=== PATIENT | female | born 1950 | race Caucasian/White ===

== ENCOUNTER → 2016-06-30 | Outpatient (CLI) | payer MEDICARE ==
--- NOTE | 2016-07-03 09:08 | MM ---
Reason for exam: screening (asymptomatic). Last mammogram was performed 1 year and 1 month ago. History: Patient is postmenopausal. Family history of breast cancer in sister at age 50 and breast cancer in maternal aunt at age 36. Stereotactic core biopsy of the right breast, 2010. Physical Findings: A clinical breast exam by your physician is recommended on an annual basis and results should be correlated with mammographic findings. MG 3D Screening Mammo W/Cad Bilateral CC and MLO view(s) were taken. Prior study comparison: June 10, 2015, mammogram, performed at [facility]. June 02, 2014, mammogram, performed at [facility]. The breast tissue is almost entirely fat. There is no discrete abnormality. No significant changes when compared with prior studies. ASSESSMENT: Negative, BI-RAD 1 RECOMMENDATION: Routine screening mammogram of both breasts in 1 year.
== END | disposition home or self-care (01) ==
LOC: RADMAMWWP 10:37
PROVIDERS: ATTEND Family Medicine
DX: Z12.31 Encounter for screening mammogram for malignant neoplasm of breast (principal)
CPT/HCPCS: 77063; G0202

== ENCOUNTER → 2017-07-12 | Outpatient (CLI) | payer MEDICARE ==
--- NOTE | 2017-07-13 12:09 | MM ---
Reason for exam: screening (asymptomatic). Last mammogram was performed 1 year ago. History: Patient is postmenopausal. Family history of breast cancer in sister at age 50 and breast cancer in maternal aunt at age 36. Stereotactic core biopsy of the right breast, 2010. Physical Findings: A clinical breast exam by your physician is recommended on an annual basis and results should be correlated with mammographic findings. MG 3D Screening Mammo W/Cad Bilateral CC and MLO view(s) were taken. Prior study comparison: June 30, 2016, bilateral MG 3d screening mammo w/cad. June 10, 2015, mammogram, performed at [facility]. There are scattered fibroglandular densities. Benign calcifications in the right breast. No suspicious abnormality. ASSESSMENT: Benign, BI-RAD 2 RECOMMENDATION: Routine screening mammogram of both breasts in 1 year.
== END | disposition home or self-care (01) ==
LOC: RADMAMWWP 08:16
PROVIDERS: ATTEND Family Medicine
DX: Z12.31 Encounter for screening mammogram for malignant neoplasm of breast (principal)
CPT/HCPCS: 77063; 77067

== ENCOUNTER → 2018-07-23 | Outpatient (CLI) | payer MEDICARE ==
--- NOTE | 2018-07-23 11:14 | MM ---
Reason for exam: screening (asymptomatic). Last mammogram was performed 1 year ago. History: Patient is postmenopausal. Family history of breast cancer in sister at age 50 and breast cancer in maternal aunt at age 36. Stereotactic core biopsy of the right breast, 2010. Physical Findings: A clinical breast exam by your physician is recommended on an annual basis and results should be correlated with mammographic findings. MG 3D Screening Mammo W/Cad Bilateral CC and MLO view(s) were taken. Prior study comparison: July 12, 2017, bilateral MG 3d screening mammo w/cad. June 30, 2016, bilateral MG 3d screening mammo w/cad. There are scattered fibroglandular densities. There are benign appearing round dystrophic calcifications bilaterally. There is chronic nodularity in the left breast. There is no discrete abnormality. ASSESSMENT: Benign, BI-RAD 2 RECOMMENDATION: Routine screening mammogram of both breasts in 1 year.
== END | disposition home or self-care (01) ==
LOC: RADMAMWWP 07:27
PROVIDERS: ATTEND Family Medicine
DX: Z12.31 Encounter for screening mammogram for malignant neoplasm of breast (principal)
CPT/HCPCS: 77063; 77067

== ENCOUNTER → 2019-08-07 | Outpatient (CLI) | payer MEDICARE ==
--- NOTE | 2019-08-07 12:08 | MM ---
Reason for exam: screening (asymptomatic). Last mammogram was performed 1 year ago. History: Patient is postmenopausal. Family history of breast cancer in sister at age 50 and breast cancer in maternal aunt at age 36. Stereotactic core biopsy of the right breast, 2010. Physical Findings: A clinical breast exam by your physician is recommended on an annual basis and results should be correlated with mammographic findings. MG 3D Screening Mammo W/Cad Bilateral CC and MLO view(s) were taken. Prior study comparison: July 23, 2018, bilateral MG 3d screening mammo w/cad. July 12, 2017, bilateral MG 3d screening mammo w/cad. There are scattered fibroglandular densities. Finding: There are typically benign dystrophic, round, grouped/clustered calcifications in the right breast. There is a chronic nodularity in the left breast. There is no discrete abnormality. ASSESSMENT: Benign, BI-RAD 2 RECOMMENDATION: Routine screening mammogram of both breasts in 1 year.
== END | disposition home or self-care (01) ==
LOC: RADMAMWWP 11:30
PROVIDERS: ATTEND Family Medicine
DX: Z12.31 Encounter for screening mammogram for malignant neoplasm of breast (principal)
CPT/HCPCS: 77063; 77067

== ENCOUNTER → 2020-11-02 | Outpatient (CLI) | payer MEDICARE ==
--- NOTE | 2020-11-04 09:29 | MM ---
Reason for exam: screening (asymptomatic). Last mammogram was performed 1 year and 3 months ago. History: Patient is postmenopausal. Family history of breast cancer in sister at age 50 and breast cancer in maternal aunt at age 36. Stereotactic core biopsy of the right breast, 2010. Physical Findings: A clinical breast exam by your physician is recommended on an annual basis and results should be correlated with mammographic findings. MG 3D Screening Mammo W/Cad Bilateral CC and MLO view(s) were taken. Prior study comparison: August 07, 2019, bilateral MG 3d screening mammo w/cad. July 23, 2018, bilateral MG 3d screening mammo w/cad. There are scattered fibroglandular densities. ASSESSMENT: Negative, BI-RAD 1 RECOMMENDATION: Routine screening mammogram of both breasts in 1 year.
== END | disposition home or self-care (01) ==
LOC: RADMAMWWP 09:27
PROVIDERS: ATTEND Family Medicine
DX: Z12.31 Encounter for screening mammogram for malignant neoplasm of breast (principal); Z78.0 Asymptomatic menopausal state; Z80.3 Family history of malignant neoplasm of breast
CPT/HCPCS: 77063; 77067

== ENCOUNTER → 2021-11-30 | Outpatient (CLI) | payer MEDICARE ==
--- NOTE | 2021-12-02 07:30 | MM ---
Reason for Exam: Screening (asymptomatic). Last mammogram was performed 1 year(s) and 1 month(s) ago. Patient History: Menarche at age 10. First Full-Term at age 16. Postmenopausal. 2010, Stereotactic Core Biopsy on the Right side. Maternal aunt had breast cancer, age 36. Sister had breast cancer, age 50. Risk Values: Arlen 5 year model risk: 3.9%. NCI Lifetime model risk: 9.3%. Prior Study Comparison: 07/23/2018 Bilateral Screening Mammogram, [facility]. 08/07/2019 Bilateral Screening Mammogram, [facility]. 11/02/2020 Bilateral Screening Mammogram, [facility]. Tissue Density: There are scattered fibroglandular densities. Findings: Analyzed By CAD. There is no suspicious group of microcalcifications or new suspicious mass in either breast. Chronic nodularity in the left breast. No significant change from prior exam. Overall Assessment: Benign, BI-RAD 2 Management: Screening Mammogram of both breasts in 1 year. A clinical breast exam by your physician is recommended on an annual basis and results should be correlated with mammographic findings. Electronically signed and approved by: Harris Reese D.O.
== END | disposition home or self-care (01) ==
LOC: RADMAMWWP 14:23
PROVIDERS: ATTEND Family Medicine
DX: Z12.31 Encounter for screening mammogram for malignant neoplasm of breast (principal); Z78.0 Asymptomatic menopausal state; Z80.3 Family history of malignant neoplasm of breast
CPT/HCPCS: 77063; 77067

== ENCOUNTER 2022-03-24 09:42 | Inpatient (IN) | payer MEDICARE ==
--- NOTE | 2022-03-24 10:00 | ED ---
Back Pain HPI - General Chief Complaint: Back Pain/Injury Stated Complaint: Back pain Time Seen by Provider: 03/24/22 10:00 Source: patient, RN notes reviewed Limitations: no limitations - History of Present Illness Initial Comments: Patient is a 71-year-old female presenting to the emergency room with her spouse with complaints of lower back pain ongoing for approximately 1 week with worsening of her symptoms. She reports that she was carrying some objects up some stairs prior to the event happening but denies falling or twisting awkwardly. She reports that since having the lower back pain she has had significant fatigue without any other symptoms. Her primary care provider did place her on Zithromax for her fatigue and tested her for Covid and influenza which were both negative. She denies any range of motion impairment not limited by pain, numbness tingling, weakness, saddle paresthesia, bowel or bladder incontinence or other red flag symptoms for cauda equina She does report some increase constipation since she has had her back pain. She has past medical and social history significant for hypertension, smoker and daily drinking. - Related Data Home Medications Medication Instructions Recorded Confirmed Acetaminophen Tab [Tylenol Tab] 1,000 mg PO Q6H PRN 03/24/22 03/24/22 Azithromycin [Zithromax Z Pack] See Taper PO DAILY 03/24/22 03/24/22 lisinopriL [Prinivil] 10 mg PO DAILY 03/24/22 03/24/22 Allergies Allergy/AdvReac Type Severity Reaction Status Date / Time No Known Allergies Allergy Verified 03/24/22 11:28 Review of Systems ROS Statement: Those systems with pertinent positive or pertinent negative responses have been documented in the HPI. ROS Other: All systems not noted in ROS Statement are negative. Past Medical History Past Medical History: Hypertension History of Any Multi-Drug Resistant Organisms: None Reported Past Surgical History: Joint Replacement Past Psychological History: No Psychological Hx Reported Smoking Status: Current every day smoker Past Alcohol Use History: Daily Past Drug Use History: None Reported General Exam Limitations: no limitations General appearance: alert, in no apparent distress Head exam: Present: atraumatic, normocephalic, normal inspection Eye exam: Present: normal appearance, PERRL, EOMI. Absent: scleral icterus, conjunctival injection, periorbital swelling ENT exam: Present: normal exam, mucous membranes moist Neck exam: Present: normal inspection, full ROM Respiratory exam: Present: wheezes (expiratory). Absent: respiratory distress, rales, accessory muscle use Cardiovascular Exam: Present: regular rate, tachycardia (mild tachycardia), normal heart sounds. Absent: systolic murmur, diastolic murmur, rubs, gallop, clicks GI/Abdominal exam: Present: soft, normal bowel sounds, other (rounded). Absent: distended, tenderness, guarding, rebound, rigid Rectal exam: Present: deferred Extremities exam: Present: normal inspection, full ROM. Absent: pedal edema, joint swelling Back exam: Present: normal inspection, tenderness. Absent: full ROM (limited by pain) Neurological exam: Present: alert, oriented X3, CN II-XII intact Psychiatric exam: Present: normal affect, normal mood Skin exam: Present: warm, dry, intact, normal color. Absent: rash Course Vital Signs 03/24/22 03/24/22 03/24/22 09:54 12:56 12:58 Temperature 98.1 F 98.8 F Pulse Rate 116 H 168 H Respiratory 22 28 H 32 H Rate Blood Pressure 157/96 O2 Sat by Pulse 97 98 Oximetry Fraction of Inspired Oxygen (FIO2) 03/24/22 03/24/22 03/24/22 13:08 13:15 13:30 Temperature 100.1 F H Pulse Rate 140 H 140 H Respiratory Rate Blood Pressure O2 Sat by Pulse Oximetry Fraction of 28 Inspired Oxygen (FIO2) - Reevaluation(s) Reevaluation #1: Results regarding x-ray discussed with patient and spouse. Spouse verbalizes concern regarding generalized malaise and hypersomnia and patient not being at her baseline health status. With the exception of the generalized malaise and fatigue with excessive sleeping she has no other specific complaints at this time. Back pain improved some with Toradol. Will check CBC CMP and urinalysis along with COVID and flu swabs to evaluate for underlying malaise. Will also give a dose of muscle relaxer to help with back pain. Time: 11:13 Reevaluation #2: Patient now with chills and tremor however afebrile. Increased wheeze noted. CBC reveals elevated WBC with high neutrophils. Still awaiting urinalysis Covid and flu swabs. Will obtain chest x-ray, lactic acid, blood cultures, venous gas and give IV fluid bolus. Will initiate cardiac monitoring. Time: 12:53 Medical Decision Making - Medical Decision Making 71-year-old female presenting with lower back pain without radiculopathy or myelopathy given age will check x-ray to rule out fracture. Will give Toradol for pain and monitor response. No indication for other laboratory studies at this time. X-ray negative for acute findings. Some improvement in back pain with Toradol. Will give dose of Norflex. See course regarding concerns of generalized malaise by spouse and patient. Will check CMP, CBC, Covid and flu swabs and along with urinalysis. As per course patient decompensated with tachypnea and tachycardia without hypoxemia patient given albuterol treatment and placed on BiPAP with improvement of tachycardia and workup improving. Low-grade temperature of 100.1 treated w ith 1 g of Tylenol. Blood cultures lactic acid and venous gas along with proBNP added to laboratory studies. Chest x-ray and EKG obtained. CBC reveals leukocytosis with elevated neutrophils. CMP shows slightly low sodium and bicarbonate levels otherwise stable. Lactic acid elevated at 5.4. Venous pH low at 7.21 with elevated CO2 and bicarbonate. Urinalysis reveals urinary tract infection. Chest x-ray image reviewed along with report showing right lower lobe consolidation consistent with developing pneumonia. Given development of symptoms and worsening on oral Zithromax will treat with Levaquin and Rocephin. ProBNP slightly elevated at 6480 will proceed with [address] Howard involved with care. Dr. Zuniga with [facility] hospitalist called and notified regarding patient's presentation workup and findings. He is accepting of admission to telemetry with continued antibiotic therapy as ordered above. Will place admission orders. Once again case discussed with Dr. Howard. - Lab Data Result diagrams: 03/24/22 11:55 03/24/22 11:55 Lab Results 03/24/22 03/24/22 03/24/22 Range/Units 11:55 11:55 11:55 WBC 23.3 H (3.8-10.6) k/uL RBC 3.68 L (3.80-5.40) m/uL Hgb 12.3 (11.4-16.0) gm/dL Hct 36.4 (34.0-46.0) % MCV 99.0 (80.0-100.0) fL MCH 33.6 (25.0-35.0) pg MCHC 33.9 (31.0-37.0) g/dL RDW 12.7 (11.5-15.5) % Plt Count 438 (150-450) k/uL MPV 8.2 Neutrophils % 94 % Lymphocytes % 2 % Monocytes % 3 % Eosinophils % 0 % Basophils % 0 % Neutrophils # 21.9 H (1.3-7.7) k/uL Lymphocytes # 0.5 L (1.0-4.8) k/uL Monocytes # 0.7 (0-1.0) k/uL Eosinophils # 0.1 (0-0.7) k/uL Basophils # 0.0 (0-0.2) k/uL VBG pH (7.31-7.41) VBG pCO2 (37-51) mmHg VBG HCO3 (24-28) mmol/L Sodium 131 L (137-145) mmol/L Potassium 4.4 (3.5-5.1) mmol/L Chloride 102 (98-107) mmol/L Carbon Dioxide 20 L (22-30) mmol/L Anion Gap 9 mmol/L BUN 24 H (7-17) mg/dL Creatinine 0.89 (0.52-1.04) mg/dL Est GFR (CKD-EPI)AfAm 74 (>60 ml/min/1.73 sqM) Est GFR (CKD-EPI)NonAf 65 (>60 ml/min/1.73 sqM) Glucose 93 (74-99) mg/dL Plasma Lactic Acid Helder (0.7-2.0) mmol/L Calcium 8.1 L (8.4-10.2) mg/dL Total Bilirubin 1.0 (0.2-1.3) mg/dL AST 28 (14-36) U/L ALT 30 (4-34) U/L Alkaline Phosphatase 96 (38-126) U/L Troponin I (0.000-0.034) ng/mL NT-Pro-B Natriuret Pep pg/mL Total Protein 5.5 L (6.3-8.2) g/dL Albumin 2.7 L (3.5-5.0) g/dL Urine Color Yellow Urine Appearance Cloudy H (Clear) Urine pH 5.5 (5.0-8.0) Ur Specific [place] 1.027 (1.001-1.035) Urine Protein 1+ H (Negative) Urine Glucose (UA) Negative (Negative) Urine Ketones 1+ H (Negative) Urine Blood Small H (Negative) Urine Nitrite Positive H (Negative) Urine Bilirubin Negative (Negative) Urine Urobilinogen 2.0 (<2.0) mg/dL Ur Leukocyte Esterase Small H (Negative) Urine RBC 2 (0-5) /hpf Urine WBC 30 H (0-5) /hpf Ur Squamous Epith Cells 3 (0-4) /hpf Urine Bacteria Many H (None) /hpf Urine Mucus Few H (None) /hpf Coronavirus (PCR) (Not Detectd) Influenza Type A RNA (Not Detectd) Influenza Type B (PCR) (Not Detectd) 03/24/22 03/24/22 03/24/22 Range/Units 11:55 11:55 11:55 WBC (3.8-10.6) k/uL RBC (3.80-5.40) m/uL Hgb (11.4-16.0) gm/dL Hct (34.0-46.0) % MCV (80.0-100.0) fL MCH (25.0-35.0) pg MCHC (31.0-37.0) g/dL RDW (11.5-15.5) % Plt Count (150-450) k/uL MPV Neutrophils % % Lymphocytes % % Monocytes % % Eosinophils % % Basophils % % Neutrophils # (1.3-7.7) k/uL Lymphocytes # (1.0-4.8) k/uL Monocytes # (0-1.0) k/uL Eosinophils # (0-0.7) k/uL Basophils # (0-0.2) k/uL VBG pH (7.31-7.41) VBG pCO2 (37-51) mmHg VBG HCO3 (24-28) mmol/L Sodium (137-145) mmol/L Potassium (3.5-5.1) mmol/L Chloride (98-107) mmol/L Carbon Dioxide (22-30) mmol/L Anion Gap mmol/L BUN (7-17) mg/dL Creatinine (0.52-1.04) mg/dL Est GFR (CKD-EPI)AfAm (>60 ml/min/1.73 sqM) Est GFR (CKD-EPI)NonAf (>60 ml/min/1.73 sqM) Glucose (74-99) mg/dL Plasma Lactic Acid Helder (0.7-2.0) mmol/L Calcium (8.4-10.2) mg/dL Total Bilirubin (0.2-1.3) mg/dL AST (14-36) U/L ALT (4-34) U/L Alkaline Phosphatase (38-126) U/L Troponin I (0.000-0.034) ng/mL NT-Pro-B Natriuret Pep 4240 pg/mL Total Protein (6.3-8.2) g/dL Albumin (3.5-5.0) g/dL Urine Color Urine Appearance (Clear) Urine pH (5.0-8.0) Ur Specific [place] (1.001-1.035) Urine Protein (Negative) Urine Glucose (UA) (Negative) Urine Ketones (Negative) Urine Blood (Negative) Urine Nitrite (Negative) Urine Bilirubin (Negative) Urine Urobilinogen (<2.0) mg/dL Ur Leukocyte Esterase (Negative) Urine RBC (0-5) /hpf Urine WBC (0-5) /hpf Ur Squamous Epith Cells (0-4) /hpf Urine Bacteria (None) /hpf Urine Mucus (None) /hpf Coronavirus (PCR) Not Detected (Not Detectd) Influenza Type A RNA Not Detected (Not Detectd) Influenza Type B (PCR) Not Detected (Not Detectd) 03/24/22 03/24/22 03/24/22 Range/Units 11:55 12:59 12:59 WBC (3.8-10.6) k/uL RBC (3.80-5.40) m/uL Hgb (11.4-16.0) gm/dL Hct (34.0-46.0) % MCV (80.0-100.0) fL MCH (25.0-35.0) pg MCHC (31.0-37.0) g/dL RDW (11.5-15.5) % Plt Count (150-450) k/uL MPV Neutrophils % % Lymphocytes % % Monocytes % % Eosinophils % % Basophils % % Neutrophils # (1.3-7.7) k/uL Lymphocytes # (1.0-4.8) k/uL Monocytes # (0-1.0) k/uL Eosinophils # (0-0.7) k/uL Basophils # (0-0.2) k/uL VBG pH 7.21 L (7.31-7.41) VBG pCO2 54 H (37-51) mmHg VBG HCO3 21 L (24-28) mmol/L Sodium (137-145) mmol/L Potassium (3.5-5.1) mmol/L Chloride (98-107) mmol/L Carbon Dioxide (22-30) mmol/L Anion Gap mmol/L BUN (7-17) mg/dL Creatinine (0.52-1.04) mg/dL Est GFR (CKD-EPI)AfAm (>60 ml/min/1.73 sqM) Est GFR (CKD-EPI)NonAf (>60 ml/min/1.73 sqM) Glucose (74-99) mg/dL Plasma Lactic Acid Helder 5.3 H* (0.7-2.0) mmol/L Calcium (8.4-10.2) mg/dL Total Bilirubin (0.2-1.3) mg/dL AST (14-36) U/L ALT (4-34) U/L Alkaline Phosphatase (38-126) U/L Troponin I <0.012 (0.000-0.034) ng/mL NT-Pro-B Natriuret Pep pg/mL Total Protein (6.3-8.2) g/dL Albumin (3.5-5.0) g/dL Urine Color Urine Appearance (Clear) Urine pH (5.0-8.0) Ur Specific [place] (1.001-1.035) Urine Protein (Negative) Urine Glucose (UA) (Negative) Urine Ketones (Negative) Urine Blood (Negative) Urine Nitrite (Negative) Urine Bilirubin (Negative) Urine Urobilinogen (<2.0) mg/dL Ur Leukocyte Esterase (Negative) Urine RBC (0-5) /hpf Urine WBC (0-5) /hpf Ur Squamous Epith Cells (0-4) /hpf Urine Bacteria (None) /hpf Urine Mucus (None) /hpf Coronavirus (PCR) (Not Detectd) Influenza Type A RNA (Not Detectd) Influenza Type B (PCR) (Not Detectd) - EKG Data -: EKG Interpreted by Me EKG Comments: EKG shows sinus tachycardia with short IA interval possible anterior OK with indeterminate age, ventricular rate 133 bpm, IA interval 115 ms, QRS duration 91 ms QT/QTC 291/369 ms IA T axes 44,-8, 42 When compared to previous EKG there are: previous EKG unavailable - Radiology Data Radiology results: report reviewed, image reviewed X-ray lumbosacral spine shows no acute fracture and mild multi-level disc degeneration. One view chest x-ray shows patchy density to right lower lobe reflective of u nderlying infiltrate correlate for developing infiltrate of the right lower lobe. Disposition Clinical Impression: Pneumonia, UTI (urinary tract infection), Sepsis Disposition: ADMITTED IP TO THIS HOSP Condition: Serious Is patient prescribed a controlled substance at d/c from ED?: No Referrals: Dora Radford MD [Primary Care Provider] - 1-2 days Time of Disposition: 14:34
[2022-03-24] MEDS ORDERED: KETOROLAC 15 MG/ML 1 ML VIAL IM STA (10:09)
--- NOTE | 2022-03-24 11:01 | XR ---
EXAMINATION TYPE: XR lumbosacral spine min 4V DATE OF EXAM: 03/24/2022 10:47 AM INDICATION: Patient age:Female; 71 years old; Reason for study: pain; COMPARISON: None TECHNIQUE: Frontal, lateral , bilateral oblique and coned in L5-S1 lateral views of the spine. FINDINGS: No evidence of any acute osseous pathology. No evidence of loss of vertebral body height i s seen. There is normal alignment of the lumbar vertebral bodies. Mild scattered disc space narrowing . Multilevel marginal osteophyte formation throughout the visualized spine. There is facet joint arth ropathy throughout the spine. Scattered at least mild neural foraminal stenosis. Atherosclerosis of t he arterial vasculature. Partial visualization of fixation screw noted. IMPRESSION: 1. No acute fracture. 2. Mild multilevel disc degeneration.
[2022-03-24] MEDS ORDERED: ORPHENADRINE 30 MG/ML 2 ML VIAL IM STA (11:14)
[2022-03-24 12:20] LABS: Basophils % (A) 0 %; Eosinophils # (A) 0.1 k/uL (0-0.7); Eosinophils % (A) 0 %; HCT 36.4 % (34.0-46.0); HGB 12.3 gm/dL (11.4-16.0); Lymphocytes # (A) 0.5 k/uL (1.0-4.8); Lymphocytes % (A) 2 %; MCH 33.6 pg (25.0-35.0); MCHC 33.9 g/dL (31.0-37.0); Mean Platelet Volume 8.2; Monocytes # (A) 0.7 k/uL (0-1.0); Monocytes % (A) 3 %; Neutrophils # (A) 21.9 k/uL (1.3-7.7); Neutrophils % (A) 94 %; Platelet Count 438 k/uL (150-450); RBC 3.68 m/uL (3.80-5.40); RDW 12.7 % (11.5-15.5); WBC 23.3 k/uL (3.8-10.6)
[2022-03-24 12:30] LABS: Albumin 2.7 g/dL (3.5-5.0); Calcium 8.1 mg/dL (8.4-10.2); Potassium 4.4 mmol/L (3.5-5.1); Total Protein 5.5 g/dL (6.3-8.2)
[2022-03-24] MEDS ORDERED: SODIUM CHLORIDE 0.9% 1,000 ML IV STA (12:51)
[2022-03-24] MEDS ORDERED: IPRATROPIUM-ALBUTEROL 3 ML NEB INHALATION STA (12:51)
[2022-03-24] MEDS ORDERED: ACETAMINOPHEN TAB 500 MG TAB PO STA (13:08)
[2022-03-24 13:25] LABS: Appearance,Urine Cloudy (Clear); Bacteria,Urine Many /hpf; Bilirubin,Urine Negative (Negative); Blood,Urine Small (Negative); Color,Urine Yellow; Glucose,Urine (UA) Negative (Negative); Ketones,Urine 1+ (Negative); Leukocyte Esterase,Urine Small (Negative); Mucus,Urine Few /hpf; Nitrite,Urine Positive (Negative); PH, Urine 5.5 (5.0-8.0); Protein,Urine 1+ (Negative); RBC,Urine 2 /hpf (0-5); Specific Gravity,Urine 1.027 (1.001-1.035); Squamous Epithelial Cell,Urine 3 /hpf (0-4); WBC,Urine 30 /hpf (0-5)
[2022-03-24 13:37] LABS: VBG PH 7.21 (7.31-7.41)
--- NOTE | 2022-03-24 13:57 | XR ---
EXAMINATION TYPE: XR chest 1V DATE OF EXAM: 03/24/2022 HISTORY: Shortness of breath. COMPARISON: None. TECHNIQUE: Single view of the chest is submitted. FINDINGS: Demonstrated are scattered senescent parenchymal change. Patchy density right lower lobe may reflect underlying infiltrate. Correlate clinically and progress studies are advised. The heart is stable. Hilar and mediastinal structures are within normal limits. Degenerative changes are seen of the dorsal spine. IMPRESSION: 1. Correlate for developing infiltrate right lower lobe.
[2022-03-24] MEDS ORDERED: LEVOFLOXACIN 500MG-D5W PMX 500 MG in DEXTROSE/WATER 1 100ML.BAG IVPB STA (14:14)
[2022-03-24] MEDS ORDERED: NALOXONE 0.4 MG/ML 1 ML VIAL IV PRN (14:35)
[2022-03-24] MEDS: ACETAMINOPHEN TAB 325 MG TAB PO PRN (18:02)
[2022-03-24 20:37] LABS: Glucose,Whole Blood 75 mg/dL (70-110)
[2022-03-24] MEDS ORDERED: DEXAMETHASONE SOD PHOSPHATE 10 MG/ML 1 ML VIAL IVP STA (20:37)
[2022-03-24] MEDS ORDERED: IPRATROPIUM-ALBUTEROL 3 ML NEB ONE (20:38)
[2022-03-24] MEDS ORDERED: ALBUTEROL NEB (CONC) 2.5 MG/0.5 ML INHALATION ONE (20:38)
[2022-03-24] MEDS ORDERED: IPRATROPIUM-ALBUTEROL 3 ML NEB INHALATION PRN (20:51)
[2022-03-24] MEDS ORDERED: IOPAMIDOL CONTRAST (ORAL USE) VIAL PO PRN (20:52)
--- NOTE | 2022-03-24 21:04 | XR ---
EXAMINATION TYPE: XR chest 1V portable DATE OF EXAM: 03/24/2022 8:54 PM COMPARISON: Chest radiographs from 03/24/2022 earlier TECHNIQUE: XR chest 1V portable Portable AP radiograph of the chest. CLINICAL INDICATION:Female, 71 years old with history of sob, increased RR; FINDINGS: Lungs/Pleura: Right lower airspace opacities more conspicuous on this film. No evidence of pneumothor ax or pleural effusion. Pulmonary vascularity: Unremarkable. Heart/mediastinum: Cardiomediastinal silhouette is enlarged. Musculoskeletal: No acute osseous pathology. IMPRESSION: 1. Bilateral airspace opacities more conspicuous on this examination correlate for pneumonia. 2. Cardiomegaly
--- NOTE | 2022-03-24 21:15 | P.HPIM ---
History of Present Illness H&P Date: 03/24/22 Chief Complaint: Lower back pain Patient is a 71-year-old female with a known history of hypertension presents to ER with complaints of lower back pain and has been worsening for the past 1 week. Patient states that she was carrying some objects up stairs prior to the event happening but denies any fall on standing her mother's. Since that time patient has been having lower back pain and generalized fatigue. Patient was seen by her primary care physician and was started on azithromycin and also tested for COVID influenza which were both negative. Patient almost finished course of antibiotics with Z-Lamin. Denied any lower extremity weakness. No bladder or bowel incontinence. No numbness or tingling in the legs. Patient has been having increased constipation otherwise. Denied any complaints of fever. No cough or sputum production. No nausea vomiting or abdominal pain or diarrhea. Denied leg swelling. While in the hospital patient had lumbar spine x-ray showed no acute fracture. Multilevel disc degeneration. Patient was given a dose of Norflex and Toradol. While in the hospital patient became hypotensive and tachycardic and tachypneic and decompensated. Patient was given albuterol breathing treatment and was placed on BiPAP with improvement in her symptoms. Patient was tachycardic and T-max of 100.1 and tachypneic with respiratory 28. Pulse ox 98% on room air. Patient was given a dose of Levaquin and ceftriaxone also given stress dose ster oid. Chest x-ray showed right lower lobe consolidation correlate for developing pneumonia. Blood cultures and urine cultures were sent. Laboratory data showed WBC 23.3 hemoglobin 12.3 and platelets 438 and neutrophils 21.9 ABG showed pH 7.1 PCO2 54 and bicarb is 21 Sodium 131 potassium 4.4 chloride 102 bicarb is 20 BUN 24 and creatinine 0.89 and lactic acid was 5.3 Calcium 8.1 troponin less than 0.012 proBNP 4240 and albumin 2.7 Urinalysis showed cloudy with 1+ protein 1+ ketones nitrite positive and small leukocyte esterase with elevated WBCs. Coronavirus PCR and influenza a and B PCR not detected. Review of Systems Constitutional: Patient denies any fever or chills . Patient does have generalized weakness. Abdomen: Patient denied any nausea or vomiting or abd. pain Cardiovascular: Patient denies any chest pain or short of breath no palpitations. Respiratory: patient denied any cough . no sputum production. No shortness of breath Neurologic: Patient denied any numbness or tingling headache. Musculoskeletal: Patient denies any complaints of joint swelling or deformity. Lower back pain. Skin: Negative Psychiatric: Negative Endocrine: No heat or cold intolerance. No recent weight gain. Genitourinary: No dysuria or hematuria. All other 14 point ROS negative except the above Past Medical History Past Medical History: Hypertension History of Any Multi-Drug Resistant Organisms: None Reported Past Surgical History: Joint Replacement Past Psychological History: No Psychological Hx Reported Smoking Status: Current every day smoker Past Alcohol Use History: Daily Past Drug Use History: None Reported Medications and Allergies Home Medications Medication Instructions Recorded Confirmed Type Acetaminophen Tab [Tylenol Tab] 1,000 mg PO Q6H PRN 03/24/22 03/24/22 History Azithromycin [Zithromax Z Pack] See Taper PO DAILY 03/24/22 03/24/22 History lisinopriL [Prinivil] 10 mg PO DAILY 03/24/22 03/24/22 History Allergies Allergy/AdvReac Type Severity Reaction Status Date / Time No Known Allergies Allergy Verified 03/24/22 11:28 Physical Exam Vitals: Vital Signs Temp Pulse Pulse Resp BP BP Pulse Ox 03/24/22 20:41 170 H 03/24/22 19:44 98.7 F 120 H 20 113/79 100 03/24/22 18:00 92 18 116/72 100 03/24/22 15:16 03/24/22 15:05 109 H 18 108/73 98 03/24/22 14:18 149 H 18 119/80 98 03/24/22 13:30 140 H 03/24/22 13:15 140 H 03/24/22 13:08 100.1 F H 03/24/22 12:58 32 H 03/24/22 12:56 98.8 F 168 H 28 H 98 03/24/22 09:54 98.1 F 116 H 22 157/96 97 FiO2 03/24/22 20:41 03/24/22 19:44 03/24/22 18:00 03/24/22 15:16 28 03/24/22 15:05 03/24/22 14:18 03/24/22 13:30 03/24/22 13:15 28 03/24/22 13:08 03/24/22 12:58 03/24/22 12:56 03/24/22 09:54 Intake and Output 03/24/22 03/24/22 03/24/22 06:59 14:59 22:59 Output Total 200 Balance -200 Output: Stool 200 Other: Weight 72.575 kg PHYSICAL EXAMINATION: Patient is lying in the bed comfortably, no acute distress, awake alert and oriented.. HEENT: Normocephalic. Neck is supple. Pupils reactive. Nostrils clear. Oral cavity is moist. Neck reveals no JVD, carotid bruits, or thyromegaly. CHEST EXAMINATION: Trachea is central. Symmetrical expansion. Bibasilar diminished sounds. No wheezing. No crackles.. CARDIAC: Normal S1, S2 with no gallops. No murmurs ABDOMEN: Soft. Bowel sounds present. Nontender. No organomegaly. No abdominal bruits. Extremities: reveal no edema. No clubbing or cyanosis Neurologically awake, alert, oriented x3 with well-coordinated movements. No focal deficits noted Skin: No rash or skin lesions. Psychiatric: Coperative. Nonsuicidal, Musculoskeletal: No joint swelling or deformity. Normal range of motion. Results CBC & Chem 7: 03/24/22 11:55 03/24/22 11:55 Labs: Abnormal Lab Results - Last 24 Hours (Table) 03/24/22 03/24/22 03/24/22 Range/Units 11:55 11:55 11:55 WBC 23.3 H (3.8-10.6) k/uL RBC 3.68 L (3.80-5.40) m/uL Neutrophils # 21.9 H (1.3-7.7) k/uL Lymphocytes # 0.5 L (1.0-4.8) k/uL VBG pH (7.31-7.41) VBG pCO2 (37-51) mmHg VBG HCO3 (24-28) mmol/L Sodium 131 L (137-145) mmol/L Carbon Dioxide 20 L (22-30) mmol/L BUN 24 H (7-17) mg/dL Plasma Lactic Acid Helder (0.7-2.0) mmol/L Calcium 8.1 L (8.4-10.2) mg/dL Total Protein 5.5 L (6.3-8.2) g/dL Albumin 2.7 L (3.5-5.0) g/dL Urine Appearance Cloudy H (Clear) Urine Protein 1+ H (Negative) Urine Ketones 1+ H (Negative) Urine Blood Small H (Negative) Urine Nitrite Positive H (Negative) Ur Leukocyte Esterase Small H (Negative) Urine WBC 30 H (0-5) /hpf Urine Bacteria Many H (None) /hpf Urine Mucus Few H (None) /hpf 03/24/22 03/24/22 Range/Units 12:59 12:59 WBC (3.8-10.6) k/uL RBC (3.80-5.40) m/uL Neutrophils # (1.3-7.7) k/uL Lymphocytes # (1.0-4.8) k/uL VBG pH 7.21 L (7.31-7.41) VBG pCO2 54 H (37-51) mmHg VBG HCO3 21 L (24-28) mmol/L Sodium (137-145) mmol/L Carbon Dioxide (22-30) mmol/L BUN (7-17) mg/dL Plasma Lactic Acid Helder 5.3 H* (0.7-2.0) mmol/L Calcium (8.4-10.2) mg/dL Total Protein (6.3-8.2) g/dL Albumin (3.5-5.0) g/dL Urine Appearance (Clear) Urine Protein (Negative) Urine Ketones (Negative) Urine Blood (Negative) Urine Nitrite (Negative) Ur Leukocyte Esterase (Negative) Urine WBC (0-5) /hpf Urine Bacteria (None) /hpf Urine Mucus (None) /hpf Thrombosis Risk Factor Assmnt - DVT/VTE Prophylaxis DVT/VTE Prophylaxis: Pharmacologic Prophylaxis ordered Assessment and Plan Assessment: Sepsis secondary to urinary tract infection Acute urinary tract infection possible pyelonephritis Possible right lower lobe developing pneumonia Lower back pain on admission Elevated BNP. Without other evidence of CHF. Hypertension Ongoing nicotine addiction No prior history of COPD diagnosis DVT prophylax with heparin subcu Plan: Patient was given IV fluid bolus in the ER. Continue with antibiotics ceftriaxone 2 g every 24 hours. Received Levaquin and ceftriaxone in the ER. Follow blood cultures and urine culture report. CT of the abdomen pelvis was ordered. Patient was placed on BiPAP in the ER and will titrate down to oxygen via nasal cannula. Continue pain management with [facility]. 2D echocardiogram due to elevated BNP level. ID will be consulted. Prognosis is guarded at this time. Time with Patient: Greater than 30
[2022-03-24 21:23] LABS: ABG Base Excess -7.8 mmol/L; ABG HCO3 18 mmol/L (21-25); ABG PCO2 30 mmHg (35-45); ABG PH 7.37 (7.35-7.45); ABG PO2 223 mmHg (83-108); ABG TCO2 18 mmol/L (19-24); Allen Test Performed? Yes
[2022-03-24] MEDS ORDERED: SODIUM CHLORIDE 0.9% 1,000 ML IV ONE (21:32)
--- NOTE | 2022-03-24 22:44 | CT ---
EXAMINATION TYPE: CT abdomen pelvis w con DATE OF EXAM: 03/24/2022 COMPARISON: None HISTORY: Abdomen pain CT DLP: 1816.9 mGycm Automated exposure control for dose reduction was used. CONTRAST: Performed with IV Contrast, patient injected with 100cc mL of Isovue 370. Images obtained from the diaphragm to the floor the pelvis with the IV contrast. Lung bases show no pulmonary consolidation. Heart is slightly enlarged. No pericardial effusion. Ther e is hiatal hernia. Stomach has normal size. Liver and spleen are intact. No pancreatic mass. The bile ducts are not dilated. There is no adrenal mass. Left kidney shows significant hydronephrosi s. Left ureter is not significantly dilated. Urinary bladder distends smoothly. There is metal artifa ct from right hip prosthesis that obscures the pelvis. No pelvic mass. There is some gas-distended loops of large bowel in the mid abdomen. Small bowel is not dilated. Uter us is apparently retroverted. Right kidney shows normal size and contour. No right-sided hydronephros is. Appendix not seen. No sign of thickened appendix. There is no mesenteric edema. No ascites. No si gn of free air. The lumbar vertebra appear intact. No compression fracture. There is degenerative hypertrophic spurri ng anteriorly in the mid and lower lumbar spine. The bony pelvis is intact. Proximal left femur and h ip joint are intact. Sacroiliac joints are intact. IMPRESSION: There is moderate left-sided hydronephrosis. Obstructing lesion not seen. This could relate to a uret eropelvic junction obstruction. No significant left renal atrophy. Distended gas-filled large bowel that could be large bowel mild ileus. I do not suspect a mechanical bowel obstruction.
--- NOTE | 2022-03-24 22:48 | CT ---
EXAMINATION TYPE: CT angio chest DATE OF EXAM: 03/24/2022 COMPARISON: None HISTORY: Rule Out PE CT DLP: 1816.9 mGycm Automated exposure control for dose reduction was used. CONTRAST: Performed with IV Contrast, patient injected with 100cc mL of Isovue 370. Images obtained from the thoracic inlet to the diaphragm with the IV contrast. There are Three-D post processed images. Heart is enlarged. No pericardial effusion. There is no mediastinal adenopathy. There are no hilar ma sses. Thoracic aorta is intact. No aneurysm or dissection. There is normal contrast opacification of the pulmonary arteries. No filling defect In the thoracic spine is intact. No compression fracture. Sternum is intact. No evidence of rib fract ure. No evidence of focal bone destruction. There is some spurring in the thoracic spine. IMPRESSION: No evidence of pulmonary embolism. Cardiomegaly. Upper abdominal Limited evaluation shows evidence of left-sided hydronephrosis which is not well eval uated.
[2022-03-24] MEDS: SODIUM CHLORIDE 0.9% 1,000 ML IV SCH (23:39)
[2022-03-24] MEDS: HEPARIN SODIUM,PORCINE/PF 5,000 UNIT/0.5 ML SYRINGE SQ SCH (23:40)
[2022-03-25] MEDS ORDERED: SODIUM CHLORIDE 0.9% 500 ML 500 ML IV ONE (00:26)
[2022-03-25] MEDS ORDERED: LACTULOSE 20 GM/30 ML CUP PO ONE (00:26)
[2022-03-25 00:36] LABS: Basophils % (A) 0 %; Eosinophils % (A) 0 %; HCT 35.1 % (34.0-46.0); HGB 11.3 gm/dL (11.4-16.0); Lymphocytes # (A) 0.2 k/uL (1.0-4.8); Lymphocytes % (A) 1 %; MCHC 32.3 g/dL (31.0-37.0); MCV 102.2 fL (80.0-100.0); Macrocytosis Slight; Mean Platelet Volume 8.8; Monocytes # (A) 0.5 k/uL (0-1.0); Monocytes % (A) 2 %; Neutrophils # (A) 23.6 k/uL (1.3-7.7); Neutrophils % (A) 97 %; Platelet Count 332 k/uL (150-450); RBC 3.44 m/uL (3.80-5.40); RDW 13.2 % (11.5-15.5); WBC 24.5 k/uL (3.8-10.6)
--- NOTE | 2022-03-25 09:40 | P.GSCN ---
History of Present Illness Consult date: 03/25/22 History of present illness: 71-year-old female who was admitted the hospital with back pain. She is found to have possible pneumonia in the right lung as well as a urinary tract infection. She apparently had what was thought to be a viral illness several days ago and was placed on antibiotics. Her pain got bad enough that she came to the emergency room. She had a computed tomography scan of the abdomen that showed some mild hydronephrosis on the left without stone. There may be a congenital UPJ obstruction. She has no urologic history other than a urine infe ctionseveral months ago.there is no previous urologic evaluation. Review of Systems All systems: negative - Constitutional Denies fever, Denies weight loss - EENT Eyes: denies blurred vision Ears, nose, mouth and throat: Denies dysphagia - Cardiovascular Denies chest pain, Denies shortness of breath - Respiratory Denies cough, Denies 7 - Gastrointestinal Reports as per HPI - Genitourinary Genitourinary: Denies dysuria, Denies hematuria - Integumentary Denies rash, Denies unusual bruising - Neurological Denies headaches, Denies syncope - Hematologic/Lymphatic Denies easy bleeding, Denies easy bruising Past Medical History Past Medical History: Hypertension History of Any Multi-Drug Resistant Organisms: None Reported Past Surgical History: Joint Replacement Past Anesthesia/Blood Transfusion Reactions: No Reported Reaction Past Psychological History: No Psychological Hx Reported Smoking Status: Current every day smoker Past Alcohol Use History: Daily Past Drug Use History: None Reported Medications and Allergies Home Medications Medication Instructions Recorded Confirmed Type Acetaminophen Tab [Tylenol Tab] 1,000 mg PO Q6H PRN 03/24/22 03/24/22 History Azithromycin [Zithromax Z Pack] See Taper PO DAILY 03/24/22 03/24/22 History lisinopriL [Prinivil] 10 mg PO DAILY 03/24/22 03/24/22 History Allergies Allergy/AdvReac Type Severity Reaction Status Date / Time No Known Allergies Allergy Verified 03/24/22 11:28 Surgical - Exam Vital Signs Temp Pulse Resp BP Pulse Ox 98.1 F 116 H 22 157/96 97 03/24/22 09:54 03/24/22 09:54 03/24/22 09:54 03/24/22 09:54 03/24/22 09:54 - General well developed, well nourished, no distress - Eyes PERRL - ENT no hearing loss - Neck trachea midline - Respiratory normal expansion, normal respiratory effort - Cardiovascular Rhythm: regular - Abdomen gaseous distention consistent with ileus - Integumentary no rash - Neurologic normal coordination - Musculoskeletal normal posture - Psychiatric oriented to time, oriented to person, oriented to place, speech is normal, memory intact Results - Labs 03/24/22 23:04 03/24/22 11:55 Abnormal Lab Results - Last 24 Hours (Table) 03/24/22 03/24/22 03/24/22 Range/Units 11:55 11:55 11:55 WBC 23.3 H (3.8-10.6) k/uL RBC 3.68 L (3.80-5.40) m/uL Hgb (11.4-16.0) gm/dL MCV (80.0-100.0) fL Neutrophils # 21.9 H (1.3-7.7) k/uL Lymphocytes # 0.5 L (1.0-4.8) k/uL D-Dimer (<0.60) mg/L FEU ABG pCO2 (35-45) mmHg ABG pO2 (83-108) mmHg ABG HCO3 (21-25) mmol/L ABG Total CO2 (19-24) mmol/L ABG O2 Saturation (94-97) % VBG pH (7.31-7.41) VBG pCO2 (37-51) mmHg VBG HCO3 (24-28) mmol/L Sodium 131 L (137-145) mmol/L Carbon Dioxide 20 L (22-30) mmol/L BUN 24 H (7-17) mg/dL Plasma Lactic Acid Helder (0.7-2.0) mmol/L Calcium 8.1 L (8.4-10.2) mg/dL Total Protein 5.5 L (6.3-8.2) g/dL Albumin 2.7 L (3.5-5.0) g/dL Urine Appearance Cloudy H (Clear) Urine Protein 1+ H (Negative) Urine Ketones 1+ H (Negative) Urine Blood Small H (Negative) Urine Nitrite Positive H (Negative) Ur Leukocyte Esterase Small H (Negative) Urine WBC 30 H (0-5) /hpf Urine Bacteria Many H (None) /hpf Urine Mucus Few H (None) /hpf 03/24/22 03/24/22 03/24/22 Range/Units 12:59 12:59 20:58 WBC (3.8-10.6) k/uL RBC (3.80-5.40) m/uL Hgb (11.4-16.0) gm/dL MCV (80.0-100.0) fL Neutrophils # (1.3-7.7) k/uL Lymphocytes # (1.0-4.8) k/uL D-Dimer 4.19 H (<0.60) mg/L FEU ABG pCO2 (35-45) mmHg ABG pO2 (83-108) mmHg ABG HCO3 (21-25) mmol/L ABG Total CO2 (19-24) mmol/L ABG O2 Saturation (94-97) % VBG pH 7.21 L (7.31-7.41) VBG pCO2 54 H (37-51) mmHg VBG HCO3 21 L (24-28) mmol/L Sodium (137-145) mmol/L Carbon Dioxide (22-30) mmol/L BUN (7-17) mg/dL Plasma Lactic Acid Helder 5.3 H* (0.7-2.0) mmol/L Calcium (8.4-10.2) mg/dL Total Protein (6.3-8.2) g/dL Albumin (3.5-5.0) g/dL Urine Appearance (Clear) Urine Protein (Negative) Urine Ketones (Negative) Urine Blood (Negative) Urine Nitrite (Negative) Ur Leukocyte Esterase (Negative) Urine WBC (0-5) /hpf Urine Bacteria (None) /hpf Urine Mucus (None) /hpf 03/24/22 03/24/22 Range/Units 21:20 23:04 WBC 24.5 H (3.8-10.6) k/uL RBC 3.44 L (3.80-5.40) m/uL Hgb 11.3 L (11.4-16.0) gm/dL MCV 102.2 H (80.0-100.0) fL Neutrophils # 23.6 H (1.3-7.7) k/uL Lymphocytes # 0.2 L (1.0-4.8) k/uL D-Dimer (<0.60) mg/L FEU ABG pCO2 30 L (35-45) mmHg ABG pO2 223 H (83-108) mmHg ABG HCO3 18 L (21-25) mmol/L ABG Total CO2 18 L (19-24) mmol/L ABG O2 Saturation 100.0 H (94-97) % VBG pH (7.31-7.41) VBG pCO2 (37-51) mmHg VBG HCO3 (24-28) mmol/L Sodium (137-145) mmol/L Carbon Dioxide (22-30) mmol/L BUN (7-17) mg/dL Plasma Lactic Acid Helder (0.7-2.0) mmol/L Calcium (8.4-10.2) mg/dL Total Protein (6.3-8.2) g/dL Albumin (3.5-5.0) g/dL Urine Appearance (Clear) Urine Protein (Negative) Urine Ketones (Negative) Urine Blood (Negative) Urine Nitrite (Negative) Ur Leukocyte Esterase (Negative) Urine WBC (0-5) /hpf Urine Bacteria (None) /hpf Urine Mucus (None) /hpf Microbiology - Last 24 Hours (Table) 03/24/22 11:55 Urine Culture - Preliminary Urine,Voided Diabetes panel 03/24/22 Range/Units 11:55 Sodium 131 L (137-145) mmol/L Potassium 4.4 (3.5-5.1) mmol/L Chloride 102 (98-107) mmol/L Carbon Dioxide 20 L (22-30) mmol/L BUN 24 H (7-17) mg/dL Creatinine 0.89 (0.52-1.04) mg/dL Glucose 93 (74-99) mg/dL Calcium 8.1 L (8.4-10.2) mg/dL AST 28 (14-36) U/L ALT 30 (4-34) U/L Alkaline Phosphatase 96 (38-126) U/L Total Protein 5.5 L (6.3-8.2) g/dL Albumin 2.7 L (3.5-5.0) g/dL Calcium panel 03/24/22 Range/Units 11:55 Calcium 8.1 L (8.4-10.2) mg/dL Albumin 2.7 L (3.5-5.0) g/dL Pituitary panel 03/24/22 Range/Units 11:55 Sodium 131 L (137-145) mmol/L Potassium 4.4 (3.5-5.1) mmol/L Chloride 102 (98-107) mmol/L Carbon Dioxide 20 L (22-30) mmol/L BUN 24 H (7-17) mg/dL Creatinine 0.89 (0.52-1.04) mg/dL Glucose 93 (74-99) mg/dL Calcium 8.1 L (8.4-10.2) mg/dL Adrenal panel 03/24/22 Range/Units 11:55 Sodium 131 L (137-145) mmol/L Potassium 4.4 (3.5-5.1) mmol/L Chloride 102 (98-107) mmol/L Carbon Dioxide 20 L (22-30) mmol/L BUN 24 H (7-17) mg/dL Creatinine 0.89 (0.52-1.04) mg/dL Glucose 93 (74-99) mg/dL Calcium 8.1 L (8.4-10.2) mg/dL Total Bilirubin 1.0 (0.2-1.3) mg/dL AST 28 (14-36) U/L ALT 30 (4-34) U/L Alkaline Phosphatase 96 (38-126) U/L Total Protein 5.5 L (6.3-8.2) g/dL Albumin 2.7 L (3.5-5.0) g/dL - Imaging CT scan - abdomen: report reviewed CT scan - pelvis: report reviewed Assessment and Plan Assessment: impression: Urinary tract infection. Mild hydronephrosis left, probable congenital possible pneumonia Recommendations: The cultures obtained may be of limited value given that she was antibiotics before she came in the hospital. I agree with broad-spectrum antibiotics. Whether the left hydronephrosis will need to be addressed in the future is yet to be determined. We will follow.
[2022-03-25] MEDS: HEPARIN SODIUM,PORCINE/PF 5,000 UNIT/0.5 ML SYRINGE SQ SCH ×2 (09:51→16:41)
[2022-03-25] MEDS: SODIUM CHLORIDE 0.9% 1,000 ML IV SCH ×2 (09:51→14:34)
--- NOTE | 2022-03-25 12:27 | P.GSCN ---
History of Present Illness Consult date: 03/25/22 Reason for Consult: Abdominal pain History of present illness: 71-year-old female presents to the ER yesterday complaining of lower back pain f or the last week. The patient says because of that pain she was less active. No good bowel movements for the last 6 days. She has been passing flatus. She feels bloated. Some nausea. No rectal bleeding or melena. Patient states she has a urinary infection. She underwent CT abdomen and pelvis which shows distended small and large bowel loops consistent with ileus. No definite obstruction or volvulus seen. Patient stated she felt like she may be impacted. CAT scan does not show an impaction. The patient has significant left-sided hydronephrosis. Review of Systems The patient denies any acute changes in vision or hearing, no dysphagia or odynophagia, no chest pain or shortness of breath, no hematuria, no headache, no runny nose, no rectal bleeding or melena, no unexplained weight loss Past Medical History Past Medical History: Hypertension History of Any Multi-Drug Resistant Organisms: None Reported Past Surgical History: Joint Replacement Past Anesthesia/Blood Transfusion Reactions: No Reported Reaction Past Psychological History: No Psychological Hx Reported Smoking Status: Current every day smoker Past Alcohol Use History: Daily Past Drug Use History: None Reported Medications and Allergies Home Medications Medication Instructions Recorded Confirmed Type Acetaminophen Tab [Tylenol Tab] 1,000 mg PO Q6H PRN 03/24/22 03/24/22 History Azithromycin [Zithromax Z Pack] See Taper PO DAILY 03/24/22 03/24/22 History lisinopriL [Prinivil] 10 mg PO DAILY 03/24/22 03/24/22 History Allergies Allergy/AdvReac Type Severity Reaction Status Date / Time No Known Allergies Allergy Verified 03/24/22 11:28 Surgical - Exam Vital Signs Temp Pulse Resp BP Pulse Ox 98.1 F 116 H 22 157/96 97 03/24/22 09:54 03/24/22 09:54 03/24/22 09:54 03/24/22 09:54 03/24/22 09:54 Physical exam: General: Well-developed, well-nourished HEENT: Normocephalic, sclerae nonicteric Abdomen: Mild distention, mild diffuse tenderness Extremities: No edema Neuro: Alert and oriented Rectal: Digital rectal examination reveals large volume of air in the rectal vault, no solid stool, air is evacuated, no palpable mass Results - Labs 03/24/22 23:04 03/24/22 11:55 Abnormal Lab Results - Last 24 Hours (Table) 03/24/22 03/24/22 03/24/22 Range/Units 11:55 11:55 11:55 WBC 23.3 H (3.8-10.6) k/uL RBC 3.68 L (3.80-5.40) m/uL Hgb (11.4-16.0) gm/dL MCV (80.0-100.0) fL Neutrophils # 21.9 H (1.3-7.7) k/uL Lymphocytes # 0.5 L (1.0-4.8) k/uL D-Dimer (<0.60) mg/L FEU ABG pCO2 (35-45) mmHg ABG pO2 (83-108) mmHg ABG HCO3 (21-25) mmol/L ABG Total CO2 (19-24) mmol/L ABG O2 Saturation (94-97) % VBG pH (7.31-7.41) VBG pCO2 (37-51) mmHg VBG HCO3 (24-28) mmol/L Sodium 131 L (137-145) mmol/L Carbon Dioxide 20 L (22-30) mmol/L BUN 24 H (7-17) mg/dL Plasma Lactic Acid Helder (0.7-2.0) mmol/L Calcium 8.1 L (8.4-10.2) mg/dL Total Protein 5.5 L (6.3-8.2) g/dL Albumin 2.7 L (3.5-5.0) g/dL Urine Appearance Cloudy H (Clear) Urine Protein 1+ H (Negative) Urine Ketones 1+ H (Negative) Urine Blood Small H (Negative) Urine Nitrite Positive H (Negative) Ur Leukocyte Esterase Small H (Negative) Urine WBC 30 H (0-5) /hpf Urine Bacteria Many H (None) /hpf Urine Mucus Few H (None) /hpf 03/24/22 03/24/22 03/24/22 Range/Units 12:59 12:59 20:58 WBC (3.8-10.6) k/uL RBC (3.80-5.40) m/uL Hgb (11.4-16.0) gm/dL MCV (80.0-100.0) fL Neutrophils # (1.3-7.7) k/uL Lymphocytes # (1.0-4.8) k/uL D-Dimer 4.19 H (<0.60) mg/L FEU ABG pCO2 (35-45) mmHg ABG pO2 (83-108) mmHg ABG HCO3 (21-25) mmol/L ABG Total CO2 (19-24) mmol/L ABG O2 Saturation (94-97) % VBG pH 7.21 L (7.31-7.41) VBG pCO2 54 H (37-51) mmHg VBG HCO3 21 L (24-28) mmol/L Sodium (137-145) mmol/L Carbon Dioxide (22-30) mmol/L BUN (7-17) mg/dL Plasma Lactic Acid Helder 5.3 H* (0.7-2.0) mmol/L Calcium (8.4-10.2) mg/dL Total Protein (6.3-8.2) g/dL Albumin (3.5-5.0) g/dL Urine Appearance (Clear) Urine Protein (Negative) Urine Ketones (Negative) Urine Blood (Negative) Urine Nitrite (Negative) Ur Leukocyte Esterase (Negative) Urine WBC (0-5) /hpf Urine Bacteria (None) /hpf Urine Mucus (None) /hpf 03/24/22 03/24/22 Range/Units 21:20 23:04 WBC 24.5 H (3.8-10.6) k/uL RBC 3.44 L (3.80-5.40) m/uL Hgb 11.3 L (11.4-16.0) gm/dL MCV 102.2 H (80.0-100.0) fL Neutrophils # 23.6 H (1.3-7.7) k/uL Lymphocytes # 0.2 L (1.0-4.8) k/uL D-Dimer (<0.60) mg/L FEU ABG pCO2 30 L (35-45) mmHg ABG pO2 223 H (83-108) mmHg ABG HCO3 18 L (21-25) mmol/L ABG Total CO2 18 L (19-24) mmol/L ABG O2 Saturation 100.0 H (94-97) % VBG pH (7.31-7.41) VBG pCO2 (37-51) mmHg VBG HCO3 (24-28) mmol/L Sodium (137-145) mmol/L Carbon Dioxide (22-30) mmol/L BUN (7-17) mg/dL Plasma Lactic Acid Helder (0.7-2.0) mmol/L Calcium (8.4-10.2) mg/dL Total Protein (6.3-8.2) g/dL Albumin (3.5-5.0) g/dL Urine Appearance (Clear) Urine Protein (Negative) Urine Ketones (Negative) Urine Blood (Negative) Urine Nitrite (Negative) Ur Leukocyte Esterase (Negative) Urine WBC (0-5) /hpf Urine Bacteria (None) /hpf Urine Mucus (None) /hpf Microbiology - Last 24 Hours (Table) 03/24/22 11:55 Urine Culture - Preliminary Urine,Voided Diabetes panel 03/24/22 Range/Units 11:55 Sodium 131 L (137-145) mmol/L Potassium 4.4 (3.5-5.1) mmol/L Chloride 102 (98-107) mmol/L Carbon Dioxide 20 L (22-30) mmol/L BUN 24 H (7-17) mg/dL Creatinine 0.89 (0.52-1.04) mg/dL Glucose 93 (74-99) mg/dL Calcium 8.1 L (8.4-10.2) mg/dL AST 28 (14-36) U/L ALT 30 (4-34) U/L Alkaline Phosphatase 96 (38-126) U/L Total Protein 5.5 L (6.3-8.2) g/dL Albumin 2.7 L (3.5-5.0) g/dL Calcium panel 03/24/22 Range/Units 11:55 Calcium 8.1 L (8.4-10.2) mg/dL Albumin 2.7 L (3.5-5.0) g/dL Pituitary panel 03/24/22 Range/Units 11:55 Sodium 131 L (137-145) mmol/L Potassium 4.4 (3.5-5.1) mmol/L Chloride 102 (98-107) mmol/L Carbon Dioxide 20 L (22-30) mmol/L BUN 24 H (7-17) mg/dL Creatinine 0.89 (0.52-1.04) mg/dL Glucose 93 (74-99) mg/dL Calcium 8.1 L (8.4-10.2) mg/dL Adrenal panel 03/24/22 Range/Units 11:55 Sodium 131 L (137-145) mmol/L Potassium 4.4 (3.5-5.1) mmol/L Chloride 102 (98-107) mmol/L Carbon Dioxide 20 L (22-30) mmol/L BUN 24 H (7-17) mg/dL Creatinine 0.89 (0.52-1.04) mg/dL Glucose 93 (74-99) mg/dL Calcium 8.1 L (8.4-10.2) mg/dL Total Bilirubin 1.0 (0.2-1.3) mg/dL AST 28 (14-36) U/L ALT 30 (4-34) U/L Alkaline Phosphatase 96 (38-126) U/L Total Protein 5.5 L (6.3-8.2) g/dL Albumin 2.7 L (3.5-5.0) g/dL Assessment and Plan (1) Ileus Narrative/Plan: 71-year-old female male with suspected ileus related to urinary process. Continue antibiotics for suspected urinary infection. Daily Dulcolax suppositories. Begin oral stool softeners. We'll follow. Current Visit: Yes Status: Acute Code(s): K56.7 - ILEUS, UNSPECIFIED SNOMED Code(s): 375340688
--- NOTE | 2022-03-25 13:57 | P.CRDCN ---
History of Present Illness Consult date: 03/25/22 History of present illness: History of Present Illness: The patient is a 71-year-old female with a history of hypertension, chronic tobacco use who presented with symptoms of progressive fatigue, back discomfort and shaking. Her symptoms started about a week ago but with getting worse with worsening energy. She was noted to have sinus tachycardia, tachypnea and fever on presentation. Cardiology consultation was requested because of elevation of her NT proBNP. The patient follows on a regular basis with Dr. Xie regarding her cardiac status and no history of CHF, CAD or arrhythmia were documented according to her. She had a syncopal episode 6 years ago without any recurrence. She is usually active physically, she has occasional wheezing and cough. She has a history of COPD. She denies any recent PND or orthopnea. She denies any peripheral edema. She denies any chest discomfort. On the monitor she is in sinus mechanism. As part for workup she was found to have possible right lung pneumonia as well as mild hydronephrosis. Her coronary risk factors are positive for hypertension and smoking, she is a nondiabetic. Medications: Lisinopril 10 mg daily and was started recently on the steroids pack as well as a Z-Lamin. Review of Systems: Respiratory: She has wheezing cough and chronic tobacco use GI: No nausea or vomiting, she recently underwent colonoscopy that revealed polyps and hemorrhoids : No hematuria or dysuria. Nervous System: No stroke or seizure. Physical Examination: 71-year-old female, alert and oriented and severe back discomfort ,Blood pressure 104/70, Heart rate 80 Head: Normocephalic. Eyes: Sclerae nonicteric. Neck: Good carotid upstroke, no bruit, no jugular venous distention. Lungs: Decreased breath sounds bilaterally with scattered wheezes Heart: Regular rate and rhythm, S1-S2, no S3, no rub. Systolic ejection murmur. Abdomen: Soft nontender, positive bowel sounds no organomegaly. Extremities: No edema, intact distal pulses. Labs: Blood cell 24.5, hemoglobin 11.3. BUN 24, creatinine 0.89. NT proBNP 4240. Chest x-ray was possible right lower lobe infiltrate. Computed tomography scan of the chest Shows no pulmonary embolism, computed tomography scan of the abdomen revealed moderate left-sided hydronephrosis. EKG: Sinus tachycardia with occasional PVCs and nonspecific ST-T wave changes Impression: 1. Generalized fatigue, sinus tachycardia and fever, possible pneumonia. 2. Rule out UTI 3. Elevated NT proBNP with no clear evidence of fluid overload could be a response to the infectious process. No documentation of heart failure or impaired systolic function in the past 4. Acute back discomfort 5. Chronic tobacco use and chronic obstructive lung disease 6. History of hypertension Plan: 1. Obtain an echocardiogram with Doppler 2. Antibiotics treatment as indicated 3. Continue telemetry 4. Depending on her progress further recommendations will be made 5. Thank you for this consult we will follow with you Past Medical History Past Medical History: Hypertension History of Any Multi-Drug Resistant Organisms: None Reported Past Surgical History: Joint Replacement Past Anesthesia/Blood Transfusion Reactions: No Reported Reaction Past Psychological History: No Psychological Hx Reported Smoking Status: Current every day smoker Past Alcohol Use History: Daily Past Drug Use History: None Reported Medications and Allergies Home Medications Medication Instructions Recorded Confirmed Type Acetaminophen Tab [Tylenol Tab] 1,000 mg PO Q6H PRN 03/24/22 03/24/22 History Azithromycin [Zithromax Z Pack] See Taper PO DAILY 03/24/22 03/24/22 History lisinopriL [Prinivil] 10 mg PO DAILY 03/24/22 03/24/22 History Allergies Allergy/AdvReac Type Severity Reaction Status Date / Time No Known Allergies Allergy Verified 03/24/22 11:28 Physical Exam Vitals: Vital Signs Temp Pulse Pulse Resp BP BP Pulse Ox 03/25/22 12:59 97.9 F 87 18 104/77 99 03/25/22 11:26 99 03/25/22 09:41 98.2 F 96 16 105/66 99 03/25/22 08:30 135 H 03/25/22 08:20 126 H 03/25/22 00:31 03/25/22 00:28 98.7 F 109 H 24 93/63 98 03/24/22 22:10 100.1 F H 120 H 26 H 121/69 98 03/24/22 21:26 03/24/22 21:00 100.1 F H 130 H 34 H 96/61 98 03/24/22 20:57 145 H 03/24/22 20:54 03/24/22 20:41 170 H 03/24/22 20:33 168 H 40 H 166/96 96 03/24/22 20:00 120 H 22 03/24/22 19:44 98.7 F 120 H 20 113/79 100 03/24/22 18:00 92 18 116/72 100 03/24/22 15:16 03/24/22 15:05 109 H 18 108/73 98 03/24/22 14:18 149 H 18 119/80 98 FiO2 03/25/22 12:59 03/25/22 11:26 03/25/22 09:41 03/25/22 08:30 03/25/22 08:20 25 03/25/22 00:31 25 03/25/22 00:28 25 03/24/22 22:10 25 03/24/22 21:26 25 03/24/22 21:00 50 03/24/22 20:57 03/24/22 20:54 50 03/24/22 20:41 03/24/22 20:33 03/24/22 20:00 03/24/22 19:44 03/24/22 18:00 03/24/22 15:16 28 03/24/22 15:05 03/24/22 14:18 Intake and Output 03/24/22 03/25/22 03/25/22 22:59 06:59 14:59 Output Total 200 Balance -200 Output: Stool 200 Other: Voiding Method Bedside Commode Weight 72.575 kg Results 03/24/22 23:04 03/24/22 11:55 Cardiac Enzymes 03/24/22 Range/Units 11:55 Troponin I <0.012 (0.000-0.034) ng/mL CBC 03/24/22 Range/Units 23:04 WBC 24.5 H (3.8-10.6) k/uL RBC 3.44 L (3.80-5.40) m/uL Hgb 11.3 L (11.4-16.0) gm/dL Hct 35.1 (34.0-46.0) % Plt Count 332 (150-450) k/uL Current Medications Generic Name Dose Route Start Last Admin Trade Name Freq PRN Reason Stop Dose Admin Acetaminophen 650 mg 03/24/22 14:35 03/24/22 18:02 Acetaminophen Tab 325 Mg Tab PO 650 mg Q6HR PRN Administration Mild Pain or Fever > 100.5 Hydrocodone Bitart/Acetaminophen 1 each 03/24/22 17:57 Hydrocodone/Apap 5-325mg 1 Each Tab PO Q6HR PRN MODERATE TO SEVERE Pain Albuterol/Ipratropium 3 ml 03/24/22 20:51 03/25/22 08:20 Ipratropium-Albuterol 3 Ml Neb INHALATION 3 ml RT-QID PRN Administration Shortness Of Breath Or Wheezing Bisacodyl 10 mg 03/25/22 12:30 Bisacodyl 10 Mg Supp RECTAL DAILY ANGELES Heparin Sodium (Porcine) 5,000 unit 03/25/22 00:00 03/25/22 09:51 Heparin Sodium,Porcine/Pf 5,000 Unit/0.5 Ml Syringe SQ 5,000 unit Q8HR ANGELES Administration Sodium Chloride 1,000 mls @ 50 mls/hr 03/25/22 11:00 Saline 0.9% IV .Q20H ANGELES Cefepime HCl 2 gm/ Sodium 100 mls @ 25 mls/hr 03/25/22 16:00 Chloride IVPB Q8HR ANGELES Protocol Iopamidol 30 ml 03/24/22 20:52 Iopamidol Contrast (Oral Use) Vial PO 03/25/22 20:[address] Scan Lactulose 30 gm 03/25/22 12:30 Lactulose 20 Gm/30 Ml Cup PO BID ANGELES Naloxone HCl 0.2 mg 03/24/22 14:35 Naloxone 0.4 Mg/Ml 1 Ml Vial IV Q2M PRN Opioid Reversal Intake and Output 03/24/22 03/25/22 03/25/22 22:59 06:59 14:59 Output Total 200 Balance -200 Output: Stool 200 Other: Voiding Method Bedside Commode Weight 72.575 kg 03/24/22 23:04 03/24/22 11:55
[2022-03-25] MEDS: LACTULOSE 20 GM/30 ML CUP PO SCH ×2 (14:32→20:58)
[2022-03-25] MEDS: ACETAMINOPHEN TAB 325 MG TAB PO PRN (14:32)
[2022-03-25] MEDS: bisacodyL 10 MG SUPP RECTAL SCH (14:33)
--- NOTE | 2022-03-25 14:53 | CA ---
Transthoracic Echo Report Name: Samina Quevedo Age: 71 Gender: F : 1950 Exam Date: 03/25/2022 10:27 Exam Location: [facility] Ht (in): 64 Wt (lb): 160 Ordering Physician: Tyler Zuniga MD Attending/Referring Phys: Environmental Engineering Assistant Radha Carmona RDCS Procedure CPT: Indications: chf Cardiac Hx: Technical Quality: Contrast 1: Total Dose (mL): Contrast 2: Total Dose (mL): MEASUREMENTS (Male / Female) Normal Values 2D ECHO LV Diastolic Diameter PLAX 5.4 cm 4.2 - 5.9 / 3.9 - 5.3 cm LV Systolic Diameter PLAX 4.1 cm IVS Diastolic Thickness 1.1 cm 0.6 - 1.0 / 0.6 - 0.9 cm LVPW Diastolic Thickness 1.2 cm 0.6 - 1.0 / 0.6 - 0.9 cm LV Relative Wall Thickness 0.4 RV Internal Dim ED PLAX 3.0 cm LA Systolic Diameter LX 4.2 cm 3.0 - 4.0 / 2.7 - 3.8 cm LV Diastolic Volume MOD BP 100.0 cm??? 67 - 155 / 56 - 104 cm??? LV Systolic Volume MOD BP 68.8 cm??? 22 - 58 / 19 - 49 cm??? LV Ejection Fraction MOD BP 31.2 % >= 55 % LV Diastolic Volume MOD 4C 101.8 cm??? LV Systolic Volume MOD 4C 74.9 cm??? LV Ejection Fraction MOD 4C 26.4 % LV Diastolic Length 4C 8.1 cm LV Systolic Length 4C 7.7 cm LV Diastolic Volume MOD 2C 92.8 cm??? LV Systolic Volume MOD 2C 61.1 cm??? LV Ejection Fraction MOD 2C 34.1 % LV Diastolic Length 2C 7.6 cm LV Systolic Length 2C 8.1 cm LA Volume 69.7 cm??? 18 - 58 / 22 - 52 cm??? M-MODE Aortic Root Diameter MM 3.5 cm MV E Point Septal Separation 1.1 cm AV Cusp Separation MM 2.1 cm DOPPLER AV Peak Velocity 150.9 cm/s AV Peak Gradient 9.1 mmHg MV Area PHT 3.9 cm??? Mitral E Point Velocity 72.9 cm/s Mitral A Point Velocity 94.0 cm/s Mitral E to A Ratio 0.8 MV Deceleration Time 194.8 ms MV E' Velocity 7.8 cm/s Mitral E to MV E' Ratio 9.3 TR Peak Velocity 259.0 cm/s TR Peak Gradient 26.8 mmHg Right Ventricular Systolic Press 41.8 mmHg FINDINGS Left Ventricle Left ventricular ejection fraction is estimated at 30-35 %. Severely decreased left ventricular ejection fraction. Anteroapical and anteroseptal severe hypokinesis. Mild LVH. Right Ventricle Normal right ventricular size and function. Mild pulmonary hypertension. Right Atrium Normal right atrial size. Left Atrium Mildly increased left atrial diameter. Moderately increased left atrial volume. Mildly increased left atrial area. No evidence for an atrial septal defect. Mitral Valve Structurally normal mitral valve. No mitral stenosis. No evidence for mitral valve prolapse. Mild to moderate mitral regurgitation. Mitral anulus calcification Aortic Valve Trileaflet aortic valve. No aortic stenosis. Mild aortic regurgitation. Aortic sclerosis with no evidence of stenosis Tricuspid Valve Structurally normal tricuspid valve. Mild to moderate tricuspid regurgitation. Pulmonic Valve Pulmonic valve not well visualized. Pericardium No pericardial effusion. Aorta Normal size aortic root and proximal ascending aorta. CONCLUSIONS 1. Normal left ventricle size with severely impaired systolic function with segmental wall motion abnormality 2. Mild to moderate mitral and tricuspid regurgitation 3. Mild pulmonary hypertension Previewed by: Dr. Tony Norton MD (Electronically Signed) Final Date: 25 March 2022 14:52
--- NOTE | 2022-03-25 15:39 | P.PN ---
Progress Note - Text Progress Note Date: 03/25/22 I was able to review the ct scan. 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 We will follow to see if the antibiotics alone will adequately treat the uti.
[2022-03-25 15:54] LABS: Calcium 7.5 mg/dL (8.4-10.2); Potassium 4.2 mmol/L (3.5-5.1)
[2022-03-25 15:57] LABS: Basophils % (A) 0 %; Eosinophils % (A) 0 %; HCT 32.4 % (34.0-46.0); HGB 10.6 gm/dL (11.4-16.0); Hypochromasia Slight; Lymphocytes # (A) 0.5 k/uL (1.0-4.8); Lymphocytes % (A) 1 %; MCH 33.6 pg (25.0-35.0); MCHC 32.8 g/dL (31.0-37.0); MCV 102.3 fL (80.0-100.0); Macrocytosis Slight; Mean Platelet Volume 8.6; Monocytes # (A) 1.1 k/uL (0-1.0); Monocytes % (A) 2 %; Neutrophils # (A) 47.8 k/uL (1.3-7.7); Neutrophils % (A) 96 %; Platelet Count 325 k/uL (150-450); RBC 3.16 m/uL (3.80-5.40); RDW 12.9 % (11.5-15.5); WBC 49.6 k/uL (3.8-10.6)
[2022-03-25 16:06] LABS: Albumin 2.4 g/dL (3.5-5.0); Total Bilirubin 0.6 mg/dL (0.2-1.3); Total Protein 4.9 g/dL (6.3-8.2)
[2022-03-25] MEDS: ASPIRIN 81 MG PO SCH (16:41)
[2022-03-25] MEDS: CEFEPIME 2 GM in SODIUM CHLORIDE 0.9% 100 ML IVPB SCH (16:41)
[2022-03-26] MEDS: CEFEPIME 2 GM in SODIUM CHLORIDE 0.9% 100 ML IVPB SCH ×2
[2022-03-26] MEDS: ACETAMINOPHEN TAB 325 MG TAB PO PRN ×3 (06:09→20:54)
[2022-03-26] MEDS: SODIUM CHLORIDE 0.9% 1,000 ML IV SCH (07:37)
--- NOTE | 2022-03-26 08:11 | XR ---
EXAMINATION TYPE: XR abdomen 2V DATE OF EXAM: 03/26/2022 7:22 AM INDICATION: Patient age:Female; 71 years old; Reason for study: Ileus; COMPARISON: None. TECHNIQUE: Two views of the abdomen were obtained. FINDINGS: Dilated gas-filled loops of bowel are seen throughout the abdomen. The osseous structures a re intact. No abnormal calcifications are present. Fecal material and gas are demonstrated throughou t the colon and rectum. Right hip arthroplasty with hardware in appropriate position. Heterotrophic ossification around the right hip. There is degeneration changes of the left hip with osteophyte form ation. IMPRESSION: Gaseous distention of bowel throughout the abdomen no evidence of obstruction.
[2022-03-26 08:33] LABS: Calcium 8.3 mg/dL (8.4-10.2); Potassium 3.9 mmol/L (3.5-5.1)
[2022-03-26] MEDS: HEPARIN SODIUM,PORCINE/PF 5,000 UNIT/0.5 ML SYRINGE SQ SCH ×3 (08:48→17:07)
[2022-03-26] MEDS: LACTULOSE 20 GM/30 ML CUP PO SCH ×2 (08:48→20:49)
[2022-03-26] MEDS: bisacodyL 10 MG SUPP RECTAL SCH (08:48)
[2022-03-26] MEDS: ASPIRIN 81 MG PO SCH (08:48)
[2022-03-26 09:05] LABS: Basophils % (A) 0 %; Eosinophils % (A) 0 %; HCT 38.4 % (34.0-46.0); HGB 12.5 gm/dL (11.4-16.0); Hypochromasia Slight; Lymphocytes % (A) 2 %; MCH 33.4 pg (25.0-35.0); MCHC 32.6 g/dL (31.0-37.0); MCV 102.5 fL (80.0-100.0); Macrocytosis Slight; Mean Platelet Volume 9.4; Monocytes # (A) 0.7 k/uL (0-1.0); Monocytes % (A) 2 %; Neutrophils # (A) 40.2 k/uL (1.3-7.7); Neutrophils % (A) 95 %; Platelet Count 318 k/uL (150-450); RBC 3.75 m/uL (3.80-5.40); RDW 13.7 % (11.5-15.5); WBC 42.3 k/uL (3.8-10.6)
[2022-03-26 09:13] LABS: LDL Cholesterol,Calculated 53.2 mg/dL (0.0-131.0)
--- NOTE | 2022-03-26 09:16 | P.CONS ---
History of Present Illness - Reason for Consult Consult date: 03/25/22 - History of Present Illness Patient is a 71-year-old female presented to the ER for evaluation of lower back pain has been going on for about a week patient thought she may have pulled up her muscle is having the pain to be more of a sharp in nature intensity is almost 7-8 out of 10 and no radiation patient on presentation to the hospital was afebrile subsequent spike a fever of 100.1 F patient did have white count of 23,000 which is up to 49,000 today did have elevated D-dimer (has been mildly elevated AST mildly elevated did have elevated procalcitonin patient did have a positive UA influenza and COVID testing were negative blood cultures coming positive with gram-negative bacilli that has prompted this infectious disease consultation patient did have a chest x-ray developing right lower lobe infiltrate patient did have a CT of abdominal pelvis distended gas-filled large bowel that could relate mild ileus do not suspect mechanical obstruction moderate left-sided hydronephrosis obstructing lesion not seen patient did have a CT angiogram of the chest no evidence of PE and did not mention any con solidation patient was started on Rocephin infectious disease was consulted because of positive blood culture Past Medical History Past Medical History: Hypertension History of Any Multi-Drug Resistant Organisms: None Reported Past Surgical History: Joint Replacement Past Anesthesia/Blood Transfusion Reactions: No Reported Reaction Past Psychological History: No Psychological Hx Reported Smoking Status: Current every day smoker Past Alcohol Use History: Daily Past Drug Use History: None Reported Medications and Allergies Home Medications Medication Instructions Recorded Confirmed Type Acetaminophen Tab [Tylenol Tab] 1,000 mg PO Q6H PRN 03/24/22 03/24/22 History Azithromycin [Zithromax Z Pack] See Taper PO DAILY 03/24/22 03/24/22 History lisinopriL [Prinivil] 10 mg PO DAILY 03/24/22 03/24/22 History Allergies Allergy/AdvReac Type Severity Reaction Status Date / Time No Known Allergies Allergy Verified 03/24/22 11:28 Physical Exam Vitals: Vital Signs Temp Pulse Resp BP Pulse Ox 03/26/22 04:00 98.4 F 85 18 122/63 100 03/26/22 02:00 80 18 03/26/22 00:16 99 03/26/22 00:00 98.6 F 80 18 111/51 99 03/25/22 20:00 98.7 F 91 18 127/71 99 03/25/22 16:51 98.3 F 03/25/22 16:43 96 20 111/69 99 03/25/22 12:59 97.9 F 87 18 104/77 99 03/25/22 11:26 99 Intake and Output 03/25/22 03/26/22 03/26/22 23:59 06:59 14:59 Output Total Balance Output: Urine/Stool Mix Other: Voiding Method # Voids # Bowel Movements Results CBC & Chem 7: 03/26/22 07:24 03/26/22 07:24 Labs: Abnormal Lab Results - Last 24 Hours (Table) 03/24/22 03/25/22 03/25/22 Range/Units 23:10 09:50 09:50 WBC 49.6 H (3.8-10.6) k/uL RBC 3.16 L (3.80-5.40) m/uL Hgb 10.6 L (11.4-16.0) gm/dL Hct 32.4 L (34.0-46.0) % MCV 102.3 H (80.0-100.0) fL Neutrophils # 47.8 H (1.3-7.7) k/uL Lymphocytes # 0.5 L (1.0-4.8) k/uL Monocytes # 1.1 H (0-1.0) k/uL Sodium 135 L (137-145) mmol/L Chloride (98-107) mmol/L Carbon Dioxide 16 L (22-30) mmol/L BUN 30 H (7-17) mg/dL Creatinine 1.19 H (0.52-1.04) mg/dL Glucose 69 L (74-99) mg/dL Calcium 7.5 L (8.4-10.2) mg/dL AST 42 H (14-36) U/L Total Protein 4.9 L (6.3-8.2) g/dL Albumin 2.4 L (3.5-5.0) g/dL HDL Cholesterol (40.00-60.00) mg/dL Procalcitonin 17.60 H (0.02-0.09) ng/mL 03/25/22 03/26/22 03/26/22 Range/Units 09:50 07:24 07:24 WBC 42.3 H (3.8-10.6) k/uL RBC 3.75 L (3.80-5.40) m/uL Hgb (11.4-16.0) gm/dL Hct (34.0-46.0) % MCV 102.5 H (80.0-100.0) fL Neutrophils # 40.2 H (1.3-7.7) k/uL Lymphocytes # (1.0-4.8) k/uL Monocytes # (0-1.0) k/uL Sodium (137-145) mmol/L Chloride 110 H (98-107) mmol/L Carbon Dioxide 18 L (22-30) mmol/L BUN 38 H (7-17) mg/dL Creatinine (0.52-1.04) mg/dL Glucose (74-99) mg/dL Calcium 8.3 L (8.4-10.2) mg/dL AST (14-36) U/L Total Protein (6.3-8.2) g/dL Albumin (3.5-5.0) g/dL HDL Cholesterol 19.20 L (40.00-60.00) mg/dL Procalcitonin (0.02-0.09) ng/mL Microbiology - Last 24 Hours (Table) 03/24/22 12:59 Blood Culture Gram Stain - Preliminary Blood Blood Culture - Preliminary Escherichia coli 03/24/22 11:55 Urine Culture - Preliminary Urine,Voided Gram Neg Bacilli 03/24/22 12:59 Blood Culture - Final Blood 03/24/22 12:59 Blood Culture - Final Blood Assessment and Plan Plan: 1patient with gram-negative bacteremia source is likely urinary in this patient with suspected left-sided hydronephrosis but no evidence of any obstructive stone was seen on the CT urology seen the patient thinking 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 2we will discontinue Zosyn and start the patient on cefepime while waiting for ID of this pathogen. 3gentle IV fluid. We will follow on clinical condition and cultures to further adjust medication if needed Thank you for this consultation will follow this patient along with you Time with Patient: Greater than 30
--- NOTE | 2022-03-26 09:46 | P.PN ---
Subjective Progress Note Date: 03/26/22 Principal diagnosis: Ileus Patient said she had 3 moderate sized liquid stools since yesterday. States she is also passing flatus. Says her abdomen feels less bloated. Still mild soreness but improved. White blood cell count significantly elevated. Blood culture showing E. coli. Objective - Vital Signs Vital signs: Vital Signs Temp 98.4 F 03/26/22 04:00 Pulse 85 03/26/22 04:00 Resp 18 03/26/22 04:00 BP 122/63 03/26/22 04:00 Pulse Ox 100 03/26/22 04:00 FiO2 25 03/25/22 08:20 Intake & Output 03/25/22 03/26/22 03/26/22 19:59 06:59 18:59 Output Total Balance Output: Urine/Stool Mix Other: Voiding Method # Voids # Bowel Movements - Exam Abdomen: Soft, mild distention, mild diffuse tenderness, no rebound or guarding - Labs CBC & Chem 7: 03/26/22 07:24 03/26/22 07:24 Labs: Abnormal Lab Results - Last 24 Hours (Table) 03/24/22 03/25/22 03/25/22 Range/Units 23:10 09:50 09:50 WBC 49.6 H (3.8-10.6) k/uL RBC 3.16 L (3.80-5.40) m/uL Hgb 10.6 L (11.4-16.0) gm/dL Hct 32.4 L (34.0-46.0) % MCV 102.3 H (80.0-100.0) fL Neutrophils # 47.8 H (1.3-7.7) k/uL Lymphocytes # 0.5 L (1.0-4.8) k/uL Monocytes # 1.1 H (0-1.0) k/uL Sodium 135 L (137-145) mmol/L Chloride (98-107) mmol/L Carbon Dioxide 16 L (22-30) mmol/L BUN 30 H (7-17) mg/dL Creatinine 1.19 H (0.52-1.04) mg/dL Glucose 69 L (74-99) mg/dL Calcium 7.5 L (8.4-10.2) mg/dL AST 42 H (14-36) U/L Total Protein 4.9 L (6.3-8.2) g/dL Albumin 2.4 L (3.5-5.0) g/dL HDL Cholesterol (40.00-60.00) mg/dL Procalcitonin 17.60 H (0.02-0.09) ng/mL 03/25/22 03/26/22 03/26/22 Range/Units 09:50 07:24 07:24 WBC 42.3 H (3.8-10.6) k/uL RBC 3.75 L (3.80-5.40) m/uL Hgb (11.4-16.0) gm/dL Hct (34.0-46.0) % MCV 102.5 H (80.0-100.0) fL Neutrophils # 40.2 H (1.3-7.7) k/uL Lymphocytes # (1.0-4.8) k/uL Monocytes # (0-1.0) k/uL Sodium (137-145) mmol/L Chloride 110 H (98-107) mmol/L Carbon Dioxide 18 L (22-30) mmol/L BUN 38 H (7-17) mg/dL Creatinine (0.52-1.04) mg/dL Glucose (74-99) mg/dL Calcium 8.3 L (8.4-10.2) mg/dL AST (14-36) U/L Total Protein (6.3-8.2) g/dL Albumin (3.5-5.0) g/dL HDL Cholesterol 19.20 L (40.00-60.00) mg/dL Procalcitonin (0.02-0.09) ng/mL Microbiology - Last 24 Hours (Table) 03/24/22 12:59 Blood Culture Gram Stain - Preliminary Blood Blood Culture - Preliminary Escherichia coli 03/24/22 11:55 Urine Culture - Preliminary Urine,Voided Gram Neg Bacilli 03/24/22 12:59 Blood Culture - Final Blood 03/24/22 12:59 Blood Culture - Final Blood Assessment and Plan (1) Ileus Narrative/Plan: Patient's ileus seems to be slowly improving. Continue stool softeners. Increase activity as tolerated. Begin liquid diet. Advance to full liquids if tolerates. Current Visit: Yes Status: Acute Code(s): K56.7 - ILEUS, UNSPECIFIED SNOMED Code(s): 871713444
--- NOTE | 2022-03-26 10:29 | P.PN ---
Subjective Progress Note Date: 03/26/22 The patient is in the hospital with a urinary tract infection with sepsis. She is growing E. coli on her blood cultures. She will had been placed on antibiotics empirically last week no cultures had been obtained. On admission she was found to have a UPJ obstruction left-sided hydronephrosis. Her white count was 25,001-49 yesterday but down to 42 this morning. She feels relatively well. She is not having back pain. Her ileus seems to be starting to resolve. Her vital signs are stable. I discussed at length the possibility of a double-J catheter versus a nephrostomy tube versus antibiotic treatment. Since she is clinical stable we'll see what the sensitivities are for the E. coli infection. 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 This has been discussed at length with the patient and her family. Objective - Vital Signs Vital signs: Vital Signs Temp 97.4 F L 03/26/22 08:00 Pulse 86 03/26/22 08:00 Resp 20 03/26/22 08:00 BP 123/77 03/26/22 08:00 Pulse Ox 100 03/26/22 04:00 FiO2 25 03/25/22 08:20 Intake & Output 03/25/22 03/26/22 03/26/22 19:59 06:59 18:59 Output Total Balance Output: Urine/Stool Mix Other: Voiding Method Bedside Commode Bedpan # Voids # Bowel Movements - Labs CBC & Chem 7: 03/26/22 07:24 03/26/22 07:24 Labs: Abnormal Lab Results - Last 24 Hours (Table) 03/24/22 03/25/22 03/25/22 Range/Units 23:10 09:50 09:50 WBC 49.6 H (3.8-10.6) k/uL RBC 3.16 L (3.80-5.40) m/uL Hgb 10.6 L (11.4-16.0) gm/dL Hct 32.4 L (34.0-46.0) % MCV 102.3 H (80.0-100.0) fL Neutrophils # 47.8 H (1.3-7.7) k/uL Lymphocytes # 0.5 L (1.0-4.8) k/uL Monocytes # 1.1 H (0-1.0) k/uL Sodium 135 L (137-145) mmol/L Chloride (98-107) mmol/L Carbon Dioxide 16 L (22-30) mmol/L BUN 30 H (7-17) mg/dL Creatinine 1.19 H (0.52-1.04) mg/dL Glucose 69 L (74-99) mg/dL Calcium 7.5 L (8.4-10.2) mg/dL AST 42 H (14-36) U/L Total Protein 4.9 L (6.3-8.2) g/dL Albumin 2.4 L (3.5-5.0) g/dL HDL Cholesterol (40.00-60.00) mg/dL Procalcitonin 17.60 H (0.02-0.09) ng/mL 03/25/22 03/26/22 03/26/22 Range/Units 09:50 07:24 07:24 WBC 42.3 H (3.8-10.6) k/uL RBC 3.75 L (3.80-5.40) m/uL Hgb (11.4-16.0) gm/dL Hct (34.0-46.0) % MCV 102.5 H (80.0-100.0) fL Neutrophils # 40.2 H (1.3-7.7) k/uL Lymphocytes # (1.0-4.8) k/uL Monocytes # (0-1.0) k/uL Sodium (137-145) mmol/L Chloride 110 H (98-107) mmol/L Carbon Dioxide 18 L (22-30) mmol/L BUN 38 H (7-17) mg/dL Creatinine (0.52-1.04) mg/dL Glucose (74-99) mg/dL Calcium 8.3 L (8.4-10.2) mg/dL AST (14-36) U/L Total Protein (6.3-8.2) g/dL Albumin (3.5-5.0) g/dL HDL Cholesterol 19.20 L (40.00-60.00) mg/dL Procalcitonin (0.02-0.09) ng/mL Microbiology - Last 24 Hours (Table) 03/24/22 12:59 Blood Culture Gram Stain - Preliminary Blood Blood Culture - Preliminary Escherichia coli 03/24/22 11:55 Urine Culture - Preliminary Urine,Voided Gram Neg Bacilli 03/24/22 12:59 Blood Culture - Final Blood 03/24/22 12:59 Blood Culture - Final Blood
[2022-03-26] MEDS ORDERED: CEFEPIME 2 GM in SODIUM CHLORIDE 0.9% 100 ML IVPB SCH (12:00)
--- NOTE | 2022-03-26 12:07 | P.PN ---
Subjective Progress Note Date: 03/26/22 PROGRESS NOTE The patient is a 71-year-old female with a history of hypertension, chronic tobacco use who presented with symptoms of progressive fatigue, back discomfort and shaking. Her symptoms started about a week ago but with getting worse with worsening energy. She was noted to have sinus tachycardia, tachypnea and fever on presentation. Cardiology consultation was requested because of elevation of her NT proBNP. The patient follows on a regular basis with Dr. Xie regarding her cardiac status and no history of CHF, CAD or arrhythmia were documented according to her. She had a syncopal episode 6 years ago without any recurrence. She is usually active physically, she has occasional wheezing and cough. She has a history of COPD. She denies any recent PND or orthopnea. She denies any peripheral edema. She denies any chest discomfort. On the monitor she is in sinus mechanism. As part for workup she was found to have possible right lung pneumonia as well as mild hydronephrosis. Her coronary risk factors are positive for hypertension and smoking, she is a nondiabetic. March 26: She continues to have back discomfort. Her breathing is stable. She denies any chest discomfort, dizziness or palpitations. She is in sinus mechanism. She has no nausea or vomiting. Hemodynamically she is stable. Her blood pressure showed gram-negative bacteremia probably urinary tract infection. Her echocardiogram showed an ejection fraction of 30-35% with segmental wall motion abnormality of unknown duration. Patient cannot recall prior history of CHF or CAD. Medications: Subcu heparin, aspirin, Rocephin PHYSICAL EXAMINATION: Blood pressure 123/70 heart rate 80 LUNGS: Clear to auscultation HEART: Regular rate and rhythm, S1, S2. No S3. systolic ejection murmur ABDOMEN: Soft, nontender, no organomegaly EXTREMETIES: No edema LAB: Hemoglobin 12.5, white blood cell 42.3, BUN 38, creatinine 1.03. IMPRESSION: 1. Bacteremia with urinary tract infection 2. Cardiomyopathy of unknown duration with segmental wall motion abnormality suggestive of ischemic heart disease 3. Elevated NT proBNP with no clear evidence of CHF on examination 4. History of smoking PLAN: 1. Add beta hernandez and MICKY inhibitor 2. Follow renal functions 3. If stable add Farxiga and Aldactone 4. Patient will need further cardiac workup once stable in regard to her infection. I discussed those findings with her and her . She will follow-up with her primary student support counselor, Dr. Anne-Marie Montes De Oca. Depending on her progress further recommendations will be made. Objective - Vital Signs Vital signs: Vital Signs Temp 97.4 F L 03/26/22 08:00 Pulse 86 03/26/22 08:00 Resp 20 03/26/22 08:00 BP 123/77 03/26/22 08:00 Pulse Ox 100 03/26/22 04:00 FiO2 25 03/25/22 08:20 Intake & Output 03/25/22 03/26/22 03/26/22 19:59 06:59 18:59 Output Total Balance Output: Urine/Stool Mix Other: Voiding Method Bedside Commode Bedpan # Voids # Bowel Movements - Labs CBC & Chem 7: 03/26/22 07:24 03/26/22 07:24 Labs: Abnormal Lab Results - Last 24 Hours (Table) 03/24/22 03/25/22 03/25/22 Range/Units 23:10 09:50 09:50 WBC 49.6 H (3.8-10.6) k/uL RBC 3.16 L (3.80-5.40) m/uL Hgb 10.6 L (11.4-16.0) gm/dL Hct 32.4 L (34.0-46.0) % MCV 102.3 H (80.0-100.0) fL Neutrophils # 47.8 H (1.3-7.7) k/uL Lymphocytes # 0.5 L (1.0-4.8) k/uL Monocytes # 1.1 H (0-1.0) k/uL Sodium 135 L (137-145) mmol/L Chloride (98-107) mmol/L Carbon Dioxide 16 L (22-30) mmol/L BUN 30 H (7-17) mg/dL Creatinine 1.19 H (0.52-1.04) mg/dL Glucose 69 L (74-99) mg/dL Calcium 7.5 L (8.4-10.2) mg/dL AST 42 H (14-36) U/L Total Protein 4.9 L (6.3-8.2) g/dL Albumin 2.4 L (3.5-5.0) g/dL HDL Cholesterol (40.00-60.00) mg/dL Procalcitonin 17.60 H (0.02-0.09) ng/mL 03/25/22 03/26/22 03/26/22 Range/Units 09:50 07:24 07:24 WBC 42.3 H (3.8-10.6) k/uL RBC 3.75 L (3.80-5.40) m/uL Hgb (11.4-16.0) gm/dL Hct (34.0-46.0) % MCV 102.5 H (80.0-100.0) fL Neutrophils # 40.2 H (1.3-7.7) k/uL Lymphocytes # (1.0-4.8) k/uL Monocytes # (0-1.0) k/uL Sodium (137-145) mmol/L Chloride 110 H (98-107) mmol/L Carbon Dioxide 18 L (22-30) mmol/L BUN 38 H (7-17) mg/dL Creatinine (0.52-1.04) mg/dL Glucose (74-99) mg/dL Calcium 8.3 L (8.4-10.2) mg/dL AST (14-36) U/L Total Protein (6.3-8.2) g/dL Albumin (3.5-5.0) g/dL HDL Cholesterol 19.20 L (40.00-60.00) mg/dL Procalcitonin (0.02-0.09) ng/mL Microbiology - Last 24 Hours (Table) 03/24/22 12:59 Blood Culture Gram Stain - Preliminary Blood Blood Culture - Preliminary Escherichia coli 03/24/22 11:55 Urine Culture - Preliminary Urine,Voided Gram Neg Bacilli 03/24/22 12:59 Blood Culture - Final Blood 03/24/22 12:59 Blood Culture - Final Blood
[2022-03-26] MEDS: METOPROLOL SUCCINATE (ER) 25 MG TAB.ER.24H PO SCH (13:04)
[2022-03-26] MEDS: lisinopriL 5 MG TAB PO SCH (13:04)
[2022-03-27] MEDS: HEPARIN SODIUM,PORCINE/PF 5,000 UNIT/0.5 ML SYRINGE SQ SCH ×3 (00:25→15:51)
--- NOTE | 2022-03-27 01:40 | P.PN ---
Subjective Progress Note Date: 03/25/22 Patient is a 71-year-old female with a known history of hypertension presents to ER with complaints of lower back pain and has been worsening for the past 1 week. Patient states that she was carrying some objects up stairs prior to the event happening but denies any fall on standing her mother's. Since that time patient has been having lower back pain and generalized fatigue. Patient was seen by her primary care physician and was started on azithromycin and also tested for COVID influenza which were both negative. Patient almost finished course of antibiotics with Z-Lamin. Denied any lower extremity weakness. No bladder or bowel incontinence. No numbness or tingling in the legs. Patient has been having increased constipation otherwise. Denied any complaints of fever. No cough or sputum production. No nausea vomiting or abdominal pain or diarrhea. Denied leg swelling. While in the hospital patient had lumbar spine x-ray showed no acute fracture. Multilevel disc degeneration. Patient was given a dose of Norflex and Toradol. While in the hospital patient became hypotensive and tachycardic and tachypneic and decompensated. Patient was given albuterol breathing treatment and was placed on BiPAP with improvement in her symptoms. Patient was tachycardic and T-max of 100.1 and tachypneic with respiratory 28. Pulse ox 98% on room air. Patient was given a dose of Levaquin and ceftriaxone also given stress dose steroid. Chest x-ray showed right lower lobe consolidation correlate for developing pneumonia. Blood cultures and urine cultures were sent. Laboratory data showed WBC 23.3 hemoglobin 12.3 and platelets 438 and neutrophils 21.9 ABG showed pH 7.1 PCO2 54 and bicarb is 21 Sodium 131 potassium 4.4 chloride 102 bicarb is 20 BUN 24 and creatinine 0.89 and lactic acid was 5.3 Calcium 8.1 troponin less than 0.012 proBNP 4240 and albumin 2.7 Urinalysis showed cloudy with 1+ protein 1+ ketones nitrite positive and small leukocyte esterase with elevated WBCs. Coronavirus PCR and influenza a and B PCR not detected. 03/25/2022 Patient is currently lying in bed. Still complains of lower back pain and unable to get out of bed. Awake alert and oriented. Off BiPAP. Titrate down to oxygen via nasal cannula. Patient had CT of the abdomen pelvis showed moderate left-sided hydronephrosis. Obstructing lesion not seen. Could relate to a ureteropelvic junction obstruction. Patient is being current on antibiotics in the form of ceftriaxone. ID is on board. Urology was consulted due to left-sided hydronephrosis. 2D echocardiogram showed a complex 35%. Due to new onset CHF cardiology was consulted as well. Laboratory pressure WBC went up to 49.6. Patient was also given dose of IV Decadron in the ER. Hemoglobin 10.6 and platelets 325 Sodium 134 potassium 4.2 chloride 106 bicarb is 16 BUN 13 creatinine 1.19 Procalcitonin level 17.6. Discussed the patient and family at bedside in detail. Current medications reviewed. Objective - Vital Signs Vital signs: Vital Signs Temp 98.3 F 03/25/22 16:51 Pulse 96 03/25/22 16:43 Resp 20 03/25/22 16:43 BP 111/69 03/25/22 16:43 Pulse Ox 99 03/25/22 16:43 FiO2 25 03/25/22 08:20 Intake & Output 03/25/22 03/25/22 03/26/22 06:59 18:59 05:59 Output Total 200 Balance -200 Weight 72.575 kg Output: Stool 200 Other: Voiding Method Bedside Commode Bedside Commode # Voids 2 # Bowel Movements 1 - Exam PHYSICAL EXAMINATION: Patient is lying in the bed comfortably, no acute distress, awake alert and oriented.. HEENT: Normocephalic. Neck is supple. Pupils reactive. Nostrils clear. Oral cavity is moist. Neck reveals no JVD, carotid bruits, or thyromegaly. CHEST EXAMINATION: Trachea is central. Symmetrical expansion. Bibasilar diminished sounds. No wheezing. No crackles.. CARDIAC: Normal S1, S2 with no gallops. No murmurs ABDOMEN: Soft. Bowel sounds present. Nontender. No organomegaly. No abdominal bruits. Extremities: reveal no edema. No clubbing or cyanosis Neurologically awake, alert, oriented x3 with well-coordinated movements. No focal deficits noted Skin: No rash or skin lesions. Psychiatric: Coperative. Nonsuicidal, Musculoskeletal: No joint swelling or deformity. Normal range of motion. - Labs CBC & Chem 7: 03/26/22 07:24 03/26/22 07:24 Labs: Abnormal Lab Results - Last 24 Hours (Table) 03/24/22 03/24/22 03/24/22 Range/Units 20:58 21:20 23:04 WBC 24.5 H (3.8-10.6) k/uL RBC 3.44 L (3.80-5.40) m/uL Hgb 11.3 L (11.4-16.0) gm/dL Hct (34.0-46.0) % MCV 102.2 H (80.0-100.0) fL Neutrophils # 23.6 H (1.3-7.7) k/uL Lymphocytes # 0.2 L (1.0-4.8) k/uL Monocytes # (0-1.0) k/uL D-Dimer 4.19 H (<0.60) mg/L FEU ABG pCO2 30 L (35-45) mmHg ABG pO2 223 H (83-108) mmHg ABG HCO3 18 L (21-25) mmol/L ABG Total CO2 18 L (19-24) mmol/L ABG O2 Saturation 100.0 H (94-97) % Sodium (137-145) mmol/L Carbon Dioxide (22-30) mmol/L BUN (7-17) mg/dL Creatinine (0.52-1.04) mg/dL Glucose (74-99) mg/dL Calcium (8.4-10.2) mg/dL AST (14-36) U/L Total Protein (6.3-8.2) g/dL Albumin (3.5-5.0) g/dL 03/25/22 03/25/22 Range/Units 09:50 09:50 WBC 49.6 H (3.8-10.6) k/uL RBC 3.16 L (3.80-5.40) m/uL Hgb 10.6 L (11.4-16.0) gm/dL Hct 32.4 L (34.0-46.0) % MCV 102.3 H (80.0-100.0) fL Neutrophils # 47.8 H (1.3-7.7) k/uL Lymphocytes # 0.5 L (1.0-4.8) k/uL Monocytes # 1.1 H (0-1.0) k/uL D-Dimer (<0.60) mg/L FEU ABG pCO2 (35-45) mmHg ABG pO2 (83-108) mmHg ABG HCO3 (21-25) mmol/L ABG Total CO2 (19-24) mmol/L ABG O2 Saturation (94-97) % Sodium 135 L (137-145) mmol/L Carbon Dioxide 16 L (22-30) mmol/L BUN 30 H (7-17) mg/dL Creatinine 1.19 H (0.52-1.04) mg/dL Glucose 69 L (74-99) mg/dL Calcium 7.5 L (8.4-10.2) mg/dL AST 42 H (14-36) U/L Total Protein 4.9 L (6.3-8.2) g/dL Albumin 2.4 L (3.5-5.0) g/dL Microbiology - Last 24 Hours (Table) 03/24/22 12:59 Blood Culture - Final Blood 03/24/22 12:59 Blood Culture - Final Blood 03/24/22 11:55 Urine Culture - Preliminary Urine,Voided Assessment and Plan Assessment: Sepsis secondary to urinary tract infection Acute urinary tract infection possible pyelonephritis Left-sided moderate hydronephrosis. Possible right lower lobe developing pneumonia Lower back pain on admission Elevated BNP. Without other evidence of CHF. Newly diagnosed CHF ejection fraction 30 to 35%. Not in exacerbation. Hypertension Ongoing nicotine addiction No prior history of COPD diagnosis DVT prophylax with heparin subcu Plan: Patient was given IV fluid bolus in the ER. Continue with antibiotics ceftriaxone 2 g every 24 hours. Received Levaquin and ceftriaxone in the ER. Follow blood cultures and urine culture report. 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 Urology is on board. Patient was placed on BiPAP in the ER and was titrated down to oxygen via nasal cannula. Continue pain management with [place]. Cardiology was consulted due to new onset CHF. ID is on board. Prognosis is guarded at this time. Time with Patient: Greater than 30
--- NOTE | 2022-03-27 01:42 | P.PN ---
Subjective Progress Note Date: 03/26/22 Patient is a 71-year-old female with a known history of hypertension presents to ER with complaints of lower back pain and has been worsening for the past 1 week. Patient states that she was carrying some objects up stairs prior to the event happening but denies any fall on standing her mother's. Since that time patient has been having lower back pain and generalized fatigue. Patient was seen by her primary care physician and was started on azithromycin and also tested for COVID influenza which were both negative. Patient almost finished course of antibiotics with Z-Lamin. Denied any lower extremity weakness. No bladder or bowel incontinence. No numbness or tingling in the legs. Patient has been having increased constipation otherwise. Denied any complaints of fever. No cough or sputum production. No nausea vomiting or abdominal pain or diarrhea. Denied leg swelling. While in the hospital patient had lumbar spine x-ray showed no acute fracture. Multilevel disc degeneration. Patient was given a dose of Norflex and Toradol. While in the hospital patient became hypotensive and tachycardic and tachypneic and decompensated. Patient was given albuterol breathing treatment and was placed on BiPAP with improvement in her symptoms. Patient was tachycardic and T-max of 100.1 and tachypneic with respiratory 28. Pulse ox 98% on room air. Patient was given a dose of Levaquin and ceftriaxone also given stress dose steroid. Chest x-ray showed right lower lobe consolidation correlate for developing pneumonia. Blood cultures and urine cultures were sent. Laboratory data showed WBC 23.3 hemoglobin 12.3 and platelets 438 and neutrophils 21.9 ABG showed pH 7.1 PCO2 54 and bicarb is 21 Sodium 131 potassium 4.4 chloride 102 bicarb is 20 BUN 24 and creatinine 0.89 and lactic acid was 5.3 Calcium 8.1 troponin less than 0.012 proBNP 4240 and albumin 2.7 Urinalysis showed cloudy with 1+ protein 1+ ketones nitrite positive and small leukocyte esterase with elevated WBCs. Coronavirus PCR and influenza a and B PCR not detected. 03/25/2022 Patient is currently lying in bed. Still complains of lower back pain and unable to get out of bed. Awake alert and oriented. Off BiPAP. Titrate down to oxygen via nasal cannula. Patient had CT of the abdomen pelvis showed moderate left-sided hydronephrosis. Obstructing lesion not seen. Could relate to a ureteropelvic junction obstruction. Patient is being current on antibiotics in the form of ceftriaxone. ID is on board. Urology was consulted due to left-sided hydronephrosis. 2D echocardiogram showed a complex 35%. Due to new onset CHF cardiology was consulted as well. Laboratory pressure WBC went up to 49.6. Patient was also given dose of IV Decadron in the ER. Hemoglobin 10.6 and platelets 325 Sodium 134 potassium 4.2 chloride 106 bicarb is 16 BUN 13 creatinine 1.19 Procalcitonin level 17.6. Discussed the patient and family at bedside in detail. 03/26/2022 Patient is able to sit in a chair this morning.. Back pain is better. Patient has been afebrile. No nausea vomiting or abdominal pain or diarrhea. No cough or sputum production. Currently requiring 3 L oxygen via nasal cannula. No headache or dizziness or lightheadedness. No cough or sputum production. Blood cultures positive for gram-negative bacilli and urine culture positive for E. coli. Patient is being current ceftriaxone. Laboratory data WBC 42.3 hemoglobin 12.5 and platelets 318 Sodium 141 potassium 3.9 chloride 110 bicarb is 18 BUN 38 and creatinine 1.03 Patient is being continued on IV hydration with normal saline at 50 cc/h. Monitor respiratory status closely. Patient was started metoprolol and lisinopril. Cardiology, ID and urology is on board. Current medications reviewed. Objective - Vital Signs Vital signs: Vital Signs Temp 97.7 F 03/26/22 16:00 Pulse 81 03/26/22 16:00 Resp 20 03/26/22 16:00 BP 114/72 03/26/22 16:00 Pulse Ox 98 03/26/22 16:00 FiO2 25 03/25/22 08:20 Intake & Output 03/25/22 03/26/22 03/26/22 19:59 06:59 18:59 Intake Total 1050 Output Total Balance 1050 Intake: Intake, IV Titration 450 Amount Sodium Chloride 0.9% 1, 400 000 ml @ 50 mls/hr IV . Q20H [facility] Rx#:[id number] cefTRIAXone 2 gm In 50 Sodium Chloride 0.9% 50 ml @ 100 mls/hr IVPB Q24H [facility] Rx#:[id number] Oral 600 Output: Urine/Stool Mix Other: Voiding Method Toilet # Voids 1 # Bowel Movements - Exam PHYSICAL EXAMINATION: Patient is lying in the bed comfortably, no acute distress, awake alert and oriented.. HEENT: Normocephalic. Neck is supple. Pupils reactive. Nostrils clear. Oral cavity is moist. Neck reveals no JVD, carotid bruits, or thyromegaly. CHEST EXAMINATION: Trachea is central. Symmetrical expansion. Bibasilar diminished sounds. No wheezing. No crackles.. CARDIAC: Normal S1, S2 with no gallops. No murmurs ABDOMEN: Soft. Bowel sounds present. Nontender. No organomegaly. No abdominal bruits. Extremities: reveal no edema. No clubbing or cyanosis Neurologically awake, alert, oriented x3 with well-coordinated movements. No focal deficits noted Skin: No rash or skin lesions. Psychiatric: Coperative. Nonsuicidal, Musculoskeletal: No joint swelling or deformity. Normal range of motion. - Labs CBC & Chem 7: 03/26/22 07:24 03/26/22 07:24 Labs: Abnormal Lab Results - Last 24 Hours (Table) 03/24/22 03/25/22 03/26/22 Range/Units 23:10 09:50 07:24 WBC (3.8-10.6) k/uL RBC (3.80-5.40) m/uL MCV (80.0-100.0) fL Neutrophils # (1.3-7.7) k/uL Chloride 110 H (98-107) mmol/L Carbon Dioxide 18 L (22-30) mmol/L BUN 38 H (7-17) mg/dL Calcium 8.3 L (8.4-10.2) mg/dL HDL Cholesterol 19.20 L (40.00-60.00) mg/dL Procalcitonin 17.60 H (0.02-0.09) ng/mL 03/26/22 Range/Units 07:24 WBC 42.3 H (3.8-10.6) k/uL RBC 3.75 L (3.80-5.40) m/uL MCV 102.5 H (80.0-100.0) fL Neutrophils # 40.2 H (1.3-7.7) k/uL Chloride (98-107) mmol/L Carbon Dioxide (22-30) mmol/L BUN (7-17) mg/dL Calcium (8.4-10.2) mg/dL HDL Cholesterol (40.00-60.00) mg/dL Procalcitonin (0.02-0.09) ng/mL Microbiology - Last 24 Hours (Table) 03/24/22 12:59 Blood Culture Gram Stain - Preliminary Blood Blood Culture - Preliminary Escherichia coli 03/24/22 12:59 Blood Culture Gram Stain - Preliminary Blood Blood Culture - Preliminary Gram Neg Bacilli 03/24/22 11:55 Urine Culture - Preliminary Urine,Voided Gram Neg Bacilli Assessment and Plan Assessment: Sepsis secondary to urinary tract infection Acute urinary tract infection possible pyelonephritis Left-sided moderate hydronephrosis. Possible right lower lobe developing pneumonia Lower back pain on admission Elevated BNP. Without other evidence of CHF. Newly diagnosed CHF ejection fraction 30 to 35%. Not in exacerbation. Hypertension Ongoing nicotine addiction No prior history of COPD diagnosis DVT prophylax with heparin subcu Plan: Patient was given IV fluid bolus in the ER. Continue with antibiotics ceftriaxone 2 g every 24 hours. Received Levaquin and ceftriaxone in the ER. Follow blood cultures and urine culture report. 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 Urology is on board. Patient was placed on BiPAP in the ER and was titrated down to oxygen via nasal cannula. Continue pain management with [place]. Cardiology was consulted due to new onset CHF. ID is on board. Prognosis is guarded at this time. Discussed the patient and family at bedside in detail. Time with Patient: Greater than 30
[2022-03-27] MEDS: ACETAMINOPHEN TAB 325 MG TAB PO PRN (02:49)
[2022-03-27] MEDS: SODIUM CHLORIDE 0.9% 1,000 ML IV SCH (03:30)
[2022-03-27 09:22] LABS: Basophils % (A) 0 %; Eosinophils % (A) 0 %; HCT 36.4 % (34.0-46.0); HGB 11.8 gm/dL (11.4-16.0); Lymphocytes # (A) 0.7 k/uL (1.0-4.8); Lymphocytes % (A) 4 %; MCH 33.1 pg (25.0-35.0); MCHC 32.5 g/dL (31.0-37.0); Macrocytosis Slight; Mean Platelet Volume 9.2; Monocytes # (A) 0.4 k/uL (0-1.0); Monocytes % (A) 2 %; Neutrophils # (A) 17.5 k/uL (1.3-7.7); Neutrophils % (A) 92 %; Platelet Count 285 k/uL (150-450); RBC 3.57 m/uL (3.80-5.40); RDW 13.5 % (11.5-15.5); WBC 18.9 k/uL (3.8-10.6)
[2022-03-27] MEDS: LACTULOSE 20 GM/30 ML CUP PO SCH ×2 (09:49→21:34)
[2022-03-27] MEDS: lisinopriL 5 MG TAB PO SCH (09:50)
[2022-03-27] MEDS: METOPROLOL SUCCINATE (ER) 25 MG TAB.ER.24H PO SCH (09:50)
[2022-03-27] MEDS: ASPIRIN 81 MG PO SCH (09:50)
[2022-03-27] MEDS: HYDROcodone/APAP 5-325MG 1 EACH TAB PO PRN ×3 (09:50→21:38)
--- NOTE | 2022-03-27 09:51 | P.PN ---
Subjective Progress Note Date: 03/27/22 Principal diagnosis: Sepsis The patient is a 71-year-old female who was admitted the hospital on 03/24/22 with back pain. She was found to have possible pneumonia in the right lung as well as a urinary tract infection. She apparently had what was thought to be a viral illness several days ago and was placed on antibiotics. Her pain got bad enough that she came to the emergency room. She had a computed tomography scan of the abdomen that showed some mild hydronephrosis on the left without stone. There may be a congenital UPJ obstruction. She has no urologic history other than a urine infection several months ago. There is no previous urologic evaluation. Her urine culture and blood cultures are growing E. coli. She has been placed on Rocephin. Infectious disease is following. Objective - Vital Signs Vital signs: Vital Signs Temp 97.8 F 03/27/22 04:00 Pulse 86 03/27/22 04:00 Resp 12 03/27/22 04:00 BP 154/70 03/27/22 04:00 Pulse Ox 91 L 03/27/22 04:00 FiO2 25 03/25/22 08:20 Intake & Output 03/26/22 03/27/22 03/27/22 18:59 06:59 18:59 Intake Total 1050 120 Balance 1050 120 Intake: Intake, IV Titration 450 Amount Sodium Chloride 0.9% 1, 400 000 ml @ 50 mls/hr IV . Q[facility]H [facility] Rx#:[id number] cefTRIAXone 2 gm In 50 Sodium Chloride 0.9% 50 ml @ 100 mls/hr IVPB Q24H [facility] Rx#:[id number] Oral 600 120 Other: Voiding Method Toilet Toilet # Voids 1 2 1 # Bowel Movements 0 1 - Exam General: Well developed, well nourished. No acute distress. HEENT: Head is atraumatic, normocephalic. Lungs: Respirations even and nonlabored. Skin: Warm and dry, No rash or lesions. Neurologic: Awake, alert and oriented times 3. CN II-XII grossly intact. No focal deficits. Psychiatric: Appropriate mood and affect. - Labs CBC & Chem 7: 03/28/22 11:03 03/28/22 11:03 Labs: Abnormal Lab Results - Last 24 Hours (Table) 03/27/22 Range/Units 09:05 WBC 18.9 H (3.8-10.6) k/uL RBC 3.57 L (3.80-5.40) m/uL MCV 102.0 H (80.0-100.0) fL Neutrophils # 17.5 H (1.3-7.7) k/uL Lymphocytes # 0.7 L (1.0-4.8) k/uL Microbiology - Last 24 Hours (Table) 03/24/22 12:59 Blood Culture Gram Stain - Final Blood Blood Culture - Final Escherichia coli 03/24/22 12:59 Blood Culture Gram Stain - Final Blood Blood Culture - Final Escherichia coli 03/24/22 11:55 Urine Culture - Final Urine,Voided Escherichia coli Assessment and Plan Assessment: The patient reports lower back pain for approximately one week. She denies any nausea, vomiting, or hematuria. She has been afebrile. WBC down to 18.9 today. Overall she reports not feeling well. We discussed at length a placing a stent versus a nephrostomy tube to drain the hydronephrosis. It is felt that she would benefit from a cystoscopy with left stent placement. The patient agrees and will be scheduled for tomorrow with Dr. Rousseau. 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 risk, benefit and rationale was discussed in the detail - Continue antibiotics per ID recommendations - NPO after midnight for left stent placement tomorrow - Continue current pain regimen Impression and plan of care have been directed as dictated by the signing physician. Eulalia Barcenas nurse practitioner acting as scribe for signing physician. Eulalia Barcenas [facility] Palliative Care/[facility] [id number] Email: [email or web address] I personally performed and participated in the history, physical, the decision making, I agree with the assessment and plan of KIT ASSEMBLER Time with Patient: Less than 30
[2022-03-27] MEDS: bisacodyL 10 MG SUPP RECTAL SCH (09:56)
[2022-03-27 09:58] LABS: Calcium 8.2 mg/dL (8.4-10.2); Potassium 3.8 mmol/L (3.5-5.1)
--- NOTE | 2022-03-27 11:20 | P.PN ---
Subjective Progress Note Date: 03/27/22 CHIEF COMPLAINT: Ileus HISTORY OF PRESENT ILLNESS: Patient currently being treated for UTI with sepsis. Her computed tomography scan had shown a moderate left-sided hydronephrosis could be related to ureteropelvic junction obstruction. Distended gas-filled large bowel that could be a large bowel mild ileus. Patient followed by urology. She is scheduled for cystoscopy with left ureteral stent placement tomorrow with urology service. She's also maintained on antibiotics. She does have liquidy stools. She denies any abdominal pain. She reports that she is still feeling distended and bloated and reports that it's about the same as it has been on admission. Afebrile. WBC is down from 42.3-18.9 Hgb 11.8 platelets 285 sodium is 139 potassium 3.8 creatinine 0.82 urine culture E. coli and blood culture E. coli PHYSICAL EXAM: VITAL SIGNS: Reviewed. GENERAL: Well-developed in no acute distress. HEENT: No sclera icterus. Extraocular movements grossly intact. Moist buccal mucosa. Head is atraumatic, normocephalic. ABDOMEN: Soft. Mildly distended. Nontender. NEUROLOGIC: Alert and oriented. Cranial nerves II through XII grossly intact. ASSESSMENT: 1. Ileus secondary to UTI 2. UTI with bacteremia and sepsis 3. Hydronephrosis PLAN: -Continue full liquid diet -Continue stool softeners -Continue antibiotics for UTI -Patient scheduled for cystoscopy and left ureteral stent placement tomorrow with urology Physician Gimp Tacker note has been reviewed by physician. Signing provider agrees with the documented findings, assessment, and plan of care. I have personally seen and examined the patient, reviewed the WIRE MILL OPERATOR /PAs history, exam and MDM and agree with the assessment and plan as written. Based on total visit time, I have performed more than 50% of the visit. As above: Patient having some mild abdominal discomfort. Mostly left sided. Await ureteral stent placement. Continue stool softeners. Objective - Vital Signs Vital signs: Vital Signs Temp 98.7 F 03/27/22 08:00 Pulse 87 03/27/22 08:00 Resp 18 03/27/22 08:00 BP 134/80 03/27/22 08:00 Pulse Ox 99 03/27/22 08:00 FiO2 25 03/25/22 08:20 Intake & Output 03/26/22 03/27/22 03/27/22 18:59 06:59 18:59 Intake Total 1050 120 Balance 1050 120 Intake: Intake, IV Titration 450 Amount Sodium Chloride 0.9% 1, 400 000 ml @ 50 mls/hr IV . Q20H [facility] Rx#:[id number] cefTRIAXone 2 gm In 50 Sodium Chloride 0.9% 50 ml @ 100 mls/hr IVPB Q24H [facility] Rx#:[id number] Oral 600 120 Other: Voiding Method Toilet Toilet Toilet # Voids 1 2 1 # Bowel Movements 0 1 - Labs CBC & Chem 7: 03/27/22 09:05 03/27/22 09:05 Labs: Abnormal Lab Results - Last 24 Hours (Table) 03/27/22 03/27/22 03/27/22 Range/Units 09:05 09:05 09:05 WBC 18.9 H (3.8-10.6) k/uL RBC 3.57 L (3.80-5.40) m/uL MCV 102.0 H (80.0-100.0) fL Neutrophils # 17.5 H (1.3-7.7) k/uL Lymphocytes # 0.7 L (1.0-4.8) k/uL Chloride 115 H (98-107) mmol/L Carbon Dioxide 21 L (22-30) mmol/L BUN 31 H (7-17) mg/dL Glucose 115 H (74-99) mg/dL Calcium 8.2 L (8.4-10.2) mg/dL Troponin I 0.063 H* (0.000-0.034) ng/mL Microbiology - Last 24 Hours (Table) 03/24/22 12:59 Blood Culture Gram Stain - Final Blood Blood Culture - Final Escherichia coli 03/24/22 12:59 Blood Culture Gram Stain - Final Blood Blood Culture - Final Escherichia coli 03/24/22 11:55 Urine Culture - Final Urine,Voided Escherichia coli
--- NOTE | 2022-03-27 12:25 | P.PN ---
Subjective The patient is a 71-year-old female with a history of hypertension, chronic tobacco use, COPD. She follows with Dr. Xie. We have been consulted for new onset CHF. Patient presented with symptoms of progressive fatigue, back discomfort and shaking. Her symptoms started about a week ago but with getting worse with worsening energy. She was noted to have sinus tachycardia, tachypnea and fever on presentation. Patient denies any history of CHF, CAD or arrhythmia. She underwent an echocardiogram which revealed an ejection fraction of 30-35% w ith segmental wall motion abnormality of unknown duration. EKG done 03/26 shows T-wave inversion in the anterolateral leads consistent with anterior wall ischemia probably representing Takatsubo cardiomyopathy. She was found to be bacteremic with a UTI and left sided moderate hydronephrosis, possible right lower lobe pneumonia as well. Urology is following. 03/27 Patient seen and examined at bedside, She denies any shortness of breath. She denies any chest discomfort, dizziness or palpitations. She is in sinus mechanism. She has no nausea or vomiting. Hemodynamically she is stable. Blood cultures were positive for E. coli. Patient cannot recall prior history o f CHF or CAD. Records obtained from outpatient, unable to obtain cardiology note from Dr. Xie. Echo in 2016 at [facility] revealed EF of 50%, mild tricuspid regurgitation Medications: Aspirin 81 mg daily, lisinopril 5 mg daily, metoprolol tartrate 25 mg daily LAB: WBC 18.9, hemoglobin 11, sodium 139, potassium 3.9, P1 31, second 0.8 Vitals reviewed GENERAL: In no acute distress. NECK: Supple without JVD LUNGS: Breath sounds clear to auscultation bilaterally. Respiration equal and unlabored. No wheezes, rales or rhonchi. HEART: Regular rate and rhythm with systolic ejection murmur, No rubs or gallops. S1 and S2 heard. EXTREMITIES: Normal range of motion, no edema. No clubbing or cyanosis. Peripheral pulses intact. ASSESSMENT Bacteremia with urinary tract infection, cultures positive for E. 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 She will follow-up with her primary geophysical engineer, Dr. Xie Further recommendations based on clinical course Nurse Practitioner note has been reviewed, I agree with a documented findings and plan of care. Patient was seen and examined. Objective - Vital Signs Vital signs: Vital Signs Temp 97.8 F 03/27/22 04:00 Pulse 86 03/27/22 04:00 Resp 12 03/27/22 04:00 BP 154/70 03/27/22 04:00 Pulse Ox 91 L 03/27/22 04:00 FiO2 25 03/25/22 08:20 Intake & Output 03/26/22 03/27/22 03/27/22 18:59 06:59 18:59 Intake Total 1050 120 Balance 1050 120 Intake: Intake, IV Titration 450 Amount Sodium Chloride 0.9% 1, 400 000 ml @ 50 mls/hr IV . Q20H [facility] Rx#:[id number] cefTRIAXone 2 gm In 50 Sodium Chloride 0.9% 50 ml @ 100 mls/hr IVPB Q24H [facility] Rx#:[id number] Oral 600 120 Other: Voiding Method Toilet Toilet # Voids 1 2 1 # Bowel Movements 0 1 - Labs CBC & Chem 7: 03/27/22 09:05 03/27/22 09:05 Labs: Abnormal Lab Results - Last 24 Hours (Table) 03/27/22 03/27/22 Range/Units 09:05 09:05 WBC 18.9 H (3.8-10.6) k/uL RBC 3.57 L (3.80-5.40) m/uL MCV 102.0 H (80.0-100.0) fL Neutrophils # 17.5 H (1.3-7.7) k/uL Lymphocytes # 0.7 L (1.0-4.8) k/uL Chloride 115 H (98-107) mmol/L Carbon Dioxide 21 L (22-30) mmol/L BUN 31 H (7-17) mg/dL Glucose 115 H (74-99) mg/dL Calcium 8.2 L (8.4-10.2) mg/dL Microbiology - Last 24 Hours (Table) 03/24/22 12:59 Blood Culture Gram Stain - Final Blood Blood Culture - Final Escherichia coli 03/24/22 12:59 Blood Culture Gram Stain - Final Blood Blood Culture - Final Escherichia coli 03/24/22 11:55 Urine Culture - Final Urine,Voided Escherichia coli
--- NOTE | 2022-03-27 14:58 | CDI ---
Documentation Clarification Form Date: 03/27/2022 02:47:16 PM From: Moriah Dickson CCS, CCDS Admit Date: 03/24/2022 02:35:00 PM Patient Name: Samina Quevedo Visit Number: [id number] Discharge Date: ATTENTION: The Clinical Documentation Specialists (CDI) and [facility] Coding Staff appreciate your assistance in clarifying documentation. Please respond to the clarification below the line at the bottom and electronically sign. The CDI & [facility] Coding staff will review the response and follow-up if needed. Please note: Queries are made part of the Legal Health Record. If you have any questions, please contact the author of this message via ITS. Dr. Tyler Zuniga: Per the 03/24 ED Note, the patient had expiratory wheezes, was started on 28% BiPAP. Per the 03/25 Cardiology Consult, the patient had wheezing, cough and chronic tobacco use. Based on this information and the findings below, is there an additional diagnosis that is clinically appropriate for this patient? History/Risk Factors per the 03/24 H/P: Hypertension, current smoker. Clinical Indicators: Presented to the ED on 03/24 with Lower Back Pain, fatigue, recently started Zithromax for fatigue. Tested negative for COVID & Influenza A/B. Admit with Pneumonia, UTI & Sepsis. 03/24 VS: T 98.1, P 116, R 22, 28, 32 (sob, labored, shallow, tachypnea); BP 157/96, PO 97 RA - 98 BiPAP. 03/24 LAB: WBC 23.3, RBC 3.68, Neutrophils 21.9, Lymphocytes 0.5; Na 131, CO2 20, BUN 24, LA 5.3, Calcium 8.1, Total protein 5.5, Albumin 2.7 Blood gas ABG: pCO2 30, pO2 223, HCO3 18, total CO2 18, O2 Sat 100.0 Blood gas VBG: pH 7.21, pCO2 54, HCO3 21. 03/24 CXR: Correlate for developing infiltrate RLL. 03/24 Repeat CXR: Bilateral airspace opacities more conspicuous on this exam, correlate for pneumonia, Cardiomegaly. 03/24 CT Chest: No PE. Cardiomegaly. Left side hydronephrosis. Treatment 03/24: Telemetry, O2 - BiPAP, IM Toradol, IM Norflex, INH Duoneb x1, IV Na Chl 1,000 mls @ 999 mls/hr q1H x2, IV Rocephin 50 mls @ 100 mls/hr x1, IV Levaquin 100 mls @ 100 mls/hr x1, IV Decadron 10 mg x1, INH Ventolin x1. IV Na Chl 1,000 mls @ 130 mls/hr q7H. Is there an additional diagnosis that is clinically appropriate for this patient? [ x ] Acute Hypoxic Respiratory Failure [ ] Acute Hypercapnic Respiratory Failure [ ] Acute Respiratory Insufficiency [ ] Other Diagnosis, please specify: [ ] Unable to determine (Template Last Revised: July 2020) MTDD
[2022-03-28] MEDS: HEPARIN SODIUM,PORCINE/PF 5,000 UNIT/0.5 ML SYRINGE SQ SCH ×5 (00:40→23:52)
[2022-03-28] MEDS: SODIUM CHLORIDE 0.9% 1,000 ML IV SCH ×2 (00:49→11:27)
[2022-03-28] MEDS: HYDROcodone/APAP 5-325MG 1 EACH TAB PO PRN ×3 (05:36→23:52)
[2022-03-28] MEDS: ASPIRIN 81 MG PO SCH (09:33)
[2022-03-28] MEDS: lisinopriL 5 MG TAB PO SCH (09:33)
[2022-03-28] MEDS: METOPROLOL SUCCINATE (ER) 25 MG TAB.ER.24H PO SCH (09:33)
[2022-03-28] MEDS: LACTULOSE 20 GM/30 ML CUP PO SCH ×2 (09:34→23:45)
[2022-03-28] MEDS: bisacodyL 10 MG SUPP RECTAL SCH (09:34)
[2022-03-28 11:37] LABS: Basophils % (A) 0 %; Eosinophils % (A) 0 %; HCT 36.3 % (34.0-46.0); HGB 11.8 gm/dL (11.4-16.0); Hypochromasia Slight; Lymphocytes % (A) 9 %; MCH 33.3 pg (25.0-35.0); MCHC 32.5 g/dL (31.0-37.0); MCV 102.5 fL (80.0-100.0); Macrocytosis Slight; Mean Platelet Volume 8.9; Monocytes # (A) 0.4 k/uL (0-1.0); Monocytes % (A) 4 %; Neutrophils # (A) 10.2 k/uL (1.3-7.7); Neutrophils % (A) 86 %; Platelet Count 305 k/uL (150-450); RBC 3.55 m/uL (3.80-5.40); RDW 13.7 % (11.5-15.5); WBC 11.8 k/uL (3.8-10.6)
[2022-03-28 12:14] LABS: African American GFR (CKD) >90 (>60 ml/min/1.73 sqM); Anion Gap 3 mmol/L; Blood Urea Nitrogen 21 mg/dL (7-17); Calcium 8.2 mg/dL (8.4-10.2); Carbon Dioxide 23 mmol/L (22-30); Chloride 116 mmol/L (98-107); Glucose 86 mg/dL (74-99); Non-African American GFR(CKD) 79 (>60 ml/min/1.73 sqM); Potassium 4.1 mmol/L (3.5-5.1); Sodium 142 mmol/L (137-145)
--- NOTE | 2022-03-28 13:05 | P.PN ---
Subjective Progress Note Date: 03/28/22 CHIEF COMPLAINT: Ileus HISTORY OF PRESENT ILLNESS: Patient currently being treated for UTI with sepsis. She is scheduled for cystoscopy with [id number] stent placement today with urology for the moderate left-sided hydronephrosis and possible ureteropelvic junction obstruction. Patient does complain of left flank pain. She does report passing a small amount of flatus. Denies any nausea or vomiting. Denies any bowel movement. Afebrile. Blood culture and urine culture positive for E. coli WBC is down from 18.9-11.8 hemoglobin 11.8 platelets 3-5 sodium is 142 potassium is 4.1 creatinine 0.76 PHYSICAL EXAM: VITAL SIGNS: Reviewed. GENERAL: Well-developed in no acute distress. HEENT: No sclera icterus. Extraocular movements grossly intact. Moist buccal mucosa. Head is atraumatic, normocephalic. ABDOMEN: Soft. Mildly distended. left sided abdominal pain and flank pain NEUROLOGIC: Alert and oriented. Cranial nerves II through XII grossly intact. ASSESSMENT: 1. Ileus secondary to UTI 2. UTI with bacteremia and sepsis 3. Hydronephrosis PLAN: -Continue full liquid diet -Continue stool softeners -Continue antibiotics for UTI -Patient scheduled for cystoscopy and left ureteral stent placement today with urology Physician Template Layout Worker note has been reviewed by physician. Signing provider agrees with the documented findings, assessment, and plan of care. I have personally seen and examined the patient, reviewed the ATHLETIC MONITOR /PAs history, exam and MDM and agree with the assessment and plan as written. Based on total visit time, I have performed more than 50% of the visit. As above: The patient feels well today after her stent placement. Denies abdominal or back pain currently. She is passing flatus. Continue stool softeners. Diet as tolerated. Will follow. Objective - Vital Signs Vital signs: Vital Signs Temp 97.8 F 03/28/22 11:25 Pulse 81 03/28/22 11:25 Resp 14 03/28/22 11:25 BP 131/85 03/28/22 11:25 Pulse Ox 99 03/28/22 11:25 FiO2 25 03/25/22 08:20 Intake & Output 03/27/22 03/28/22 03/28/22 18:59 06:59 18:59 Intake Total 238 Output Total 200 Balance 38 Intake: Oral 238 Output: Stool 200 Other: Voiding Method Toilet Toilet Toilet # Voids 1 2 1 # Bowel Movements 1 1 - Labs CBC & Chem 7: 03/28/22 11:03 03/28/22 11:03 Labs: Abnormal Lab Results - Last 24 Hours (Table) 03/28/22 03/28/22 Range/Units 11:03 11:03 WBC 11.8 H (3.8-10.6) k/uL RBC 3.55 L (3.80-5.40) m/uL MCV 102.5 H (80.0-100.0) fL Neutrophils # 10.2 H (1.3-7.7) k/uL Chloride 116 H (98-107) mmol/L BUN 21 H (7-17) mg/dL Calcium 8.2 L (8.4-10.2) mg/dL Microbiology - Last 24 Hours (Table) 03/24/22 12:59 Blood Culture Gram Stain - Final Blood Blood Culture - Final Escherichia coli 03/24/22 12:59 Blood Culture Gram Stain - Final Blood Blood Culture - Final Escherichia coli
--- NOTE | 2022-03-28 14:58 | P.PN ---
Subjective The patient is a 71-year-old female with a history of hypertension, chronic tobacco use, COPD. She follows with Dr. Xie. We have been consulted for new onset CHF. Patient presented with symptoms of progressive fatigue, back discomfort and shaking. Her symptoms started about a week ago but with getting worse with worsening energy. She was noted to have sinus tachycardia, tachypnea and fever on presentation. Patient denies any history of CHF, CAD or arrhythmia. She underwent an echocardiogram which revealed an ejection fraction of 30-35% w ith segmental wall motion abnormality of unknown duration. EKG done 03/26 shows T-wave inversion in the anterolateral leads consistent with anterior wall ischemia probably representing Takatsubo cardiomyopathy. She was found to be bacteremic with a UTI and left sided moderate hydronephrosis, possible right lower lobe pneumonia as well. Urology is following. 03/28 Patient seen and examined at bedside, She denies any shortness of breath. She denies any chest discomfort, dizziness or palpitations. She is in sinus mechanism. She has no nausea or vomiting. Hemodynamically she is stable. Blood cultures were positive for E. coli. Patient cannot recall prior history o f CHF or CAD. Possible renal stenting today with urology. Records obtained from outpatient, unable to obtain cardiology note from Dr. Xie. Echo in 2016 at [facility] revealed EF of 50%, mild tricuspid regurgitation Medications: Aspirin 81 mg daily, lisinopril 5 mg daily, metoprolol tartrate 25 mg daily Vitals reviewed GENERAL: In no acute distress. NECK: Supple without JVD LUNGS: Breath sounds clear to auscultation bilaterally. Respiration equal and unlabored. No wheezes, rales or rhonchi. HEART: Regular rate and rhythm with systolic ejection murmur, No rubs or gallops. S1 and S2 heard. EXTREMITIES: Normal range of motion, no edema. No clubbing or cyanosis. Peripheral pulses intact. ASSESSMENT Bacteremia with urinary tract infection, cultures positive for E. Coli Cardiomyopathy, ischemic vs non-ischemic of unknown duration with segmental wall motion abnormality suggestive of ischemic heart disease, EKG with findings consistent with Takatsubo cardiomyopathy Moderate left sided hydronephrosis History of smoking COPD Hypertension PLAN Continue cardiomyopathy medication with beta hernandez, MICKY inhibitor Monitor renal function Consider adding aldactone and Farxiga Patient will need further cardiac workup once stable in regard to her infection, possibly done as an outpatient. She will follow-up with her primary scheduling administrator, Dr. Xie Further recommendations based on clinical course Nurse Practitioner note has been reviewed, I agree with a documented findings and plan of care. Patient was seen and examined. Objective - Vital Signs Vital signs: Vital Signs Temp 97.8 F 03/28/22 11:25 Pulse 81 03/28/22 11:25 Resp 14 03/28/22 11:25 BP 131/85 03/28/22 11:25 Pulse Ox 99 03/28/22 11:25 FiO2 25 03/25/22 08:20 Intake & Output 03/27/22 03/28/22 03/28/22 18:59 06:59 18:59 Intake Total 238 Output Total 200 Balance 38 Intake: Oral 238 Output: Stool 200 Other: Voiding Method Toilet Toilet Toilet # Voids 1 2 1 # Bowel Movements 1 1 - Labs CBC & Chem 7: 03/28/22 11:03 03/28/22 11:03 Labs: Abnormal Lab Results - Last 24 Hours (Table) 03/28/22 03/28/22 Range/Units 11:03 11:03 WBC 11.8 H (3.8-10.6) k/uL RBC 3.55 L (3.80-5.40) m/uL MCV 102.5 H (80.0-100.0) fL Neutrophils # 10.2 H (1.3-7.7) k/uL Chloride 116 H (98-107) mmol/L BUN 21 H (7-17) mg/dL Calcium 8.2 L (8.4-10.2) mg/dL Microbiology - Last 24 Hours (Table) 03/24/22 12:59 Blood Culture Gram Stain - Final Blood Blood Culture - Final Escherichia coli 03/24/22 12:59 Blood Culture Gram Stain - Final Blood Blood Culture - Final Escherichia coli
[2022-03-28] MEDS ORDERED: LACTATED RINGERS 1,000 ML IV ONE (16:08)
[2022-03-28] MEDS ORDERED: PROPOFOL 10 MG/ML 20 ML VIAL IV ONE (16:41)
[2022-03-28] MEDS ORDERED: MIDAZOLAM 2 MG/2 ML VIAL ONE (16:41)
[2022-03-28] MEDS ORDERED: LIDOCAINE 2% INJ 20 MG/ML (2 ML VIAL) ONE (16:41)
[2022-03-28] MEDS ORDERED: fentaNYL (PF) 50 MCG/ML 2 ML AMP ONE (16:41)
[2022-03-28] MEDS ORDERED: SODIUM CHLORIDE 0.9% 50 ML with ceFAZolin 2,000 MG IV ONE ×2 (17:00)
[2022-03-28] MEDS ORDERED: IOHEXOL 350 MG/ML 50 ML in EMPTY BAG 1 BAG IRRIGATION ONE (17:06)
--- NOTE | 2022-03-28 17:31 | P.PN ---
Subjective Progress Note Date: 03/28/22 No acute overnight events, still having back pain. WBC is trending down Objective - Vital Signs Vital signs: Vital Signs Temp 97.4 F L 03/28/22 15:27 Pulse 94 03/28/22 16:02 Resp 16 03/28/22 16:02 BP 145/76 03/28/22 16:02 Pulse Ox 96 03/28/22 16:02 FiO2 25 03/25/22 08:20 Intake & Output 03/27/22 03/28/22 03/28/22 18:59 06:59 18:59 Intake Total 238 451 Output Total 200 1 Balance 38 450 Intake: IV 451 Oral 238 Output: Stool 200 Estimated Blood Loss 1 Other: Voiding Method Toilet Toilet Toilet # Voids 1 2 1 # Bowel Movements 1 1 - Constitutional General appearance: Present: no acute distress - Gastrointestinal General gastrointestinal: Present: soft. Absent: distended - Psychiatric Psychiatric: Present: A&O x's 3 - Labs CBC & Chem 7: 03/28/22 11:03 03/28/22 11:03 Labs: Abnormal Lab Results - Last 24 Hours (Table) 03/28/22 03/28/22 Range/Units 11:03 11:03 WBC 11.8 H (3.8-10.6) k/uL RBC 3.55 L (3.80-5.40) m/uL MCV 102.5 H (80.0-100.0) fL Neutrophils # 10.2 H (1.3-7.7) k/uL Chloride 116 H (98-107) mmol/L BUN 21 H (7-17) mg/dL Calcium 8.2 L (8.4-10.2) mg/dL Assessment and Plan Assessment: The patient reports lower back pain for approximately one week. She denies any nausea, vomiting, or hematuria. She has been afebrile. WBC down to 18.9 today. Overall she reports not feeling well. We discussed at length a placing a stent versus a nephrostomy tube to drain the hydronephrosis. It is felt that she would benefit from a cystoscopy with left stent placement. 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
--- NOTE | 2022-03-28 17:35 | P.OP ---
Date of Procedure: 03/28/22 Preoperative Diagnosis: Left hydronephrosis Postoperative Diagnosis: Same Procedure(s) Performed: Cystoscopy, left retrograde pyelogram, stent insertion Implants: 6 Fr X 24 cm stent in the left ureter Anesthesia: DANIELLE Surgeon: Grant Rousseau Estimated Blood Loss (ml): 1 Pathology: none sent Condition: stable Disposition: PACU Indications for Procedure: The patient reports lower back pain for approximately one week. She denies any nausea, vomiting, or hematuria. She has been afebrile. WBC down to 18.9 today. Overall she reports not feeling well. We discussed at length a placing a stent versus a nephrostomy tube to drain the hydronephrosis. It is felt that she would benefit from a cystoscopy with left stent placement. Risk-benefit, alternative and rationale were discussed in detail Operative Findings: narrowing at UPJ based on retrograde pyelogram Description of Procedure: Patient brought to the operating room, general anesthesia was induced. She was prepped and draped in sterile fashion and placed in dorsal lithotomy position. Cystoscopy fitted with 22-Malay sheath was inserted per urethra, cystoscopy was performed which showed no abnormality within the bladder. Attention was then carried to the left ureteral orifice, this was intubated with a 6-Malay open- ended catheter, retrograde pyelogram was performed which showed no filling defect along the course of the ureter. At the UPJ there was a pinpoint narrowing, with severe dilation of the collecting system. At this point a sensor wire was advanced through the catheter and the catheter was removed with the wire in place. Next a ureteral stent was passed over the wire, the proximal curl was visualized on fluoroscopy and the distal curl was visualized using the cystoscope. The bladder was emptied at the end of the case. Patient tolerated the procedure well was taken to recovery in stable condition
--- NOTE | 2022-03-28 19:39 | FL ---
EXAMINATION TYPE: FL urography retrograde DATE OF EXAM: 03/28/2022 COMPARISON: Abdominal x-ray [address] abdomen pelvis 4 days ago. HISTORY: Left renal calculus. TECHNIQUE: Fluoroscopy. FINDINGS: Fluoroscopic guidance was provided during left ureter stent insertion procedure performed by Dr. Solis. A total of 18 seconds of fluoroscopic time was utilized during the procedure and 2 sp ot images was acquired. 2 images acquired show contrast opacification subsequent placement of a urete r stent. IMPRESSION: As Above.
--- NOTE | 2022-03-28 23:18 | P.PN ---
Subjective Progress Note Date: 03/26/22 Principal diagnosis: Gram-negative bacteremia Patient is a 71-year-old old female presenting to the hospital with lower back pain in this patient did have a fever elevated white count and evidence of left-sided hydronephrosis subsequently did have a positive blood culture with gram-negative bacilli. On today's evaluation that is 03/26/2022, the patient is afebrile patient is currently breathing comfortably on room air denies any chest pain or shortness of breath or cough flank pain is slightly improved some nausea but no vomiting no abdominal pain no diarrhea Objective - Vital Signs Vital signs: Vital Signs Temp 97.7 F 03/26/22 16:00 Pulse 81 03/26/22 16:00 Resp 20 03/26/22 16:00 BP 114/72 03/26/22 16:00 Pulse Ox 98 03/26/22 16:00 FiO2 25 03/25/22 08:20 Intake & Output 03/25/22 03/26/22 03/26/22 19:59 06:59 18:59 Intake Total 1050 Output Total Balance 1050 Intake: Intake, IV Titration 450 Amount Sodium Chloride 0.9% 1, 400 000 ml @ 50 mls/hr IV . Q20H ANGELES Rx#:[id number] cefTRIAXone 2 gm In 50 Sodium Chloride 0.9% 50 ml @ 100 mls/hr IVPB Q24H ANGELES Rx#:[id number] Oral 600 Output: Urine/Stool Mix Other: Voiding Method Toilet # Voids 1 # Bowel Movements - Exam GENERAL DESCRIPTION: An elderly female lying in bed in no distress RESPIRATORY SYSTEM: Unlabored breathing , decreased breath sounds at bases HEART: S1 S2 regular rate and rhythm , ABDOMEN: Soft , no tenderness EXTREMITIES: No edema feet - Labs CBC & Chem 7: 03/28/22 11:03 03/28/22 11:03 Labs: Abnormal Lab Results - Last 24 Hours (Table) 03/24/22 03/25/22 03/26/22 Range/Units 23:10 09:50 07:24 WBC (3.8-10.6) k/uL RBC (3.80-5.40) m/uL MCV (80.0-100.0) fL Neutrophils # (1.3-7.7) k/uL Chloride 110 H (98-107) mmol/L Carbon Dioxide 18 L (22-30) mmol/L BUN 38 H (7-17) mg/dL Calcium 8.3 L (8.4-10.2) mg/dL HDL Cholesterol 19.20 L (40.00-60.00) mg/dL Procalcitonin 17.60 H (0.02-0.09) ng/mL 03/26/22 Range/Units 07:24 WBC 42.3 H (3.8-10.6) k/uL RBC 3.75 L (3.80-5.40) m/uL MCV 102.5 H (80.0-100.0) fL Neutrophils # 40.2 H (1.3-7.7) k/uL Chloride (98-107) mmol/L Carbon Dioxide (22-30) mmol/L BUN (7-17) mg/dL Calcium (8.4-10.2) mg/dL HDL Cholesterol (40.00-60.00) mg/dL Procalcitonin (0.02-0.09) ng/mL Microbiology - Last 24 Hours (Table) 03/24/22 12:59 Blood Culture Gram Stain - Preliminary Blood Blood Culture - Preliminary Escherichia coli 03/24/22 12:59 Blood Culture Gram Stain - Preliminary Blood Blood Culture - Preliminary Gram Neg Bacilli 03/24/22 11:55 Urine Culture - Preliminary Urine,Voided Gram Neg Bacilli Assessment and Plan (1) Gram-negative bacteremia Current Visit: Yes Status: Acute Code(s): R78.81 - BACTEREMIA SNOMED Code(s): 364211275259 (2) Sepsis Current Visit: Yes Status: Acute Code(s): A41.9 - SEPSIS, UNSPECIFIED ORGANISM SNOMED Code(s): 38092880 (3) UTI (urinary tract infection) Current Visit: Yes Status: Acute Code(s): N39.0 - URINARY TRACT INFECTION, SITE NOT SPECIFIED SNOMED Code(s): 30320327 Plan: 1patient with gram-negative bacteremia source is likely urinary in this patient with suspected left-sided hydronephrosis but no evidence of any obstructive stone was seen on the CT urology seen the patient thinking 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 2patient to continue with cefepime while waiting for ID of this pathogen. Time with Patient: Less than 30
--- NOTE | 2022-03-28 23:20 | P.PN ---
Subjective Progress Note Date: 03/27/22 Principal diagnosis: Gram-negative bacteremia Patient is a 71-year-old female presenting to the hospital with lower back pain in this patient did have a fever elevated white count and evidence of left-sided hydronephrosis subsequently did have a positive blood culture with gram-negative bacilli. On today's evaluation that is 03/27/2022, the patient remains to be afebrile patient is currently breathing comfortably on room air , the patient denies any chest pain or shortness of breath or cough flank pain is slightly improved some nausea but no vomiting no abdominal pain no diarrhea Objective - Vital Signs Vital signs: Vital Signs Temp 98.7 F 03/27/22 08:00 Pulse 87 03/27/22 08:00 Resp 18 03/27/22 08:00 BP 134/80 03/27/22 08:00 Pulse Ox 99 03/27/22 08:00 FiO2 25 03/25/22 08:20 Intake & Output 03/26/22 03/27/22 03/27/22 18:59 06:59 18:59 Intake Total 1050 120 Balance 1050 120 Intake: Intake, IV Titration 450 Amount Sodium Chloride 0.9% 1, 400 000 ml @ 50 mls/hr IV . Q20H ANGELES Rx#:[id number] cefTRIAXone 2 gm In 50 Sodium Chloride 0.9% 50 ml @ 100 mls/hr IVPB Q24H ANGELES Rx#:[id number] Oral 600 120 Other: Voiding Method Toilet Toilet Toilet # Voids 1 2 1 # Bowel Movements 0 1 - Exam GENERAL DESCRIPTION: An elderly female lying in bed in no distress RESPIRATORY SYSTEM: Unlabored breathing , decreased breath sounds at bases HEART: S1 S2 regular rate and rhythm , ABDOMEN: Soft , no tenderness EXTREMITIES: No edema feet - Labs CBC & Chem 7: 03/28/22 11:03 03/28/22 11:03 Labs: Abnormal Lab Results - Last 24 Hours (Table) 03/27/22 03/27/22 03/27/22 Range/Units 09:05 09:05 09:05 WBC 18.9 H (3.8-10.6) k/uL RBC 3.57 L (3.80-5.40) m/uL MCV 102.0 H (80.0-100.0) fL Neutrophils # 17.5 H (1.3-7.7) k/uL Lymphocytes # 0.7 L (1.0-4.8) k/uL Chloride 115 H (98-107) mmol/L Carbon Dioxide 21 L (22-30) mmol/L BUN 31 H (7-17) mg/dL Glucose 115 H (74-99) mg/dL Calcium 8.2 L (8.4-10.2) mg/dL Troponin I 0.063 H* (0.000-0.034) ng/mL Microbiology - Last 24 Hours (Table) 03/24/22 12:59 Blood Culture Gram Stain - Final Blood Blood Culture - Final Escherichia coli 03/24/22 12:59 Blood Culture Gram Stain - Final Blood Blood Culture - Final Escherichia coli 03/24/22 11:55 Urine Culture - Final Urine,Voided Escherichia coli Assessment and Plan (1) Gram-negative bacteremia Current Visit: Yes Status: Acute Code(s): R78.81 - BACTEREMIA SNOMED Code(s): 227497866260 (2) UTI (urinary tract infection) Current Visit: Yes Status: Acute Code(s): N39.0 - URINARY TRACT INFECTION, SITE NOT SPECIFIED SNOMED Code(s): 90943109 Plan: 1patient with gram-negative bacteremia source is likely urinary in this patient with suspected left-sided hydronephrosis but no evidence of any obstructive stone was seen on the CT urology seen the patient thinking 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 2patient seemed to showing clinical improvement and blood culture finalized with an E. coli which is sensitive pathogen cefepime has been discontinued patient started on Rocephin 2 g daily, family at the bedside and multiple questions Answered Time with Patient: Less than 30
--- NOTE | 2022-03-28 23:21 | P.PN ---
Subjective Progress Note Date: 03/28/22 Principal diagnosis: Gram-negative bacteremia Patient is a 71-year-old female presenting to the hospital with lower back pain in this patient did have a fever elevated white count and evidence of left-sided hydronephrosis subsequently did have a positive blood culture with gram-negative bacilli. Patient is scheduled for cystoscopy and possible stent placement this afternoon On today's evaluation that is 03/28/2022, the patient continues to be afebrile patient is breathing comfortably on room air , the patient denies any chest pain or shortness of breath or cough , the patient flank pain has improved the patient denies nausea no vomiting no abdominal pain no diarrhea Objective - Vital Signs Vital signs: Vital Signs Temp 97.8 F 03/28/22 11:25 Pulse 81 03/28/22 11:25 Resp 14 03/28/22 11:25 BP 131/85 03/28/22 11:25 Pulse Ox 99 03/28/22 11:25 FiO2 25 03/25/22 08:20 Intake & Output 03/27/22 03/28/22 03/28/22 18:59 06:59 18:59 Intake Total 238 Output Total 200 Balance 38 Intake: Oral 238 Output: Stool 200 Other: Voiding Method Toilet Toilet Toilet # Voids 1 2 1 # Bowel Movements 1 1 - Exam GENERAL DESCRIPTION: An elderly female lying in bed in no distress RESPIRATORY SYSTEM: Unlabored breathing , decreased breath sounds at bases HEART: S1 S2 regular rate and rhythm , ABDOMEN: Soft , no tenderness EXTREMITIES: No edema feet - Labs CBC & Chem 7: 03/28/22 11:03 03/28/22 11:03 Labs: Abnormal Lab Results - Last 24 Hours (Table) 03/28/22 03/28/22 Range/Units 11:03 11:03 WBC 11.8 H (3.8-10.6) k/uL RBC 3.55 L (3.80-5.40) m/uL MCV 102.5 H (80.0-100.0) fL Neutrophils # 10.2 H (1.3-7.7) k/uL Chloride 116 H (98-107) mmol/L BUN 21 H (7-17) mg/dL Calcium 8.2 L (8.4-10.2) mg/dL Microbiology - Last 24 Hours (Table) 03/24/22 12:59 Blood Culture Gram Stain - Final Blood Blood Culture - Final Escherichia coli 03/24/22 12:59 Blood Culture Gram Stain - Final Blood Blood Culture - Final Escherichia coli Assessment and Plan (1) Gram-negative bacteremia Current Visit: Yes Status: Acute Code(s): R78.81 - BACTEREMIA SNOMED Code(s): 930118819494 (2) UTI (urinary tract infection) Current Visit: Yes Status: Acute Code(s): N39.0 - URINARY TRACT INFECTION, SITE NOT SPECIFIED SNOMED Code(s): 60445437 Plan: 1patient with gram-negative bacteremia source is likely urinary in this patient with suspected left-sided hydronephrosis but no evidence of any obstructive stone was seen on the CT urology seen the patient thinking 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 2patient seemed to showing clinical improvement and blood culture finalized with an E. coli which is sensitive pathogen , white count has significantly improved as well, patient to continue with Rocephin 2 g daily and monitor clinical course closely Time with Patient: Less than 30
[2022-03-29] MEDS: bisacodyL 10 MG SUPP RECTAL SCH (08:06)
[2022-03-29] MEDS: lisinopriL 5 MG TAB PO SCH (08:16)
[2022-03-29] MEDS: HEPARIN SODIUM,PORCINE/PF 5,000 UNIT/0.5 ML SYRINGE SQ SCH ×3 (08:16→23:34)
[2022-03-29] MEDS: METOPROLOL SUCCINATE (ER) 25 MG TAB.ER.24H PO SCH (08:16)
[2022-03-29] MEDS: ASPIRIN 81 MG PO SCH (08:16)
[2022-03-29] MEDS: LACTULOSE 20 GM/30 ML CUP PO SCH ×2 (08:16→21:07)
[2022-03-29 08:42] LABS: African American GFR (CKD) >90 (>60 ml/min/1.73 sqM); Anion Gap 7 mmol/L; Blood Urea Nitrogen 22 mg/dL (7-17); Calcium 8.1 mg/dL (8.4-10.2); Carbon Dioxide 17 mmol/L (22-30); Chloride 115 mmol/L (98-107); Glucose 96 mg/dL (74-99); Non-African American GFR(CKD) 81 (>60 ml/min/1.73 sqM); Sodium 139 mmol/L (137-145)
[2022-03-29 08:43] LABS: Potassium 4.8 mmol/L (3.5-5.1)
--- NOTE | 2022-03-29 10:19 | P.PN ---
Subjective Progress Note Date: 03/27/22 Patient is a 71-year-old female with a known history of hypertension presents to ER with complaints of lower back pain and has been worsening for the past 1 week. Patient states that she was carrying some objects up stairs prior to the event happening but denies any fall on standing her mother's. Since that time patient has been having lower back pain and generalized fatigue. Patient was seen by her primary care physician and was started on azithromycin and also tested for COVID influenza which were both negative. Patient almost finished course of antibiotics with Z-Lamin. Denied any lower extremity weakness. No bladder or bowel incontinence. No numbness or tingling in the legs. Patient has been having increased constipation otherwise. Denied any complaints of fever. No cough or sputum production. No nausea vomiting or abdominal pain or diarrhea. Denied leg swelling. While in the hospital patient had lumbar spine x-ray showed no acute fracture. Multilevel disc degeneration. Patient was given a dose of Norflex and Toradol. While in the hospital patient became hypotensive and tachycardic and tachypneic and decompensated. Patient was given albuterol breathing treatment and was placed on BiPAP with improvement in her symptoms. Patient was tachycardic and T-max of 100.1 and tachypneic with respiratory 28. Pulse ox 98% on room air. Patient was given a dose of Levaquin and ceftriaxone also given stress dose steroid. Chest x-ray showed right lower lobe consolidation correlate for developing pneumonia. Blood cultures and urine cultures were sent. Laboratory data showed WBC 23.3 hemoglobin 12.3 and platelets 438 and neutrophils 21.9 ABG showed pH 7.1 PCO2 54 and bicarb is 21 Sodium 131 potassium 4.4 chloride 102 bicarb is 20 BUN 24 and creatinine 0.89 and lactic acid was 5.3 Calcium 8.1 troponin less than 0.012 proBNP 4240 and albumin 2.7 Urinalysis showed cloudy with 1+ protein 1+ ketones nitrite positive and small leukocyte esterase with elevated WBCs. Coronavirus PCR and influenza a and B PCR not detected. 03/25/2022 Patient is currently lying in bed. Still complains of lower back pain and unable to get out of bed. Awake alert and oriented. Off BiPAP. Titrate down to oxygen via nasal cannula. Patient had CT of the abdomen pelvis showed moderate left-sided hydronephrosis. Obstructing lesion not seen. Could relate to a ureteropelvic junction obstruction. Patient is being current on antibiotics in the form of ceftriaxone. ID is on board. Urology was consulted due to left-sided hydronephrosis. 2D echocardiogram showed a complex 35%. Due to new onset CHF cardiology was consulted as well. Laboratory pressure WBC went up to 49.6. Patient was also given dose of IV Decadron in the ER. Hemoglobin 10.6 and platelets 325 Sodium 134 potassium 4.2 chloride 106 bicarb is 16 BUN 13 creatinine 1.19 Procalcitonin level 17.6. Discussed the patient and family at bedside in detail. 03/26/2022 Patient is able to sit in a chair this morning.. Back pain is better. Patient has been afebrile. No nausea vomiting or abdominal pain or diarrhea. No cough or sputum production. Currently requiring 3 L oxygen via nasal cannula. No headache or dizziness or lightheadedness. No cough or sputum production. Blood cultures positive for gram-negative bacilli and urine culture positive for E. coli. Patient is being current ceftriaxone. Laboratory data WBC 42.3 hemoglobin 12.5 and platelets 318 Sodium 141 potassium 3.9 chloride 110 bicarb is 18 BUN 38 and creatinine 1.03 Patient is being continued on IV hydration with normal saline at 50 cc/h. Monitor respiratory status closely. Patient was started metoprolol and lisinopril. Cardiology, ID and urology is on board. 03/27/2022 Patient is currently lying in the bed. Awake alert and oriented 3. Back pain and flank pain is much improved but patient has been afebrile. No nausea vomiting abdominal pain or diarrhea. Blood cultures positive for E. coli. Patient is being continued on Antibiotics the form of ceftriaxone. ID is on board. Urology is planning for cystoscopy and possibly ureteral stent placement tomorrow. Laboratory data showed WBC trending down to 18.9 hemoglobin 11.8 and platelets 285 Sodium 139 potassium 3.8 chloride 105 bicarb is 21 BUN 31 and creatinine 0.82 Current medications reviewed. Objective - Vital Signs Vital signs: Vital Signs Temp 97.4 F L 03/27/22 20:00 Pulse 88 03/27/22 20:00 Resp 12 03/27/22 20:00 BP 149/78 03/27/22 20:00 Pulse Ox 98 03/27/22 20:00 FiO2 25 03/25/22 08:20 Intake & Output 03/27/22 03/27/22 03/28/22 06:59 18:59 06:59 Intake Total 238 Output Total 200 Balance 38 Intake: Oral 238 Output: Stool 200 Other: Voiding Method Toilet Toilet # Voids 2 1 # Bowel Movements 0 1 - Exam PHYSICAL EXAMINATION: Patient is lying in the bed comfortably, no acute distress, awake alert and oriented.. HEENT: Normocephalic. Neck is supple. Pupils reactive. Nostrils clear. Oral cavity is moist. Neck reveals no JVD, carotid bruits, or thyromegaly. CHEST EXAMINATION: Trachea is central. Symmetrical expansion. Bibasilar diminished sounds. No wheezing. No crackles.. CARDIAC: Normal S1, S2 with no gallops. No murmurs ABDOMEN: Soft. Bowel sounds present. Nontender. No organomegaly. No abdominal bruits. Extremities: reveal no edema. No clubbing or cyanosis Neurologically awake, alert, oriented x3 with well-coordinated movements. No focal deficits noted Skin: No rash or skin lesions. Psychiatric: Coperative. Nonsuicidal, Musculoskeletal: No joint swelling or deformity. Normal range of motion. - Labs CBC & Chem 7: 03/28/22 11:03 03/29/22 07:19 Labs: Abnormal Lab Results - Last 24 Hours (Table) 03/27/22 03/27/22 03/27/22 Range/Units 09:05 09:05 09:05 WBC 18.9 H (3.8-10.6) k/uL RBC 3.57 L (3.80-5.40) m/uL MCV 102.0 H (80.0-100.0) fL Neutrophils # 17.5 H (1.3-7.7) k/uL Lymphocytes # 0.7 L (1.0-4.8) k/uL Chloride 115 H (98-107) mmol/L Carbon Dioxide 21 L (22-30) mmol/L BUN 31 H (7-17) mg/dL Glucose 115 H (74-99) mg/dL Calcium 8.2 L (8.4-10.2) mg/dL Troponin I 0.063 H* (0.000-0.034) ng/mL Microbiology - Last 24 Hours (Table) 03/24/22 12:59 Blood Culture Gram Stain - Final Blood Blood Culture - Final Escherichia coli 03/24/22 12:59 Blood Culture Gram Stain - Final Blood Blood Culture - Final Escherichia coli 03/24/22 11:55 Urine Culture - Final Urine,Voided Escherichia coli Assessment and Plan Assessment: Sepsis secondary to urinary tract infection E. coli bacteremia Acute urinary tract infection possible pyelonephritis Left-sided moderate hydronephrosis. Possible right lower lobe developing pneumonia Lower back pain on admission Elevated BNP. Without other evidence of CHF. Newly diagnosed CHF ejection fraction 30 to 35%. Not in exacerbation. Hypertension Ongoing nicotine addiction No prior history of COPD diagnosis DVT prophylax with heparin subcu Plan: Patient was given IV fluid bolus in the ER. Continue with antibiotics ceftriaxone 2 g every 24 hours. Received Levaquin and ceftriaxone in the ER. Blood cultures and urine culture showed gram-negative bacilli. Follow-up repeat blood cultures. 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 Urology is on board. Patient was placed on BiPAP in the ER and was titrated down to oxygen via nasal cannula. Urology is planning for stent placement tomorrow. Continue pain management with [place]. Cardiology was consulted due to new onset CHF. ID is on board. Prognosis is guarded at this time. Discussed the patient and family at bedside in detail. Time with Patient: Greater than 30
--- NOTE | 2022-03-29 10:20 | P.PN ---
Subjective Progress Note Date: 03/28/22 Patient is a 71-year-old female with a known history of hypertension presents to ER with complaints of lower back pain and has been worsening for the past 1 week. Patient states that she was carrying some objects up stairs prior to the event happening but denies any fall on standing her mother's. Since that time patient has been having lower back pain and generalized fatigue. Patient was seen by her primary care physician and was started on azithromycin and also tested for COVID influenza which were both negative. Patient almost finished course of antibiotics with Z-Lamin. Denied any lower extremity weakness. No bladder or bowel incontinence. No numbness or tingling in the legs. Patient has been having increased constipation otherwise. Denied any complaints of fever. No cough or sputum production. No nausea vomiting or abdominal pain or diarrhea. Denied leg swelling. While in the hospital patient had lumbar spine x-ray showed no acute fracture. Multilevel disc degeneration. Patient was given a dose of Norflex and Toradol. While in the hospital patient became hypotensive and tachycardic and tachypneic and decompensated. Patient was given albuterol breathing treatment and was placed on BiPAP with improvement in her symptoms. Patient was tachycardic and T-max of 100.1 and tachypneic with respiratory 28. Pulse ox 98% on room air. Patient was given a dose of Levaquin and ceftriaxone also given stress dose steroid. Chest x-ray showed right lower lobe consolidation correlate for developing pneumonia. Blood cultures and urine cultures were sent. Laboratory data showed WBC 23.3 hemoglobin 12.3 and platelets 438 and neutrophils 21.9 ABG showed pH 7.1 PCO2 54 and bicarb is 21 Sodium 131 potassium 4.4 chloride 102 bicarb is 20 BUN 24 and creatinine 0.89 and lactic acid was 5.3 Calcium 8.1 troponin less than 0.012 proBNP 4240 and albumin 2.7 Urinalysis showed cloudy with 1+ protein 1+ ketones nitrite positive and small leukocyte esterase with elevated WBCs. Coronavirus PCR and influenza a and B PCR not detected. 03/25/2022 Patient is currently lying in bed. Still complains of lower back pain and unable to get out of bed. Awake alert and oriented. Off BiPAP. Titrate down to oxygen via nasal cannula. Patient had CT of the abdomen pelvis showed moderate left-sided hydronephrosis. Obstructing lesion not seen. Could relate to a ureteropelvic junction obstruction. Patient is being current on antibiotics in the form of ceftriaxone. ID is on board. Urology was consulted due to left-sided hydronephrosis. 2D echocardiogram showed a complex 35%. Due to new onset CHF cardiology was consulted as well. Laboratory pressure WBC went up to 49.6. Patient was also given dose of IV Decadron in the ER. Hemoglobin 10.6 and platelets 325 Sodium 134 potassium 4.2 chloride 106 bicarb is 16 BUN 13 creatinine 1.19 Procalcitonin level 17.6. Discussed the patient and family at bedside in detail. 03/26/2022 Patient is able to sit in a chair this morning.. Back pain is better. Patient has been afebrile. No nausea vomiting or abdominal pain or diarrhea. No cough or sputum production. Currently requiring 3 L oxygen via nasal cannula. No headache or dizziness or lightheadedness. No cough or sputum production. Blood cultures positive for gram-negative bacilli and urine culture positive for E. coli. Patient is being current ceftriaxone. Laboratory data WBC 42.3 hemoglobin 12.5 and platelets 318 Sodium 141 potassium 3.9 chloride 110 bicarb is 18 BUN 38 and creatinine 1.03 Patient is being continued on IV hydration with normal saline at 50 cc/h. Monitor respiratory status closely. Patient was started metoprolol and lisinopril. Cardiology, ID and urology is on board. 03/27/2022 Patient is currently lying in the bed. Awake alert and oriented 3. Back pain and flank pain is much improved but patient has been afebrile. No nausea vomiting abdominal pain or diarrhea. Blood cultures positive for E. coli. Patient is being continued on Antibiotics the form of ceftriaxone. ID is on board. Urology is planning for cystoscopy and possibly ureteral stent placement tomorrow. Laboratory data showed WBC trending down to 18.9 hemoglobin 11.8 and platelets 285 Sodium 139 potassium 3.8 chloride 105 bicarb is 21 BUN 31 and creatinine 0.82 03/28/2022 Patient is currently resting. No complaints of back pain. Afebrile. No nausea vomiting or abdominal pain or diarrhea. No cough or sputum production. No chest pain. No headache or dizziness or lightheadedness. Patient is scheduled for ureteral stent placement today. Laboratory data showed WBC count improved to 11.8 hemoglobin 11.8 and platelets 305 creatinine 0.76, BUN 21 Urology and ID is on board. Current medications reviewed. Objective - Vital Signs Vital signs: Vital Signs Temp 98.1 F 03/28/22 17:20 Pulse 81 03/28/22 18:52 Resp 14 03/28/22 18:52 BP 128/75 03/28/22 18:52 Pulse Ox 91 L 03/28/22 18:52 FiO2 25 03/25/22 08:20 Intake & Output 03/28/22 03/28/22 03/29/22 06:59 18:59 06:59 Intake Total 476 Output Total 51 Balance 425 Intake: IV 476 Output: Urine 50 Estimated Blood Loss 1 Other: Voiding Method Toilet Toilet # Voids 2 1 # Bowel Movements 1 - Exam PHYSICAL EXAMINATION: Patient is lying in the bed comfortably, no acute distress, awake alert and oriented.. HEENT: Normocephalic. Neck is supple. Pupils reactive. Nostrils clear. Oral cavity is moist. Neck reveals no JVD, carotid bruits, or thyromegaly. CHEST EXAMINATION: Trachea is central. Symmetrical expansion. Bibasilar di minished sounds. No wheezing. No crackles.. CARDIAC: Normal S1, S2 with no gallops. No murmurs ABDOMEN: Soft. Bowel sounds present. Nontender. No organomegaly. No abdominal bruits. Extremities: reveal no edema. No clubbing or cyanosis Neurologically awake, alert, oriented x3 with well-coordinated movements. No focal deficits noted Skin: No rash or skin lesions. Psychiatric: Coperative. Nonsuicidal, Musculoskeletal: No joint swelling or deformity. Normal range of motion. - Labs CBC & Chem 7: 03/28/22 11:03 03/29/22 07:19 Labs: Abnormal Lab Results - Last 24 Hours (Table) 03/28/22 03/28/22 Range/Units 11:03 11:03 WBC 11.8 H (3.8-10.6) k/uL RBC 3.55 L (3.80-5.40) m/uL MCV 102.5 H (80.0-100.0) fL Neutrophils # 10.2 H (1.3-7.7) k/uL Chloride 116 H (98-107) mmol/L BUN 21 H (7-17) mg/dL Calcium 8.2 L (8.4-10.2) mg/dL Assessment and Plan Assessment: Sepsis secondary to urinary tract infection E. coli bacteremia Acute urinary tract infection possible pyelonephritis Left-sided moderate hydronephrosis. Possible right lower lobe developing pneumonia Lower back pain on admission Elevated BNP. Without other evidence of CHF. Newly diagnosed CHF ejection fraction 30 to 35%. Not in exacerbation. Hypertension Ongoing nicotine addiction No prior history of COPD diagnosis DVT prophylax with heparin subcu Plan: Patient was given IV fluid bolus in the ER. Continue with antibiotics ceftriaxone 2 g every 24 hours. Received Levaquin and ceftriaxone in the ER. Blood cultures and urine culture showed gram-negative bacilli. Follow-up repeat blood cultures. 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 Urology is on board. Patient was placed on BiPAP in the ER and was titrated down to oxygen via nasal cannula. Urology is planning for stent placement today. Continue pain management with [place]. Cardiology was consulted due to new onset CHF. ID is on board. Prognosis is guarded at this time. Discussed the patient and family at bedside in detail. Time with Patient: Greater than 30
--- NOTE | 2022-03-29 10:31 | P.PN ---
Subjective Progress Note Date: 03/29/22 Principal diagnosis: Pneumonia, UTI The patient is a 71-year-old female who was admitted the hospital on 03/24/22 with back pain. She was found to have possible pneumonia in the right lung as well as a urinary tract infection. She apparently had what was thought to be a viral illness several days ago and was placed on antibiotics. Her pain got bad enough that she came to the emergency room. She had a computed tomography scan of the abdomen that showed some mild hydronephrosis on the left without stone. There may be a congenital UPJ obstruction. She has no urologic history other than a urine infection several months ago. There is no previous urologic evaluation. Her urine culture and blood cultures are growing E. coli. She has been placed on Rocephin. Infectious disease is following. Objective - Vital Signs Vital signs: Vital Signs Temp 97.9 F 03/29/22 08:05 Pulse 91 03/29/22 08:05 Resp 14 03/29/22 08:05 BP 145/84 03/29/22 08:05 Pulse Ox 96 03/29/22 08:05 FiO2 25 03/25/22 08:20 Intake & Output 03/28/22 03/29/22 03/29/22 18:59 06:59 18:59 Intake Total 476 250 Output Total 51 Balance 425 250 Intake: IV 476 10 Invasive Line 1 10 Oral 240 Output: Urine 50 Estimated Blood Loss 1 Other: Voiding Method Toilet Toilet Toilet # Voids 1 2 1 # Bowel Movements 1 0 - Exam General: Well developed, well nourished. No acute distress. HEENT: Head is atraumatic, normocephalic. Lungs: Respirations even and nonlabored, on RA Skin: Warm and dry, No rash or lesions. Neurologic: Awake, alert and oriented times 3. CN II-XII grossly intact. No focal deficits. Psychiatric: Appropriate mood and affect. - Labs CBC & Chem 7: 03/31/22 05:57 03/31/22 05:57 Labs: Abnormal Lab Results - Last 24 Hours (Table) 03/28/22 03/28/22 03/29/22 Range/Units 11:03 11:03 07:19 WBC 11.8 H (3.8-10.6) k/uL RBC 3.55 L (3.80-5.40) m/uL MCV 102.5 H (80.0-100.0) fL Neutrophils # 10.2 H (1.3-7.7) k/uL Chloride 116 H 115 H (98-107) mmol/L Carbon Dioxide 17 L (22-30) mmol/L BUN 21 H 22 H (7-17) mg/dL Calcium 8.2 L 8.1 L (8.4-10.2) mg/dL Assessment and Plan Assessment: The patient is POD #1 from a cystoscopy, left retrograde pyelogram, stent insertion for hydronephrosis. The patient states her lower back pain is completely gone. She is voiding without difficulty and denies any hematuria. No nausea or vomiting. She is afebrile and vitals are stable. 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 Eulalia Barcenas nurse practitioner acting as scribe for signing physician. Eulalia Barcenas [facility] Palliative Care/Urology [employer]ink [id number] Email: [email or web address] I personally performed and participated in the history, physical, the decision making, I agree with the assessment and plan of BASKETBALL COMMENTATOR Time with Patient: Less than 30
[2022-03-29 10:39] LABS: Basophils % (A) 0 %; Eosinophils % (A) 0 %; HCT 36.6 % (34.0-46.0); HGB 11.8 gm/dL (11.4-16.0); Hypochromasia Slight; Lymphocytes # (A) 0.8 k/uL (1.0-4.8); Lymphocytes % (A) 8 %; MCH 32.9 pg (25.0-35.0); MCHC 32.3 g/dL (31.0-37.0); MCV 101.7 fL (80.0-100.0); Macrocytosis Slight; Mean Platelet Volume 9.7; Monocytes # (A) 0.2 k/uL (0-1.0); Monocytes % (A) 2 %; Neutrophils # (A) 9.1 k/uL (1.3-7.7); Neutrophils % (A) 89 %; Platelet Count 327 k/uL (150-450); RDW 14.2 % (11.5-15.5); WBC 10.3 k/uL (3.8-10.6)
--- NOTE | 2022-03-29 13:56 | P.PN ---
Subjective The patient is a 71-year-old female with a history of hypertension, chronic tobacco use, COPD, history of non-ischemic cardiomyopathy with improved EF. She follows with Dr. Xie. We have been consulted for new onset CHF. Patient presented with symptoms of progressive fatigue, back discomfort and shaking. Her symptoms started about a week ago but with getting worse with worsening energy. She was noted to have sinus tachycardia, tachypnea and fever on presentation. Patient denies any history of CHF, CAD or arrhythmia. She underwent an echocardiogram which revealed an ejection fraction of 30-35% with segmental wall motion abnormality of unknown duration. EKG done 03/26 shows T- wave inversion in the anterolateral leads consistent with anterior wall ischemia probably representing Takatsubo cardiomyopathy. She was found to be bacteremic with a UTI and left sided moderate hydronephrosis, possible right lower lobe pneumonia as well. Urology is following. 03/29 Patient seen and examined at bedside, She denies any shortness of breath. She underwent Cystoscopy, left retrograde pyelogram, and stent insertion left ureter with Dr. Rousseau yesterday. She denies any chest discomfort, dizziness or palpitations. She is in sinus mechanism. She has no nausea or vomiting. Hemodynamically she is stable. Blood cultures were positive for E. coli. Patient cannot recall prior history of CHF or CAD. Records obtained from outpatient: Lexiscan stress test 03/2016 EF of 45%, generalized hypokinesia, no ischemia. She underwent an echocardiogram 08/2018 EF of 55% Medications: Aspirin 81 mg daily, lisinopril 5 mg daily, metoprolol tartrate 25 mg daily Vitals reviewed GENERAL: In no acute distress. NECK: Supple without JVD LUNGS: Breath sounds clear to auscultation bilaterally. Respiration equal and unlabored. No wheezes, rales or rhonchi. HEART: Regular rate and rhythm with systolic ejection murmur, No rubs or gallops. S1 and S2 heard. EXTREMITIES: Normal range of motion, no edema. No clubbing or cyanosis. Peripheral pulses intact. ASSESSMENT Bacteremia with urinary tract infection, cultures positive for E. Coli Cardiomyopathy, ischemic vs non-ischemic of unknown duration with segmental wall motion abnormality suggestive of ischemic heart disease, EKG with findings consistent with Takatsubo cardiomyopathy History of non-ischemic cardiomyopathy in 2016 with improvement in EF Moderate left sided hydronephrosis History of smoking COPD Hypertension PLAN Continue cardiomyopathy medication with beta hernandez, MICKY inhibitor Monitor renal function Consider adding aldactone and Farxiga as an outpatient Patient will need further cardiac workup once stable in regard to her infection, possibly done as an outpatient. She will follow-up with her primary post doctoral fellow, Dr. Xie Patient is stable from a cardiology perspective, We will follow the patient has needed. Please reconsult if needed Nurse Practitioner note has been reviewed, I agree with a documented findings and plan of care. Patient was seen and examined. Objective - Vital Signs Vital signs: Vital Signs Temp 97.6 F 03/29/22 11:38 Pulse 86 03/29/22 11:38 Resp 14 03/29/22 11:38 BP 135/80 03/29/22 11:38 Pulse Ox 93 L 03/29/22 11:38 FiO2 25 03/25/22 08:20 Intake & Output 03/28/22 03/29/22 03/29/22 18:59 06:59 18:59 Intake Total 476 368 Output Total 51 Balance 425 368 Intake: IV 476 10 Invasive Line 1 10 Oral 358 Output: Urine 50 Estimated Blood Loss 1 Other: Voiding Method Toilet Toilet Toilet # Voids 1 2 1 # Bowel Movements 1 0 - Labs CBC & Chem 7: 03/29/22 09:31 03/29/22 07:19 Labs: Abnormal Lab Results - Last 24 Hours (Table) 03/29/22 03/29/22 Range/Units 07:19 09:31 RBC 3.60 L (3.80-5.40) m/uL MCV 101.7 H (80.0-100.0) fL Neutrophils # 9.1 H (1.3-7.7) k/uL Lymphocytes # 0.8 L (1.0-4.8) k/uL Chloride 115 H (98-107) mmol/L Carbon Dioxide 17 L (22-30) mmol/L BUN 22 H (7-17) mg/dL Calcium 8.1 L (8.4-10.2) mg/dL
--- NOTE | 2022-03-29 13:58 | P.PN ---
Subjective Progress Note Date: 03/29/22 CHIEF COMPLAINT: Ileus HISTORY OF PRESENT ILLNESS: Patient currently being treated for UTI with sepsis. Patient is status post cystoscopy, left retrograde pyelogram with stent insertion per urology. Patient reports of the left abdominal flank pain has resolved. Per patient she reports no bowel movement. But according to nursing staff patient did have 2 liquidy stools yesterday. Patient refused the Dulcolax suppository this morning. Patient denies any nausea or vomiting. She does report that her abdomen still feels bloated. Afebrile. WBC is down from 11.8 - 10.3, hemoglobin 11.8 platelets 327 PHYSICAL EXAM: VITAL SIGNS: Reviewed. GENERAL: Well-developed in no acute distress. HEENT: No sclera icterus. Extraocular movements grossly intact. Moist buccal mucosa. Head is atraumatic, normocephalic. ABDOMEN: Soft. Mildly distended. Nontender NEUROLOGIC: Alert and oriented. Cranial nerves II through XII grossly intact. ASSESSMENT: 1. Ileus secondary to UTI 2. UTI with bacteremia and sepsis 3. Hydronephrosis PLAN: -Soapsud enema has been ordered -Continue full liquid diet -Continue stool softeners -Continue antibiotics for UTI Physician Pharmacy Technician Program Director note has been reviewed by physician. Signing provider agrees with the documented findings, assessment, and plan of care. I have personally seen and examined the patient, reviewed the DESIGN EDITOR /PAs history, exam and MDM and agree with the assessment and plan as written. Based on total visit time, I have performed more than 50% of the visit. As above: Patient still feeling some bloating. Mild nausea. Abdominal examination reveals mild distention. Minimal tenderness. Soapsuds enemas today. Ambulate. Objective - Vital Signs Vital signs: Vital Signs Temp 97.6 F 03/29/22 11:38 Pulse 86 03/29/22 11:38 Resp 14 03/29/22 11:38 BP 135/80 03/29/22 11:38 Pulse Ox 93 L 03/29/22 11:38 FiO2 25 03/25/22 08:20 Intake & Output 03/28/22 03/29/22 03/29/22 18:59 06:59 18:59 Intake Total 476 368 Output Total 51 Balance 425 368 Intake: IV 476 10 Invasive Line 1 10 Oral 358 Output: Urine 50 Estimated Blood Loss 1 Other: Voiding Method Toilet Toilet Toilet # Voids 1 2 1 # Bowel Movements 1 0 - Labs CBC & Chem 7: 03/29/22 09:31 03/29/22 07:19 Labs: Abnormal Lab Results - Last 24 Hours (Table) 03/29/22 03/29/22 Range/Units 07:19 09:31 RBC 3.60 L (3.80-5.40) m/uL MCV 101.7 H (80.0-100.0) fL Neutrophils # 9.1 H (1.3-7.7) k/uL Lymphocytes # 0.8 L (1.0-4.8) k/uL Chloride 115 H (98-107) mmol/L Carbon Dioxide 17 L (22-30) mmol/L BUN 22 H (7-17) mg/dL Calcium 8.1 L (8.4-10.2) mg/dL
--- NOTE | 2022-03-29 15:00 | P.PN ---
Subjective Progress Note Date: 03/29/22 Principal diagnosis: Gram-negative bacteremia Patient is a 71-year-old female presenting to the hospital with lower back pain in this patient did have a fever elevated white count and evidence of left-sided hydronephrosis subsequently did have a positive blood culture with gram-negative bacilli. Patient is scheduled for cystoscopy and possible stent placement this afternoon On today's evaluation that is 03/29/2022, the patient remains to be afebrile, the patient is currently breathing comfortably on room air satting around 96% the patient denies having any chest pain or shortness of breath or cough patient pain has improved no nausea vomiting and no diarrhea Objective - Vital Signs Vital signs: Vital Signs Temp 97.6 F 03/29/22 11:38 Pulse 86 03/29/22 11:38 Resp 14 03/29/22 11:38 BP 135/80 03/29/22 11:38 Pulse Ox 93 L 03/29/22 11:38 FiO2 25 03/25/22 08:20 Intake & Output 03/28/22 03/29/22 03/29/22 18:59 06:59 18:59 Intake Total 476 368 Output Total 51 Balance 425 368 Intake: IV 476 10 Invasive Line 1 10 Oral 358 Output: Urine 50 Estimated Blood Loss 1 Other: Voiding Method Toilet Toilet Toilet # Voids 1 2 1 # Bowel Movements 1 0 - Exam GENERAL DESCRIPTION: An elderly female lying in bed in no distress RESPIRATORY SYSTEM: Unlabored breathing , decreased breath sounds at bases HEART: S1 S2 regular rate and rhythm , ABDOMEN: Soft , no tenderness EXTREMITIES: No edema feet - Labs CBC & Chem 7: 03/29/22 09:31 03/29/22 07:19 Labs: Abnormal Lab Results - Last 24 Hours (Table) 03/29/22 03/29/22 Range/Units 07:19 09:31 RBC 3.60 L (3.80-5.40) m/uL MCV 101.7 H (80.0-100.0) fL Neutrophils # 9.1 H (1.3-7.7) k/uL Lymphocytes # 0.8 L (1.0-4.8) k/uL Chloride 115 H (98-107) mmol/L Carbon Dioxide 17 L (22-30) mmol/L BUN 22 H (7-17) mg/dL Calcium 8.1 L (8.4-10.2) mg/dL Assessment and Plan (1) Gram-negative bacteremia Current Visit: Yes Status: Acute Code(s): R78.81 - BACTEREMIA SNOMED Code(s): 645024737596 (2) UTI (urinary tract infection) Current Visit: Yes Status: Acute Code(s): N39.0 - URINARY TRACT INFECTION, SITE NOT SPECIFIED SNOMED Code(s): 47993366 Plan: 1patient with gram-negative bacteremia source is likely urinary in this patient with suspected left-sided hydronephrosis but no evidence of any obstructive stone was seen on the CT urology seen the patient thinking 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 2Patient has shown clinical improvement patient blood as well as urine culture with E. coli which is sensitive pathogen patient white count has normalized patient to continue with Rocephin 2 g daily while inpatient finishing therapy with oral Cipro prescription was sent to the pharmacy Time with Patient: Less than 30
--- NOTE | 2022-03-29 21:04 | P.PN ---
Subjective No acute overnight event, underwent stent insertion yesterday. Indicated back pain has improved this am. Objective - Vital Signs Vital signs: Vital Signs Temp 97.9 F 03/29/22 15:04 Pulse 87 03/29/22 15:04 Resp 14 03/29/22 15:04 BP 131/81 03/29/22 15:04 Pulse Ox 96 03/29/22 15:04 FiO2 25 03/25/22 08:20 Intake & Output 03/29/22 03/29/22 03/30/22 06:59 18:59 06:59 Intake Total 496 Output Total 401 Balance 95 Intake: IV 20 Invasive Line 1 20 Oral 476 Output: Urine 1 Stool 400 Other: Voiding Method Toilet Toilet # Voids 2 1 # Bowel Movements 0 1 - Constitutional General appearance: Present: no acute distress - Gastrointestinal General gastrointestinal: Present: soft. 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 underwent left sided stent insertion yesterday. 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
[2022-03-29] MEDS: HYDROcodone/APAP 5-325MG 1 EACH TAB PO PRN (21:08)
[2022-03-30] MEDS: ACETAMINOPHEN TAB 325 MG TAB PO PRN ×4 (02:43→20:52)
[2022-03-30 07:40] LABS: Basophils % (A) 0 %; Eosinophils % (A) 0 %; HCT 36.7 % (34.0-46.0); HGB 11.7 gm/dL (11.4-16.0); Lymphocytes # (A) 1.3 k/uL (1.0-4.8); Lymphocytes % (A) 11 %; MCH 32.2 pg (25.0-35.0); MCHC 31.9 g/dL (31.0-37.0); MCV 100.8 fL (80.0-100.0); Macrocytosis Slight; Mean Platelet Volume 9.4; Monocytes # (A) 0.6 k/uL (0-1.0); Monocytes % (A) 5 %; Neutrophils # (A) 8.9 k/uL (1.3-7.7); Neutrophils % (A) 81 %; Platelet Count 380 k/uL (150-450); RBC 3.65 m/uL (3.80-5.40)
[2022-03-30 07:54] LABS: Calcium 8.4 mg/dL (8.4-10.2); Potassium 3.9 mmol/L (3.5-5.1)
[2022-03-30] MEDS: bisacodyL 10 MG SUPP RECTAL SCH (08:47)
[2022-03-30] MEDS: ASPIRIN 81 MG PO SCH (08:52)
[2022-03-30] MEDS: LACTULOSE 20 GM/30 ML CUP PO SCH ×2 (08:52→20:52)
[2022-03-30] MEDS: lisinopriL 5 MG TAB PO SCH (08:52)
[2022-03-30] MEDS: METOPROLOL SUCCINATE (ER) 25 MG TAB.ER.24H PO SCH (08:52)
[2022-03-30] MEDS: HEPARIN SODIUM,PORCINE/PF 5,000 UNIT/0.5 ML SYRINGE SQ SCH ×3 (08:52→22:53)
--- NOTE | 2022-03-30 09:03 | CDI ---
Documentation Clarification Form Date: 03/30/2022 08:45:19 AM From: Moriah Dickson CCS, CCDS Admit Date: 03/24/2022 02:35:00 PM Patient Name: Samina Quevedo Visit Number: [id number] Discharge Date: ATTENTION: The Clinical Documentation Specialists (CDI) and [facility] Coding Staff appreciate your assistance in clarifying documentation. Please respond to the clarification below the line at the bottom and electronically sign. The CDI & [facility] Coding staff will review the response and follow-up if needed. Please note: Queries are made part of the Legal Health Record. If you have any questions, please contact the author of this message via ITS. Dr. Tyler Zuniga: Possible Right Lower Lobe developing Pneumonia is documented in the patient's record beginning with the 03/24 ED Note Impression. Per the Infectious Disease Consult and subsequent Progress Notes: No evidence of any pneumonia clinically and did not show on the CT of the Chest. Discontinued Zosyn and started Cefepime pending cultures. Additional clarification is requested. History/Risk Factors per the 03/24 H/P: Hypertension, Drinks Daily, Smoker. Clinical Indicators: Presented to the ED on 03/24 with lower back pain for approximately 1 week, first noticed after carrying heavy objects up some stairs. Has significant fatigue. PCP started on Zithromax for the fatigue, tested negative for COVID infection. Also has increased constipation. On exam, the patient was decompensated with tachynea, tachycardic and hypoxic, given Albuterol treatment and place on BiPAP with improvement. Admit with Pneumonia, UTI and Sepsis. 03/24 VS: T 98.1, 98.8, 100.1; P 116, 168; R 22, 28, 32 (sob, labored, shallow, tachypnea); BP 157/96, PO 97 RA - 98 BiPAP. BMI: 27.5 03/24 LAB: WBC 23.3, Neutrophils 21.9, Lymphocytes 0.5; Na 131, CO2 20, BUN 24, Lactic Acid 5.3, 0.7, 1.3; Calcium 8.1, BNP 4240, total protein 5.5, Albumin 2.7. 03/24 Blood Gas: ABG pH 7.37, pCO2 30, pO2 223, HCO3 18, total CO2 18, O2 Sat 100.0. VBG: pH 7.21, pCO2 54, HCO3 21. 03/24 CXR: Correlate for developing infiltrate right lower lobe. 03/24 Repeat CXR: Bilateral airspace opacities more conspicuous on this examination correlate for pneumonia. 03/24 CT Chest: No PE, Cardiomegaly. Treatment 03/24: Telemetry, Infectious Disease Consult, O2 2Lnc - BiPAP, IM Toradol, IM Norflex, INH Duoneb, IV Na Chl 1,000 mls @ 999 mls/hr q1H, IV Rocephin 50 mls @ 100 mls/hr x1, IV Levaquin 100 mls @ 100 mls/hr x1, IV Decadron 10 mg x1, INH Ventolin, INH Duoneb x2, IV Na Chl 1,000 mls @ 130 mls/hr q7H, IV Na Chl 1,000 mls @ 999 mls/hr q1H. Please clarify if Pneumonia is a valid diagnosis? [ ] Yes, Pneumonia is present as evidence by (additional clinical support): [ x ] No, Pneumonia is ruled out [ ] Other (please specify diagnosis) [ ] Unable to determine (Template Last Revised: July 2020) MTDD
--- NOTE | 2022-03-30 12:19 | P.PN ---
Subjective Progress Note Date: 03/30/22 CHIEF COMPLAINT: Ileus HISTORY OF PRESENT ILLNESS: Patient currently being treated for UTI with sepsis. Patient is status post cystoscopy, left retrograde pyelogram with stent insertion per urology. Patient denies any abdominal pain. She does report some back pain from laying in bed. She did have liquidy bowel movements. She denies a nausea vomiting. She is tolerating full liquids. Afebrile. WBC is 11 H 11.7 platelets 380 creatinine 0.8 to PHYSICAL EXAM: VITAL SIGNS: Reviewed. GENERAL: Well-developed in no acute distress. HEENT: No sclera icterus. Extraocular movements grossly intact. Moist buccal mucosa. Head is atraumatic, normocephalic. ABDOMEN: Soft. Decreased abdominal distention. Nontender NEUROLOGIC: Alert and oriented. Cranial nerves II through XII grossly intact. ASSESSMENT: 1. Ileus secondary to UTI improving 2. UTI with bacteremia and sepsis 3. Hydronephrosis PLAN: -Patient can be discharge from surgical standpoint -Advance diet to dysphagia chopped -Antibiotics for UTI and bacteremia per medicine service Physician Business Services Representative note has been reviewed by physician. Signing provider agrees with the documented findings, assessment, and plan of care. I have personally seen and examined the patient, reviewed the LIQUOR DEPARTMENT MANAGER /PAs history, exam and MDM and agree with the assessment and plan as written. Based on total visit time, I have performed more than 50% of the visit. As above: Patient doing better today. She is tolerating her diet. No abdominal pain. She is definitely less distended. She thinks she is back to her baseline. Continue stool softeners post discharge. May discharge from my standpoint. Objective - Vital Signs Vital signs: Vital Signs Temp 97.9 F 03/30/22 08:49 Pulse 82 03/30/22 08:49 Resp 20 03/30/22 08:49 BP 141/79 03/30/22 08:49 Pulse Ox 95 03/30/22 08:49 FiO2 25 03/25/22 08:20 Intake & Output 03/29/22 03/30/22 03/30/22 18:59 06:59 18:59 Intake Total 496 118 Output Total 401 Balance 95 118 Intake: IV 20 Invasive Line 1 20 Oral 476 118 Output: Urine 1 Stool 400 Other: Voiding Method Toilet Toilet Toilet # Voids 1 1 # Bowel Movements 1 - Labs CBC & Chem 7: 03/30/22 06:38 03/30/22 06:38 Labs: Abnormal Lab Results - Last 24 Hours (Table) 03/30/22 03/30/22 Range/Units 06:38 06:38 WBC 11.0 H (3.8-10.6) k/uL RBC 3.65 L (3.80-5.40) m/uL MCV 100.8 H (80.0-100.0) fL Neutrophils # 8.9 H (1.3-7.7) k/uL Chloride 111 H (98-107) mmol/L BUN 21 H (7-17) mg/dL
[2022-03-30] MEDS ORDERED: MAGNESIUM HYDROXIDE 2,400 MG/10 ML CUP PO PRN (13:34)
[2022-03-30] MEDS: METOCLOPRAMIDE 5 MG/ML 2 ML VIAL IVP SCH ×3 (14:26→22:53)
--- NOTE | 2022-03-30 17:53 | P.PN ---
Subjective Progress Note Date: 03/30/22 Principal diagnosis: Gram-negative bacteremia Patient is a 71-year-old female presenting to the hospital with lower back pain in this patient did have a fever elevated white count and evidence of left-sided hydronephrosis subsequently did have a positive blood culture with gram-negative bacilli. Patient is scheduled for cystoscopy and possible stent placement this afternoon On today's evaluation that is 03/30/2022, the patient continues to be afebrile, the patient is breathing comfortably on room air,the patient denies having any chest pain or shortness of breath or cough patient pain has improved no nausea vomiting and no diarrhea Objective - Vital Signs Vital signs: Vital Signs Temp 97.9 F 03/30/22 08:49 Pulse 78 03/30/22 11:17 Resp 20 03/30/22 11:17 BP 151/81 03/30/22 11:17 Pulse Ox 95 03/30/22 11:17 FiO2 25 03/25/22 08:20 Intake & Output 03/29/22 03/30/22 03/30/22 18:59 06:59 18:59 Intake Total 496 236 Output Total 401 Balance 95 236 Intake: IV 20 Invasive Line 1 20 Oral 476 236 Output: Urine 1 Stool 400 Other: Voiding Method Toilet Toilet Toilet # Voids 1 1 # Bowel Movements 1 - Exam GENERAL DESCRIPTION: An elderly female lying in bed in no distress RESPIRATORY SYSTEM: Unlabored breathing , decreased breath sounds at bases HEART: S1 S2 regular rate and rhythm , ABDOMEN: Soft , no tenderness EXTREMITIES: No edema feet - Labs CBC & Chem 7: 03/30/22 06:38 03/30/22 06:38 Labs: Abnormal Lab Results - Last 24 Hours (Table) 03/30/22 03/30/22 Range/Units 06:38 06:38 WBC 11.0 H (3.8-10.6) k/uL RBC 3.65 L (3.80-5.40) m/uL MCV 100.8 H (80.0-100.0) fL Neutrophils # 8.9 H (1.3-7.7) k/uL Chloride 111 H (98-107) mmol/L BUN 21 H (7-17) mg/dL Microbiology - Last 24 Hours (Table) 03/29/22 11:02 Blood Culture - Preliminary Blood No Growth after 24 hours Assessment and Plan (1) Gram-negative bacteremia Current Visit: Yes Status: Acute Code(s): R78.81 - BACTEREMIA SNOMED Code(s): 520686139831 (2) UTI (urinary tract infection) Current Visit: Yes Status: Acute Code(s): N39.0 - URINARY TRACT INFECTION, SITE NOT SPECIFIED SNOMED Code(s): 76231058 Plan: 1patient with gram-negative bacteremia source is likely urinary in this patient with suspected left-sided hydronephrosis but no evidence of any obstructive stone was seen on the CT urology seen the patient thinking 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 2Patient has shown clinical improvement patient blood as well as urine culture with E. coli which is sensitive pathogen patient to continue with Rocephin 2 g daily while inpatient finishing therapy with oral Cipro, at the bedside and multiple questions and concerns were answered Time with Patient: Less than 30
[2022-03-31] MEDS: ACETAMINOPHEN TAB 325 MG TAB PO PRN ×3 (03:16→22:33)
[2022-03-31] MEDS: METOCLOPRAMIDE 5 MG/ML 2 ML VIAL IVP SCH ×3 (06:39→18:41)
[2022-03-31 06:47] LABS: African American GFR (CKD) >90 (>60 ml/min/1.73 sqM); Anion Gap 2 mmol/L; Basophils # (A) 0.1 k/uL (0-0.2); Basophils % (A) 0 %; Blood Urea Nitrogen 16 mg/dL (7-17); Carbon Dioxide 24 mmol/L (22-30); Chloride 112 mmol/L (98-107); Eosinophils % (A) 0 %; Glucose 111 mg/dL (74-99); HCT 34.1 % (34.0-46.0); HGB 11.4 gm/dL (11.4-16.0); Lymphocytes # (A) 1.2 k/uL (1.0-4.8); Lymphocytes % (A) 9 %; MCH 33.6 pg (25.0-35.0); MCHC 33.5 g/dL (31.0-37.0); MCV 100.2 fL (80.0-100.0); Mean Platelet Volume 9.4; Monocytes % (A) 7 %; Neutrophils # (A) 11.4 k/uL (1.3-7.7); Neutrophils % (A) 83 %; Non-African American GFR(CKD) 86 (>60 ml/min/1.73 sqM); Platelet Count 383 k/uL (150-450); Potassium 3.9 mmol/L (3.5-5.1); RBC 3.41 m/uL (3.80-5.40); RDW 13.5 % (11.5-15.5); Sodium 138 mmol/L (137-145); WBC 13.7 k/uL (3.8-10.6)
[2022-03-31] MEDS: LACTULOSE 20 GM/30 ML CUP PO SCH ×2 (08:53→22:32)
[2022-03-31] MEDS: HEPARIN SODIUM,PORCINE/PF 5,000 UNIT/0.5 ML SYRINGE SQ SCH ×2 (08:53→16:54)
[2022-03-31] MEDS: lisinopriL 5 MG TAB PO SCH (08:54)
[2022-03-31] MEDS: METOPROLOL SUCCINATE (ER) 25 MG TAB.ER.24H PO SCH (08:54)
[2022-03-31] MEDS: ASPIRIN 81 MG PO SCH (08:54)
[2022-03-31] MEDS: bisacodyL 10 MG SUPP RECTAL SCH (08:54)
--- NOTE | 2022-03-31 12:34 | P.PN ---
Subjective Progress Note Date: 03/31/22 CHIEF COMPLAINT: Ileus HISTORY OF PRESENT ILLNESS: Patient currently being treated for UTI with sepsis. Patient is status post cystoscopy, left retrograde pyelogram with stent insertion per urology. Patient had abdominal pain yesterday afternoon after eating. On since then the abdominal pain has resolved. She denies any nausea or vomiting. She is tolerating a regular diet. She has had more bowel movements and flatus. Afebrile. Heart rate 113. WBC is up 13.7 Hgb 11.4 platelets 383 sodium is 138 potassium 3.9 creatinine 0.70 PHYSICAL EXAM: VITAL SIGNS: Reviewed. GENERAL: Well-developed in no acute distress. HEENT: No sclera icterus. Extraocular movements grossly intact. Moist buccal m ucosa. Head is atraumatic, normocephalic. ABDOMEN: Soft. Less distended Nontender NEUROLOGIC: Alert and oriented. Cranial nerves II through XII grossly intact. ASSESSMENT: 1. Ileus secondary to UTI improving 2. UTI with bacteremia and sepsis 3. Hydronephrosis PLAN: -Patient can be discharge from surgical standpoint -Recommend patient continues stool softeners at home -Continue dysphagia chopped -Antibiotics for UTI and bacteremia per medicine service Physician Ems Driver note has been reviewed by physician. Signing provider agrees with the documented findings, assessment, and plan of care. Objective - Vital Signs Vital signs: Vital Signs Temp 98.5 F 03/31/22 07:49 Pulse 113 H 03/31/22 07:49 Resp 17 03/31/22 07:49 BP 145/93 03/31/22 07:49 Pulse Ox 96 03/31/22 07:49 FiO2 25 03/25/22 08:20 Intake & Output 03/30/22 03/31/22 03/31/22 18:59 06:59 18:59 Intake Total 354 Balance 354 Intake: Oral 354 Other: Voiding Method Toilet # Voids 2 2 - Labs CBC & Chem 7: 03/31/22 05:57 03/31/22 05:57 Labs: Abnormal Lab Results - Last 24 Hours (Table) 03/31/22 03/31/22 Range/Units 05:57 05:57 WBC 13.7 H (3.8-10.6) k/uL RBC 3.41 L (3.80-5.40) m/uL MCV 100.2 H (80.0-100.0) fL Neutrophils # 11.4 H (1.3-7.7) k/uL Chloride 112 H (98-107) mmol/L Glucose 111 H (74-99) mg/dL Calcium 8.0 L (8.4-10.2) mg/dL Microbiology - Last 24 Hours (Table) 03/29/22 11:02 Blood Culture - Preliminary Blood No Growth after 24 hours
--- NOTE | 2022-03-31 12:51 | XR ---
EXAMINATION TYPE: XR KUB portable DATE OF EXAM: 03/31/2022 COMPARISON: NONE HISTORY: Pain TECHNIQUE: Single supine KUB image of the abdomen is obtained FINDINGS: There is mildly distended large bowel. Small bowel appears to be of normal caliber. No convincing evidence for pneumoperitoneum. No unusual calcifications. The lung bases are clear. The osseous structures are intact. Double pigtail left-sided ureteral catheter is in place. IMPRESSION: 1. Nonspecific nonobstructive bowel gas pattern.
[2022-03-31 13:56] VITALS: BMI 27.4
[2022-04-01] MEDS: METOCLOPRAMIDE 5 MG/ML 2 ML VIAL IVP SCH ×3 (00:14→12:17)
[2022-04-01] MEDS: HEPARIN SODIUM,PORCINE/PF 5,000 UNIT/0.5 ML SYRINGE SQ SCH ×2 (00:14→09:19)
[2022-04-01 09:04] VITALS: BP 152/78; PULSE 94; TEMP 97.4
[2022-04-01] MEDS: LACTULOSE 20 GM/30 ML CUP PO SCH (09:18)
[2022-04-01] MEDS: lisinopriL 5 MG TAB PO SCH (09:19)
[2022-04-01] MEDS: METOPROLOL SUCCINATE (ER) 25 MG TAB.ER.24H PO SCH (09:19)
[2022-04-01] MEDS: ASPIRIN 81 MG PO SCH (09:19)
[2022-04-01] MEDS: bisacodyL 10 MG SUPP RECTAL SCH (09:26)
[2022-04-01 09:35] VITALS: RESP 18
[2022-04-01 11:24] LABS: HCT 33.7 % (37.2-46.3); HGB 11.7 g/dL (12.0-15.0); MCH 33.1 pg (27.0-32.0); MCHC 34.7 g/dL (32.0-37.0); MCV 95.5 fL (80.0-97.0); NRBC Per 100 WBC 0 /100 WBCS (0.0-0.0); Platelet Count 420 X 10*3/uL (140-440); RBC 3.53 X 10*6/uL (4.10-5.20); RDW 14.4 % (11.5-14.5); WBC 11.52 X 10*3/uL (4.50-10.00)
[2022-04-01 11:45] LABS: African American GFR (CKD) 99.6 (60.0-200.0); Anion Gap 11.2 mmol/L (10.00-18.00); BUN/Creat Ratio 15.57 Ratio (12.00-20.00); Blood Urea Nitrogen 10.9 mg/dL (9.0-27.0); Calcium 8.6 mg/dL (8.7-10.3); Carbon Dioxide 23.8 mmol/L (20.0-27.5); Potassium 4.1 mmol/L (3.5-5.5)
[2022-04-01 11:59] LABS: Acanthocytes 2+; Basophils # (M) 0 X 10*3/uL (0.00-0.10); Eosinophils # (M) 0 X 10*3/uL (0.04-0.35); Lymphocytes # (M) 1.73 X 10*3/uL (0.90-5.00); Monocytes # (M) 1.04 X 10*3/uL (0.20-1.00); Neutrophils # (M) 8.76 X 10*3/uL (2.00-8.90); Neutrophils % (M) 76 %
== END 2022-04-01 13:44 | disposition home or self-care (01) | DRG 853 ==
LOC: EC 09:42 → 3SCARD 14:35 → 4SSUR 03-31 00:58
PROVIDERS: ADMIT Internal Medicine; ATTEND Internal Medicine
PROC: 5A09357 Assistance with Respiratory Ventilation, Less than 24 Consecutive Hours, Continuous Positive Airway Pressure (ICD-10-PCS; 2022-03-24)
PROC: 0T778DZ Dilation of Left Ureter with Intraluminal Device, Via Natural or Artificial Opening Endoscopic (ICD-10-PCS; principal; 2022-03-28 16:30)
PROC: BT1F1ZZ Fluoroscopy of Left Kidney, Ureter and Bladder using Low Osmolar Contrast (ICD-10-PCS; principal; 2022-03-28 16:30)
DX: A41.51 Sepsis due to Escherichia coli [E. coli] (principal); J96.01 Acute respiratory failure with hypoxia; I51.81 Takotsubo syndrome; J44.0 Chronic obstructive pulmonary disease with (acute) lower respiratory infection; K56.7 Ileus, unspecified; N13.6 Pyonephrosis; Q62.39 Other obstructive defects of renal pelvis and ureter; Q62.0 Congenital hydronephrosis; I25.5 Ischemic cardiomyopathy; Z20.822 Contact with and (suspected) exposure to COVID-19; F17.210 Nicotine dependence, cigarettes, uncomplicated; R79.1 Abnormal coagulation profile; Z79.899 Other long term (current) drug therapy; I10 Essential (primary) hypertension
CPT/HCPCS: 36415; 36600; 71045; 71275; 72110; 74018; 74019; 74177; 74420; 80048; 80053; 80061; 81001; 82803; 82805; 83605; 83880; 84145; 84484; 85025; 85379; 87040; 87077; 87086; 87186; 87502; 87635; 93005; 93306; 94640; 94660; 94760; 96361; 96365; 96372; 99283

== ENCOUNTER → 2022-04-17 | Outpatient (CLI) | payer MEDICARE ==
--- NOTE | 2022-04-17 16:03 | XR ---
EXAMINATION TYPE: XR KUB DATE OF EXAM: 04/17/2022 3:58 PM CLINICAL HISTORY: Calculus of kidney. TECHNIQUE: Two supine KUB images of the abdomen are obtained. COMPARISON: Most recent x-ray March 31, 2022. FINDINGS: Double-J left ureter stent redemonstrated. No definitive nephrolithiasis. Occasional scatte red pelvic phleboliths. Metallic hardware from right hip surgery is partially imaged. Vascular calculation overlies the pelvi s. Overall nonobstructive bowel gas pattern. IMPRESSION: As above. No significant change from recent x-ray.
== END | disposition home or self-care (01) ==
LOC: RADXRMAIN 15:39
PROVIDERS: ATTEND Urology
DX: N20.0 Calculus of kidney (principal)
CPT/HCPCS: 74018

== ENCOUNTER 2022-05-02 19:11 | Inpatient (IN) | payer MEDICARE ==
--- NOTE | 2022-05-02 20:55 | ED ---
General Adult HPI - General Chief complaint: Back Pain/Injury Stated complaint: poss infection in spine Time Seen by Provider: 05/02/22 20:45 Source: family, RN notes reviewed, old records reviewed (MRI reviewed does show concern for L3-L4 osteomyelitis/discitis. Possible phlegmon change posterior longitudinal ligament.) Mode of arrival: wheelchair Limitations: no limitations - History of Present Illness Initial comments: Patient is a pleasant 71-year-old female presenting to the emergency department with concerns for back discomfort. Symptoms have been present for over a month now. Patient was in the hospital around the same time as it started right nose with urinary tract infection. Patient did get up needing a stent in her ureter. A sultana also did develop sepsis. Patient has had continued discomfort in her back. Pain is controlled with prescription pain pills. Patient did have outpatient MRI today and was advised to come to emergency department. No fever. No leg weakness or loss of sensation. No new bowel or bladder incontinence or retention. - Related Data Home Medications Medication Instructions Recorded Confirmed Acetaminophen Tab [Tylenol] 1,000 mg PO Q6H PRN 03/24/22 03/24/22 Previous Rx's Medication Instructions Recorded Ciprofloxacin HCl [Cipro] 500 mg PO Q12HR 10 Days #20 tab 03/29/22 Aspirin 81 mg PO DAILY #30 tab 03/30/22 Metoprolol Succinate (ER) [Toprol 25 mg PO DAILY #30 tab 03/30/22 XL] lisinopriL [Zestril] 5 mg PO DAILY #30 tab 03/30/22 Allergies Allergy/AdvReac Type Severity Reaction Status Date / Time No Known Allergies Allergy Verified 05/02/22 19:16 Review of Systems ROS Statement: Those systems with pertinent positive or pertinent negative responses have been documented in the HPI. ROS Other: All systems not noted in ROS Statement are negative. Constitutional: Denies: fever, chills Eyes: Denies: eye pain ENT: Denies: ear pain Respiratory: Denies: cough, dyspnea Cardiovascular: Denies: chest pain Endocrine: Denies: fatigue Gastrointestinal: Denies: abdominal pain, nausea, vomiting Genitourinary: Denies: dysuria Musculoskeletal: Reports: as per HPI, back pain Past Medical History Past Medical History: Hypertension History of Any Multi-Drug Resistant Organisms: None Reported Past Surgical History: Joint Replacement Past Anesthesia/Blood Transfusion Reactions: No Reported Reaction Past Psychological History: No Psychological Hx Reported Smoking Status: Current every day smoker Past Alcohol Use History: Daily Past Drug Use History: None Reported General Exam Limitations: no limitations General appearance: alert, in no apparent distress Head exam: Present: normocephalic Eye exam: Present: normal appearance Neck exam: Present: normal inspection Respiratory exam: Present: normal lung sounds bilaterally Cardiovascular Exam: Present: regular rate, normal rhythm GI/Abdominal exam: Present: soft. Absent: tenderness Back exam: Present: normal inspection. Absent: tenderness Neurological exam: Present: alert, motor sensory deficit Expanded Speech: Present: fluid speech Sensory exam: Lower Extremity Light Touch: Normal Motor strength exam: RUE: 5, LUE: 5, RLE: 5, LLE: 5 Psychiatric exam: Present: normal affect, normal mood Skin exam: Present: normal color. Absent: rash, erythema Course Vital Signs 05/02/22 19:13 Temperature 98 F Pulse Rate 87 Respiratory 18 Rate Blood Pressure 137/77 O2 Sat by Pulse 95 Oximetry Medical Decision Making - Medical Decision Making Patient reevaluated. Patient and family updated. Case was discussed with practitioner Maggi, who will admit covering Dr. Torres. Case also discussed with Dr. Cruz who will have Dr. Pineda consult and agrees with plan and antibiotic plan - Lab Data Result diagrams: 05/02/22 21:37 Lab Results 05/02/22 05/02/22 Range/Units 21:37 21:37 WBC 8.5 (3.8-10.6) k/uL RBC 3.46 L (3.80-5.40) m/uL Hgb 11.3 L (11.4-16.0) gm/dL Hct 33.8 L (34.0-46.0) % MCV 97.6 (80.0-100.0) fL MCH 32.7 (25.0-35.0) pg MCHC 33.5 (31.0-37.0) g/dL RDW 13.4 (11.5-15.5) % Plt Count 477 H (150-450) k/uL MPV 8.1 Neutrophils % 66 % Lymphocytes % 21 % Monocytes % 8 % Eosinophils % 3 % Basophils % 1 % Neutrophils # 5.7 (1.3-7.7) k/uL Lymphocytes # 1.8 (1.0-4.8) k/uL Monocytes # 0.7 (0-1.0) k/uL Eosinophils # 0.3 (0-0.7) k/uL Basophils # 0.1 (0-0.2) k/uL PT 12.7 H (9.0-12.0) sec INR 1.2 H (<1.2) APTT 40.7 H (22.0-30.0) sec Disposition Clinical Impression: Discitis, Osteomyelitis Disposition: ADMITTED IP TO THIS HOSP Is patient prescribed a controlled substance at d/c from ED?: No Referrals: Dora Radford MD [Primary Care Provider] - 1-2 days Time of Disposition: 22:09
[2022-05-02 21:47] LABS: Basophils # (A) 0.1 k/uL (0-0.2); Basophils % (A) 1 %; Eosinophils # (A) 0.3 k/uL (0-0.7); Eosinophils % (A) 3 %; HCT 33.8 % (34.0-46.0); HGB 11.3 gm/dL (11.4-16.0); Lymphocytes # (A) 1.8 k/uL (1.0-4.8); Lymphocytes % (A) 21 %; MCH 32.7 pg (25.0-35.0); MCHC 33.5 g/dL (31.0-37.0); MCV 97.6 fL (80.0-100.0); Mean Platelet Volume 8.1; Monocytes # (A) 0.7 k/uL (0-1.0); Monocytes % (A) 8 %; Neutrophils # (A) 5.7 k/uL (1.3-7.7); Neutrophils % (A) 66 %; Platelet Count 477 k/uL (150-450); RBC 3.46 m/uL (3.80-5.40); RDW 13.4 % (11.5-15.5); WBC 8.5 k/uL (3.8-10.6)
[2022-05-02 22:02] LABS: INR 1.2 (<1.2); Partial Thromboplastin Time 40.7 sec (22.0-30.0); Prothrombin Time 12.7 sec (9.0-12.0)
[2022-05-02] MEDS ORDERED: PIPERACILLIN-TAZOBACTAM 3.375 GM in SODIUM CHLORIDE 0.9% 100 ML IVPB STA (22:10)
[2022-05-02] MEDS ORDERED: oxyCODONE-APAP 5-325MG 1 EACH TAB PO PRN (22:12)
[2022-05-02] MEDS ORDERED: NALOXONE 0.4 MG/ML 1 ML VIAL IV PRN (22:12)
[2022-05-02] MEDS ORDERED: HYDROcodone/APAP 5-325MG 1 EACH TAB PO PRN (22:12)
[2022-05-02] MEDS ORDERED: VANCOMYCIN IV PER PHARMACY 1 EACH MISC MISCELLANE PRN (22:12)
[2022-05-02 22:15] LABS: ALT 16 U/L (4-34); AST 37 U/L (14-36); African American GFR (CKD) >90 (>60 ml/min/1.73 sqM); Albumin 3.9 g/dL (3.5-5.0); Alkaline Phosphatase 89 U/L (38-126); Anion Gap 6 mmol/L; Blood Urea Nitrogen 19 mg/dL (7-17); C Reactive Protein 3.7 mg/dL (<1.0); Calcium 9.4 mg/dL (8.4-10.2); Carbon Dioxide 24 mmol/L (22-30); Chloride 103 mmol/L (98-107); Glucose 108 mg/dL (74-99); Non-African American GFR(CKD) 86 (>60 ml/min/1.73 sqM); Sodium 133 mmol/L (137-145); Total Bilirubin 0.9 mg/dL (0.2-1.3); Total Protein 7.8 g/dL (6.3-8.2)
[2022-05-02] MEDS ORDERED: VANCOMYCIN 1,250 MG in SODIUM CHLORIDE 0.9% 250 ML IVPB STA (22:15)
[2022-05-02 22:16] LABS: Potassium 4.8 mmol/L (3.5-5.1)
[2022-05-02 22:53] LABS: Erythrocyte Sedimentation Rate 92 mm/hr (0-20)
[2022-05-03] MEDS: SODIUM CHLORIDE 0.9% 1,000 ML IV SCH ×2 (00:23→16:34)
[2022-05-03] MEDS: PIPERACILLIN-TAZOBACTAM 3.375 GM in SODIUM CHLORIDE 0.9% 100 ML IVPB SCH ×2 (05:51→16:34)
[2022-05-03] MEDS: ACETAMINOPHEN TAB 325 MG TAB PO PRN ×2 (06:02→22:01)
[2022-05-03] MEDS: FAMOTIDINE 20 MG TAB PO SCH ×2 (09:09→22:01)
[2022-05-03] MEDS ORDERED: VANCOMYCIN 1,250 MG in SODIUM CHLORIDE 0.9% 250 ML IVPB SCH (14:00)
--- NOTE | 2022-05-03 15:33 | P.HPIM ---
History of Present Illness H&P Date: 05/03/22 This is a 71-year-old female with a medical history significant for hypertension, daily smoker. Patient presents to the emergency room with complaints of back discomfort ongoing for the last month. Patient was also diagnosed with atrial fibrillation about 1 month ago by her change manager Dr. Chávez she has been placed on xarelto, toprol xl and also diltiazem. Around the time patient developed this back pain, she was also hospitalized for urinary tract infection and underwent stent in the left ureter. She was treated for sepsis with e.coli bacteremia at that time as well. She was discharged on 06/01/21 with 10 days of oral cipro to complete antibiotic therapy. Back pain has persisted and patient underwent outpatient imaging. She had a KUB completed 04/17/22 showing double-j left ureter stent. No hydronephrosis, no definitive stones found. She had outpatient chest xray and follow up MRI completed yesterday at [facility] by her primary provider Dr. Radford. She was instructed to come to the emeregency room. brought MRI reports in which are showing L3-L4 severe spinal canal stenosis and bunching of the cauda equina. There is possible abscess as well. She denies mental status changes, headache. Denies loss of bladder or bowel. Denies lower extremity numbness or tingling. She is admitted for discitis and osteomyelitis, she is started on empiric antibiotics with IV zosyn, IV vancomycin and infectious disease and orthopedics have been consulted. No white count on admission, hgb 11.3, sodium 133. Patient is afebrile, on room air. REVIEW OF SYSTEMS: CONSTITUTIONAL: No fever, no malaise, no fatigue. HEENT: No recent visual problems or hearing problems. Denied any sore throat. CARDIOVASCULAR: No chest pain, orthopnea, PND, no palpitations, no syncope. PULMONARY: No shortness of breath, no cough, no hemoptysis. GASTROINTESTINAL: No diarrhea, no nausea, no vomiting, no abdominal pain. NEUROLOGICAL: No headaches, no weakness, no numbness. HEMATOLOGICAL: Denies any bleeding or petechiae. GENITOURINARY: Denies any burning micturition, frequency, or urgency. MUSCULOSKELETAL/RHEUMATOLOGICAL: Reports lower back pain ENDOCRINE: Denies any polyuria or polydipsia. The rest of the 14-point review of systems is negative. PHYSICAL EXAMINATION: GENERAL: The patient is alert and oriented x3, not in any acute distress. Well developed, well nourished. HEENT: Pupils are round and equally reacting to light. EOMI. No scleral icterus. No conjunctival pallor. Normocephalic, atraumatic. No pharyngeal erythema. No thyromegaly. CARDIOVASCULAR: S1 and S2 present. No murmurs, rubs, or gallops. PULMONARY: Chest is clear to auscultation, no wheezing or crackles. ABDOMEN: Soft, nontender, nondistended, normoactive bowel sounds. No palpable organomegaly. MUSCULOSKELETAL: No joint swelling or deformity. EXTREMITIES: No cyanosis, clubbing, or pedal edema. NEUROLOGICAL: Gross neurological examination did not reveal any focal deficits. SKIN: No rashes. Assessment and Plan Assessment Back pain ongoing for the last month Discitis osteomyelitis L3-L4 found on outpatient MRI Recent hospitalization for UTI/sepsis E.Coli bacteremia treated with antibiotics Recent left ureter stent placed Recent diagnosis atrial fibrillation anticoagulated wtih xarelto History nephrolisthiasis Hyponatremia Hypertension Chronic systolic heart failure with EF 30 to 35%. History of COPD not in acute exacerbation Chronic tobacco use GI prophylaxis pepcid DVT prophylaxis anticoagulated with xarelto will hold for now pending surgical recommendations Full Code Plan Resume appropriate home medications Hold xarelto pending surgery recommendations Continue IV antibiotics Infectious disease consultation Telemetry monitoring Repeat labs in AM The impression and plan of care has been dictated by Fany Ramirez Nurse Practitioner as directed. Dr. Julianna MD I have performed a history and physical examination and medical decision making of this patient, discussed the same with the dictator, and agree with the dictators assessment and plan as written, documented as a scribe. Based on total visit time, I have performed more than 50% of this visit. Past Medical History Past Medical History: Hypertension History of Any Multi-Drug Resistant Organisms: None Reported Past Surgical History: Joint Replacement Past Anesthesia/Blood Transfusion Reactions: No Reported Reaction Past Psychological History: No Psychological Hx Reported Smoking Status: Current every day smoker Past Alcohol Use History: Daily Past Drug Use History: None Reported Medications and Allergies Home Medications Medication Instructions Recorded Confirmed Type Acetaminophen Tab [Tylenol] 1,000 mg PO Q6H PRN 03/24/22 05/02/22 History Metoprolol Succinate (ER) [Toprol 25 mg PO DAILY #30 tab 03/30/22 05/02/22 Rx XL] lisinopriL [Zestril] 5 mg PO DAILY #30 tab 03/30/22 05/02/22 Rx Furosemide [Lasix] 20 mg PO DAILY 05/02/22 05/02/22 History Rivaroxaban [Xarelto] 20 mg PO HS 05/02/22 05/02/22 History dilTIAZem HCL [dilTIAZem HCL 24Hr 120 mg PO DAILY 05/02/22 05/02/22 History ER] Allergies Allergy/AdvReac Type Severity Reaction Status Date / Time No Known Allergies Allergy Verified 05/02/22 22:14 Physical Exam Vitals: Vital Signs Temp Pulse Resp BP Pulse Ox 05/03/22 07:39 65 18 161/82 97 05/03/22 05:57 97.8 F 60 14 140/70 94 L 05/03/22 02:30 62 14 97 05/03/22 00:25 65 16 132/66 97 05/02/22 19:13 98 F 87 18 137/77 95 Intake and Output 05/02/22 05/03/22 05/03/22 22:59 06:59 14:59 Other: Weight 73.482 kg Results CBC & Chem 7: 05/02/22 21:37 05/02/22 21:37 Labs: Abnormal Lab Results - Last 24 Hours (Table) 05/02/22 05/02/22 05/02/22 Range/Units 21:37 21:37 21:37 RBC 3.46 L (3.80-5.40) m/uL Hgb 11.3 L (11.4-16.0) gm/dL Hct 33.8 L (34.0-46.0) % Plt Count 477 H (150-450) k/uL ESR 92 H (0-20) mm/hr PT 12.7 H (9.0-12.0) sec INR 1.2 H (<1.2) APTT 40.7 H (22.0-30.0) sec Sodium 133 L (137-145) mmol/L BUN 19 H (7-17) mg/dL Glucose 108 H (74-99) mg/dL AST 37 H (14-36) U/L C-Reactive Protein 3.7 H (<1.0) mg/dL Assessment and Plan Time with Patient: Greater than 30
[2022-05-03 15:39] LABS: Appearance,Urine Cloudy (Clear); Bacteria,Urine Rare /hpf; Bilirubin,Urine Negative (Negative); Blood,Urine Moderate (Negative); Color,Urine Yellow; Glucose,Urine (UA) Negative (Negative); Ketones,Urine Negative (Negative); Leukocyte Esterase,Urine Large (Negative); Mucus,Urine Rare /hpf; Nitrite,Urine Negative (Negative); Protein,Urine Trace (Negative); RBC,Urine 48 /hpf (0-5); Specific Gravity,Urine 1.015 (1.001-1.035); Squamous Epithelial Cell,Urine 1 /hpf (0-4); Transitional Epi Cells,Urine <1 /hpf (0-1); Urobilinogen,Urine <2.0 mg/dL (<2.0); WBC,Urine 81 /hpf (0-5)
[2022-05-03] MEDS: lisinopriL 5 MG TAB PO SCH (16:19)
[2022-05-03] MEDS: METOPROLOL SUCCINATE (ER) 25 MG TAB.ER.24H PO SCH (16:19)
--- NOTE | 2022-05-03 20:05 | P.CNOR ---
History of Present Illness - [facility] Consult date: 05/03/22 Requesting physician: Wyatt Austin Consult reason: low back pain History of present illness: Patient is a very pleasant 71-year-old female who is seen and examined emergency department for further evaluation of her lumbar spine. Patient states she has been experiencing stiffness at her lumbar spine since 03/13/2022. Her symptoms have continued to be persistent. When her symptoms are not improving, MRI imaging of the lumbar spine was ordered through her primary care provider. His was performed yesterday. MRI results showed evidence of discitis. She was told to come to the emergency department immediately for treatment and evaluation. She has been admitted for treatment evaluation of this discitis. She denies any lower extremity weakness or radiculopathy bilaterally. She denies any fever or chills. She states she has a stiffness with an achy sensation is stays in her lumbar spine. Her symptoms have been controlled with Tylenol every 6 hours as prescribed. Patient denies any specific injury to her lumbar spine. Patient does have a medical history which she was previously seen in the hospital around the same time her back started for urinary tract infection. She required ureteral stenting. She also developed sepsis at that time. She states she was prescribed antibiotic medications at that time by Dr. Mcdowell. She denies any difficulty with urination. She has not had difficulty with her ureteral stent. Patient's other medical diagnoses include hypertension. Patient is also a current daily smoker. She is admitted to medicine. Blood culture and urinalysis have been ordered. Past Medical History Past Medical History: Hypertension History of Any Multi-Drug Resistant Organisms: None Reported Past Surgical History: Joint Replacement Past Anesthesia/Blood Transfusion Reactions: No Reported Reaction Past Psychological History: No Psychological Hx Reported Smoking Status: Current every day smoker Past Alcohol Use History: Daily Past Drug Use History: None Reported - Past Family History Father Family Medical History: Myocardial Infarction ([place]) Medications and Allergies Home Medications Medication Instructions Recorded Confirmed Type Acetaminophen Tab [Tylenol] 1,000 mg PO Q6H PRN 03/24/22 05/02/22 History Metoprolol Succinate (ER) [Toprol 25 mg PO DAILY #30 tab 03/30/22 05/02/22 Rx XL] lisinopriL [Zestril] 5 mg PO DAILY #30 tab 03/30/22 05/02/22 Rx Furosemide [Lasix] 20 mg PO DAILY 05/02/22 05/02/22 History Rivaroxaban [Xarelto] 20 mg PO HS 05/02/22 05/02/22 History dilTIAZem HCL [dilTIAZem HCL 24Hr 120 mg PO DAILY 05/02/22 05/02/22 History ER] Allergies Allergy/AdvReac Type Severity Reaction Status Date / Time No Known Allergies Allergy Verified 05/02/22 22:14 Physical Examination Physical exam: Patient is awake, alert, and oriented 3 Vital signs stable Good chest excursion with deep inspiration and expiration Examination of lumbar spine reveals skin is intact with no abrasions, lacerations, or bruises; no erythema, purulence or signs of infection Dorsiflexion, plantarflexion, and extensor hallucis longus positive sustained bilaterally Lower extremity strength 5/5 bilaterally No lower extremity hyperreflexia bilaterally Straight leg test negative bilateral lower extremities Negative Lasegue's test bilaterally No signs or symptoms of DVT; no calf pain No pain with internal and external rotation of the hips bilaterally Neurovascularly intact Results Pertinent studies: MRI lumbar spine taken on 05/02/2022: L3-4 increased uptake with changes at the intervertebral spacing with some bony change without bony destruction that appears to be compatible with discitis; I do not see evidence of vertebral body compression fracture deformity; L2-3 disc desiccation and disc bulging to the left with left neural foraminal narrowing; L3-4 disc bulging and facet arthropathy resulting in moderate to severe central canal stenosis and right neural foraminal stenosis; L4-5 disc desiccation, degenerative disc disease, and disc bulging resulting in mild to moderate central canal stenosis with bilateral neural foraminal narrowing; L5-S1 disc desiccation, disc protrusion, and facet arthropathy resulting in bilateral neural foraminal narrowing - Labs Labs: Abnormal Lab Results - Last 24 Hours (Table) 05/02/22 05/02/22 05/02/22 Range/Units 21:37 21:37 21:37 RBC 3.46 L (3.80-5.40) m/uL Hgb 11.3 L (11.4-16.0) gm/dL Hct 33.8 L (34.0-46.0) % Plt Count 477 H (150-450) k/uL ESR 92 H (0-20) mm/hr PT 12.7 H (9.0-12.0) sec INR 1.2 H (<1.2) APTT 40.7 H (22.0-30.0) sec Sodium 133 L (137-145) mmol/L BUN 19 H (7-17) mg/dL Glucose 108 H (74-99) mg/dL AST 37 H (14-36) U/L C-Reactive Protein 3.7 H (<1.0) mg/dL H & H 05/02/22 Range/Units 21:37 Hgb 11.3 L (11.4-16.0) gm/dL Hct 33.8 L (34.0-46.0) % Coagulation 05/02/22 Range/Units 21:37 INR 1.2 H (<1.2) Result Diagrams: 05/02/22 21:37 05/02/22 21:37 Assessment and Plan Assessment: Assessment: Ongoing low back pain and stiffness since 03/13/2022 L3-4 lumbar discitis L3-4 moderate to severe central canal stenosis L4-5 mild to moderate central canal stenosis Lumbar and lumbosacral facet arthropathy Lumbar degenerative disc disease Hypertension Current every day smoker History of urinary tract infection with subsequent ureteral stenting History of sepsis (1) Low back pain Current Visit: Yes Status: Acute Code(s): M54.50 - LOW BACK PAIN, UNSPECIFIED SNOMED Code(s): 036334845 (2) Lumbar stenosis Current Visit: Yes Status: Acute Code(s): M48.061 - SPINAL STENOSIS, LUMBAR REGION WITHOUT NEUROGENIC JUAN CARLOS SNOMED Code(s): 88221071 (3) Discitis Current Visit: Yes Status: Acute Code(s): M46.40 - DISCITIS, UNSPECIFIED, SITE UNSPECIFIED SNOMED Code(s): 4767847 (4) Lumbar degenerative disc disease Current Visit: Yes Status: Acute Code(s): M51.36 - OTHER INTERVERTEBRAL DISC DEGENERATION, LUMBAR REGION SNOMED Code(s): 57478172 (5) Lumbar facet arthropathy Current Visit: Yes Status: Acute Code(s): M47.816 - SPONDYLOSIS W/O MYELOPATHY OR RADICULOPATHY, LUMBAR REGION SNOMED Code(s): 548627387 (6) Hypertension Current Visit: Yes Status: Acute Code(s): I10 - ESSENTIAL (PRIMARY) HYPERTENSION SNOMED Code(s): 98411235 (7) Current every day smoker Current Visit: Yes Status: Acute Code(s): F17.200 - NICOTINE DEPENDENCE, UNSPECIFIED, UNCOMPLICATED SNOMED Code(s): 859930448 Plan: Plan: 1. Reviewing of lumbar MRI imaging does show evidence of discitis at L3-4. She does have some other degenerative change with evidence of stenosis at this level. Patient is not having any change in her neurological function. She denies any lower extremity weakness or radiculopathy bilaterally. She has been having some ongoing stiffness and soreness at her lumbar spine since 03/13/2022 without injury. She does state her pain has been controlled with Tylenol every 6 hours. She denies any fever or chills. Currently, we'll plan have her continue with conservative treatment. Consultation has been placed with Dr. Sneha salazar in infectious disease. We currently planned to have the patient work to conservative treatment with antibiotic medications. This was discussed in detail with the patient. Patient would like to continue conservative treatment as well. We did discuss she may require long-term antibiotics which would be managed by Dr. Mcdowell in infectious disease. Currently, we're not planning for any acute surgical intervention in regards to her lumbar spine. Patient states she would like to try to avoid any surgical intervention at her lumbar spine. From an orthopedic spine standpoint, patient is clear for discharge. Plan to have her follow-up in the outpatient setting approximately 3 weeks for further evaluation. Patient may follow-up with John Dorsey PA-C or Dr. Raúl Pineda at [facility] in 2-3 weeks following discharge. Patient may participate in activities to her tolerance while avoiding excessive activities. We did briefly discuss the patient will need to undergo surgical intervention at her lumbar spine for the discitis at L3-4, we would most likely plan for transfer to a tertiary facility. 2. Patient will continue be seen and examined by medicine for her other medical diagnoses. 3. Patient currently waiting for consultation with infectious disease Time with Patient: Greater than 30 (Including obtaining history, physical examination, reviewing of imaging, and dictation.)
[2022-05-03] MEDS: NYSTATIN 100,000UNIT/GM CREAM 30 GM TUBE TOPICAL SCH (22:01)
[2022-05-03] MEDS: TRIAMCINOLONE 0.1% CREAM 80 GM TUBE TOPICAL SCH (22:02)
--- NOTE | 2022-05-03 23:57 | P.CONS ---
History of Present Illness - Reason for Consult Consult date: 05/03/22 discitis osteomyelitis Requesting physician: Wyatt Austin - Chief Complaint Abnormal MRI in the outpatient setting x one day - History of Present Illness Patient is a 71-year-old female was recently admitted at this facility beginning of March 2022 about a month ago patient did have evidence of complicated E. coli UTI with left-sided hydronephrosis in this patient who returns for cystoscopy and stent placement patient did have a E. coli bacteremia as well patient repeat blood culture on 03/29/2022 were negative patient was treated with IV antibiotic therapy and subsequently discharged home on a 10-day course of Cipro the patient has already completed patient also complaining of lower back pain that apparently has been going on since February 2022 patient denies any history of any fall or trauma pain has been mostly lower back area describing it to be dull aching to sharp it was initially almost 8 out of 10 with no radiation down the leg however the patient lower back pain has significantly improved and is down to about 2 out of 10. Denies any radiation of the pain down the legs and no bowel or bladder problem patient apparently did have an MRI done at [facility] which was reported possible L3-L4 osteomyelitis/discitis or with the patient was advised to go to the ER patient was admitted started on vancomycin and Zosyn infectious disease was consulted for further management of antibiotic therapy as mentioned earlier the patient showing overall improvement in her lower back pain patient is afebrile and denies having any fever or chills patient did have a normal white count with no left shift kidney function has been normal AST was mildly elevated urine has been positive Review of Systems Positive point has been mentioned in the HPI rest of the systems are negative Past Medical History Past Medical History: Hypertension History of Any Multi-Drug Resistant Organisms: None Reported Past Surgical History: Joint Replacement Past Anesthesia/Blood Transfusion Reactions: No Reported Reaction Past Psychological History: No Psychological Hx Reported Smoking Status: Current every day smoker Past Alcohol Use History: Daily Past Drug Use History: None Reported - Past Family History Father Family Medical History: Myocardial Infarction ([place]) Medications and Allergies Home Medications Medication Instructions Recorded Confirmed Type Acetaminophen Tab [Tylenol] 1,000 mg PO Q6H PRN 03/24/22 05/02/22 History Furosemide [Lasix] 20 mg PO DAILY 05/02/22 05/02/22 History Rivaroxaban [Xarelto] 20 mg PO HS 05/02/22 05/02/22 History dilTIAZem HCL [dilTIAZem HCL 24Hr 120 mg PO DAILY 05/02/22 05/02/22 History ER] Famotidine [Pepcid] 20 mg PO BID 1 Days #60 tab 05/08/22 Rx Metoprolol Succinate (ER) [Toprol 100 mg PO DAILY #30 tab 05/08/22 Rx XL] Spironolactone [Aldactone] 25 mg PO DAILY #30 tab 05/08/22 Rx cefTRIAXone [Rocephin] 2 gm IVPB Q24HR 42 Days #42 each 05/08/22 Rx lisinopriL [Zestril] 10 mg PO BID #60 tab 05/08/22 Rx Allergies Allergy/AdvReac Type Severity Reaction Status Date / Time No Known Allergies Allergy Verified 05/02/22 22:14 Physical Exam Vitals: Vital Signs Temp Pulse Resp BP Pulse Ox 05/03/22 07:39 65 18 161/82 97 05/03/22 05:57 97.8 F 60 14 140/70 94 L 05/03/22 02:30 62 14 97 05/03/22 00:25 65 16 132/66 97 05/02/22 19:13 98 F 87 18 137/77 95 Intake and Output 05/02/22 05/03/22 05/03/22 22:59 06:59 14:59 Other: Weight 73.482 kg GENERAL DESCRIPTION: elderly female lying in bed, no distress. No tachypnea or accessory muscle of respiration use. HEENT: Shows Pallor , no scleral icterus. Oral mucous membrane is dry. No pharyngeal erythema or thrush NECK: Trachea central, no thyromegaly. LUNGS: Unlabored breathing. Clear to auscultation anteriorly. No wheeze or crackle. HEART: S1, S2, regular rate and rhythm. No loud murmur ABDOMEN: Soft, no tenderness , guarding or rigidity, no organomegaly EXTREMITIES: No edema of feet. SKIN: No rash, no masses palpable. NEUROLOGICAL: The patient is awake, alert, oriented x3, mood and affect normal. Results CBC & Chem 7: 05/06/22 06:39 05/08/22 04:23 Labs: Abnormal Lab Results - Last 24 Hours (Table) 05/02/22 05/02/2222 Range/Units 21:37 21:37 21:37 RBC 3.46 L (3.80-5.40) m/uL Hgb 11.3 L (11.4-16.0) gm/dL Hct 33.8 L (34.0-46.0) % Plt Count 477 H (150-450) k/uL ESR 92 H (0-20) mm/hr PT 12.7 H (9.0-12.0) sec INR 1.2 H (<1.2) APTT 40.7 H (22.0-30.0) sec Sodium 133 L (137-145) mmol/L BUN 19 H (7-17) mg/dL Glucose 108 H (74-99) mg/dL AST 37 H (14-36) U/L C-Reactive Protein 3.7 H (<1.0) mg/dL Assessment and Plan (1) Abnormal MRI Status: Acute Code(s): R93.89 - ABNORMAL FINDINGS ON DX IMAGING OF OTH BODY STRUCTURES SNOMED Code(s): 849165728 Plan: 1patient presented to hospital with abnormal MRI suspicious for discitis in this patient who do have a back pain since February however mentioning overall improvement in her back pain patient denies having any fever or chills did have normal white count clinically not behaving as discitis with a question of possible worsening osteoarthritic changes to the spine area. 2we will obtain MRI of the lumbar spine with contrast for better definition of her abnormality if there was any concern for discitis or abscess the patient benefit from the CT-guided aspirate of the area for microbiological diagnosis. 3as the patient is nontoxic not running any fever we will discontinue antibiotics so that we can increase the yield of cultures or for the next 2 to this approach was explained to the patient and the daughter in layman term and the case was also discussed with the spine orthopedics on the phone 4we will obtain inflammatory markers We will follow on clinical condition and cultures to further adjust medication if needed Thank you for this consultation will follow this patient along with you Time with Patient: Greater than 30
[2022-05-04] MEDS: SODIUM CHLORIDE 0.9% 1,000 ML IV SCH (07:09)
[2022-05-04 07:21] LABS: Partial Thromboplastin Time 27.5 sec (22.0-30.0); Prothrombin Time 10.5 sec (9.0-12.0)
[2022-05-04] MEDS: NYSTATIN 100,000UNIT/GM CREAM 30 GM TUBE TOPICAL SCH ×2 (08:44→21:01)
[2022-05-04] MEDS: lisinopriL 5 MG TAB PO SCH (08:44)
[2022-05-04] MEDS: FUROSEMIDE 20 MG TAB PO SCH (08:44)
[2022-05-04] MEDS: METOPROLOL SUCCINATE (ER) 25 MG TAB.ER.24H PO SCH (08:44)
[2022-05-04] MEDS: FAMOTIDINE 20 MG TAB PO SCH ×2 (08:44→20:59)
[2022-05-04] MEDS: TRIAMCINOLONE 0.1% CREAM 80 GM TUBE TOPICAL SCH ×2 (08:45→21:00)
[2022-05-04 08:58] LABS: Basophils # (A) 0.05 X 10*3/uL (0.00-0.10); Basophils % (A) 0.9 %; Eosinophils # (A) 0.14 X 10*3/uL (0.04-0.35); Eosinophils % (A) 2.5 %; HCT 31.4 % (37.2-46.3); HGB 10.3 g/dL (12.0-15.0); Immature Grans, Automated 0.7 %; Lymphocytes # (A) 1.67 X 10*3/uL (0.90-5.00); Lymphocytes % (A) 29.6 %; MCH 32.3 pg (27.0-32.0); MCHC 32.8 g/dL (32.0-37.0); MCV 98.4 fL (80.0-97.0); Mean Platelet Volume 9.9 fL (9.5-12.2); Monocytes # (A) 0.69 X 10*3/uL (0.20-1.00); Monocytes % (A) 12.2 %; NRBC Per 100 WBC 0 /100 WBCS (0.0-0.0); Neutrophils # (A) 3.06 X 10*3/uL (1.80-7.70); Neutrophils % (A) 54.1 %; Platelet Count 474 X 10*3/uL (140-440); RBC 3.19 X 10*6/uL (4.10-5.20); RDW 13.9 % (11.5-14.5); WBC 5.65 X 10*3/uL (4.50-10.00)
[2022-05-04] MEDS ORDERED: DILTIAZEM CD 120 MG CAP.ER.24H PO SCH (09:00)
[2022-05-04 09:30] LABS: African American GFR (CKD) 99.6 (60.0-200.0); Anion Gap 10.6 mmol/L (10.00-18.00); BUN/Creat Ratio 15.57 Ratio (12.00-20.00); Blood Urea Nitrogen 10.9 mg/dL (9.0-27.0); Calcium 9.5 mg/dL (8.7-10.3); Carbon Dioxide 20.4 mmol/L (20.0-27.5); Potassium 4.5 mmol/L (3.5-5.5)
--- NOTE | 2022-05-04 09:38 | P.PN ---
Progress Note - Text Progress Note Date: 05/04/22 The patient is seen and examined at bedside. She says she is feeling well. She's not having any significant back pain or leg pain. She is not having numbness tingling in her lower extremity. She denies any fevers chills. On exam she is afebrile She has good active and passive strength at her lower extremity. She is able lift her legs up off the bed independently. She has 5 out of 5 muscle strength dorsal flexion plantar flexion and EHL. Flexion and extension. Her back is nontender. I was able to review her MRI without contrast from the other day. There is some increased signal at the disc space and some altered signal within the vertebral bodies. There is some facet arthritis and mild canal encroachment without significant stenosis there is no evidence of phlegmon or abscess. Assessment and plan Possible discitis without neurologic change. Without evidence of phlegmon or epidural abscess. The patient's labs appear to be relatively benign and she is not having pain at her back. It is difficult to say that this is active discitis and I spoke with Dr. Mcdowell with infectious disease yesterday. I think it is okay to hold antibiotics and obtain a new MRI with contrast to see if there is better or more definitive indication of infectious process. If there is not we can hold the antibiotics further, however if there is still significant some suspicion then a aspiration would be helpful. I discussed this with the patient and she seems to understand. At this point we do not have plans for surgical intervention has there is positive discitis and she should be treated with long-term antibiotics. If she is having neurologic change or severe worsening we could consider intervention surgically. At this point we do not have plans for surgery.
--- NOTE | 2022-05-04 14:17 | P.PN ---
Subjective Progress Note Date: 05/04/22 This is a 71-year-old female with a medical history significant for hypertension, daily smoker. Patient presents to the emergency room with complaints of back discomfort ongoing for the last month. Patient was also diagnosed with atrial fibrillation about 1 month ago by her paper steamer Dr. Chávez she has been placed on xarelto, toprol xl and also diltiazem. Around the time patient developed this back pain, she was also hospitalized for urinary tract infection and underwent stent in the left ureter. She was treated for sepsis with e.coli bacteremia at that time as well. She was discharged on 04/01/22 with 10 days of oral cipro to complete antibiotic therapy. Back pain has persisted and patient underwent outpatient imaging. She had a KUB completed 04/17/22 showing double-j left ureter stent. No hydronephrosis, no definitive stones found. She had outpatient chest xray and follow up MRI completed yesterday at [facility] by her primary provider Dr. Radford. She was instructed to come to the emeregency room. brought MRI reports in which are showing L3-L4 severe spinal canal stenosis and bunching of the cauda equina. There is possible abscess as well. She denies mental status changes, headache. Denies loss of bladder or bowel. Denies lower extremity numbness or tingling. She is admitted for discitis and osteomyelitis, she is started on empiric antibiotics with IV zosyn, IV vancomycin and infectious disease and orthopedics have been consulted. No white count on admission, hgb 11.3, sodium 133. Patient is afebrile, on room air. 05/04/2022 Patient monitored on medical floor. No acute events overnight. Currently denying back pain. Infectious disease has evaluated patient. Antibiotics on hold at this time, patient will have MRI with contrast today and further recommendations made pending. White count 5.65, hgb 10.3, sodium 136, potassium 4.5, BUN 10.9, creatinine 0.7. Glucose 90. Urine and Blood cultures are pending. PHYSICAL EXAMINATION: GENERAL: The patient is alert and oriented x3, not in any acute distress. Well developed, well nourished. HEENT: Pupils are round and equally reacting to light. EOMI. No scleral icterus. No conjunctival pallor. Normocephalic, atraumatic. No pharyngeal erythema. No thyromegaly. CARDIOVASCULAR: S1 and S2 present. No murmurs, rubs, or gallops. PULMONARY: Chest is clear to auscultation, no wheezing or crackles. ABDOMEN: Soft, nontender, nondistended, normoactive bowel sounds. No palpable organomegaly. MUSCULOSKELETAL: No joint swelling or deformity. EXTREMITIES: No cyanosis, clubbing, or pedal edema. NEUROLOGICAL: Gross neurological examination did not reveal any focal deficits. SKIN: No rashes. Assessment and Plan Assessment Back stiffness/pain ongoing for the last month Discitis osteomyelitis L3-L4 found on outpatient MRI Recent hospitalization for UTI/sepsis E.Coli bacteremia treated with antibiotics Recent left ureter stent placed Recent diagnosis atrial fibrillation anticoagulated wtih xarelto History nephrolisthiasis Hyponatremia Hypertension Chronic systolic heart failure with EF 30 to 35%. History of COPD not in acute exacerbation Chronic tobacco use GI prophylaxis pepcid DVT prophylaxis subcu heparin Full Code Plan Resume appropriate home medications Antibiotics on hold, repeat MRI today Further recommendations based on MRI Xarelto remains on hold pending MRI results possible CT guided aspirate. The impression and plan of care has been dictated by Fany Ramirez Nurse Practitioner as directed. Dr. Julianna MD I have performed a history and physical examination and medical decision making of this patient, discussed the same with the dictator, and agree with the dictators assessment and plan as written, documented as a scribe. Based on total visit time, I have performed more than 50% of this visit. Objective - Vital Signs Vital signs: Vital Signs Temp 97.8 F 05/04/22 08:00 Pulse 77 05/04/22 08:00 Resp 18 05/04/22 08:30 BP 159/83 05/04/22 08:00 Pulse Ox 95 05/04/22 08:22 FiO2 Intake & Output 05/03/22 05/04/22 05/04/22 18:59 06:59 18:59 Intake Total 250 Balance 250 Weight 73.482 kg Intake: Oral 250 Other: # Voids 0 4 - Labs CBC & Chem 7: 05/04/22 05:16 05/04/22 05:16 Labs: Abnormal Lab Results - Last 24 Hours (Table) 05/03/22 05/04/22 Range/Units 12:00 05:16 RBC 3.19 L (4.10-5.20) X 10*6/uL Hgb 10.3 L (12.0-15.0) g/dL Hct 31.4 L (37.2-46.3) % MCV 98.4 H (80.0-97.0) fL MCH 32.3 H (27.0-32.0) pg Plt Count 474 H (140-440) X 10*3/uL Urine Appearance Cloudy H (Clear) Urine Protein Trace H (Negative) Urine Blood Moderate H (Negative) Ur Leukocyte Esterase Large H (Negative) Urine RBC 48 H (0-5) /hpf Urine WBC 81 H (0-5) /hpf Urine WBC Clumps Occasional H (None) /hpf Urine Bacteria Rare H (None) /hpf Urine Mucus Rare H (None) /hpf Microbiology - Last 24 Hours (Table) 05/02/22 21:35 Blood Culture - Preliminary Blood No Growth after 24 hours 05/02/22 21:20 Blood Culture - Preliminary Blood No Growth after 24 hours 05/03/22 12:00 Urine Culture - Preliminary Urine,Voided Assessment and Plan Time with Patient: Less than 30
[2022-05-04] MEDS: ACETAMINOPHEN TAB 325 MG TAB PO PRN (16:07)
[2022-05-04] MEDS: HEPARIN SODIUM,PORCINE/PF 5,000 UNIT/0.5 ML SYRINGE SQ SCH (16:16)
--- NOTE | 2022-05-04 16:21 | P.PN ---
Subjective Progress Note Date: 05/04/22 Principal diagnosis: Abnormal MRI and a question of discitis Patient is a 71-year-old female was recently admitted at this facility beginning of March 2022 about a month ago patient did have evidence of complicated E. coli UTI with left-sided hydronephrosis in this patient who returns for cystoscopy and stent placement patient did have a E. coli bacteremia as well patient repeat blood culture on 03/29/2022 were negative, patient presented to hospital with abnormal MRI done in the outpatient setting without contrast, suspicious for osteomyelitis On today's evaluation and that is 05/04/2022, the patient denies having any fever or chills the patient is breathing comfortably no chest pain shortness of breath or cough the patient lower back pain is currently controlled down to about 2 out of 10 and no radiation down the leg no bowel or bladder problem, currently waiting for the MRI Objective - Vital Signs Vital signs: Vital Signs Temp 97.8 F 05/04/22 08:00 Pulse 77 05/04/22 08:00 Resp 18 05/04/22 08:30 BP 159/83 05/04/22 08:00 Pulse Ox 95 05/04/22 08:22 FiO2 Intake & Output 05/03/22 05/04/22 05/04/22 18:59 06:59 18:59 Weight 73.482 kg Other: # Voids 0 4 - Exam GENERAL DESCRIPTION: An elderly female lying in bed in no distress RESPIRATORY SYSTEM: Unlabored breathing , decreased breath sounds at bases HEART: S1 S2 regular rate and rhythm , ABDOMEN: Soft , no tenderness EXTREMITIES: No edema feet - Labs CBC & Chem 7: 05/04/22 05:16 05/04/22 05:16 Labs: Abnormal Lab Results - Last 24 Hours (Table) 05/03/22 05/04/22 Range/Units 12:00 05:16 RBC 3.19 L (4.10-5.20) X 10*6/uL Hgb 10.3 L (12.0-15.0) g/dL Hct 31.4 L (37.2-46.3) % MCV 98.4 H (80.0-97.0) fL MCH 32.3 H (27.0-32.0) pg Plt Count 474 H (140-440) X 10*3/uL Urine Appearance Cloudy H (Clear) Urine Protein Trace H (Negative) Urine Blood Moderate H (Negative) Ur Leukocyte Esterase Large H (Negative) Urine RBC 48 H (0-5) /hpf Urine WBC 81 H (0-5) /hpf Urine WBC Clumps Occasional H (None) /hpf Urine Bacteria Rare H (None) /hpf Urine Mucus Rare H (None) /hpf Microbiology - Last 24 Hours (Table) 05/02/22 21:35 Blood Culture - Preliminary Blood No Growth after 24 hours 05/02/22 21:20 Blood Culture - Preliminary Blood No Growth after 24 hours 05/03/22 12:00 Urine Culture - Preliminary Urine,Voided Assessment and Plan (1) Abnormal MRI Current Visit: Yes Status: Acute Code(s): R93.89 - ABNORMAL FINDINGS ON DX IMAGING OF OTH BODY STRUCTURES SNOMED Code(s): 379344850 Plan: 1patient presented to hospital with abnormal MRI suspicious for discitis in this patient who do have a back pain since February however mentioning overall improvement in her back pain patient denies having any fever or chills did have normal white count clinically not behaving as discitis with a question of possible worsening osteoarthritic changes to the spine area. 2we're currently waiting for MRI of the lumbar spine with contrast for better definition of her abnormality if there was any concern for discitis or abscess the patient benefit from the CT-guided aspirate of the area for microbiological diagnosis. 3patient will monitor closely off antibiotic therapy at this point Multiple questions concerned were answered in Layman terms Time with Patient: Less than 30
--- NOTE | 2022-05-04 20:19 | MR ---
EXAMINATION TYPE: MR lumbar spine w con DATE OF EXAM: 05/04/2022 COMPARISON: Outside films HISTORY: Discitis TECHNIQUE: Limited postcontrast only imaging with sagittal and axial imaging post contrast T1. 7 mL intravenous Gadavist gadolinium contrast. Findings: Area of concern at L3-L4 disc does demonstrate postcontrast enhancement with erosion of the adjoining endplates at L3-4. There is enhancement of the posterior longitudinal ligament present. There is narrowing of the spinal canal from L3 through L4 secondary to this phlegmonous change. The c olon throughout. There is increased paravertebral heterogenous fibrous change at the level of the L3- L4 disc which impinges enhancement. No organizing fluid collections/abscesses. IMPRESSION: 1. Findings remain concerning for osteomyelitis discitis at L3-L4 with phlegmonous change along the posterior longitudinal ligament. No organizing fluid collection at this time. 2. Increasing spinal canal stenosis along the L3-L4 vertebral levels up to be secondary to infection . Spinal canal stenosis of at least moderate possibly severe at these levels.
[2022-05-05] MEDS: HEPARIN SODIUM,PORCINE/PF 5,000 UNIT/0.5 ML SYRINGE SQ SCH ×3 (00:26→17:19)
[2022-05-05] MEDS: ACETAMINOPHEN TAB 325 MG TAB PO PRN ×2 (06:47→15:03)
[2022-05-05] MEDS: FUROSEMIDE 20 MG TAB PO SCH (08:37)
[2022-05-05] MEDS: METOPROLOL SUCCINATE (ER) 50 MG TAB.ER.24H PO SCH (08:37)
[2022-05-05] MEDS: FAMOTIDINE 20 MG TAB PO SCH ×2 (08:37→20:58)
[2022-05-05] MEDS: lisinopriL 10 MG TAB PO SCH (08:37)
[2022-05-05] MEDS: TRIAMCINOLONE 0.1% CREAM 80 GM TUBE TOPICAL SCH ×2 (08:38→20:58)
[2022-05-05] MEDS: NYSTATIN 100,000UNIT/GM CREAM 30 GM TUBE TOPICAL SCH ×2 (08:38→20:58)
--- NOTE | 2022-05-05 09:00 | P.PN ---
Progress Note - Text Progress Note Date: 05/05/22 Orthopedic spine: History of present illness: Patient is a very pleasant 71-year-old female who is seen and examined for follow-up evaluation of her lumbar spine. Patient states she has been experiencing stiffness at her lumbar spine since 03/13/2022. Since her admittance to the hospital she feels her symptoms have significantly improved. She is not currently complaining of any lumbar pain. She did undergo repeat MRI imaging yesterday for further evaluation of possible discitis at L3-4. Blood cultures have been negative. Back medication is currently on hold. She denies any lower extremity weakness or radiculopathy bilaterally. She kenya es any fever or chills. Patient feels her symptoms are well-controlled like to be discharged home today if cleared. Patient does have a medical history which she was previously seen in the hospital around the same time her back started for urinary tract infection. She required ureteral stenting. She also developed sepsis at that time. She states she was prescribed antibiotic medications at that time by Dr. Mcdowell. She denies any difficulty with urination. She has not had difficulty with her ureteral stent. Patient's other medical diagnoses include hypertension. Patient is also a [facility] daily smoker. She is admitted to medicine. She is being seen and examined by infectious disease. There was some discussion that if new MRI imaging showed evidence of discitis and a plan for aspiration Physical exam: Patient is awake, alert, and oriented 3 Vital signs stable Good chest excursion with deep inspiration and expiration Examination of lumbar spine reveals skin is intact with no abrasions, lacerations, or bruises; no erythema, purulence or signs of infection Dorsiflexion, plantarflexion, and extensor hallucis longus positive sustained bilaterally Lower extremity strength 5/5 bilaterally No lower extremity hyperreflexia bilaterally Straight leg test negative bilateral lower extremities Negative Lasegue's test bilaterally No signs or symptoms of DVT; no calf pain No pain with internal and external rotation of the hips bilaterally Neurovascularly intact Pertinent studies: MRI of the lumbar spine with contrast taken on 05/04/2022: Findings remain concerning for osteomyelitis discitis at L3-4 with phlegmonous change along the posterior longitudinal ligament with no organizing fluid collection at this time; increase spinal stenosis at L3-4 which could be secondary infection MRI lumbar spine taken at an outside facility on 05/02/2022: L3-4 increased uptake with changes at the intervertebral spacing with some bony change without bony destruction that appears to be compatible with discitis; I do not see evidence of vertebral body compression fracture deformity; L2-3 disc desiccation and disc bulging to the left with left neural foraminal narrowing; L3-4 disc bulging and facet arthropathy resulting in moderate to severe central canal stenosis and right neural foraminal stenosis; L4-5 disc desiccation, degenerative disc disease, and disc bulging resulting in mild to moderate central canal stenosis with bilateral neural foraminal narrowing; L5-S1 disc desiccation, disc protrusion, and facet arthropathy resulting in bilateral neural foraminal narrowing Assessment: Ongoing low back pain and stiffness since 03/13/2022 L3-4 lumbar osteomyelitis discitis L3-4 increase spinal stenosis with phlegmonous change along the posterior longitudinal ligament L3-4 moderate to severe central canal stenosis L4-5 mild to moderate central canal stenosis Lumbar and lumbosacral facet arthropathy Lumbar degenerative disc disease Hypertension Current every day smoker History of urinary tract infection with subsequent ureteral stenting History of sepsis Plan: 1. Patient has undergone 2 MRI imagings of her lumbar spine. 1 an outside facility and a new MRI yesterday with contrast. Both MRIs have had some concern for L3-4 discitis osteomyelitis. She continues to be seen and examined by infectious disease. Blood cultures have been negative. Antibiotic medication is currently on hold. Since her admittance to the hospital, patient's back pain has improved. She is not expressing any low back pain. She continues denying any lower extremity weakness or radiculopathy bilaterally. Patient is not having any change in her neurological function. She is known to have degenerative change at L3-4 with spinal stenosis. She is not experiencing any urgent or claudication. Continues to be some concern for L3-4 discitis osteomyelitis. Patient is not having any neurological decline or change in function. Currently, from orthopedic spine standpoint, we are not planning for any acute surgical intervention in regards to her lumbar spine. We would recommend further evaluation with Dr. Mcdowell in infectious disease. Given the results of her new lumbar MRI with contrast, and the plan for aspiration and for restarting antibiotic medication. He was discussed in detail with the patient that in her buttock regimen would be controlled by Dr. Mcdowell and that her current plan of care in regards to her L3-4 discitis osteomyelitis would be at his discretion. We did discuss from a orthopedic spine standpoint, she will be clear for discharge once cleared by other medical providers. We would plan to continue with all conservative treatment options at this time. We will plan to have her follow-up in the outpatient setting approximately 3 weeks for further evaluation. Patient may follow-up with John Dorsey PA-C or Dr. Raúl Pineda at [facility] in 2-3 weeks following discharge. Patient may participate in activities to her tolerance while avoiding excessive activities. We did briefly discuss the patient will need to undergo surgical intervention at her lumbar spine for the discitis at L3-4, we would most likely plan for transfer to a tertiary facility. 2. Patient will continue be seen and examined by medicine for her other medical diagnoses. 3. Patient currently waiting for consultation with infectious disease
--- NOTE | 2022-05-05 09:54 | P.CRDCN ---
History of Present Illness Consult date: 05/05/22 Reason for Consult (text): [place] History of present illness: History of Present Illness: This is a 71-year-old female patient of Dr. Parks with a history of hypertension, COPD, nonischemic cardiomyopathy in 2015 with improved EF, chronic tobacco use. Patient was recently hospitalized in March and evaluated for Takatsubo cardiomyopathy with underlying pneumonia, UTI and bacteremia. Subsequently, patient is also been diagnosed with paroxysmal atrial fibrillation on Xarelto. Patient has been readmitted after undergoing MRI as an outpatient of the lumbar spine which was concerning for discitis L34. We've been asked to see the patient due to a run of 15 beats of V. tach last evening. Patient states she did feel a little bit of flutter in her chest. She denies having chest pain. EKG is a sinus rhythm. fisher sponge hooking: V. tach at 4:40 pm on 05/04, otherwise sinus rhythm Echocardiogram 03/25/2022 revealed normal left ventricular size with severely impaired systolic function with segmental wall motion abnormality. Mild to moderate mitral and tricuspid regurgitation, mild pulmonary hypertension EF was 30-35%. Home Cardiac medications: Xarelto 20 mg daily (on hold for possible aspiration spine), lisinopril 5 mg daily, Cardizem 120 mg daily, Lasix 20 mg daily, Toprol- XL 25 mg daily Review of Systems: Constitutional: No fever, no chills, no night sweats. No weight change. No weakness, reports fatigue. EENT: No headache. No blurred vision or double vision. Lungs: No shortness of breath, cough, no sputum production. No wheezing. Cardiovascular: No chest pain, no lower extremity edema. No palpitations. No paroxysmal nocturnal dyspnea. No orthopnea. No lightheadedness or dizziness. No syncopal episodes. Abdominal: No abdominal pain. No nausea, vomiting. No diarrhea. No constipation. No bloody or tarry stools. No loss of appetite. Genitourinary: No dysuria, increased frequency, urgency. No urinary retention. Musculoskeletal: No myalgias. No muscle weakness, no gait dysfunction, no frequent falls. Chronic back pain. No neck pain. Integumentary: No wounds, no lesions. No rash or pruritus. No unusual bruising. No change in hair or nails. Neurologic: No aphasia. No facial droop. No change in mentation. No head injury. No headache. No paralysis. No paresthesia. Psychiatric: No depression. No anxiety. Endocrine: No weight change. No excessive sweating or thirst. Physical Examination: This is a 71-year-old female, she is resting in bed and appears to be comfortable and in no acute distress Vital signs: Reviewed: Blood pressure 156/83, heart rate in the 60s. Blood pressure readings consistently elevated Head: Normocephalic. Eyes: Sclerae nonicteric. Neck: Good carotid upstroke, no bruit, no jugular venous distention. Lungs: Decreased breath sounds bilaterally with scattered wheezes Heart: Regular rate and rhythm, S1-S2, no S3, no rub. Systolic ejection murmur. Abdomen: Soft nontender, positive bowel sounds no organomegaly. Extremities: No edema, intact distal pulses. Impression: Nonsustained ventricular tachycardia Paroxysmal atrial fibrillation Previously diagnosed nonischemic cardiomyopathy with known ejection fraction of 30-35% on last admission Acute discitis Hypertension COPD Tobacco use Plan: Repeat echocardiogram Continue cardiac monitoring Discontinue Cardizem and increase Toprol-XL to 50 mg daily Increase lisinopril to 10 mg daily for improved blood pressure control Resume patient on Xarelto once cleared by surgery Further recommendations as patient progresses Thank you kindly for this consultation Nurse practitioner note has been reviewed, I agree with documented findings and plan of care. Patient was seen and examined. Past Medical History Past Medical History: Hypertension History of Any Multi-Drug Resistant Organisms: None Reported Past Surgical History: Joint Replacement Additional Past Surgical History / Comment(s): stent between kidney and bladder Past Anesthesia/Blood Transfusion Reactions: No Reported Reaction Past Psychological History: No Psychological Hx Reported Smoking Status: Current every day smoker Past Alcohol Use History: Daily Past Drug Use History: None Reported - Past Family History Father Family Medical History: Myocardial Infarction ([place]) Medications and Allergies Home Medications Medication Instructions Recorded Confirmed Type Acetaminophen Tab [Tylenol] 1,000 mg PO Q6H PRN 03/24/22 05/02/22 History Metoprolol Succinate (ER) [Toprol 25 mg PO DAILY #30 tab 03/30/22 05/02/22 Rx XL] lisinopriL [Zestril] 5 mg PO DAILY #30 tab 03/30/22 05/02/22 Rx Furosemide [Lasix] 20 mg PO DAILY 05/02/22 05/02/22 History Rivaroxaban [Xarelto] 20 mg PO HS 05/02/22 05/02/22 History dilTIAZem HCL [dilTIAZem HCL 24Hr 120 mg PO DAILY 05/02/22 05/02/22 History ER] Allergies Allergy/AdvReac Type Severity Reaction Status Date / Time No Known Allergies Allergy Verified 05/02/22 22:14 Physical Exam Vitals: Vital Signs Temp Pulse Resp BP Pulse Ox 05/05/22 07:31 98.2 F 68 18 156/83 96 05/05/22 01:22 98.1 F 67 16 166/81 96 05/04/22 19:14 98.3 F 69 18 143/80 97 05/04/22 17:15 69 16 162/82 94 L 05/04/22 14:00 97.3 F L 66 18 146/79 96 05/04/22 08:30 18 05/04/22 08:22 95 05/04/22 08:00 97.8 F 77 17 159/83 95 Intake and Output 05/04/22 05/05/22 05/05/22 22:59 06:59 14:59 Intake Total 150 425 Balance 150 425 Intake: Intake, IV Titration 425 Amount Sodium Chloride 0.9% 1, 425 000 ml @ 75 mls/hr IV . [id number] [facility] Rx#:[id number] Oral 150 Other: # Voids 3 Results 05/04/22 05:16 05/04/22 05:16 CBC 05/04/22 Range/Units 05:16 WBC 5.65 (4.50-10.00) X 10*3/uL RBC 3.19 L (4.10-5.20) X 10*6/uL Hgb 10.3 L (12.0-15.0) g/dL Hct 31.4 L (37.2-46.3) % Plt Count 474 H (140-440) X 10*3/uL Comprehensive Metabolic Panel 05/04/22 Range/Units 05:16 Sodium 136 (135-145) mmol/L Potassium 4.5 (3.5-5.5) mmol/L Chloride 105 (96-109) mmol/L Carbon Dioxide 20.4 (20.0-27.5) mmol/L BUN 10.9 (9.0-27.0) mg/dL Creatinine 0.7 (0.6-1.5) mg/dL Glucose 90 (70-110) mg/dL Calcium 9.5 (8.7-10.3) mg/dL Current Medications Generic Name Dose Route Start Last Admin Trade Name Freq PRN Reason Stop Dose Admin Acetaminophen 650 mg 05/02/22 22:12 05/05/22 06:47 Acetaminophen Tab 325 Mg Tab PO 650 mg Q6HR PRN Administration Mild Pain or Fever > 100.5 Hydrocodone Bitart/Acetaminophen 1 each 05/02/22 22:12 Hydrocodone/Apap 5-325mg 1 Each Tab PO Q4HR PRN Moderate Pain (Scale 4 to 6) Diltiazem HCl 120 mg 05/04/22 09:00 05/04/22 08:44 Diltiazem Cd 120 Mg Cap.Er.24h PO 120 mg DAILY ANGELES Administration Famotidine 20 mg 05/03/22 09:00 05/04/22 20:59 Famotidine 20 Mg Tab PO 20 mg BID ANGELES Administration Furosemide 20 mg 05/04/22 09:00 05/04/22 08:44 Furosemide 20 Mg Tab PO 20 mg DAILY ANGELES Administration Heparin Sodium (Porcine) 5,000 unit 05/04/22 16:00 05/05/22 00:26 Heparin Sodium,Porcine/Pf 5,000 Unit/0.5 Ml Syringe SQ 5,000 unit Q8HR ANGELES Administration Lisinopril 5 mg 05/03/22 15:30 05/04/22 08:44 Lisinopril 5 Mg Tab PO 5 mg DAILY ANGELES Administration Metoprolol Succinate 25 mg 05/03/22 15:30 05/04/22 08:44 Metoprolol Succinate (Er) 25 Mg Tab.Er.24h PO 25 mg DAILY ANGELES Administration Naloxone HCl 0.2 mg 05/02/22 22:12 Naloxone 0.4 Mg/Ml 1 Ml Vial IV Q2M PRN Opioid Reversal Nystatin 1 applic 05/03/22 21:00 05/04/22 21:01 Nystatin 100,000unit/Gm Cream 30 Gm Tube TOPICAL 1 applic BID ANGELES Administration Oxycodone/Acetaminophen 1 each 05/02/22 22:12 Oxycodone-Apap 5-325mg 1 Each Tab PO Q4HR PRN Severe Pain (Scale 7 to 10) Triamcinolone Acetonide 1 applic 05/03/22 21:00 05/04/22 21:00 Triamcinolone 0.1% Cream 80 Gm Tube TOPICAL 1 applic BID ANGELES Administration Intake and Output 05/04/22 05/05/22 05/05/22 22:59 06:59 14:59 Intake Total 150 425 Balance 150 425 Intake: Intake, IV Titration 425 Amount Sodium Chloride 0.9% 1, 425 000 ml @ 75 mls/hr IV . [id number] [facility] Rx#:[id number] Oral 150 Other: # Voids 3 05/04/22 05:16 05/04/22 05:16
[2022-05-05] MEDS ORDERED: VANCOMYCIN IV PER PHARMACY 1 EACH MISC MISCELLANE PRN (11:50)
--- NOTE | 2022-05-05 11:54 | P.PN ---
Subjective Progress Note Date: 05/05/22 Principal diagnosis: Abnormal MRI and a question of discitis Patient is a 71-year-old female was recently admitted at this facility beginning of March 2022 about a month ago patient did have evidence of complicated E. coli UTI with left-sided hydronephrosis in this patient who returns for cystoscopy and stent placement patient did have a E. coli bacteremia as well patient repeat blood culture on 03/29/2022 were negative, patient presented to hospital with abnormal MRI done in the outpatient setting without contrast, suspicious for osteomyelitis On today's evaluation and that is 05/05/2022, the patient remains to be afebrile, the patient is breathing comfortably on room air, no chest pain shortness of breath or cough the patient lower back pain is currently controlled down to about 2 out of 10 and no radiation down the leg no bowel or bladder problem, Objective - Vital Signs Vital signs: Vital Signs Temp 98.2 F 05/05/22 07:31 Pulse 68 05/05/22 07:31 Resp 18 05/05/22 07:31 BP 156/83 05/05/22 07:31 Pulse Ox 96 05/05/22 07:31 FiO2 Intake & Output 05/04/22 05/05/22 05/05/22 18:59 06:59 18:59 Intake Total 400 425 Balance 400 425 Intake: Intake, IV Titration 425 Amount Sodium Chloride 0.9% 1, 425 000 ml @ 75 mls/hr IV . [id number] [facility] Rx#:[id number] Oral 400 Other: # Voids 3 - Exam GENERAL DESCRIPTION: An elderly female lying in bed in no distress RESPIRATORY SYSTEM: Unlabored breathing , decreased breath sounds at bases HEART: S1 S2 regular rate and rhythm , ABDOMEN: Soft , no tenderness EXTREMITIES: No edema feet - Labs CBC & Chem 7: 05/04/22 05:16 05/04/22 05:16 Labs: Microbiology - Last 24 Hours (Table) 05/02/22 21:20 Blood Culture - Preliminary Blood No Growth after 48 hours 05/02/22 21:35 Blood Culture - Preliminary Blood No Growth after 48 hours 05/03/22 12:00 Urine Culture - Final Urine,Voided Assessment and Plan (1) Abnormal MRI Current Visit: Yes Status: Acute Code(s): R93.89 - ABNORMAL FINDINGS ON DX IMAGING OF OTH BODY STRUCTURES SNOMED Code(s): 296156646 Plan: 1patient presented to hospital with abnormal MRI suspicious for discitis in this patient who do have a back pain since February however mentioning overall improvement in her back pain patient denies having any fever or chills did have normal white count clinically not behaving as discitis with a question of possible worsening osteoarthritic changes to the spine area. 2patient did have MRI of the lumbar spine with contrast that has been suspicious for L34 discitis and phlegmon but no drainable abscess , orthopedics mentioning and no surgical intervention 3- the patient benefit from the CT-guided aspirate of the area for microbiological diagnosis this was explained in detail with the patient and her mlqtzkrz-ky-ond who is a [employer] laboratory nurse and also discuss with the interventional radiology on the phone procedure be done as soon as possible. 4after the drainage procedure, we will start the patient on cefepime and vancomycin with a discharge antibodies on the basis of final culture this was explained to the patient in layman terms multiple questions concerned were answered Time with Patient: Greater than 30
[2022-05-05 12:21] LABS: African American GFR (CKD) 99.6 (60.0-200.0)
[2022-05-05] MEDS ORDERED: LIDOCAINE 1% INJ 10MG/ML (5 ML VIAL-PF) SQ ONE (12:42)
--- NOTE | 2022-05-05 14:00 | CT ---
EXAMINATION TYPE: CT guided aspiration DATE OF EXAM: 05/05/2022 COMPARISON: MRI 05/04/2022 HISTORY: Discitis, osteomyelitis CT DLP: 1679 mGycm The procedure is discussed with the patient, the risks, complications, benefits and alternatives, wer e discussed and any questions were answered. Informed consent was obtained. The patient is placed p nadia on the CT table, prepped and draped in the usual sterile fashion. Utilizing a 22-gauge Chiba needle access into L3-L4 disc space and left paraspinal soft tissue densit y was achieved with approximately 4 samples obtained. Pathology pending. All elements of maximal ba rrier and sterile technique were utilized. The patient remained stable throughout the procedure with no immediate postprocedural complication. IMPRESSION: 1. Successful CT guided fine needle aspiration of a L3-L4 disc space for discitis. Aspirate of the paraspinal soft tissue component was also performed.
[2022-05-05] MEDS: VANCOMYCIN 1,250 MG in SODIUM CHLORIDE 0.9% 250 ML IVPB SCH (15:02)
--- NOTE | 2022-05-05 15:53 | P.PN ---
Subjective Progress Note Date: 05/05/22 This is a 71-year-old female with a medical history significant for hypertension, daily smoker. Patient presents to the emergency room with complaints of back discomfort ongoing for the last month. Patient was also diagnosed with atrial fibrillation about 1 month ago by her generator technician Dr. Chávez she has been placed on xarelto, toprol xl and also diltiazem. Around the time patient developed this back pain, she was also hospitalized for urinary tract infection and underwent stent in the left ureter. She was treated for sepsis with e.coli bacteremia at that time as well. She was discharged on 04/01/22 with 10 days of oral cipro to complete antibiotic therapy. Back pain has persisted and patient underwent outpatient imaging. She had a KUB completed 04/17/22 showing double-j left ureter stent. No hydronephrosis, no definitive stones found. She had outpatient chest xray and follow up MRI completed yesterday at [facility] by her primary provider Dr. Radford. She was instructed to come to the emeregency room. brought MRI reports in which are showing L3-L4 severe spinal canal stenosis and bunching of the cauda equina. There is possible abscess as well. She denies mental status changes, headache. Denies loss of bladder or bowel. Denies lower extremity numbness or tingling. She is admitted for discitis and osteomyelitis, she is started on empiric antibiotics with IV zosyn, IV vancomycin and infectious disease and orthopedics have been consulted. No white count on admission, hgb 11.3, sodium 133. Patient is afebrile, on room air. 05/04/2022 Patient monitored on medical floor. No acute events overnight. Currently denying back pain. Infectious disease has evaluated patient. Antibiotics on hold at this time, patient will have MRI with contrast today and further recommendations made pending. White count 5.65, hgb 10.3, sodium 136, potassium 4.5, BUN 10.9, creatinine 0.7. Glucose 90. Urine and Blood cultures are pending. 05/05/2022 Patient is evaluated today ambulating in room. Patient had a run of 15 beats of VTACH overnight and evaluated by cardiology today, patient was asymptomatic. Echocardiogram ordered and patient was taken off diltiazem. Metoprolol and lisinopril increased. Patient underwent contrast MRI which reveals osteomyelitis discitis L3 -L4 with plegmonous change and increasing spinal canal stenosis along the L3-L4 vertebral levels most possibly from infection. Patient underwent successful CT guided FNA L3-L4 disc space and also aspirate of paraspinal soft tissue component performed. Blood culture pending, urine culture is negative. Patient is resumed on antiobiotics with cefepime and vancomycin pending culture. She also received PICC line today. PHYSICAL EXAMINATION: GENERAL: The patient is alert and oriented x3, not in any acute distress. Well developed, well nourished. HEENT: Pupils are round and equally reacting to light. EOMI. No scleral icterus. No conjunctival pallor. Normocephalic, atraumatic. No pharyngeal erythema. No thyromegaly. CARDIOVASCULAR: S1 and S2 present. No murmurs, rubs, or gallops. PULMONARY: Chest is clear to auscultation, no wheezing or crackles. ABDOMEN: Soft, nontender, nondistended, normoactive bowel sounds. No palpable organomegaly. MUSCULOSKELETAL: No joint swelling or deformity. EXTREMITIES: No cyanosis, clubbing, or pedal edema. NEUROLOGICAL: Gross neurological examination did not reveal any focal deficits. SKIN: No rashes. Assessment and Plan Assessment Back stiffness/pain ongoing for the last month Discitis osteomyelitis L3-L4 s/p fine needle aspiration and cultures pending Recent hospitalization for UTI/sepsis E.Coli bacteremia treated with antibiotics Recent left ureter stent placed Recent diagnosis atrial fibrillation anticoagulated wtih xarelto History nephrolisthiasis Hyponatremia Hypertension Chronic systolic heart failure with EF 30 to 35%. History of COPD not in acute exacerbation Chronic tobacco use GI prophylaxis pepcid DVT prophylaxis subcu heparin Full Code Plan Cultures pending PICC Line has been placed Most likely outpatient follow up with surgery in 3 weeks Resume xarelto when cleared with surgery Further recommendations pending The impression and plan of care has been dictated by Fany Ramirez Nurse Practitioner as directed. Dr. Julianna MD I have performed a history and physical examination and medical decision making of this patient, discussed the same with the dictator, and agree with the dictators assessment and plan as written, documented as a scribe. Based on total visit time, I have performed more than 50% of this visit. Objective - Vital Signs Vital signs: Vital Signs Temp 98.2 F 05/05/22 07:31 Pulse 68 12/16/22 07:31 Resp 18 05/05/22 14:00 BP 178/82 05/05/22 14:00 Pulse Ox 96 05/05/22 14:00 FiO2 Intake & Output 05/04/22 05/05/22 05/05/22 18:59 06:59 18:59 Intake Total 400 425 Balance 400 425 Intake: Intake, IV Titration 425 Amount Sodium Chloride 0.9% 1, 425 000 ml @ 75 mls/hr IV . [id number] [facility] Rx#:[id number] Oral 400 Other: # Voids 3 - Labs CBC & Chem 7: 05/04/22 05:16 05/05/22 06:20 Labs: Abnormal Lab Results - Last 24 Hours (Table) 05/05/22 Range/Units 10:59 C-Reactive Protein 2.9 H (<1.0) mg/dL Microbiology - Last 24 Hours (Table) 05/02/22 21:20 Blood Culture - Preliminary Blood No Growth after 48 hours 05/02/22 21:35 Blood Culture - Preliminary Blood No Growth after 48 hours 05/03/22 12:00 Urine Culture - Final Urine,Voided Assessment and Plan Time with Patient: Less than 30
--- NOTE | 2022-05-05 17:06 | CA ---
Transthoracic Echo Report Name: Samina Quevedo Age: 71 Gender: F : 1950 Exam Date: 05/05/2022 15:16 Exam Location: [facility] Ht (in): 64 Wt (lb): 162 Ordering Physician: Lis Avila Attending/Referring Phys: [id number], Margarita Assistant Professor Of Music Raisa Farooq RDCS Procedure CPT: Indications: LVF Cardiac Hx: Technical Quality: Fair Contrast 1: Total Dose (mL): Contrast 2: Total Dose (mL): MEASUREMENTS (Male / Female) Normal Values 2D ECHO LV Diastolic Diameter PLAX 5.6 cm 4.2 - 5.9 / 3.9 - 5.3 cm LV Systolic Diameter PLAX 4.1 cm IVS Diastolic Thickness 1.0 cm 0.6 - 1.0 / 0.6 - 0.9 cm LVPW Diastolic Thickness 1.2 cm 0.6 - 1.0 / 0.6 - 0.9 cm LV Relative Wall Thickness 0.4 LV Diastolic Volume MOD BP 112.9 cm??? 67 - 155 / 56 - 104 cm??? LV Systolic Volume MOD BP 60.8 cm??? 22 - 58 / 19 - 49 cm??? LV Ejection Fraction MOD BP 46.1 % >= 55 % LV Cardiac Index MOD BP 1781.2 cm???/min???m??? LV Diastolic Volume MOD 4C 135.3 cm??? LV Systolic Volume MOD 4C 72.8 cm??? LV Ejection Fraction MOD 4C 46.2 % LV Cardiac Index MOD 4C 2140.1 cm???/min???m??? LV Diastolic Length 4C 8.2 cm LV Systolic Length 4C 7.9 cm LV Diastolic Volume MOD 2C 90.9 cm??? LV Systolic Volume MOD 2C 50.5 cm??? LV Ejection Fraction MOD 2C 44.4 % LV Cardiac Index MOD 2C 1381.5 cm???/min???m??? LV Diastolic Length 2C 7.9 cm LV Systolic Length 2C 7.8 cm LA Volume 75.9 cm??? 18 - 58 / 22 - 52 cm??? FINDINGS Left Ventricle Mildly increased left ventricular wall thickness. Mildly increased left ventricular diastolic diameter. Mildly increased left ventricular diastolic volume. Moderately increased left ventricular systolic volume. Mildly decreased left ventricular ejection fraction. Left ventricular ejection fraction is estimated at 40-45 %. Right Ventricle Right Atrium Left Atrium Mitral Valve Aortic Valve Tricuspid Valve Pulmonic Valve Pericardium No pericardial effusion. Aorta CONCLUSIONS Moderate LV systolic dysfunction with an ejection fraction of 40-45% Previewed by: Dr. Preston Guzman MD (Electronically Signed) Final Date: 05 May 2022 17:05
[2022-05-05] MEDS: CEFEPIME 2 GM in SODIUM CHLORIDE 0.9% 100 ML IVPB SCH (17:18)
[2022-05-06] MEDS: CEFEPIME 2 GM in SODIUM CHLORIDE 0.9% 100 ML IVPB SCH ×3 (00:18→17:21)
[2022-05-06] MEDS: HEPARIN SODIUM,PORCINE/PF 5,000 UNIT/0.5 ML SYRINGE SQ SCH ×2 (00:18→10:02)
[2022-05-06] MEDS: VANCOMYCIN 1,250 MG in SODIUM CHLORIDE 0.9% 250 ML IVPB SCH ×2 (00:19→14:54)
[2022-05-06] MEDS: ACETAMINOPHEN TAB 325 MG TAB PO PRN (00:27)
[2022-05-06] MEDS: FUROSEMIDE 20 MG TAB PO SCH (10:02)
[2022-05-06] MEDS: lisinopriL 10 MG TAB PO SCH (10:02)
[2022-05-06] MEDS: METOPROLOL SUCCINATE (ER) 50 MG TAB.ER.24H PO SCH (10:02)
[2022-05-06] MEDS: FAMOTIDINE 20 MG TAB PO SCH ×2 (10:02→20:53)
[2022-05-06] MEDS: NYSTATIN 100,000UNIT/GM CREAM 30 GM TUBE TOPICAL SCH ×2 (10:03→20:54)
[2022-05-06] MEDS: TRIAMCINOLONE 0.1% CREAM 80 GM TUBE TOPICAL SCH ×2 (10:03→20:54)
--- NOTE | 2022-05-06 11:14 | P.PN ---
Subjective Progress Note Date: 05/06/22 Principal diagnosis: L 34 discitis Patient is a 71-year-old female was recently admitted at this facility beginning of March 2022 about a month ago patient did have evidence of complicated E. coli UTI with left-sided hydronephrosis in this patient who returns for cystoscopy and stent placement patient did have a E. coli bacteremia as well patient repeat blood culture on 03/29/2022 were negative, patient presented to hospital with abnormal MRI done in the outpatient setting without contrast, suspicious for osteomyelitis, subsequently did have MRI with contrast that was suggestive of Osteomyelitis but no drainable abscess, the patient is status post CT-guided aspiration of the area for culture On today's evaluation and that is 05/06/2022, the patient continues to be afebrile, the patient is breathing comfortably on room air, the patient denies chest pain shortness of breath or cough the patient lower back pain is currently controlled and no radiation down the leg no bowel or bladder problem, Objective - Vital Signs Vital signs: Vital Signs Temp 97.7 F 05/06/22 07:00 Pulse 58 L 05/06/22 07:00 Resp 17 05/06/22 07:00 BP 157/83 05/06/22 07:00 Pulse Ox 97 05/06/22 08:27 FiO2 Intake & Output 05/05/22 05/06/22 05/06/22 18:59 06:59 18:59 Intake Total 400 Balance 400 Intake: Oral 400 Other: # Voids 3 2 - Exam GENERAL DESCRIPTION: An elderly female lying in bed in no distress RESPIRATORY SYSTEM: Unlabored breathing , decreased breath sounds at bases HEART: S1 S2 regular rate and rhythm , ABDOMEN: Soft , no tenderness EXTREMITIES: No edema feet - Labs CBC & Chem 7: 05/04/22 05:16 05/05/22 06:20 Labs: Abnormal Lab Results - Last 24 Hours (Table) 05/05/22 05/05/22 Range/Units 10:59 10:59 ESR 97 H (0-30) mm/Hr C-Reactive Protein 2.9 H (<1.0) mg/dL Microbiology - Last 24 Hours (Table) 05/02/22 21:35 Blood Culture - Preliminary Blood No Growth after 72 hours 05/02/22 21:20 Blood Culture - Preliminary Blood No Growth after 72 hours Assessment and Plan (1) Abnormal MRI Current Visit: Yes Status: Acute Code(s): R93.89 - ABNORMAL FINDINGS ON DX IMAGING OF OTH BODY STRUCTURES SNOMED Code(s): 209396647 Plan: 1patient presented to hospital with abnormal MRI suspicious for discitis in this patient who do have a back pain since February however mentioning overall improvement in her back pain patient denies having any fever or chills did have normal white count clinically not behaving as discitis with a question of possible worsening osteoarthritic changes to the spine area. 2patient did have MRI of the lumbar spine with contrast that has been suspicious for L34 discitis and phlegmon but no drainable abscess , orthopedics mentioning and no surgical intervention 3- the patient is status post CT-guided aspirate of the area with the cultures currently pending. 4patient to continue with cefepime and vancomycin with a discharge antibodies on the basis of final culture Questions concerned were answered
[2022-05-06 11:54] LABS: HCT 34.4 % (37.2-46.3); HGB 10.6 g/dL (12.0-15.0); MCH 31.1 pg (27.0-32.0); MCHC 30.8 g/dL (32.0-37.0); MCV 100.9 fL (80.0-97.0); NRBC Per 100 WBC 0 /100 WBCS (0.0-0.0); Platelet Count 493 X 10*3/uL (140-440); RBC 3.41 X 10*6/uL (4.10-5.20); RDW 13.3 % (11.5-14.5); WBC 6.75 X 10*3/uL (4.50-10.00)
--- NOTE | 2022-05-06 12:09 | P.PN ---
Subjective Progress Note Date: 05/06/22 This is a 71-year-old female patient of Dr. Parks with a history of hypertension, COPD, nonischemic cardiomyopathy in 2015 with improved EF, chronic tobacco use. Patient was recently hospitalized in March and evaluated for Takatsubo cardiomyopathy with underlying pneumonia, UTI and bacteremia. Subsequ ently, patient is also been diagnosed with paroxysmal atrial fibrillation on Xarelto. Patient has been readmitted after undergoing MRI as an outpatient of the lumbar spine which was concerning for discitis L34. We've been asked to see the patient due to a run of 15 beats of V. tach last evening. Patient states she did feel a little bit of flutter in her chest. She denies having chest pain. 05/06/2022 The patient was seen and examined resting comfortably in bed. Blood pressure remains elevated despite increasing metoprolol and lisinopril. Echocardiogram with Doppler study showed mildly decreased LV systolic function with ejection fraction of 40-45%. She is overall feeling fairly well this morning. She denies any shortness of breath palpitations or chest pain. Objective - Vital Signs Vital signs: Vital Signs Temp 97.7 F 05/06/22 07:00 Pulse 58 L 05/06/22 07:00 Resp 17 05/06/22 07:00 BP 157/83 05/06/22 07:00 Pulse Ox 97 05/06/22 08:27 FiO2 Intake & Output 05/05/22 05/06/22 05/06/22 18:59 06:59 18:59 Intake Total 400 Balance 400 Intake: Oral 400 Other: # Voids 3 2 - Exam Head: Normocephalic. Eyes: Sclerae nonicteric. Neck: Good carotid upstroke, no bruit, no jugular venous distention. Lungs: Decreased breath sounds bilaterally with scattered wheezes Heart: Regular rate and rhythm, S1-S2, no S3, no rub. Systolic ejection murmur. Abdomen: Soft nontender, positive bowel sounds no organomegaly. Extremities: No edema, intact distal pulses. - Labs CBC & Chem 7: 05/06/22 06:39 05/05/22 06:20 Labs: Abnormal Lab Results - Last 24 Hours (Table) 05/05/22 05/06/22 Range/Units 10:59 06:39 RBC 3.41 L (4.10-5.20) X 10*6/uL Hgb 10.6 L (12.0-15.0) g/dL Hct 34.4 L (37.2-46.3) % MCV 100.9 H (80.0-97.0) fL MCHC 30.8 L (32.0-37.0) g/dL Plt Count 493 H (140-440) X 10*3/uL ESR 97 H (0-30) mm/Hr Microbiology - Last 24 Hours (Table) 05/02/22 21:35 Blood Culture - Preliminary Blood No Growth after 72 hours 05/02/22 21:20 Blood Culture - Preliminary Blood No Growth after 72 hours Assessment and Plan Assessment: Nonsustained ventricular tachycardia Paroxysmal atrial fibrillation nonischemic cardiomyopathy with ejection fraction of 40-45% Acute discitis Hypertension COPD Tobacco use Plan: From cardiology's perspective will optimize medical therapy. Continue to monitor renal function and electrolytes. Continue cardiac monitoring. We will continue to follow the patient right further recommendations accordingly. SENIOR ANALYST DEVELOPER note has been reviewed, I agree with a documented findings and plan of care. Patient was seen and examined.
[2022-05-06 12:11] LABS: African American GFR (CKD) 99.6 (60.0-200.0); Anion Gap 10.7 mmol/L (10.00-18.00); BUN/Creat Ratio 20.14 Ratio (12.00-20.00); Blood Urea Nitrogen 14.1 mg/dL (9.0-27.0); Calcium 9.7 mg/dL (8.7-10.3); Carbon Dioxide 22.3 mmol/L (20.0-27.5); Potassium 4.5 mmol/L (3.5-5.5)
--- NOTE | 2022-05-06 15:35 | P.PN ---
Subjective Progress Note Date: 05/06/22 This is a 71-year-old female with a medical history significant for hypertension, daily smoker. Patient presents to the emergency room with complaints of back discomfort ongoing for the last month. Patient was also diagnosed with atrial fibrillation about 1 month ago by her head mechanic Dr. Chávez she has been placed on xarelto, toprol xl and also diltiazem. Around the time patient developed this back pain, she was also hospitalized for urinary tract infection and underwent stent in the left ureter. She was treated for sepsis with e.coli bacteremia at that time as well. She was discharged on 04/01/22 with 10 days of oral cipro to complete antibiotic therapy. Back pain has persisted and patient underwent outpatient imaging. She had a KUB completed 04/17/22 showing double-j left ureter stent. No hydronephrosis, no definitive stones found. She had outpatient chest xray and follow up MRI completed yesterday at [facility] by her primary provider Dr. Radford. She was instructed to come to the emeregency room. brought MRI reports in which are showing L3-L4 severe spinal canal stenosis and bunching of the cauda equina. There is possible abscess as well. She denies mental status changes, headache. Denies loss of bladder or bowel. Denies lower extremity numbness or tingling. She is admitted for discitis and osteomyelitis, she is started on empiric antibiotics with IV zosyn, IV vancomycin and infectious disease and orthopedics have been consulted. No white count on admission, hgb 11.3, sodium 133. Patient is afebrile, on room air. 05/04/2022 Patient monitored on medical floor. No acute events overnight. Currently denying back pain. Infectious disease has evaluated patient. Antibiotics on hold at this time, patient will have MRI with contrast today and further recommendations made pending. White count 5.65, hgb 10.3, sodium 136, potassium 4.5, BUN 10.9, creatinine 0.7. Glucose 90. Urine and Blood cultures are pending. 05/05/2022 Patient is evaluated today ambulating in room. Patient had a run of 15 beats of VTACH overnight and evaluated by cardiology today, patient was asymptomatic. Echocardiogram ordered and patient was taken off diltiazem. Metoprolol and lisinopril increased. Patient underwent contrast MRI which reveals osteomyelitis discitis L3 -L4 with plegmonous change and increasing spinal canal stenosis along the L3-L4 vertebral levels most possibly from infection. Patient underwent successful CT guided FNA L3-L4 disc space and also aspirate of paraspinal soft tissue component performed. Blood culture pending, urine culture is negative. Patient is resumed on antiobiotics with cefepime and vancomycin pending culture. She also received PICC line today. 05/06/2022 Patient monitored on medical floor today, no acute events overnight. Echocar diogram completed reveals mildly decreased LV function EF of 40 to 45%. Cultures are currently pending. Blood culture negative so far at 72 hours and also urine culture is negative. Continues on IV cefepime IV vancomycin. No further issues with tachycardia. Remains afebrile, heart rate 60s normal sinus rhythm, blood pressure 157/83. Labs today showing white count of 6.75, hgb 10.6, BUN 14.1, creatinine 0.7. Review of Systems Constitutional: Denied any fatigue denied any fever. Cardio vascular: denied any chest pain, palpitations Gastrointestinal: denied any nausea, vomiting, diarrhea Pulmonary: Denied any shortness of breath cough Neurologic denied any new focal deficits All inpatient medications were reviewed and appropriate changes in these medications as dictated in the interval history and assessment and plan. PHYSICAL EXAMINATION: GENERAL: The patient is alert and oriented x3, not in any acute distress. Well developed, well nourished. HEENT: Pupils are round and equally reacting to light. EOMI. No scleral icterus. No conjunctival pallor. Normocephalic, atraumatic. No pharyngeal erythema. No thyromegaly. CARDIOVASCULAR: S1 and S2 present. No murmurs, rubs, or gallops. PULMONARY: Chest is clear to auscultation, no wheezing or crackles. ABDOMEN: Soft, nontender, nondistended, normoactive bowel sounds. No palpable organomegaly. MUSCULOSKELETAL: No joint swelling or deformity. EXTREMITIES: No cyanosis, clubbing, or pedal edema. NEUROLOGICAL: Gross neurological examination did not reveal any focal deficits. SKIN: No rashes. Assessment and Plan Assessment Nonsustained Ventricular tachycardia Back stiffness/pain ongoing for the last month Discitis osteomyelitis L3-L4 s/p fine needle aspiration and cultures pending Recent hospitalization for UTI/sepsis E.Coli bacteremia treated with antibiotics Recent left ureter stent placed Recent diagnosis atrial fibrillation anticoagulated with xarelto Nonischemic cardiomyopathy with EF 40-45% History nephrolisthiasis Hyponatremia Hypertension History of COPD not in acute exacerbation Chronic tobacco use GI prophylaxis pepcid DVT prophylaxis subcu heparin Full Code Plan Cultures pending PICC Line has been placed Per surgery notes will follow up with patient in 2 to 3 weeks outpatient for further evaluation Will resume xarelto since no surgical intervention planned this hospital stay Further recommendations pending Cardiology optimizing medications The impression and plan of care has been dictated by Fany Ramirez, Nurse Practitioner as directed. Dr. Julianna MD I have performed a history and physical examination and medical decision making of this patient, discussed the same with the dictator, and agree with the dictators assessment and plan as written, documented as a scribe. Based on total visit time, I have performed more than 50% of this visit. Objective - Vital Signs Vital signs: Vital Signs Temp 97.7 F 05/06/22 07:00 Pulse 58 L 05/06/22 07:00 Resp 17 05/06/22 07:00 BP 157/83 05/06/22 07:00 Pulse Ox 97 05/06/22 08:27 FiO2 Intake & Output 05/05/22 05/06/22 05/06/22 18:59 06:59 18:59 Intake Total 400 Balance 400 Intake: Oral 400 Other: # Voids 3 2 - Labs CBC & Chem 7: 05/06/22 06:39 05/06/22 06:39 Labs: Abnormal Lab Results - Last 24 Hours (Table) 05/05/22 05/06/22 05/06/22 Range/Units 10:59 06:39 06:39 RBC 3.41 L (4.10-5.20) X 10*6/uL Hgb 10.6 L (12.0-15.0) g/dL Hct 34.4 L (37.2-46.3) % MCV 100.9 H (80.0-97.0) fL MCHC 30.8 L (32.0-37.0) g/dL Plt Count 493 H (140-440) X 10*3/uL ESR 97 H (0-30) mm/Hr BUN/Creatinine Ratio 20.14 H (12.00-20.00) Ratio Microbiology - Last 24 Hours (Table) 05/05/22 10:59 Blood Culture - Preliminary Blood No Growth after 24 hours 05/02/22 21:35 Blood Culture - Preliminary Blood No Growth after 72 hours 05/02/22 21:20 Blood Culture - Preliminary Blood No Growth after 72 hours Assessment and Plan Time with Patient: Less than 30
[2022-05-06] MEDS: RIVAROXABAN 20 MG TAB PO SCH (20:53)
[2022-05-07] MEDS: VANCOMYCIN 1,250 MG in SODIUM CHLORIDE 0.9% 250 ML IVPB SCH ×2 (00:34→13:30)
[2022-05-07] MEDS: CEFEPIME 2 GM in SODIUM CHLORIDE 0.9% 100 ML IVPB SCH ×3 (00:34→16:40)
[2022-05-07] MEDS: FUROSEMIDE 20 MG TAB PO SCH (08:28)
[2022-05-07] MEDS: METOPROLOL SUCCINATE (ER) 50 MG TAB.ER.24H PO SCH (08:28)
[2022-05-07] MEDS: lisinopriL 10 MG TAB PO SCH ×2 (08:28→22:09)
[2022-05-07] MEDS: FAMOTIDINE 20 MG TAB PO SCH ×2 (08:28→22:09)
[2022-05-07] MEDS: TRIAMCINOLONE 0.1% CREAM 80 GM TUBE TOPICAL SCH ×2 (08:29→22:10)
[2022-05-07] MEDS: NYSTATIN 100,000UNIT/GM CREAM 30 GM TUBE TOPICAL SCH ×2 (08:29→22:10)
[2022-05-07 09:46] LABS: African American GFR (CKD) 99.6 (60.0-200.0); Anion Gap 9.6 mmol/L (10.00-18.00); BUN/Creat Ratio 21.86 Ratio (12.00-20.00); Blood Urea Nitrogen 15.3 mg/dL (9.0-27.0); Calcium 9.8 mg/dL (8.7-10.3); Carbon Dioxide 25.4 mmol/L (20.0-27.5); Potassium 4.6 mmol/L (3.5-5.5)
[2022-05-07] MEDS: SPIRONOLACTONE 25 MG TAB PO SCH (11:24)
--- NOTE | 2022-05-07 11:51 | P.PN ---
Subjective Progress Note Date: 05/07/22 This is a 71-year-old female patient of Dr. Parks with a history of hypertension, COPD, nonischemic cardiomyopathy in 2015 with improved EF, chronic tobacco use. Patient was recently hospitalized in March and evaluated for Takatsubo cardiomyopathy with underlying pneumonia, UTI and bacteremia. Subsequ ently, patient is also been diagnosed with paroxysmal atrial fibrillation on Xarelto. Patient has been readmitted after undergoing MRI as an outpatient of the lumbar spine which was concerning for discitis L34. We've been asked to see the patient due to a run of 15 beats of V. tach last evening. Patient states she did feel a little bit of flutter in her chest. She denies having chest pain. 05/06/2022 The patient was seen and examined resting comfortably in bed. Blood pressure remains elevated despite increasing metoprolol and lisinopril. Echocardiogram with Doppler study showed mildly decreased LV systolic function with ejection fraction of 40-45%. She is overall feeling fairly well this morning. She denies any shortness of breath palpitations or chest pain. 05/07/2022 Patient was seen and examined resting comfortably in bed. She is overall feeling fairly well. She denies any shortness of breath, palpitations or chest discomfort. Renal function is stable. Her pressure is somewhat better controlled but remains on the high side. Objective - Vital Signs Vital signs: Vital Signs Temp 98.5 F 05/07/22 07:00 Pulse 66 05/07/22 07:00 Resp 17 05/07/22 07:00 BP 148/79 05/07/22 07:00 Pulse Ox 96 05/07/22 07:00 FiO2 Intake & Output 05/06/22 05/07/22 05/07/22 18:59 06:59 18:59 Other: # Voids 2 2 - Exam Head: Normocephalic. Eyes: Sclerae nonicteric. Neck: Good carotid upstroke, no bruit, no jugular venous distention. Lungs: Decreased breath sounds bilaterally with scattered wheezes Heart: Regular rate and rhythm, S1-S2, no S3, no rub. Systolic ejection murmur. Abdomen: Soft nontender, positive bowel sounds no organomegaly. Extremities: No edema, intact distal pulses. - Labs CBC & Chem 7: 05/06/22 06:39 05/07/22 06:41 Labs: Abnormal Lab Results - Last 24 Hours (Table) 05/06/22 05/06/22 05/07/22 Range/Units 06:39 06:39 06:41 RBC 3.41 L (4.10-5.20) X 10*6/uL Hgb 10.6 L (12.0-15.0) g/dL Hct 34.4 L (37.2-46.3) % MCV 100.9 H (80.0-97.0) fL MCHC 30.8 L (32.0-37.0) g/dL Plt Count 493 H (140-440) X 10*3/uL Anion Gap 9.60 L (10.00-18.00) mmol/L BUN/Creatinine Ratio 20.14 H 21.86 H (12.00-20.00) Ratio Microbiology - Last 24 Hours (Table) 05/02/22 21:35 Blood Culture - Preliminary Blood No Growth after 96 hours 05/02/22 21:20 Blood Culture - Preliminary Blood No Growth after 96 hours 05/05/22 10:59 Blood Culture - Preliminary Blood No Growth after 24 hours Assessment and Plan Assessment: Nonsustained ventricular tachycardia Paroxysmal atrial fibrillation nonischemic cardiomyopathy with ejection fraction of 40-45% Acute discitis Hypertension COPD Tobacco use Plan: From cardiology's perspective will optimize medical therapy. Continue to monitor renal function and electrolytes. Continue cardiac monitoring. We will continue to follow the patient right further recommendations accordingly. SALES REPRESENTATIVE SUPERVISOR note has been reviewed, I agree with a documented findings and plan of care. Patient was seen and examined.
[2022-05-07] MEDS ORDERED: VANCOMYCIN TROUGH DUE 1 EACH MISC MISCELLANE ONE (12:00)
--- NOTE | 2022-05-07 13:38 | P.PN ---
Subjective Progress Note Date: 05/07/22 This is a 71-year-old female with a medical history significant for hypertension, daily smoker. Patient presents to the emergency room with complaints of back discomfort ongoing for the last month. Patient was also diagnosed with atrial fibrillation about 1 month ago by her analysis consultant Dr. Chávez she has been placed on xarelto, toprol xl and also diltiazem. Around the time patient developed this back pain, she was also hospitalized for urinary tract infection and underwent stent in the left ureter. She was treated for sepsis with e.coli bacteremia at that time as well. She was discharged on 04/01/22 with 10 days of oral cipro to complete antibiotic therapy. Back pain has persisted and patient underwent outpatient imaging. She had a KUB completed 04/17/22 showing double-j left ureter stent. No hydronephrosis, no definitive stones found. She had outpatient chest xray and follow up MRI completed yesterday at [facility] by her primary provider Dr. Radford. She was instructed to come to the emeregency room. brought MRI reports in which are showing L3-L4 severe spinal canal stenosis and bunching of the cauda equina. There is possible abscess as well. She denies mental status changes, headache. Denies loss of bladder or bowel. Denies lower extremity numbness or tingling. She is admitted for discitis and osteomyelitis, she is started on empiric antibiotics with IV zosyn, IV vancomycin and infectious disease and orthopedics have been consulted. No white count on admission, hgb 11.3, sodium 133. Patient is afebrile, on room air. 05/04/2022 Patient monitored on medical floor. No acute events overnight. Currently denying back pain. Infectious disease has evaluated patient. Antibiotics on hold at this time, patient will have MRI with contrast today and further recommendations made pending. White count 5.65, hgb 10.3, sodium 136, potassium 4.5, BUN 10.9, creatinine 0.7. Glucose 90. Urine and Blood cultures are pending. 05/05/2022 Patient is evaluated today ambulating in room. Patient had a run of 15 beats of VTACH overnight and evaluated by cardiology today, patient was asymptomatic. Echocardiogram ordered and patient was taken off diltiazem. Metoprolol and lisinopril increased. Patient underwent contrast MRI which reveals osteomyelitis discitis L3 -L4 with plegmonous change and increasing spinal canal stenosis along the L3-L4 vertebral levels most possibly from infection. Patient underwent successful CT guided FNA L3-L4 disc space and also aspirate of paraspinal soft tissue component performed. Blood culture pending, urine culture is negative. Patient is resumed on antiobiotics with cefepime and vancomycin pending culture. She also received PICC line today. 05/06/2022 Patient monitored on medical floor today, no acute events overnight. Echocar diogram completed reveals mildly decreased LV function EF of 40 to 45%. Cultures are currently pending. Blood culture negative so far at 72 hours and also urine culture is negative. Continues on IV cefepime IV vancomycin. No further issues with tachycardia. Remains afebrile, heart rate 60s normal sinus rhythm, blood pressure 157/83. Labs today showing white count of 6.75, hgb 10.6, BUN 14.1, creatinine 0.7. 05/07/2022 Patient is monitored on the medical floor. PICC line in place to left brachial. She continues on IV antibiotics in the form of IV cefepime and IV vancomycin. Blood cultures remain negative. Fine-needle aspiration cultures are currently pending and will be flipped over into patient's current chart once finalized. Labs today remain stable. Blood pressure 148/79, cardiology following Review of Systems Constitutional: Denied any fatigue denied any fever. Cardio vascular: denied any chest pain, palpitations Gastrointestinal: denied any nausea, vomiting, diarrhea Pulmonary: Denied any shortness of breath cough Neurologic denied any new focal deficits All inpatient medications were reviewed and appropriate changes in these medications as dictated in the interval history and assessment and plan. PHYSICAL EXAMINATION: GENERAL: The patient is alert and oriented x3, not in any acute distress. Well developed, well nourished. HEENT: Pupils are round and equally reacting to light. EOMI. No scleral icterus. No conjunctival pallor. Normocephalic, atraumatic. No pharyngeal erythema. No thyromegaly. CARDIOVASCULAR: S1 and S2 present. No murmurs, rubs, or gallops. PULMONARY: Chest is clear to auscultation, no wheezing or crackles. ABDOMEN: Soft, nontender, nondistended, normoactive bowel sounds. No palpable organomegaly. MUSCULOSKELETAL: No joint swelling or deformity. EXTREMITIES: No cyanosis, clubbing, or pedal edema. NEUROLOGICAL: Gross neurological examination did not reveal any focal deficits. SKIN: No rashes. Assessment and Plan Assessment Nonsustained Ventricular tachycardia no further episodes noted on telemetry. Back stiffness/pain ongoing for the last month Discitis osteomyelitis L3-L4 s/p fine needle aspiration and cultures pending Recent hospitalization for UTI/sepsis E.Coli bacteremia treated with antibiotics Recent left ureter stent placed Recent diagnosis atrial fibrillation anticoagulated with xarelto Nonischemic cardiomyopathy with EF 40-45% History nephrolisthiasis Hyponatremia Hypertension History of COPD not in acute exacerbation Chronic tobacco use GI prophylaxis pepcid DVT prophylaxis subcu heparin Full Code Plan Cultures pending PICC Line has been placed Per surgery notes will follow up with patient in 2 to 3 weeks outpatient for further evaluation Will resume xarelto since no surgical intervention planned this hospital stay Lisinopril increased to twice a day for blood pressure control Possible D/C in the next 24 to 48 hours pending cultures. The impression and plan of care has been dictated by Fany Ramirez Nurse Practitioner as directed. Dr. Julianna MD I have performed a history and physical examination and medical decision making of this patient, discussed the same with the dictator, and agree with the dictators assessment and plan as written, documented as a scribe. Based on total visit time, I have performed more than 50% of this visit. Objective - Vital Signs Vital signs: Vital Signs Temp 98.5 F 05/07/22 07:00 Pulse 66 05/07/22 07:00 Resp 17 05/07/22 07:00 BP 148/79 05/07/22 07:00 Pulse Ox 96 05/07/22 07:00 FiO2 Intake & Output 05/06/22 05/07/22 05/07/22 18:59 06:59 18:59 Other: # Voids 2 2 - Labs CBC & Chem 7: 05/06/22 06:39 05/07/22 06:41 Labs: Abnormal Lab Results - Last 24 Hours (Table) 05/06/22 05/06/22 Range/Units 06:39 06:39 RBC 3.41 L (4.10-5.20) X 10*6/uL Hgb 10.6 L (12.0-15.0) g/dL Hct 34.4 L (37.2-46.3) % MCV 100.9 H (80.0-97.0) fL MCHC 30.8 L (32.0-37.0) g/dL Plt Count 493 H (140-440) X 10*3/uL BUN/Creatinine Ratio 20.14 H (12.00-20.00) Ratio Microbiology - Last 24 Hours (Table) 05/02/22 21:35 Blood Culture - Preliminary Blood No Growth after 96 hours 05/02/22 21:20 Blood Culture - Preliminary Blood No Growth after 96 hours 05/05/22 10:59 Blood Culture - Preliminary Blood No Growth after 24 hours Assessment and Plan Time with Patient: Less than 30
--- NOTE | 2022-05-07 21:23 | P.PN ---
Subjective Progress Note Date: 05/07/22 Principal diagnosis: L 34 discitis Patient is a 71-year-old female was recently admitted at this facility beginning of March 2022 about a month ago patient did have evidence of complicated E. coli UTI with left-sided hydronephrosis in this patient who returns for cystoscopy and stent placement patient did have a E. coli bacteremia as well patient repeat blood culture on 03/29/2022 were negative, patient presented to hospital with abnormal MRI done in the outpatient setting without contrast, suspicious for osteomyelitis, subsequently did have MRI with contrast that was suggestive of Osteomyelitis but no drainable abscess, the patient is status post CT-guided aspiration of the area for culture On today's evaluation and that is 05/07/2022, the patient remains to be afebrile, the patient is breathing comfortably on room air, the patient denies chest pain shortness of breath or cough the patient denies any worsening lower back pain , no weakness in the leg no abdominal pain no diarrhea Objective - Vital Signs Vital signs: Vital Signs Temp 97.6 F 05/07/22 14:50 Pulse 72 05/07/22 14:50 Resp 18 05/07/22 14:50 BP 133/69 05/07/22 14:50 Pulse Ox 97 05/07/22 14:50 FiO2 Intake & Output 05/06/22 05/07/22 05/07/22 18:59 06:59 18:59 Other: # Voids 2 2 - Exam GENERAL DESCRIPTION: An elderly female lying in bed in no distress RESPIRATORY SYSTEM: Unlabored breathing , decreased breath sounds at bases HEART: S1 S2 regular rate and rhythm , ABDOMEN: Soft , no tenderness EXTREMITIES: No edema feet - Labs CBC & Chem 7: 05/06/22 06:39 05/07/22 06:41 Labs: Abnormal Lab Results - Last 24 Hours (Table) 05/07/22 Range/Units 06:41 Anion Gap 9.60 L (10.00-18.00) mmol/L BUN/Creatinine Ratio 21.86 H (12.00-20.00) Ratio Microbiology - Last 24 Hours (Table) 05/05/22 10:59 Blood Culture - Preliminary Blood No Growth after 48 hours 05/02/22 21:35 Blood Culture - Preliminary Blood No Growth after 96 hours 05/02/22 21:20 Blood Culture - Preliminary Blood No Growth after 96 hours Assessment and Plan (1) Abnormal MRI Current Visit: Yes Status: Acute Code(s): R93.89 - ABNORMAL FINDINGS ON DX IMAGING OF OTH BODY STRUCTURES SNOMED Code(s): 701641855 Plan: 1patient presented to hospital with abnormal MRI suspicious for discitis in this patient who do have a back pain since February however mentioning overall improvement in her back pain patient denies having any fever or chills did have normal white count clinically not behaving as discitis with a question of possible worsening osteoarthritic changes to the spine area. 2patient did have MRI of the lumbar spine with contrast that has been suspicious for L34 discitis and phlegmon but no drainable abscess , orthopedics mentioning and no surgical intervention 3- the patient is status post CT-guided aspirate of the area with the cultures currently pending. 4patient seems to be doing well and will continue with cefepime and vancomycin with a discharge antibodies on the basis of final culture Family the bedside Questions concerned were answered in Layman terms Time with Patient: Less than 30
[2022-05-07] MEDS: RIVAROXABAN 20 MG TAB PO SCH (22:09)
[2022-05-08] MEDS: CEFEPIME 2 GM in SODIUM CHLORIDE 0.9% 100 ML IVPB SCH ×2 (00:43→08:30)
[2022-05-08] MEDS: VANCOMYCIN 1,250 MG in SODIUM CHLORIDE 0.9% 250 ML IVPB SCH (00:44)
[2022-05-08 03:40] VITALS: RESP 16
[2022-05-08] MEDS: lisinopriL 10 MG TAB PO SCH (08:30)
[2022-05-08] MEDS: FAMOTIDINE 20 MG TAB PO SCH (08:31)
[2022-05-08] MEDS: TRIAMCINOLONE 0.1% CREAM 80 GM TUBE TOPICAL SCH (08:31)
[2022-05-08] MEDS: FUROSEMIDE 20 MG TAB PO SCH (08:31)
[2022-05-08] MEDS: NYSTATIN 100,000UNIT/GM CREAM 30 GM TUBE TOPICAL SCH (08:31)
[2022-05-08] MEDS: METOPROLOL SUCCINATE (ER) 50 MG TAB.ER.24H PO SCH (08:31)
[2022-05-08] MEDS: SPIRONOLACTONE 25 MG TAB PO SCH (08:31)
[2022-05-08 08:47] VITALS: BP 157/79; PULSE 78; TEMP 97.5
[2022-05-08 09:11] LABS: African American GFR (CKD) 84.8 (60.0-200.0); Anion Gap 9.9 mmol/L (10.00-18.00); BUN/Creat Ratio 22.13 Ratio (12.00-20.00); Blood Urea Nitrogen 17.7 mg/dL (9.0-27.0); Calcium 9.8 mg/dL (8.7-10.3); Carbon Dioxide 25.1 mmol/L (20.0-27.5); Non-African American GFR(CKD) 73.1 (60.0-200.0); Potassium 4.2 mmol/L (3.5-5.5)
--- NOTE | 2022-05-08 09:12 | IR ---
PICC LINE PLACEMENT: HISTORY: Infection requiring long-term antibiotic therapy PROCEDURE: Ultrasound and fluoroscopic guidance of PICC line placement. COMPLICATIONS: None ANESTHESIA: 1. 1% Lidocaine locally. FINDINGS/TECHNIQUE: The procedure was explained to the patient. The risks, complications, benefits and alternatives were discussed and any questions were answered. Informed consent was obtained. The patient was placed supine on the fluoroscopic table and prepped and draped in the usual sterile fash ion. Utilizing a 21 gauge needle and sonographic and fluoroscopic guidance, access in the left basi lic vein was achieved and there is placement of a 0.018 guidewire. The vein is patent. A 4-F sheath was placed over the guidewire. The guidewire and dilator were removed and a 4-F. PICC line was plac ed through the sheath with the tip at the level of the SVC. The sheath was removed, the catheter was flushed and sutured into position. The patient was stable throughout the procedure and remained sta ble upon discharge from the Department of Radiology. The vein puncture was patent under ultrasound. A garcia scale image was obtained to document patency of the vein punctured. All elements of the maximal barrier technique were utilized. FLUOROSCOPY TIME: 0.1 minutes and one image submitted IMPRESSION: Successful PICC line placement under ultrasound and fluoroscopic guidance.
[2022-05-08] MEDS ORDERED: METOPROLOL SUCCINATE (ER) 50 MG TAB.ER.24H PO STA (09:14)
--- NOTE | 2022-05-08 12:56 | P.PN ---
Subjective Progress Note Date: 05/08/22 History of present illness: History of Present Illness: This is a 71-year-old female patient of Dr. Parks with a history of hypertension, COPD, nonischemic cardiomyopathy in 2016 with improved EF, chronic tobacco use. Patient was recently hospitalized in March and evaluated for Takatsubo cardiomyopathy with underlying pneumonia, UTI and bacteremia. Subsequently, patient is also been diagnosed with paroxysmal atrial fibrillation on Xarelto. Patient has been readmitted after undergoing MRI as an outpatient of the lumbar spine which was concerning for discitis L34. We've been asked to see the patient due to a run of 15 beats of V. tach last evening. Patient states she did feel a little bit of flutter in her chest. She denies having chest pain. EKG is a sinus rhythm. paper final inspector: V. tach at 4:40 pm on 05/04, otherwise sinus rhythm Echocardiogram 03/25/2022 revealed normal left ventricular size with severely impaired systolic function with segmental wall motion abnormality. Mild to moderate mitral and tricuspid regurgitation, mild pulmonary hypertension EF was 30-35%. Home Cardiac medications: Xarelto 20 mg daily (on hold for possible aspiration spine), lisinopril 5 mg daily, Cardizem 120 mg daily, Lasix 20 mg daily, Toprol- XL 25 mg daily 05/06/2022 The patient was seen and examined resting comfortably in bed. Blood pressure remains elevated despite increasing metoprolol and lisinopril. Echocardiogram with Doppler study showed mildly decreased LV systolic function with ejection fraction of 40-45%. She is overall feeling fairly well this morning. She denies any shortness of breath palpitations or chest pain. 05/07/2022 Patient was seen and examined resting comfortably in bed. She is overall feeling fairly well. She denies any shortness of breath, palpitations or chest discomfort. Renal function is stable. Her pressure is somewhat better controlled but remains on the high side. 05/08/2022 Patient denies having any chest pain or shortness of breath, no palpitations, no lightheadedness or dizziness. Patient is status post aspiration of possible abscess and cultures are in process. She has been afebrile, heart rate in the 7 0s, blood pressure 157/79. Blood pressure has consistently elevated readings. Physical Examination: This is a 71-year-old female, she is resting in bed and appears to be comfortable and in no acute distress Vital signs: Reviewed: Blood pressure 156/83, heart rate in the 60s. Blood pressure readings consistently elevated Head: Normocephalic. Eyes: Sclerae nonicteric. Neck: Good carotid upstroke, no jugular venous distention. Lungs: Decreased breath sounds bilaterally with scattered wheezes Heart: Regular rate and rhythm, S1-S2, no S3, no rub. Systolic ejection murmur. Abdomen: Soft nontender, positive bowel sounds no organomegaly. Extremities: No edema, intact distal pulses. Impression: Nonsustained ventricular tachycardia Paroxysmal atrial fibrillation Previously diagnosed nonischemic cardiomyopathy with known ejection fraction of 30-35% on last admission Acute discitis status post aspiration of abscess Hypertension COPD Tobacco use Plan: Continue Toprol-XL increased to 100 mg daily Continue other cardiac medications Patient is cleared for discharge from cardiology. Cardiology will follow on an as-needed basis. Nurse practitioner note has been reviewed, I agree with documented findings and plan of care. Patient was seen and examined. Objective - Vital Signs Vital signs: Vital Signs Temp 97.5 F L 05/08/22 08:00 Pulse 78 05/08/22 08:00 Resp 16 05/08/22 08:00 BP 157/79 05/08/22 08:00 Pulse Ox 96 05/08/22 08:00 FiO2 Intake & Output 05/07/22 05/08/22 05/08/22 18:59 06:59 18:59 Other: # Voids 5 1 - Labs CBC & Chem 7: 05/06/22 06:39 05/08/22 04:23 Labs: Abnormal Lab Results - Last 24 Hours (Table) 05/07/22 05/08/22 Range/Units 06:41 04:23 Anion Gap 9.60 L 9.90 L (10.00-18.00) mmol/L BUN/Creatinine Ratio 21.86 H 22.13 H (12.00-20.00) Ratio Microbiology - Last 24 Hours (Table) 05/02/22 21:20 Blood Culture - Preliminary Blood No Growth after 120 hours 05/02/22 21:35 Blood Culture - Preliminary Blood No Growth after 120 hours 05/05/22 10:59 Blood Culture - Preliminary Blood No Growth after 48 hours
[2022-05-08] MEDS ORDERED: CEFEPIME 2 GM in SODIUM CHLORIDE 0.9% 100 ML IVPB SCH (21:00)
[2022-05-09] MEDS ORDERED: METOPROLOL SUCCINATE (ER) 100 MG TAB.ER.24H PO SCH (09:00)
--- NOTE | 2022-05-10 19:33 | P.DS ---
Providers Date of admission: 05/02/22 22:12 Attending physician: Mckay Torres Consults: 05/02/22 22:12 Consult Physician Urgent Consulting Provider: Marilee Pineda Consult Reason/Comments: Discitis, osteomyelitis, possible early phlegmon Do you want consulting provider notified?: Yes Consult Physician Urgent Consulting Provider: Mulugeta Mcdowell Consult Reason/Comments: Discitis, osteomyelitis, possible early phlegmon Do you want consulting provider notified?: Yes 05/04/22 17:31 Consult Physician Routine Consulting Provider: [facility] Consult Reason/Comments: Run of 15 VT Do you want consulting provider notified?: Yes Primary care physician: [facility] Course: Final Diagnosis Nonsustained Ventricular tachycardia no further episodes noted on telemetry. Back stiffness/pain ongoing for the last month Discitis osteomyelitis L3-L4 s/p fine needle aspiration and cultures pending Recent hospitalization for UTI/sepsis E.Coli bacteremia treated with antibiotics Recent left ureter stent placed Recent diagnosis paroxysmal atrial fibrillation anticoagulated with xarelto Nonischemic cardiomyopathy with improved EF this admission; EF 40-45% History nephrolisthiasis Hyponatremia Hypertension History of COPD not in acute exacerbation Chronic tobacco use Full Code Discharge Disposition Patient is stable for discharge. Her blood cultures and lumbar spine aspirate culture has been negative. She does have significant elevated ESR and has been recommended to discharge on IV antibiotics, infectious disease recommend IV ceftriaxone 2 grams every 24 hours for the next 42 days. Patient has also been started on increase dose of Toprol XL to 100 mg daily and also spironolactone 25 mg po daily, lisinopril has also been increased to 10 mg twice a day. Patients blood pressure has improved. She has been resumed on xarelto. Recommended to see Dr. Pineda in the office in 3 weeks for further evaluation. She will follow with her own instructor trainer canine service Dr. Chávez and has an appointment the first week of May. She will bring her echocardiogram to appointment. Patient had placement of a left brachial PICC line this admission. Home care will follow along. Dr. Mcdowell recommend to follow inflammatory markers and will see the patient in 1 week. Hospital Course This is a 71 year old female with history of recent hospitalization for Takatsubo cardiomyopathy, pneumonia, UTI and sepsis with E.Coli bacteremia that had been treated. She also had left ureter stent placed that admission. Since discharge she reports an increase in back stiffness and has been worked up by her primary doctor. She underwent outpatient MRI that showed evidence of discitis osteomyelitis with L3-L4 severe spinal canal stenosis and possible bunching of the cauda equina possible abscess. She denies any fever or chills, denies lower extremity weakness or numbess. She reports no loss of kory or bladder. She was admitted to the hospital and underwent evaluation by Dr. Pineda with orthopedics and infectious disease. She underwent final needle aspiration of the L3 to L4 disc space and also of the surrounding soft tissue. Cultures have been negative, patient has significant elevation of her inflammatory markers and was recommended for outpatient antibiotics and had PICC line placed. During this admission she had an episode of nonsustained ventricular tachycardia and was evaluated by cardiology. Patient does have history of hypertension and also is a current smoker with COPD history. Echocardiogram reveals mildly decreased LV function EF of 40 to 45%. Cardiology increased beta hernandez to op timize blood pressure control and patient had no further episodes of nonsustained vtach. She was discharged home with PICC Line in place and recommended to complete a course of IV ceftriaxone with close follow up with infectious disease services and also orthopedics. 05/08/2022 Patient is evaluated today resting in bed with at bedside. All questions are answered. She currently is denying chest pain, denying shortness of breath. Reports improvement in back stiffness and denies back pain. She has been urinating without difficulty and reports no issues with urinary retention. Denies nausea, vomiting, or diarrhea. Her lungs are clear, S1 S2 auscultated she is maintaining sinus mechanism. Abdomen is soft and nontender. There is no focal weakness. She is alert x 3. Labs today showing sodium 135, potassium 4.2, BUN 17.7, creatinine 0.8, calcium 9.8. CRP is elevated at 2.9 and ESR is elevated at 97. She is afebrile, heart rate 78, blood pressure 157/59, 96% on room air. She will be discharged today with the above mentioned recommendations. Please see medication reconciliation for a list of current medication. Thank you for allowing us to participate in the care of this patient. The impression and plan of care has been dictated by Fany Ramirez, Nurse Practitioner as directed. Dr. Julianna MD I have performed a history and physical examination and medical decision making of this patient, discussed the same with the dictator, and agree with the dictators assessment and plan as written, documented as a scribe. Based on total visit time, I have performed more than 50% of this visit. Patient Condition at Discharge: Stable Plan - Discharge Summary New Discharge Prescriptions: New Famotidine [Pepcid] 20 mg PO BID 1 Days #60 tab Metoprolol Succinate (ER) [Toprol XL] 100 mg PO DAILY #30 tab Spironolactone [Aldactone] 25 mg PO DAILY #30 tab cefTRIAXone [Rocephin] 2 gm IVPB Q24HR 42 Days #42 each lisinopriL [Zestril] 10 mg PO BID #60 tab Continue Acetaminophen Tab [Tylenol] 1,000 mg PO Q6H PRN PRN Reason: Fever And/ Or Pain Furosemide [Lasix] 20 mg PO DAILY Rivaroxaban [Xarelto] 20 mg PO HS dilTIAZem HCL [dilTIAZem HCL 24Hr ER] 120 mg PO DAILY Discontinued Metoprolol Succinate (ER) [Toprol XL] 25 mg PO DAILY #30 tab lisinopriL [Zestril] 5 mg PO DAILY #30 tab Discharge Medication List Acetaminophen Tab [Tylenol] 1,000 mg PO Q6H PRN 03/24/22 [History] Furosemide [Lasix] 20 mg PO DAILY 05/02/22 [History] Rivaroxaban [Xarelto] 20 mg PO HS 05/02/22 [History] dilTIAZem HCL [dilTIAZem HCL 24Hr ER] 120 mg PO DAILY 05/02/22 [History] Famotidine [Pepcid] 20 mg PO BID 1 Days #60 tab 05/08/22 [Rx] Metoprolol Succinate (ER) [Toprol XL] 100 mg PO DAILY #30 tab 05/08/22 [Rx] Spironolactone [Aldactone] 25 mg PO DAILY #30 tab 05/08/22 [Rx] cefTRIAXone [Rocephin] 2 gm IVPB Q24HR 42 Days #42 each 05/08/22 [Rx] lisinopriL [Zestril] 10 mg PO BID #60 tab 05/08/22 [Rx] Follow up Appointment(s)/Referral(s): Dora Radford MD [Primary Care Provider] - 1-2 days Marilee Pineda DO [Doctor of Osteopathic Medicine] - 3 Weeks (Patient may follow-up with John Dorsey PA-C or Dr. Raúl Pineda at [facility] in 2-3 weeks following discharge. ) [employer] [NON-STAFF] - As Needed ([employer] phone number is [phone]. They will call you to set up your first visit to begin IV antibiotic teaching for tomorrow. ) [facility], [REFERRING] - As Needed ([facility] will deliver IV antibiotics and supplies this evening. They will call prior to delivery. ) Mulugeta Mcdowell MD [STAFF PHYSICIAN] - 1 Week Ambulatory/Diagnostic Orders: Basic Metabolic Panel [LAB.AMB] Location: None Selected C Reactive Protein [LAB.AMB] Location: None Selected Complete Blood Count w/diff [LAB.AMB] Location: None Selected Erythrocyte Sedimentation Rate [LAB.AMB] Location: None Selected Patient Instructions/Handouts: Osteomyelitis (DC), How to Care for Your PICC (Peripherally Inserted Central Catheter) (DC) Activity/Diet/Wound Care/Special Instructions: Continue IV ceftriaxone 2 grams daily for 6 weeks Follow up with Dr. Mcdowell on discharge Discharge Disposition: HOME WITH HOME HEALTH SERVICES
--- NOTE | 2022-05-12 22:18 | P.PN ---
Subjective Progress Note Date: 05/08/22 Principal diagnosis: L 34 discitis Patient is a 71-year-old female was recently admitted at this facility beginning of March 2022 about a month ago patient did have evidence of complicated E. coli UTI with left-sided hydronephrosis in this patient who returns for cystoscopy and stent placement patient did have a E. coli bacteremia as well patient repeat blood culture on 03/29/2022 were negative, patient presented to hospital with abnormal MRI done in the outpatient setting without contrast, suspicious for osteomyelitis, subsequently did have MRI with contrast that was suggestive of Osteomyelitis but no drainable abscess, the patient is status post CT-guided aspiration of the area for culture On today's evaluation and that is 05/08/2022, the patient continuous to be afebrile, the patient is breathing comfortably on room air, the patient denies chest pain shortness of breath or cough the patient back pain is currently controlled and denies any weakness in the leg no abdominal pain no diarrhea Objective - Vital Signs Vital signs: Vital Signs Temp 97.5 F L 05/08/22 08:00 Pulse 78 05/08/22 08:00 Resp 16 05/08/22 08:00 BP 157/79 05/08/22 08:00 Pulse Ox 96 05/08/22 08:00 FiO2 Intake & Output 05/07/22 05/08/22 05/08/22 18:59 06:59 18:59 Other: # Voids 5 1 - Exam GENERAL DESCRIPTION: An elderly female lying in bed in no distress RESPIRATORY SYSTEM: Unlabored breathing , decreased breath sounds at bases HEART: S1 S2 regular rate and rhythm , ABDOMEN: Soft , no tenderness EXTREMITIES: No edema feet - Labs CBC & Chem 7: 05/06/22 06:39 05/08/22 04:23 Labs: Abnormal Lab Results - Last 24 Hours (Table) 05/08/22 Range/Units 04:23 Anion Gap 9.90 L (10.00-18.00) mmol/L BUN/Creatinine Ratio 22.13 H (12.00-20.00) Ratio Microbiology - Last 24 Hours (Table) 05/02/22 21:20 Blood Culture - Preliminary Blood No Growth after 120 hours 05/02/22 21:35 Blood Culture - Preliminary Blood No Growth after 120 hours 05/05/22 10:59 Blood Culture - Preliminary Blood No Growth after 48 hours Assessment and Plan (1) Abnormal MRI Status: Acute Code(s): R93.89 - ABNORMAL FINDINGS ON DX IMAGING OF OTH BODY STRUCTURES SNOMED Code(s): 853875215 Plan: 1patient presented to hospital with abnormal MRI suspicious for discitis in this patient who do have a back pain since February however mentioning overall improvement in her back pain patient denies having any fever or chills did have normal white count clinically not behaving as discitis with a question of possible worsening osteoarthritic changes to the spine area. 2patient did have MRI of the lumbar spine with contrast that has been suspicious for L34 discitis and phlegmon but no drainable abscess , orthopedics mentioning and no surgical intervention 3- the patient is status post CT-guided aspirate of the area with the cultures are so for negative 4-we will discontinue cefepime and vancomycin started patient on Rocephin 2 g daily as a culture were negative for any resistant pathogen, plan is for a close outpatient follow-up and serial measurement of her sed rate and CRP if they're trending down with the Rocephin she'll be continued on Rocephin for 6 weeks with plan for a repeat MRI of the lumbar spine before completion of her antibiotic therapy this was explained to the patient in layman terms and also discuss with the patient [id number] who is a labor custodian nurse Time with Patient: Less than 30
== END 2022-05-08 14:06 | disposition home health service (06) | DRG 552 ==
LOC: EC 19:11 → 4SSUR 22:12
PROVIDERS: ADMIT Hospitalist; ATTEND Hospitalist
PROC: 0S923ZX Drainage of Lumbar Vertebral Disc, Percutaneous Approach, Diagnostic (ICD-10-PCS; principal; 2022-05-04)
PROC: 02HV33Z Insertion of Infusion Device into Superior Vena Cava, Percutaneous Approach (ICD-10-PCS; 2022-05-05)
PROC: B548ZZA Ultrasonography of Superior Vena Cava, Guidance (ICD-10-PCS; 2022-05-05)
PROC: B5181ZA Fluoroscopy of Superior Vena Cava using Low Osmolar Contrast, Guidance (ICD-10-PCS; 2022-05-05)
DX: M46.46 Discitis, unspecified, lumbar region (principal); M46.26 Osteomyelitis of vertebra, lumbar region; E87.1 Hypo-osmolality and hyponatremia; I42.8 Other cardiomyopathies; I47.20 Ventricular tachycardia, unspecified; I50.22 Chronic systolic (congestive) heart failure; G83.4 Cauda equina syndrome; M51.16 Intervertebral disc disorders with radiculopathy, lumbar region; M47.27 Other spondylosis with radiculopathy, lumbosacral region; M48.061 Spinal stenosis, lumbar region without neurogenic claudication; M47.26 Other spondylosis with radiculopathy, lumbar region; I11.0 Hypertensive heart disease with heart failure; I27.20 Pulmonary hypertension, unspecified; J44.9 Chronic obstructive pulmonary disease, unspecified; F17.210 Nicotine dependence, cigarettes, uncomplicated; M46.97 Unspecified inflammatory spondylopathy, lumbosacral region; I08.1 Rheumatic disorders of both mitral and tricuspid valves; I48.0 Paroxysmal atrial fibrillation; Z87.440 Personal history of urinary (tract) infections; Z79.01 Long term (current) use of anticoagulants; Z79.2 Long term (current) use of antibiotics; Z79.82 Long term (current) use of aspirin; Z79.899 Other long term (current) drug therapy; Z86.19 Personal history of other infectious and parasitic diseases
CPT/HCPCS: 36415; 36573; 72149; 77012; 80048; 80053; 80202; 81001; 82565; 83605; 85025; 85027; 85610; 85652; 85730; 86140; 87040; 87086; 93005; 93308; 94760; 96361; 96365; 96367; 99285

== ENCOUNTER → 2022-09-29 | Outpatient (CLI) | payer MEDICARE ==
[2022-09-29 20:45] LABS: Basophils # (A) 0.06 X 10*3/uL (0.00-0.10); Basophils % (A) 0.8 %; Eosinophils # (A) 0.11 X 10*3/uL (0.04-0.35); Eosinophils % (A) 1.5 %; HCT 40.8 % (37.2-46.3); HGB 13.2 g/dL (12.0-15.0); Immature Grans, Automated 0.7 %; Lymphocytes # (A) 2.04 X 10*3/uL (0.90-5.00); Lymphocytes % (A) 27.5 %; MCH 31.1 pg (27.0-32.0); MCHC 32.4 g/dL (32.0-37.0); Mean Platelet Volume 9.6 fL (9.5-12.2); Monocytes # (A) 0.71 X 10*3/uL (0.20-1.00); Monocytes % (A) 9.6 %; NRBC Per 100 WBC 0 /100 WBCS (0.0-0.0); Neutrophils # (A) 4.45 X 10*3/uL (1.80-7.70); Neutrophils % (A) 59.9 %; Platelet Count 447 X 10*3/uL (140-440); RBC 4.25 X 10*6/uL (4.10-5.20); RDW 13.7 % (11.5-14.5); WBC 7.42 X 10*3/uL (4.50-10.00)
[2022-09-29 21:07] LABS: African American GFR (CKD) 57.3 (60.0-200.0); Anion Gap 10.8 mmol/L (10.00-18.00); BUN/Creat Ratio 22.91 Ratio (12.00-20.00); Blood Urea Nitrogen 25.2 mg/dL (9.0-27.0); Carbon Dioxide 22.6 mmol/L (20.0-27.5); Non-African American GFR(CKD) 49.4 (60.0-200.0); Potassium 5.2 mmol/L (3.5-5.5)
[2022-09-29 21:24] LABS: Appearance,Urine Clear (Clear); Bilirubin,Urine Negative (Negative); Blood,Urine Negative (Negative); Color,Urine Yellow (Yellow); Ketones,Urine Negative (Negative); Nitrite,Urine Negative (Negative); PH, Urine 5.5 (5.0-8.0); Specific Gravity,Urine 1.007 (1.001-1.030); Urobilinogen,Urine 0.2 (0.2,1.0)
[2022-09-29 21:28] LABS: Bacteria,Urine None Seen /HPF (None Seen)
== END | disposition home or self-care (01) ==
LOC: LABPAT 10:13
PROVIDERS: ATTEND Family Medicine
DX: Z01.812 Encounter for preprocedural laboratory examination (principal); N13.30 Unspecified hydronephrosis; R31.29 Other microscopic hematuria
CPT/HCPCS: 36415; 80048; 81001; 85025; 87077; 87086; 87186

== ENCOUNTER 2022-10-13 08:50 | Day surgery (SDC) | payer MEDICARE ==
[2022-10-11 12:02] VITALS: BMI 27.2
--- NOTE | 2022-10-13 07:19 | P.HPIHPCON ---
History of Present Illness H&P Date: 10/13/22 Chief Complaint: Left hydronephrosis This is a 72-year-old female with history of left-sided hydronephrosis, initially seen on CT back in March 2022. She subsequently underwent a left- sided stent insertion at that time. Stent was subsequently removed and a follow-up Lasix renogram was performed which showed evidence of obstruction on the left side with 37% function in the left kidney. Discussed with her given the evidence of obstruction on Lasix renogram and diminished function, I do recommend proceeding with a pyeloplasty. Risks of surgery were discussed with her which include but not limited to bleeding, infection, injury to nearby organs which includes but not limited to the spleen, pancreas, bowel. Discussed also the potential of risk of injury to the kidney. Discussed also potential of recurrence even with a pyeloplasty. She understood all the risk and agreed to proceed Consent for Procedure: I have explained the operation/procedure to the patient, including the risks, benefits, side effects, alternative therapies (including not receiving the proposed treatment or service), the likelihood of the patient achieving his/her goals, and potential recuperation problems for the procedure/sedation/analgesia, as well as any blood products, if indicated. I also explained to the patient the risks, benefits and side effects of the alternatives, as well as the risks related to not receiving the proposed procedure, care, treatment, or services. Past Medical History Past Medical History: Atrial Fibrillation, COPD, Hypertension Additional Past Medical History / Comment(s): 2016 NON ISCHEMIC CARDIOMYOPATHY- EF HAS SINCE IMPROVED. PAST HX OF NON-SUSTAINED V-TACH. DISCITIS. HYDRONEPHROSIS-LEFT History of Any Multi-Drug Resistant Organisms: None Reported Past Surgical History: Joint Replacement Additional Past Surgical History / Comment(s): LEFT SIDED STENT PLACED BETWEEN KIDNEY AND BLADDER. RIGHT HIP REPLACED DUE TO HIP FX Past Anesthesia/Blood Transfusion Reactions: No Reported Reaction Past Psychological History: No Psychological Hx Reported Smoking Status: Current every day smoker Past Alcohol Use History: None Reported Past Drug Use History: None Reported - Past Family History Father Family Medical History: Myocardial Infarction (SD) Medications and Allergies Home Medications Medication Instructions Recorded Confirmed Type Rivaroxaban [Xarelto] 20 mg PO HS 05/02/22 10/11/22 History dilTIAZem HCL [dilTIAZem HCL 24Hr 120 mg PO DAILY 05/02/22 10/11/22 History ER] lisinopriL [Zestril] 10 mg PO DAILY 10/11/22 10/11/22 History Allergies Allergy/AdvReac Type Severity Reaction Status Date / Time No Known Allergies Allergy Verified 10/11/22 11:07 Surgical - Exam - General no distress, moderate pain - Eyes normal ocular movement, no pale - ENT normal nares, normal mucosa - Respiratory normal expansion, normal respiratory effort - Abdomen Abdomen: soft, non tender Assessment and Plan Assessment: All wire for left robotic pyeloplasty
[~2022-10-13 08:50] MED LIST: DEXAMETHASONE SOD PHOSPHATE 4 MG/ML 1 ML VIAL IV ONE; HYDROmorphone 0.5 MG/0.5 ML SYRINGE IVP PRN; MIDAZOLAM 2 MG/2 ML VIAL IV PRN; ONDANSETRON 4 MG/2 ML VIAL IVP ONE
[2022-10-13] MEDS: LACTATED RINGERS 1,000 ML IV SCH (09:46)
[2022-10-13] MEDS ORDERED: MIDAZOLAM 2 MG/2 ML VIAL IVP ONE (10:33)
[2022-10-13] MEDS ORDERED: fentaNYL (PF) 50 MCG/ML 2 ML AMP IVP ONE (10:33)
[2022-10-13] MEDS ORDERED: ROCURONIUM 10 MG/ML (5 ML VIAL) IV ONE (10:42)
[2022-10-13] MEDS ORDERED: SODIUM CHLORIDE 0.9% (PF) 10 ML VIAL ONE (10:42)
[2022-10-13] MEDS ORDERED: PROPOFOL 10 MG/ML 20 ML VIAL IV ONE (10:42)
[2022-10-13] MEDS ORDERED: ROPIVACAINE 5 MG/ML 30 ML VIAL ONE (10:42)
[2022-10-13] MEDS ORDERED: HYDROmorphone (PF) 1 MG/ML ONE (10:42)
[2022-10-13] MEDS ORDERED: SUCCINYLCHOLINE CHLORIDE 200 MG/10 ML VIAL IV ONE (10:42)
[2022-10-13] MEDS ORDERED: GLYCOPYRROLATE 0.2 MG/ML 2 ML VIAL ONE (10:42)
[2022-10-13] MEDS ORDERED: fentaNYL (PF) 50 MCG/ML 2 ML AMP ONE (10:42)
[2022-10-13] MEDS ORDERED: NEOSTIGMINE 1 MG/ML 10 ML VIAL ONE (10:42)
[2022-10-13] MEDS ORDERED: LIDOCAINE 2% INJ 20 MG/ML (2 ML VIAL) ONE (10:42)
[2022-10-13] MEDS ORDERED: PHENYLEPHRINE-0.9% NACL SYG 1,000 MCG/10 ML SYRINGE ONE (10:42)
[2022-10-13] MEDS ORDERED: BUPIVACAINE (PF) 0.5% 30 ML VIAL SQ ONE (11:19)
--- NOTE | 2022-10-13 11:49 | P.ANPRN ---
Procedure Note - Anesthesia - Nerve Block Performed Bilateral Erector Spinae Time Out Performed: Yes (:33) Date of Procedure: 10/13/22 Procedure Start Time: Procedure Stop Time: :39 Location of Patient: PreOp Indication: Acute Post-Operative Pain, Requested by Surgeon (Dr Rousseau) Sedation Type: Sedate with meaningful contact maintained Preparation: Sterile Prep Position: Prone Catheter: None Needle Types: Pajunk Needle Gauge: 21 Ultrasound used to visualize needle placement: Yes Ultrasound used to observe medication spread: Yes Injectate: 0.5% Ropivacaine (see comment for volume) (15cc +10cc PF Normal saline each sisde) Pain Paresthesia on Injection Noted: No Resistance on Injection: Normal Image Stored and Saved: Yes Events: Uneventful and Well Tolerated
--- NOTE | 2022-10-13 13:05 | P.OP ---
Date of Procedure: 10/13/22 Preoperative Diagnosis: Left hydronephrosis Postoperative Diagnosis: same Procedure(s) Performed: Robotic left-sided pyeloplasty Implants: 6 Fr X 28 cm stent Anesthesia: DANIELLE Surgeon: Grant Rousseau Roto Rooter Operator #1: Stephany Richard Estimated Blood Loss (ml): 25 Pathology: none sent Condition: stable Disposition: PACU Indications for Procedure: This is a 72-year-old female with history of left-sided hydronephrosis, initially seen on CT back in March 2022. She subsequently underwent a left- sided stent insertion at that time. Stent was subsequently removed and a follow-up Lasix renogram was performed which showed evidence of obstruction on the left side with 37% function in the left kidney. Discussed with her given the evidence of obstruction on Lasix renogram and diminished function, I do recommend proceeding with a pyeloplasty. Risks of surgery were discussed with her which include but not limited to bleeding, infection, injury to nearby organs which includes but not limited to the spleen, pancreas, bowel. Discussed also the potential of risk of injury to the kidney. Discussed also potential of recurrence even with a pyeloplasty. She understood all the risk and agreed to proceed Operative Findings: Significant inflammatory response involving the proximal ureter and the renal pelvis Description of Procedure: The patient was taken to the operating room . General anesthesia was induced. She was prepped and draped in sterile fashion, she was placed in modified flank position . All pressure points were padded. The abdominal insufflation was achieved with the Veress needle. A 8 mm camera port was placed. Robotic trocars and program assistant ports were placed under direct vision. The robot was docked into place. The colon was mobilized medially by incising along the white line of Toldt. Next the spleen and the pancrease were mobilized. Once the bowel, spleen and pancreas were mobilized. At this time the the ureter was visualized. Of note there was significant amount of enlarged veins surrounding the proximal portion of the ureter. In order to safely mobilize the ureter the enlarged veins were ligated using the vessel sealers. Dissection off the ureter was carried all the way up to the renal pelvis. Of note involving the UPJ and the renal pelvis there was significant inflammatory response, and the perinephric fat was fairly adherent to the renal pelvis and the UPJ which made the dissection very challenging, there was no clear anatomical plane. I was eventually able to dissect the renal pelvis and mobilize it in order to do a dismembered pyeloplasty. At this time the ureter was disconnected from the renal pelvis. The ureter was spatulated. It was noted that the UPJ was narrowed. At this time ureter was reanastomosed back to the renal pelvis using 4-0 vlock in running fashion. Ensuring that the anastomosis was done at the most dependent portion of the renal pelvis. After completing the posterior portion of the anastomosis a sensor wire was advanced through an Angiocath was placed along the lateral surface of the abdomen. The sensor wire was guided to the ureter next a ureteral stent was passed over the wire. Ensuring that the stent was advanced all the way up into the bladder. Next the anastomosis was completed. A A CARLITOS drain was placed through the lower robotic trocor incision. The robot was then de-docked . Roto Rooter Operator fascia was closed using 0 Vicryl. . Skin was closed with subcuticular sutures and dermabond. The patient was awoken from general anesthesia in stable condition. all counts were correct Please refer to the final pathology report for final diagnosis
[2022-10-13] MEDS ORDERED: KETOROLAC 15 MG/ML 1 ML VIAL IVP PRN (14:23)
[2022-10-13] MEDS ORDERED: HYDROmorphone 1 MG/ML 1 ML SYRINGE IVP PRN (14:23)
[2022-10-13] MEDS ORDERED: D5-0.45% NACL WITH KCL 20MEQ/L 1,000 ML IV SCH (14:30)
[2022-10-13] MEDS: HEPARIN SODIUM,PORCINE/PF 5,000 UNIT/0.5 ML SYRINGE SQ SCH (16:58)
[2022-10-13] MEDS: CEPHALEXIN 500 MG CAP PO SCH ×2 (16:59→22:19)
[2022-10-13] MEDS: SODIUM CHLORIDE 0.9% 1,000 ML IV SCH (16:59)
[2022-10-13 19:52] VITALS: RESP 18
[2022-10-14] MEDS: HEPARIN SODIUM,PORCINE/PF 5,000 UNIT/0.5 ML SYRINGE SQ SCH ×2 (00:11→08:29)
[2022-10-14] MEDS: SODIUM CHLORIDE 0.9% 1,000 ML IV SCH (06:08)
[2022-10-14] MEDS: CEPHALEXIN 500 MG CAP PO SCH (08:29)
[2022-10-14] MEDS ORDERED: lisinopriL 10 MG TAB PO SCH (09:00)
[2022-10-14] MEDS ORDERED: DILTIAZEM CD 120 MG CAP.ER.24H PO SCH (09:00)
[2022-10-14 09:02] VITALS: BP 116/69; PULSE 69; TEMP 98.5
--- NOTE | 2022-10-14 12:21 | P.DS ---
Providers Attending physician: Grant Rousseau MD Primary care physician: [facility] Course: 72-year-old female who underwent a robotic left pyeloplasty for UPJ obstruction yesterday. She has done well overnight. Her drainage is minimal. The drain has been removed. Her catheter is removed. She is feeling well. She will be discharged home today. She'll be on a regular diet limited activity. She will be given a prescription for [place] and she'll resume her home medications. Follow-up with in one week. Patient Condition at Discharge: Good Plan - Discharge Summary Discharge Rx Participant: Yes New Discharge Prescriptions: New HYDROcodone/APAP 5-325MG [[place] 5-325] 1 tab PO Q4HR PRN #10 tab PRN Reason: Pain No Action Rivaroxaban [Xarelto] 20 mg PO HS Cephalexin [Keflex] 500 mg PO TID dilTIAZem HCL [dilTIAZem HCL 24Hr ER] 120 mg PO DAILY lisinopriL [Zestril] 10 mg PO DAILY Discharge Medication List Rivaroxaban [Xarelto] 20 mg PO HS 05/02/22 [History] dilTIAZem HCL [dilTIAZem HCL 24Hr ER] 120 mg PO DAILY 05/02/22 [History] lisinopriL [Zestril] 10 mg PO DAILY 10/11/22 [History] Cephalexin [Keflex] 500 mg PO TID 10/13/22 [History] HYDROcodone/APAP 5-325MG [[place] 5-325] 1 tab PO Q4HR PRN #10 tab 10/14/22 [Rx] Follow up Appointment(s)/Referral(s): Grant Rousseau MD [STAFF PHYSICIAN] - 1 Week Discharge Disposition: HOME SELF-CARE
[2022-10-14] MEDS: LACTATED RINGERS 1,000 ML IV SCH (13:16)
== END 2022-10-14 15:15 | disposition home or self-care (01) ==
LOC: OR 08:50 → 4SSUR 12:58 → OR 10-14 15:15
PROVIDERS: ATTEND Urology
DX: N13.1 Hydronephrosis with ureteral stricture, not elsewhere classified (principal); I48.91 Unspecified atrial fibrillation; I10 Essential (primary) hypertension; J44.9 Chronic obstructive pulmonary disease, unspecified; F17.200 Nicotine dependence, unspecified, uncomplicated; Z79.51 Long term (current) use of inhaled steroids; Z79.899 Other long term (current) drug therapy
CPT/HCPCS: 86900; 86901; 84132; 86850; 36415; 50544; 64999; J2250; J1100; J0690; J2405; J3010; J1644 ×2

== ENCOUNTER → 2023-02-05 | Outpatient (CLI) | payer MEDICARE ==
[~2023-02-05] MED LIST changes: -DEXAMETHASONE SOD PHOSPHATE 4 MG/ML 1 ML VIAL IV ONE; +FUROSEMIDE 10 MG/ML 2 ML VIAL IV STA; -HYDROmorphone 0.5 MG/0.5 ML SYRINGE IVP PRN; -MIDAZOLAM 2 MG/2 ML VIAL IV PRN; -ONDANSETRON 4 MG/2 ML VIAL IVP ONE
--- NOTE | 2023-02-07 19:54 | NM ---
EXAMINATION TYPE: NM lasix renogram DATE OF EXAM: 02/05/2023 COMPARISON: 06/26/2022 CLINICAL INDICATION: Female, 72 years old with history of N13.30; Following administration of 9.59 mCi Tc 99m MAG3 with 20mg Lasix. Immediate images post injection FINDINGS: Left: 46.7 %. Right: 53.3 %. Max renal flow left: 3.0 minutes. Max renal flow right: 6.5 minutes. Satisfactory accumulation of radiotracer within both renal collecting systems. Moderate left-sided hy dronephrosis noted. After the administration of Lasix, there is prompt excretion from the right renal collecting system with delayed excretion from the right renal collecting system. T 1/2 left: NA minutes. T 1/2 right: 12.5 minutes. IMPRESSION: Unchanged exam, Moderate left-sided hydronephrosis with a delayed incompletely excretion. Findings villafana ggest left UPJ obstruction.
== END | disposition home or self-care (01) ==
LOC: RADNMMAIN 13:04
PROVIDERS: ATTEND Urology
DX: N13.30 Unspecified hydronephrosis (principal)
CPT/HCPCS: 78708; A9562

== ENCOUNTER 2023-12-20 19:38 | Observation (INO) | payer MEDICARE ==
[2023-12-20 20:05] LABS: Glucose,Whole Blood 109 mg/dL (70-110)
--- NOTE | 2023-12-20 20:23 | ED ---
General Adult HPI - General Chief complaint: Neuro Symptoms/Deficit Stated complaint: poss stroke Time Seen by Provider: 12/20/23 20:13 Source: patient, family, RN notes reviewed Mode of arrival: ambulatory Limitations: no limitations - History of Present Illness Initial comments: Patient is a 73-year-old female present to the emergency department with concern for right facial weakness. This was visualized by family at 620. 2 family members are present. 1 thinks symptoms have resolved and 1 thinks it remains a little bit. Patient feels like symptoms have resolved. Patient also had a little bit of drooling. Patient did drink 1 beer. No extremity weakness. No confusion. No slurred speech. No history of similar symptoms previously - Related Data Home Medications Medication Instructions Recorded Confirmed Rivaroxaban [Xarelto] 20 mg PO HS 05/02/22 10/11/22 dilTIAZem HCL [dilTIAZem HCL 24Hr 120 mg PO DAILY 05/02/22 10/11/22 ER] lisinopriL [Zestril] 10 mg PO DAILY 10/11/22 10/11/22 Cephalexin [Keflex] 500 mg PO TID 10/13/22 10/13/22 Previous Rx's Medication Instructions Recorded HYDROcodone/APAP 5-325MG [[place] 1 tab PO Q4HR PRN #10 tab 10/14/22 5-325] Allergies Allergy/AdvReac Type Severity Reaction Status Date / Time No Known Allergies Allergy Verified 10/13/22 09:18 Review of Systems ROS Statement: Those systems with pertinent positive or pertinent negative responses have been documented in the HPI. ROS Other: All systems not noted in ROS Statement are negative. Constitutional: Denies: fever Eyes: Denies: eye pain ENT: Denies: ear pain Respiratory: Denies: cough Cardiovascular: Denies: chest pain Endocrine: Denies: fatigue Gastrointestinal: Denies: abdominal pain Musculoskeletal: Denies: back pain Skin: Denies: rash Past Medical History Past Medical History: Hypertension History of Any Multi-Drug Resistant Organisms: None Reported Past Surgical History: Joint Replacement Additional Past Surgical History / Comment(s): stent placed and removed between kidney and bladder Past Anesthesia/Blood Transfusion Reactions: No Reported Reaction Past Psychological History: No Psychological Hx Reported Smoking Status: Current every day smoker Past Alcohol Use History: Daily Past Drug Use History: None Reported - Past Family History Father Family Medical History: Myocardial Infarction ([place]) General Exam Limitations: no limitations General appearance: alert, in no apparent distress Head exam: Present: normocephalic Eye exam: Present: normal appearance, PERRL, EOMI ENT exam: Present: normal oropharynx Neck exam: Present: normal inspection Respiratory exam: Present: normal lung sounds bilaterally Cardiovascular Exam: Present: regular rate, normal rhythm GI/Abdominal exam: Present: soft. Absent: tenderness Extremities exam: Present: normal inspection Neurological exam: Present: alert, oriented X3, CN II-XII intact (Questionable right lip weakness) Expanded Neurological exam: Present: protecting the airway Cranial nerves: Facial Palsy with Forehead Movement: Abnormal Right (Questionable trace weakness right lip. Normal forehead movement.) Sensory exam: Upper Extremity Light Touch: Normal, Lower Extremity Light Touch: Normal Motor strength exam: RUE: 5, LUE: 5, RLE: 5, LLE: 5 Eye Response: (4) open spontaneously Motor Response: (6) obeys commands Verbal Response: (5) oriented Psychiatric exam: Present: normal affect, normal mood Skin exam: Present: normal color Course Vital Signs 12/20/23 19:50 Temperature 98.1 F Pulse Rate 77 Respiratory 13 Rate Blood Pressure 145/76 O2 Sat by Pulse 96 Oximetry EKG Findings - EKG Results: EKG: interpreted by ERMD, sinus rhythm, normal axis, normal QRS, normal ST/T Medical Decision Making - Medical Decision Making Was pt. sent in by a medical professional or institution (, PA, SALES ORDER SPECIALIST, urgent care, hospital, or intermediate...) When possible be specific @ -[No] Did you speak to anyone other than the patient for history (EMS, parent, family, police, friend...)? What history was obtained from this source @ -Family present and helps provide history including patient drooling Did you review nursing and triage notes (agree or disagree)? Why? @ -[I reviewed and agree with nursing and triage notes] Were old charts reviewed (outside hosp., previous admission, EMS record, old EKG, old radiological studies, urgent care reports/EKG's, intermediate records)? Report findings @ -[No old charts were reviewed] Differential Diagnosis (chest pain, altered mental status, abdominal pain women, abdominal pain men, vaginal bleeding, weakness, fever, dyspnea, syncope, headache, dizziness, GI bleed, back pain, seizure, CVA, palpatations, mental health, musculoskeletal)? @ -Differential Weakness: Hypoglycemia, shock, sepsis, hyponatremia, anemia, infection, [place], ETOH, adverse medicine reaction, overdose, stroke, this is not meant to be an all-inclusive list. EKG interpreted by me (3pts min.). @ -[As above] X-rays interpreted by me (1pt min.). @ -[X-ray without acute abnormality CT interpreted by me (1pt min.). @ -Brain does not reveal obvious abnormality. This was discussed with radiologist.] U/S interpreted by me (1pt. min.). @ -[None done] What testing was considered but not performed or refused? (CT, X-rays, U/S, labs)? Why? @ -[None] What meds were considered but not given or refused? Why? @ -Patient not considered a candidate for tPA secondary to risks outweighing the benefits. NIH is 1. Symptoms improved and almost resolved Did you discuss the management of the patient with other professionals (professionals i.e. , PA, SALES ORDER SPECIALIST, lab, RT, psych nurse, social worker assistant, twisthand, teacher, corporate compliance officer, employment evaluator/case manager)? Give summary @ -Case was discussed with Dr. White who agrees patient is not a candidate for thrombolytics. Case was also discussed with Dr. Sampson who will admit covering Dr. Cam Was smoking cessation discussed for >3mins.? @ -[No] Was critical care preformed (if so, how long)? @ -31 minutes critical care time Were there social determinants of health that impacted care today? How? (Homelessness, low income, unemployed, alcoholism, drug addiction, transportation, low edu. Level, literacy, decrease access to med. care, fpc, rehab)? @ -[No] Was there de-escalation of care discussed even if they declined (Discuss DNR or withdrawal of care, Hospice)? DNR status @ -[No] What co-morbidities impacted this encounter? (DM, HTN, Smoking, COPD, CAD, Cancer, CVA, ARF, Chemo, Hep., AIDS, mental health diagnosis, sleep apnea, morbid obesity)? @ -[None] Patient reevaluated. Patient and family updated. Patient will be admitted with neurology consult. Admission orders written. Diagnosis: CVA Acute Plan for admission Risk for neurological threat. - Lab Data Result diagrams: 12/20/23 20:10 12/20/23 20:10 Lab Results 12/20/23 12/20/23 12/20/23 Range/Units 19:58 20:10 20:10 WBC 6.9 (3.8-10.6) k/uL RBC 4.32 (3.80-5.40) m/uL Hgb 14.2 (11.4-16.0) gm/dL Hct 41.7 (34.0-46.0) % MCV 96.5 (80.0-100.0) fL MCH 32.9 (25.0-35.0) pg MCHC 34.1 (31.0-37.0) g/dL RDW 12.5 (11.5-15.5) % Plt Count 354 (150-450) k/uL MPV 7.4 Neutrophils % 59 % Lymphocytes % 27 % Monocytes % 8 % Eosinophils % 4 % Basophils % 1 % Neutrophils # 4.1 (1.3-7.7) k/uL Lymphocytes # 1.9 (1.0-4.8) k/uL Monocytes # 0.6 (0-1.0) k/uL Eosinophils # 0.3 (0-0.7) k/uL Basophils # 0.0 (0-0.2) k/uL PT 10.1 (10.0-12.5) sec INR 0.9 (<1.2) APTT 25.7 (22.0-30.0) sec Sodium (137-145) mmol/L Potassium (3.5-5.1) mmol/L Chloride (98-107) mmol/L Carbon Dioxide (22-30) mmol/L Anion Gap mmol/L BUN (7-17) mg/dL Creatinine (0.52-1.04) mg/dL Est GFR (CKD-EPI)AfAm (>60 ml/min/1.73 sqM) Est GFR (CKD-EPI)NonAf (>60 ml/min/1.73 sqM) Glucose (74-99) mg/dL POC Glucose (mg/dL) 109 (70-110) mg/dL POC Glu Design Architect ID Bousley, Hilton Calcium (8.4-10.2) mg/dL Total Bilirubin (0.2-1.3) mg/dL AST (14-36) U/L ALT (4-34) U/L Alkaline Phosphatase (38-126) U/L Creatine Kinase (30-135) U/L Total Protein (6.3-8.2) g/dL Albumin (3.5-5.0) g/dL Serum Alcohol mg/dL 12/20/23 12/20/23 Range/Units 20:10 20:10 WBC (3.8-10.6) k/uL RBC (3.80-5.40) m/uL Hgb (11.4-16.0) gm/dL Hct (34.0-46.0) % MCV (80.0-100.0) fL MCH (25.0-35.0) pg MCHC (31.0-37.0) g/dL RDW (11.5-15.5) % Plt Count (150-450) k/uL MPV Neutrophils % % Lymphocytes % % Monocytes % % Eosinophils % % Basophils % % Neutrophils # (1.3-7.7) k/uL Lymphocytes # (1.0-4.8) k/uL Monocytes # (0-1.0) k/uL Eosinophils # (0-0.7) k/uL Basophils # (0-0.2) k/uL PT (10.0-12.5) sec INR (<1.2) APTT (22.0-30.0) sec Sodium 129 L (137-145) mmol/L Potassium 4.2 (3.5-5.1) mmol/L Chloride 99 (98-107) mmol/L Carbon Dioxide 19 L (22-30) mmol/L Anion Gap 11 mmol/L BUN 21 H (7-17) mg/dL Creatinine 1.01 (0.52-1.04) mg/dL Est GFR (CKD-EPI)AfAm 63 (>60 ml/min/1.73 sqM) Est GFR (CKD-EPI)NonAf 55 (>60 ml/min/1.73 sqM) Glucose 91 (74-99) mg/dL POC Glucose (mg/dL) (70-110) mg/dL POC Glu Design Architect ID Calcium 9.3 (8.4-10.2) mg/dL Total Bilirubin 0.7 (0.2-1.3) mg/dL AST 27 (14-36) U/L ALT 13 (4-34) U/L Alkaline Phosphatase 66 (38-126) U/L Creatine Kinase 57 (30-135) U/L Total Protein 6.9 (6.3-8.2) g/dL Albumin 4.2 (3.5-5.0) g/dL Serum Alcohol 47 mg/dL Critical Care Time Critical Care Time: Yes Disposition Clinical Impression: Cerebrovascular accident (CVA) Disposition: ADMITTED IP TO THIS HOSP Is patient prescribed a controlled substance at d/c from ED?: No Time of Disposition: 21:00
[2023-12-20 20:34] LABS: Basophils % (A) 1 %; Eosinophils # (A) 0.3 k/uL (0-0.7); Eosinophils % (A) 4 %; HCT 41.7 % (34.0-46.0); HGB 14.2 gm/dL (11.4-16.0); Lymphocytes # (A) 1.9 k/uL (1.0-4.8); Lymphocytes % (A) 27 %; MCH 32.9 pg (25.0-35.0); MCHC 34.1 g/dL (31.0-37.0); MCV 96.5 fL (80.0-100.0); Mean Platelet Volume 7.4; Monocytes # (A) 0.6 k/uL (0-1.0); Monocytes % (A) 8 %; Neutrophils # (A) 4.1 k/uL (1.3-7.7); Neutrophils % (A) 59 %; Platelet Count 354 k/uL (150-450); RBC 4.32 m/uL (3.80-5.40); RDW 12.5 % (11.5-15.5); WBC 6.9 k/uL (3.8-10.6)
[2023-12-20 20:49] LABS: INR 0.9 (<1.2); Partial Thromboplastin Time 25.7 sec (22.0-30.0); Prothrombin Time 10.1 sec (10.0-12.5)
--- NOTE | 2023-12-20 21:06 | CT ---
EXAMINATION TYPE: CODE STROKE: CT brain wo contr CT DLP: 1220.8 mGycm, Automated exposure control for dose reduction was used. DATE OF EXAM: 12/20/2023 8:52 PM COMPARISON: None. CLINICAL INDICATION:Female, 73 years old with history of Neuro deficit, acute, stroke suspected, faci al droop TECHNIQUE: Brain: Axial CT images of the brain were obtained with coronal and sagittal reformats created and rev iewed. Contrast used: None. Oral contrast used: None. FINDINGS: Brain: Extra-axial spaces: No abnormal extra-axial fluid collections. Partially empty sella suggested. Ventricular system: Dilatation in proportion to cerebral atrophy. Cerebral parenchyma: Cerebral atrophy. No acute intraparenchymal hemorrhage or mass effect. The garcia -white junction is well differentiated. Scattered hypoattenuating areas are seen within the white mat ter. Cerebellum: Unremarkable. Mass effect: No evidence of midline shift. Intracranial vasculature: Atherosclerotic calcifications of the intracranial vessels. Soft tissues: Normal. Calvarium/osseous structures: No depressed skull fracture. Paranasal sinuses and mastoid air cells: Large mucosal retention cyst noted within the right maxillar y sinus Visualized orbits: Orbital contents are intact. IMPRESSION: 1. No acute intracranial process. 2. Nonspecific white matter changes, likely secondary to chronic small vessel ischemic disease. 3. Partially empty sella. Findings discussed with ordering provider Dr. Austin by Dr. Sanchez at 8:57 pm on 12/20/23 over the phone.
[2023-12-20 21:18] LABS: ALT 13 U/L (4-34); AST 27 U/L (14-36); African American GFR (CKD) 63 (>60 ml/min/1.73 sqM); Albumin 4.2 g/dL (3.5-5.0); Alkaline Phosphatase 66 U/L (38-126); Anion Gap 11 mmol/L; Blood Urea Nitrogen 21 mg/dL (7-17); Calcium 9.3 mg/dL (8.4-10.2); Carbon Dioxide 19 mmol/L (22-30); Chloride 99 mmol/L (98-107); Creatine Kinase 57 U/L (30-135); Glucose 91 mg/dL (74-99); Non-African American GFR(CKD) 55 (>60 ml/min/1.73 sqM); Potassium 4.2 mmol/L (3.5-5.1); Sodium 129 mmol/L (137-145); Total Bilirubin 0.7 mg/dL (0.2-1.3); Total Protein 6.9 g/dL (6.3-8.2)
[2023-12-20] MEDS: ASPIRIN 325 MG TAB PO STA (21:21)
[2023-12-20] MEDS: SODIUM CHLORIDE 0.9% 1,000 ML IV SCH (21:21)
--- NOTE | 2023-12-20 21:26 | XR ---
EXAMINATION TYPE: XR chest 2V DATE OF EXAM: 12/20/2023 8:56 PM CLINICAL INDICATION:Female, 73 years old with history of altered mental status; [facility] COMPARISON: CT chest from 03/24/2022 TECHNIQUE: XR chest 2V Frontal view of the chest. FINDINGS: Lungs/Pleura: Mild elevation of the right hemidiaphragm obscures the right lower lung zone and portio n of the right cardiac silhouette. Prominent interstitial markings seen bilaterally likely chronic in nature. There is no evidence of pneumothorax. Pulmonary vascularity: Unremarkable. Heart/mediastinum: Cardiomediastinal silhouette is unremarkable. Musculoskeletal: No acute osseous pathology. IMPRESSION: No acute cardiopulmonary disease/process as visualized.
--- NOTE | 2023-12-20 21:33 | CT ---
EXAMINATION TYPE: CT angio head neck CT DLP: 1473.8 mGycm, Automated exposure control for dose reduction was used. DATE OF EXAM: 12/20/2023 9:15 PM COMPARISON: CT head from same day.. CLINICAL INDICATION:Female, 73 years old with history of Neuro deficit, acute, stroke suspected; PHH, facial droop TECHNIQUE: Axially acquired helical CT angiogram of the head and neck was obtained with contrast. Axi al images are supplemented with 3D reconstructions and MIP images which were post-processed at an in dependent workstation. NASCET criteria used. Contrast used:65cc mL of Isovue 370 with IV Contrast, Oral contrast used: None. FINDINGS: CTA HEAD: Please see separate CT head study from the same day for further intracranial details. The visualized portions of the internal carotid arteries, middle cerebral arteries, anterior cerebral arteries, and posterior cerebral arteries are patent. The left posterior communicator artery is hawthorne nt. The right posterior commuting artery is hypoplastic. The basilar and vertebral arteries are patent. CTA NECK: Right Carotid System: The common carotid artery and external carotid artery are patent. The carotid bifurcation demonstrate s minimal atherosclerosis with no evidence of hemodynamically significant stenosis. The remaining por tions of the internal carotid artery demonstrate normal size without significant narrowing. Left Carotid System: The common carotid artery and external carotid artery are patent. The carotid bifurcation demonstrate s minimal atherosclerosis with no evidence of hemodynamically significant stenosis. The remaining por tions of the internal carotid artery demonstrate normal size without significant narrowing. Vertebral arteries are patent without evidence hemodynamically significant stenosis. There is a three-vessel aortic arch. The origins of the great vessels are patent. No evidence of hemo dynamically significant stenosis. Upper thorax: Cardiomegaly. Mild degenerative changes of the spine. IMPRESSION: 1. No evidence of dissection of the cervical internal carotid arteries or vertebral arteries or any e vidence of significant stenosis at the carotid bifurcations. 2. No evidence of intracranial high-grade stenosis or intracranial aneurysm. 3. Cardiomegaly.
[2023-12-21] MEDS: ASPIRIN 325 MG TAB PO SCH (09:03)
--- NOTE | 2023-12-21 11:51 | P.CNNES ---
History of Present Illness Consult date: 12/21/23 Requesting physician: Wyatt Austin Reason for Consult: cva History of Present Illness: This is a 73-year-old woman who presented emergency department because of episode of right facial weakness. She stated that yesterday she was with her [id number] and they are out and she had a few drinks and at 6:20pm her [id number] felt patient had right facial weakness patient was not aware that she had weakness. She denies any upper or lower extremity weakness. She denies any speech difficulty or visual disturbance or any headache. She denies any history of stroke. She states that she takes aspirin 81 mg daily. She does have history of hypertension and she smokes half a pack a day. Denies any illicit drug use. She stated the yesterday she drank more than normal but she usually drinks very social. She feels she is doing drastically better today. Seems also when she presented to our facility she was doing drastically better. Some of the workup during this hospital visit consisted of: Sodium was 129 Serum alcohol level is 47 the normal level is less than 10 CT of the head is reported as no acute intracranial process. Nonspecific white matter changes, likely secondary due to chronic small vessel ischemic disease. Partially empty sella. I personally reviewed the CT and I agree there is no acute or subacute ischemic process. I feel the patient has a lacunar stroke over the right basal ganglia and I feel possibly appears old. CT angiography of the head and neck is reported as no evidence of dissection of cervical internal carotid artery or vertebral artery or any evidence of significant stenosis at the carotid bifurcation. No evidence of intracranial high-grade stenosis or intracranial aneurysm. Cardiomegaly Review of Systems The positive and negative as per HPI. Past Medical History Past Medical History: Hypertension History of Any Multi-Drug Resistant Organisms: None Reported Past Surgical History: Joint Replacement Additional Past Surgical History / Comment(s): stent placed and removed between kidney and bladder Past Anesthesia/Blood Transfusion Reactions: No Reported Reaction Past Psychological History: No Psychological Hx Reported Smoking Status: Never smoker Past Alcohol Use History: Occasional Past Drug Use History: None Reported - Past Family History Father Family Medical History: Myocardial Infarction ([place]) Medications and Allergies Home Medications Medication Instructions Recorded Confirmed Type dilTIAZem HCL [dilTIAZem HCL 24Hr 120 mg PO DAILY 05/02/22 12/21/23 History ER] Aspirin EC [Ecotrin Low Dose] 81 mg PO DAILY 12/21/23 12/21/23 History Losartan [Cozaar] 50 mg PO DAILY 12/21/23 12/21/23 History Allergies Allergy/AdvReac Type Severity Reaction Status Date / Time No Known Allergies Allergy Verified 10/13/22 09:18 Physical Examination - Vital Signs Vital Signs: Vital Signs Temp Pulse Pulse Resp BP BP Pulse Ox 12/21/23 08:40 97.6 F 71 16 135/74 93 L 12/21/23 04:00 97.9 F 70 16 148/85 95 12/21/23 02:00 86 16 12/20/23 23:20 97.9 F 86 16 136/77 95 12/20/23 22:12 75 20 123/65 95 12/20/23 21:37 70 16 128/65 95 12/20/23 19:50 98.1 F 77 13 145/76 96 Intake and Output 12/20/23 12/21/23 12/21/23 22:59 06:59 14:59 Intake Total 918 Balance 918 Intake: Intake, IV Titration 800 Amount Sodium Chloride 0.9% 1, 800 000 ml @ 100 mls/hr IV . Q10H [facility] Rx#:[id number] Oral 118 Other: Voiding Method Toilet # Voids 1 Weight 73.482 kg 77.6 kg GENERAL: The patient is lying in bed and is not in acute distress. NEUROLOGICAL: Higher mental function: The patient is awake, alert, oriented to self, place and time. Patient is following commands. No aphasia and no neglect. Cranial nerves: The pupils are round, equal and reactive to light and accommodation. Visual maloney are full to confrontation throughout. Extraocular movement is intact no nystagmus is noted. Facial sensation is normal to touch throughout. The facial strength is normal throughout. Hearing is normal bilaterally to hand rub. Tongue is midline and moved [id number] without any difficulty. No dysarthria is noted. Shoulder shrug is normal bilaterally. Motor: The strength is 5 over 5 throughout. Normal tone and bulk. Cerebellum: Normal finger to nose heel to sultana bilaterally. Sensation: Sensation is normal to touch throughout. Reflexes (right/left): 2+ throughout. Plantars are downgoing bilaterally. Results - Laboratory Findings CBC and BMP: 12/20/23 20:10 12/20/23 20:10 Abnormal Lab Findings: Abnormal Labs 12/20/23 20:10 Sodium 129 L Carbon Dioxide 19 L BUN 21 H Assessment and Plan Assessment: This is a 73-year-old woman who presented to the hospital on 12/20/2023 because of transit right facial weakness yesterday around 6:20 PM that was witnessed by her [id number]. Her symptoms has resolved. Likely transient ischemic attack (right facial weakness which resolved). Hypertension Tobacco use Plan: Lipid panel, 2D echo is ordered by the ED team is pending I ordered MRI of the brain Patient was started by ED team on aspirin 325mg daily (at home she is taking 81 mg) and I change it back to 81 mg daily. I also started her on Plavix 75mg daily. Commend the patient to be on dual antiplatelet of aspirin plus Plavix for 21 days and after 21 days stop aspirin but continue Plavix. I started the patient on Lipitor 40 mg nightly for secondary stroke prophylaxis Continue neurochecks Cardiac monitoring PT OT and BONDING SUPERVISOR are consulted Patient was counseled on tobacco cessation For DVT prophylaxis I started the patient on subcu heparin 5000 units every 12 hours Patient refused to remain in the hospital for further evaluation and she stated that she needs to go home and pack up for her trip. Notified the consequence of leaving AMA to the patient but insisted of leaving AMA. Plan discussed with the patient and her nurse Thank for the consultation Time with Patient: Greater than 30
[2023-12-21] MEDS: THIAMINE 100 MG TAB PO SCH (12:28)
[2023-12-21] MEDS: CLOPIDOGREL 75 MG TAB PO SCH (12:40)
--- NOTE | 2023-12-21 13:12 | CA ---
Transthoracic Echo Report Name: Samina Quevedo Age: 73 Gender: F : 1950 Exam Date: 12/21/2023 08:30 Exam Location: [facility] Ht (in): 64 Wt (lb): 162 Ordering Physician: Wyatt Austin DO Attending/Referring Phys: Tissue Coordinator Yanna Love RDCS Procedure CPT: Indications: Thrombus Cardiac Hx: Technical Quality: Good Contrast 1: Total Dose (mL): Contrast 2: Total Dose (mL): MEASUREMENTS (Male / Female) Normal Values 2D ECHO LV Diastolic Diameter PLAX 5.4 cm 4.2 - 5.9 / 3.9 - 5.3 cm LV Systolic Diameter PLAX 3.9 cm IVS Diastolic Thickness 1.0 cm 0.6 - 1.0 / 0.6 - 0.9 cm LVPW Diastolic Thickness 0.9 cm 0.6 - 1.0 / 0.6 - 0.9 cm LV Relative Wall Thickness 0.4 LVOT Diameter 2.3 cm LV Diastolic Volume MOD BP 129.0 cm??? 67 - 155 / 56 - 104 cm??? LV Systolic Volume MOD BP 55.0 cm??? 22 - 58 / 19 - 49 cm??? LV Ejection Fraction MOD BP 57.4 % >= 55 % LV Cardiac Index MOD BP 2693.4 cm???/min???m??? LV Diastolic Volume MOD 4C 123.9 cm??? LV Systolic Volume MOD 4C 51.2 cm??? LV Ejection Fraction MOD 4C 58.7 % LV Cardiac Index MOD 4C 2645.6 cm???/min???m??? LV Diastolic Length 4C 8.7 cm LV Systolic Length 4C 7.1 cm LV Diastolic Volume MOD 2C 129.7 cm??? LV Systolic Volume MOD 2C 55.0 cm??? LV Ejection Fraction MOD 2C 57.6 % LV Cardiac Index MOD 2C 2719.8 cm???/min???m??? LV Diastolic Length 2C 9.0 cm LV Systolic Length 2C 7.6 cm LA Volume 50.0 cm??? 18 - 58 / 22 - 52 cm??? LA Volume Index 27.2 cm???/m??? 16 - 28 cm???/m??? Ascending Aorta Diameter 3.7 cm DOPPLER AV Peak Velocity 146.9 cm/s AV Peak Gradient 8.6 mmHg AV Mean Velocity 94.2 cm/s AV Mean Gradient 4.0 mmHg AV Velocity Time Integral 30.1 cm LVOT Peak Velocity 96.7 cm/s LVOT Peak Gradient 3.7 mmHg LVOT Velocity Time Integral 22.6 cm LVOT Stroke Volume 91.5 cm??? LVOT Stroke Volume Index 51.1 ml/m??? LVOT Cardiac Index 3328.3 cm???/min???m??? AV Area Cont Eq vti 3.0 cm??? AV Area Cont Eq pk 2.7 cm??? MV Area PHT 5.4 cm??? Mitral E Point Velocity 43.9 cm/s Mitral A Point Velocity 71.2 cm/s Mitral E to A Ratio 0.6 MV Deceleration Time 139.8 ms TR Peak Velocity 268.1 cm/s TR Peak Gradient 28.8 mmHg Right Atrial Pressure 5.0 mmHg Pulmonary Artery Systolic Pressu 33.8 mmHg Right Ventricular Systolic Press 33.8 mmHg PV Peak Velocity 60.3 cm/s PV Peak Gradient 1.5 mmHg FINDINGS Left Ventricle Left ventricular ejection fraction is estimated at 55-60 %. Moderately increased left ventricular diastolic volume. Mildly increased left ventricular systolic volume. Left ventricular wall thickness normal. No obvious regional wall motion abnormalities. Right Ventricle Normal right ventricular size and function. Right ventricular systolic pressure within normal limits. Right Atrium Normal right atrial size. Left Atrium Normal left atrial size. Mitral Valve Structurally normal mitral valve. No evidence for mitral valve prolapse. No mitral stenosis. Trace mitral regurgitation. Aortic Valve Trileaflet aortic valve. No aortic valve stenosis or regurgitation. Tricuspid Valve Structurally normal tricuspid valve. No tricuspid stenosis. Mild tricuspid regurgitation. Pulmonic Valve Structurally normal pulmonic valve. No pulmonic regurgitation. No pulmonic stenosis. Pericardium No pericardial effusion. Aorta Normal size aortic root and proximal ascending aorta. CONCLUSIONS Diagnosis: CVA, evaluate for thrombus LVH with preserved LV size and function Normal RV size and function No significant valvular abnormality No intracardiac mass Previewed by: Dr. Jarad Briscoe MD (Electronically Signed) Final Date: 21 December 2023 13:11
--- NOTE | 2023-12-21 16:13 | P.HPIM ---
History of Present Illness H&P Date: 12/21/23 73-year-old woman who presented emergency department because of episode of right facial weakness. She stated that yesterday she was with her [id number] and they are out and she had a few drinks and at 6:20pm her [id number] felt patient had right facial weakness patient was not aware that she had weakness. She denies any upper or lower extremity weakness. She denies any speech difficulty or visual disturbance or any headache. She denies any history of stroke. She states that she takes aspirin 81 mg daily. She does have history of hypertension and she smokes half a pack a day. Denies any illicit drug use. She stated the yesterday she drank more than normal but she usually drinks very social. She feels she is doing drastically better today. Seems also when she presented to our facility she was doing drastically better. Workup completed in ED -- Sodium was 129 Serum alcohol level is 47 the normal level is less than 10 CT of the head is reported as no acute intracranial process. Nonspecific white matter changes, likely secondary due to chronic small vessel ischemic disease. Partially empty sella. I personally reviewed the CT and I agree there is no acute or subacute ischemic process. I feel the patient has a lacunar stroke over the right basal ganglia and I feel possibly appears old. CT angiography of the head and neck is reported as no evidence of dissection of cervical internal carotid artery or vertebral artery or any evidence of significant stenosis at the carotid bifurcation. No evidence of intracranial high-grade stenosis or intracranial aneurysm. Cardiomegaly Review of Systems Constitutional: Denies: fever Eyes: Denies: eye pain ENT: Denies: ear pain Respiratory: Denies: cough Cardiovascular: Denies: chest pain Endocrine: Denies: fatigue Gastrointestinal: Denies: abdominal pain Musculoskeletal: Denies: back pain Skin: Denies: rash Past Medical History Past Medical History: Hypertension History of Any Multi-Drug Resistant Organisms: None Reported Past Surgical History: Joint Replacement Additional Past Surgical History / Comment(s): stent placed and removed between kidney and bladder Past Anesthesia/Blood Transfusion Reactions: No Reported Reaction Past Psychological History: No Psychological Hx Reported Smoking Status: Never smoker Past Alcohol Use History: Occasional Past Drug Use History: None Reported - Past Family History Father Family Medical History: Myocardial Infarction (MO) Medications and Allergies Home Medications Medication Instructions Recorded Confirmed Type dilTIAZem HCL [dilTIAZem HCL 24Hr 120 mg PO DAILY 05/02/22 12/21/23 History ER] Aspirin EC [Ecotrin Low Dose] 81 mg PO DAILY 12/21/23 12/21/23 History Losartan [Cozaar] 50 mg PO DAILY 12/21/23 12/21/23 History Allergies Allergy/AdvReac Type Severity Reaction Status Date / Time No Known Allergies Allergy Verified 10/13/22 09:18 Physical Exam Vitals: Vital Signs Temp Pulse Pulse Resp BP BP Pulse Ox 12/21/23 04:00 97.9 F 70 16 148/85 95 12/21/23 02:00 86 16 12/20/23 23:20 97.9 F 86 16 136/77 95 12/20/23 22:12 75 20 123/65 95 12/20/23 21:37 70 16 128/65 95 12/20/23 19:50 98.1 F 77 13 145/76 96 Intake and Output 12/20/23 12/21/23 12/21/23 22:59 06:59 14:59 Intake Total 118 Balance 118 Intake: Oral 118 Other: Voiding Method Toilet # Voids 1 Weight 73.482 kg 77.6 kg General appearance: alert, in no apparent distress Head exam: Present: normocephalic Eye exam: Present: normal appearance, PERRL, EOMI ENT exam: Present: normal oropharynx Neck exam: Present: normal inspection Respiratory exam: Present: normal lung sounds bilaterally Cardiovascular Exam: Present: regular rate, normal rhythm GI/Abdominal exam: Present: soft. Absent: tenderness Extremities exam: Present: normal inspection Neurological exam: Present: alert, oriented X3, CN II-XII intact (Questionable right lip weakness) Psychiatric exam: Present: normal affect, normal mood Skin exam: Present: normal color Results CBC & Chem 7: 12/20/23 20:10 12/20/23 20:10 Labs: Abnormal Lab Results - Last 24 Hours (Table) 12/20/23 Range/Units 20:10 Sodium 129 L (137-145) mmol/L Carbon Dioxide 19 L (22-30) mmol/L BUN 21 H (7-17) mg/dL Thrombosis Risk Factor Assmnt - Choose All That Apply Any of the Below Risk Factors Present?: No Other Risk Factors: Yes Each Risk Factor Represents 3 Points: Age 75 years or older Other congenital or acquired thrombophilia - If yes, enter type in comment: Yes Each Risk Factor Represents 5 Points: Stroke (< 1 month) Thrombosis Risk Factor Assessment Total Risk Factor Score: 8 Thrombosis Risk Factor Assessment Level: High Risk Assessment and Plan Assessment: 1. Transient right facial weakness -Patient has been admitted to complete stroke workup--Lipid panel, 2D echo is ordered and pending -Patient has been evaluated by neurology and MRI of the brain is ordered -Patient received aspirin 325mg daily; neurology recommending to continue 81 mg daily and started her on Plavix 75mg daily; patient to be on dual antiplatelet of aspirin plus Plavix for 21 days and after 21 days stop aspirin but continue Plavix. Patient has been started on Lipitor 40 mg nightly for secondary stroke prophylaxis --Continue neurochecks per protocol -Patient remains on telemetry for cardiac monitoring PT OT and PROFESSOR OF SPECIAL EDUCATION are consulted 2. Hypertension; Cardizem 120 mg daily; Cozaar 50 mg daily 3. Hyponatremia; sodium at 129 upon arrival to ED; patient has been placed on IV fluids in form of normal saline at rate of 100 cc an hour; will monitor electrolytes closely 4. Mild CHAI; BUN elevated at 21 with creatinine of 1.01; patient remains on IV fluids; monitor strict NORY's, daily weights, renal function electrolytes, avoid nephrotoxins and hypotension 5. Elevated serum alcohol level; patient reports that they were out celebrating day prior to arrival to ED; denies any history of longstanding alcohol abuse DVT prophylaxis; SCDs/subcu heparin CODE STATUS; full code
[2023-12-21 17:05] LABS: Chol/HDL Ratio 2.74 Ratio; LDL Cholesterol,Calculated 109.7 mg/dL (0.0-131.0); VLDL Calculation 8.98 mg/dL (5.00-40.00)
[2023-12-21] MEDS: ATORVASTATIN 40 MG TAB PO SCH (20:20)
[2023-12-21] MEDS: HEPARIN SODIUM,PORCINE 5,000 UNIT/ML 1 ML VIAL SQ SCH (20:21)
[2023-12-22] MEDS: ASPIRIN 81 MG PO SCH (08:47)
[2023-12-22 11:58] LABS: Basophils % (A) 1 %; Eosinophils # (A) 0.1 k/uL (0-0.7); Eosinophils % (A) 1 %; HCT 42.8 % (34.0-46.0); Lymphocytes % (A) 15 %; MCH 31.8 pg (25.0-35.0); MCHC 32.8 g/dL (31.0-37.0); MCV 96.8 fL (80.0-100.0); Mean Platelet Volume 7.7; Monocytes # (A) 0.5 k/uL (0-1.0); Monocytes % (A) 8 %; Neutrophils # (A) 4.7 k/uL (1.3-7.7); Neutrophils % (A) 74 %; Platelet Count 381 k/uL (150-450); RBC 4.42 m/uL (3.80-5.40); RDW 12.6 % (11.5-15.5); WBC 6.4 k/uL (3.8-10.6)
[2023-12-22 12:19] LABS: African American GFR (CKD) 86 (>60 ml/min/1.73 sqM); Anion Gap 3 mmol/L; Blood Urea Nitrogen 15 mg/dL (7-17); Calcium 9.3 mg/dL (8.4-10.2); Carbon Dioxide 23 mmol/L (22-30); Chloride 106 mmol/L (98-107); Glucose 100 mg/dL (74-99); Non-African American GFR(CKD) 75 (>60 ml/min/1.73 sqM); Potassium 4.5 mmol/L (3.5-5.1); Sodium 132 mmol/L (137-145)
[2023-12-22 13:17] VITALS: BP 181/85; PULSE 72; RESP 16; TEMP 97.6
--- NOTE | 2023-12-22 13:55 | CT ---
EXAMINATION TYPE: CT brain wo con DATE OF EXAM: 12/22/2023 COMPARISON: CT 12/20/2023 HISTORY: 73-year-old female Right facial weakness TECHNIQUE: Examination was done in axial plane without intravenous contrast. Coronal and sagittal r econstructions performed. CT DLP: 1125.4 mGycm Automated exposure control for dose reduction was used. FINDINGS: There is no evidence of acute intracranial hemorrhage, acute ischemic changes, mass, mass-effect, or extra-axial fluid collection. There is no effacement of cerebral sulci or basal subarachnoid cister ns. There is no hydrocephalus. There is no midline shift. Clifford-white matter distinction is preserv ed. Moderate patchy and confluent white matter hypodensities in both cerebral hemispheres. Mild atheroscl erotic calcifications in the carotid siphons. Redemonstrated empty sella. Rightward nasal septal deviation. Redemonstrated 2.1 cm mucosal retention cyst floor of the right max illary sinus. Mastoid air cells well pneumatized. Orbits and globes are intact. IMPRESSION: Redemonstrated moderate burden of chronic small vessel ischemic disease. No acute intracranial abnorm ality seen. If concern for subtle acute ischemia, follow-up MRI.
--- NOTE | 2023-12-22 14:36 | P.PN ---
Subjective Progress Note Date: 12/22/23 I am following up with the patient and she stayed from yesterday to today hoping to obtain MRI today. Her nurse was notified that her MRI will not be done till this coming up Sunday. Patient is adamant she does not want to stay for the MRI and wants to leave. She stated she understand the consequences. She denies any new neurological issues or facial weakness. Objective - Vital Signs Vital signs: Vital Signs Temp 97.6 F 12/22/23 12:00 Pulse 72 12/22/23 12:00 Resp 16 12/22/23 12:00 BP 181/85 12/22/23 12:00 Pulse Ox 97 12/22/23 12:00 FiO2 Intake & Output 12/21/23 12/22/23 12/22/23 18:59 06:59 18:59 Intake Total 1276 540 658 Balance 1276 540 658 Weight 75.9 kg Intake: Intake, IV Titration 800 Amount Sodium Chloride 0.9% 1, 800 000 ml @ 100 mls/hr IV . Q10H [facility] Rx#:[id number] Oral 476 540 658 Other: Voiding Method Toilet Toilet # Voids 1 2 - Exam GENERAL: The patient is lying in bed and is not in acute distress. NEUROLOGICAL: Higher mental function: The patient is awake, alert, oriented to self, place and time. Patient is following commands. No aphasia and no neglect. Cranial nerves: The pupils are round, equal and reactive to light and accommodation. Visual maloney are full to confrontation throughout. Extraocular movement is intact no nystagmus is noted. Facial sensation is normal to touch throughout. The facial strength is normal throughout. Hearing is normal bilaterally to hand rub. Tongue is midline and moved [id number] without any difficulty. No dysarthria is noted. Shoulder shrug is normal bilaterally. Motor: The strength is 5 over 5 throughout. Normal tone and bulk. Cerebellum: Normal finger to nose heel to sultana bilaterally. Sensation: Sensation is normal to touch throughout. Reflexes (right/left): 2+ throughout. Plantars are downgoing bilaterally. Some of the workup during this hospital visit consisted of: Serum alcohol level is 47 the normal level is less than 10 Lipid panel is triglyceride 44, cholesterol is 187, LDL is 109, HDL 68. CT of the head is reported as no acute intracranial process. Nonspecific white matter changes, likely secondary due to chronic small vessel ischemic disease. Partially empty sella. I personally reviewed the CT and I agree there is no acute or subacute ischemic process. I feel the patient has a lacunar stroke over the right basal ganglia and I feel possibly appears old. CT angiography of the head and neck is reported as no evidence of dissection of cervical internal carotid artery or vertebral artery or any evidence of significant stenosis at the carotid bifurcation. No evidence of intracranial high-grade stenosis or intracranial aneurysm. Cardiomegaly 2D echo: Good hypertrophy with preserved left ventricular size and function. Normal right ventricular size and function. No significant valvular abnormality. No intracardiac mass. - Labs CBC & Chem 7: 12/22/23 10:42 12/22/23 10:42 Labs: Abnormal Lab Results - Last 24 Hours (Table) 12/21/23 12/22/23 Range/Units 08:29 10:42 Sodium 132 L (137-145) mmol/L Glucose 100 H (74-99) mg/dL HDL Cholesterol 68.30 H (40.00-60.00) mg/dL Assessment and Plan Assessment: This is a 73-year-old woman who presented to the hospital on 12/20/2023 because of transit right facial weakness yesterday around 6:20 PM that was witnessed by her [id number]. Her symptoms has resolved. Likely transient ischemic attack (right facial weakness which resolved). Hypertension Tobacco use Plan: Pending MRI of the brain cannot be obtained till this coming up Sunday for senior engineering technician who notified her nurse. The patient's symptoms have resolved since presentation and it has been 48 hours we will get a repeat CT of the head and recommend MRI of the brain as an outpatient. Patient does not want to stay here till Sunday since has a trip this coming up week. As stated earlier her symp toms has resolved and we will get a repeat CT of the head to assess if there is any change from prior CT. Continue her home dose ASA 81mg daily. I also started her on Plavix 75mg daily. Recommend the patient to be on dual antiplatelet of aspirin plus Plavix for 21 days and after 21 days stop aspirin but continue Plavix indefinitely. Continue Lipitor 40 mg nightly for secondary stroke prophylaxis Continue neurochecks Cardiac monitoring PT OT and EXTRACTION MACHINE OPERATOR are consulted Patient was counseled on tobacco cessation For DVT prophylaxis: On subcu heparin 5000 units every 12 hours Recommend the patient to follow-up with a neurologist as an outpatient within [address] of the head is unremarkable for any acute or subacute stroke then the patient is cleared from a neurologic perspective. Patient was notified if she continues to have symptoms to come to the hospital immediately. The plan discussed with the patient and her daughter multiple times as well as discussed the plan with her nurse. Time with Patient: Less than 30
== END 2023-12-22 16:16 | disposition home or self-care (01) ==
LOC: EC 19:38 → 3SCARD 21:01
PROVIDERS: ADMIT Internal Medicine; ATTEND Internal Medicine
DX: R29.810 Facial weakness (principal); N17.9 Acute kidney failure, unspecified; I11.9 Hypertensive heart disease without heart failure; E87.1 Hypo-osmolality and hyponatremia; F17.210 Nicotine dependence, cigarettes, uncomplicated; F10.90 Alcohol use, unspecified, uncomplicated; Y90.2 Blood alcohol level of 40-59 mg/100 ml; Z79.01 Long term (current) use of anticoagulants; Z79.82 Long term (current) use of aspirin; Z79.899 Other long term (current) drug therapy; Z71.6 Tobacco abuse counseling
CPT/HCPCS: 99291; 36415; 93005; 93306; 97161; 97165; 80061; 80053; 80048; 82550; 85025 ×2; 85610; 85730; 71046; 70496; 70450 ×2; 70498; G0378 ×3; G0480; Q9967; 80320

== ENCOUNTER → 2024-01-15 | Outpatient (CLI) | payer MEDICARE ==
--- NOTE | 2024-01-15 11:01 | MR ---
EXAMINATION TYPE: MR brain wo/w con DATE OF EXAM: 01/15/2024 10:52 AM CLINICAL INDICATION: Female, 73 years old with history of R20.0 ANESTHESIA OF SKIN; PHH, Facial droop , possible stroke COMPARISON: 12/22/2023. TECHNIQUE: Multi planar, multi sequence imaging was performed through the brain including: T1, T2, In version recovery, susceptibility weighted imaging and gradient echo imaging and Diffusion weighted im aging. The patient was then given intravenous contrast and multi planar, T1 fat-saturation images wer e obtained. IV Contrast: 7 cc Gadavist FINDINGS: The garcia-white junctions, ventricular system, basal cisterns appear unremarkable. Diffusion-weighted imaging shows no evidence of restricted diffusion to suggest acute/subacute infarct. Intracranial ar terial flow voids are maintained. Midline structures show no abnormality. Scattered foci of high T2 s ignal intensity are seen within the periventricular white matter. Some of the white matter changes ar e orthogonal to the ventricles. The susceptibility weighted images do not reveal any evidence for jarvis ro-hemorrhage. After administration of gadolinium, no abnormal enhancement is seen. The bone marrow signal is within normal limits. Paranasal sinuses and mastoid air cells: High T2 signal within the mastoid air cells right greater th an left. Right maxillary sinus retention cyst. Visualized orbits: Orbital contents are intact. IMPRESSION: 1. No evidence of intracranial mass, acute/subacute infarct, or abnormal enhancement. 2. White matter changes without evidence for active demyelination. Some are orthogonal to the lateral ventricle correlate for prior injuries versus demyelination.. 3. Trace bilateral mastoid air cell effusions. 4. Right maxillary sinus retention cyst.
== END | disposition home or self-care (01) ==
LOC: RADMRIMAIN 09:58
PROVIDERS: ATTEND Family Medicine
DX: R20.0 Anesthesia of skin
CPT/HCPCS: 70553

== ENCOUNTER → 2024-03-24 | Outpatient (CLI) | payer MEDICARE ==
--- NOTE | 2024-03-24 13:47 | MM ---
Reason for Exam: Screening (asymptomatic). Last mammogram was performed 2 year(s) and 4 month(s) ago. Patient History: Menarche at age 10. First Full-Term at age 16. Postmenopausal. 2010, Stereotactic Core Biopsy on the Right side. Maternal aunt had breast cancer, age 36. Sister had breast cancer, age 50. Risk Values: Arlen 5 year model risk: 3.9%. NCI Lifetime model risk: 8.2%. Prior Study Comparison: 08/07/2019 Bilateral Screening Mammogram, [facility]. 11/02/2020 Bilateral Screening Mammogram, [facility]. 11/30/2021 Bilateral MG 3D screening mammo w/cad, [facility]. Tissue Density: There are scattered areas of fibroglandular density. Findings: Analyzed By CAD. There is no suspicious group of microcalcifications or new suspicious mass in either breast. Stable bilateral chronic nodularity. Benign appearing calcifications. Overall Assessment: Benign, BI-RAD 2 Management: Screening Mammogram of both breasts in 1 year. . Patient should continue monthly self-breast exams. A clinical breast exam by your physician is recommended on an annual basis. This exam should not preclude additional follow-up of suspicious palpable abnormalities. Note on Arlen scores and lifetime risk: 1. A Arlen score greater than 3% is considered moderate risk. If this is the case, consider specialist referral to assess eligibility for a risk reducing agent. 2. If overall lifetime risk for the development of breast cancer is 20% or higher, the patient may qualify for future screening with alternating mammogram and breast MRI. [facility], , 03/24/2024 1:43 PM. Electronically signed and approved by: Mil Galvez M.D. Radiologis
--- NOTE | 2024-03-26 21:39 | BD ---
EXAMINATION TYPE: Axial Bone Density DATE OF EXAM: 03/24/2024 CLINICAL HISTORY: 73 years old Female. ICD-10 CODE: M81.0 Osteoporosis , Z78.0 Height: 63 in Weight: 172 lbs FRAX RISK QUESTIONS: History of Fracture in Adulthood: rt hip fx age 67 Secondary Osteoporosis: 3. Menopause before 45: age 38 Current Tobacco Use: yes RISK FACTORS HISTORY OF: Hip Fracture (Right): yes age 67 Surgery Hip(right): age 67 EXAM MEASUREMENTS: Bone mineral densitometry was performed using the [employer] System. Bone mineral density as measured about the Lumbar spine is: ----- L1-L4(G/cm2): 1.679 T Score Values are as follows: ----- L1: 1.6 ----- L2: 4.6 ----- L3: 6.1 ----- L4: 4.4 ----- L1-L4: 4.2 Z Score Values are as follows: ----- L1: 2.9 ----- L2: 5.9 ----- L3: 7.4 ----- L4: 5.8 ----- L1-L4: 5.5 Bone mineral density baseline Bone mineral density about the L hip (g/cm2): 1.013 T Score values are as follows: -----L Neck: -0.3 -----L Total: 0.0 Z Score values are as follows: -----L Neck: 1.3 -----L Total: 1.5 Bone mineral density baseline FRAX%s: The graph provided illustrates a 12.3% chance for a major osteoporotic fx and a 2.0% chance f or the hips probability for fx in 10 years time. IMPRESSION: Normal (Values between +1 and -1 indicate normal bone mass). Consider repeating this study in 5 year s or sooner if there is some new clinical indication. NOTE: T-SCORE=SD OF THE YOUNG ADULT MEAN. [facility], , 03/26/2024 9:36 PM
== END | disposition home or self-care (01) ==
LOC: RADMAMWWP 09:18
PROVIDERS: ATTEND Family Medicine
DX: Z12.31 Encounter for screening mammogram for malignant neoplasm of breast (principal); R92.323 Mammographic fibroglandular density, bilateral breasts; M81.0 Age-related osteoporosis without current pathological fracture; F17.200 Nicotine dependence, unspecified, uncomplicated; Z78.0 Asymptomatic menopausal state; Z80.3 Family history of malignant neoplasm of breast
CPT/HCPCS: 77063; 77067; 77080

== ENCOUNTER → 2024-07-18 | Outpatient (CLI) | payer MEDICARE ==
[~2024-07-18] MED LIST changes: +FUROSEMIDE 10 MG/ML 2 ML VIAL IV ONE; -FUROSEMIDE 10 MG/ML 2 ML VIAL IV STA
--- NOTE | 2024-07-18 15:31 | NM ---
EXAMINATION TYPE: NM lasix renogram DATE OF EXAM: 07/18/2024 COMPARISON: NONE CLINICAL INDICATION: Female, 73 years old with history of N13.30 HYDRONEPHROOSIS; Following administration of 10.0 mCi Tc 99m MAG3 with 20mg Lasix. Immediate images post injection FINDINGS: Left: 45.3 %. Right: 54.7 %. Max renal flow left: 4.5 minutes. Max renal flow right: 3.0 minutes. Satisfactory accumulation of radiotracer within both renal collecting systems. After the administrati on of Lasix, there is equivocal excretion of contrast. This appears more similar to a type III B curv e than a type IIIa curve resulting in an equivocal response. Abrupt excretion is not identified. Ybarra azeem, increasing contrast to suggest obstruction is not evident. T 1/2 left: NA minutes. T 1/2 right: NA minutes. IMPRESSION: Equivocal Lasix renogram results. Obstructive uropathy not apparent although good excretory response with Lasix is not present. [facility], , 07/18/2024 3:28 PM
== END | disposition home or self-care (01) ==
LOC: RADNMMAIN 12:54
PROVIDERS: ATTEND Urology
DX: N13.30 Unspecified hydronephrosis (principal)
CPT/HCPCS: 78708; A9562